=== PATIENT | female | born 1960 | race Caucasian/White ===

== ENCOUNTER → 2016-07-31 | Outpatient (CLI) | payer OTHER ==
[~2016-07-31] MED LIST: ARIP5TAB13 PO; AZIT-21 PO; BACL10TA PO; DIAZ5TAB3 PO; DICL75TA2 PO; HYDR-34 PO; HYDR-3714 PO; HYDR-3816 PO; HYDR-757 PO; LANS30CA PO; LVT.112T PO; LVT.1T PO; METO25TA PO; MTP25TSR PO; PNT40TEC PO; PRAM0.5T4 PO; PRAM0.5T9 PO; RANI150T90 PO; SERT50TA PO; SERT50TA9 PO; TRAM50TA2 PO; [UNRECOGNIZED DRUG - CODE] PO
--- OUTSIDE RECORDS SUMMARY | 2016-07-31 10:00 | XMS REPORT | Continuity of Care Document ---
Author Author [facility] Organization [facility] Address Unknown Phone Unavailable Care Team Providers Care Photographic Equipment Mechanic Name Role Phone Unknown, Unknown PCP Unavailable Source Comments Some departments are not documenting in the electronic medical record. If you do not see the information that you expected, contact Release of Information in the Health Information Management department at [phone] for further assistance in locating additional records.[facility] Active Allergies and Adverse Reactions No Known Allergies Current Medications Prescription Sig. Disp. Refills Start End Date Status Date ARIPiprazole (ABILIFY) 5 Take 5 mg by mouth daily. Active mg tablet DULoxetine DR (CYMBALTA) Take 60 mg by mouth Active 60 mg capsule daily. pregabalin (LYRICA) 50 mg Take 50 mg by mouth three Active capsule times daily. busPIRone (BUSPAR) 5 mg Take 5 mg by mouth three Active tablet times daily. busPIRone (BUSPAR) 10 mg Take 10 mg by mouth three Active tablet times daily. omeprazole DR(+) Take 40 mg by mouth Active (PRILOSEC) 40 mg capsule daily. levothyroxine (SYNTHROID) Take 112 mcg by mouth Active 112 mcg tablet daily. meloxicam(+) (MOBIC) 15 Take 15 mg by mouth Active mg tablet daily. atorvastatin (LIPITOR) 20 Take 20 mg by mouth Active mg tablet daily. docusate (COLACE) 100 mg Take 100 mg by mouth Active capsule twice daily. traMADol (ULTRAM) 50 mg Take 50 mg by mouth every Active tablet 6 hours as needed. buprenorphine (BUTRANS) Apply to top of skin as Active 20 mcg/hour PTWK directed. baclofen (LIORESAL) 10 mg Take 1 Tab by mouth three 90 Tab 5 01/27/20 Active tablet times daily. 13 other medication Take 1 Dose by mouth Active daily. atenex 25 mg 1 tab po qd gabapentin (NEURONTIN) Take 300 mg by mouth Active 300 mg capsule twice daily. hydrOXYzine (ATARAX) 25 Take 25 mg by mouth every Active mg tablet 6 hours as needed. pramipexole (MIRAPEX) Take 0.25 mg by mouth Active 0.25 mg tablet three times daily. predniSONE (DELTASONE) 20 80 mg x 10 days, then 60 60 Tab 0 11/08/19 Active mg tablet mg daily x 3 days, then 14 40 mg daily x 3 days, then 20 mg daily x 3 days, then DC diazepam (VALIUM) 5 mg Take 1 Tab by mouth every 30 Tab 1 11/08/19 Active tablet 6 hours as needed for 14 Anxiety. Active Problems Problem Noted Date Lower extremity weakness 01/26/2013 Overview: Progressive weakness with increased spasticity, and brisk reflexes. Likely multiple sclerosis given hx of vision loss on 2 separate occasions with new weakness, difficulty walking, and upper motor neuron signs on exam. Previous MRI brain non specific, borderline LP findings and slowed responses on VEP MRI of C spine shows no intrinsic cord lesions suggestive of MS. There is some stenosis present at C5,6 due to herniated disc. I think it could be enough to explain her symptoms L ast Assessment & Plan: I remain still a little uncertain about this diagnosis. However, she is having an acute worsening of symptoms- perhaps a relapse. She may benefit from a course of oral prednisone. Prednisone 80 mg x 10 days, then 60 mg daily x 3 days, then 40 mg daily x 3 days, then 20 mg daily x 3 days, then DC I would also like to get a repeat MRI of the brain. She will return to clinic after the MRI and the course of steroids. Social History Tobacco Use Types Packs/Day Years Used Date Current Every Day Smoker Cigarettes 1 Smokeless Tobacco: Never Used Tobacco Cessation: Counseling Given: Yes Comments: Alcohol Use Drinks/Week oz/Week Comments No Last Filed Vital Signs Vital Sign Reading Time Taken Blood Pressure 140/91 11/07/2013 9:57 AM CDT Pulse 83 11/07/2013 9:57 AM CDT Temperature - - Respiratory Rate - - Height 1.575 m (5' 2") 11/07/2013 9:57 AM CDT Weight 97.07 kg (214 lb) 11/07/2013 9:57 AM CDT Body Mass Index 39.13 11/07/2013 9:57 AM CDT Oxygen Saturation - - Plan of Care Health Maintenance Due Date Last Done Comments Physical (Comprehensive) 02/17/1968 Exam Pertussis Vaccine 02/17/1972 Tetanus Vaccine 1978 Cervical Cancer Screening 1982 Breast Cancer Screening 2001 Colorectal Cancer 2011 Screening Influenza Vaccine 02/13/2016 Results from Last 3 Months Not on file
--- NOTE | 2016-07-31 10:49 | Diagnostic Imaging Report ---
PROCEDURE: US Thyroid. TECHNIQUE: Multiple real-time grayscale images were obtained of the thyroid in various projections. INDICATION: Followup thyroid nodule. COMPARISON: 09/15/2010. DISCUSSION: The thyroid gland is normal in size. The right thyroid measures 4.4 x 1.6 x 1.2 cm. Left thyroid measures 4.4 x 1.1 x 1.3 cm. The thyroid gland remains diffusely heterogenous which is a nonspecific finding though can be seen with some forms of thyroiditis. There is no discrete nodule identified on today's exam. The previous nodules are no longer visualized within the left thyroid lobe. Normal color Doppler blood flow. No abnormal adjacent lymph nodes identified. IMPRESSION: 1. Diffusely heterogenous thyroid gland, stable. Previously demonstrated left thyroid nodules are no longer visualized. Dictated by: Dictated on workstation # [id number]
== END ==
LOC: RAD 09:57
PROVIDERS: ATTEND Nurse Practitioner Family
DX: E04.1 Nontoxic single thyroid nodule (principal)
CPT/HCPCS: 76536

== ENCOUNTER 2016-10-12 12:21 | Outpatient (CLI) | payer OTHER ==
[~2016-10-12] VITALS: Ht 157.5 cm; Wt 109.3 kg
[2016-10-12] MEDS ORDERED: TRIAMCINOLONE ACET (KENALOG-40) 40 MG/ML 1 ML VIAL ONE (12:28)
[2016-10-12] MEDS ORDERED: BUPIVACAINE 0.5% 30 ML (SENSORCAINE) VIAL ONE (12:28)
[2016-10-12] MEDS ORDERED: LIDOCAINE 1% INJ 20 ML (XYLOCAINE) VIAL ONE (12:28)
[2016-10-12 12:35] VITALS: BP 130/78
[2016-10-12 13:25] VITALS: BP 130/87
--- NOTE | 2016-10-12 14:30 | Pain Medicine-Procedure ---
Procedure Pre-Op/Post-Op Diagnosis Diagnosis: spondylosis without myelopathy, lumbar Indications for Operation Low back pain Attending Surgeon Pantera Procedure Date of Service: October 12, 2016 Procedure: Fluoroscopic guided right Medial Branch Block of L3 to sacral ala PROCEDURE IN DETAIL: After obtaining informed consent from the patient, the patient's chart was reviewed. The patient was then brought to the procedure room and placed in the prone position. A time out was performed. The back was prepped with antiseptic solution and under fluoroscopic guidance the patient's sacral ala on the right side was identified. 2 mL's of 1% Lidocaine was used to anesthetized the skin over the sacral ala and a 22 gauge 3.5 inch needle was advanced towards the target until bone was contacted. The junction of the superior articular processes and the transverse processes at L3-L5 on the right were then identified and the skin overlying these targets was anesthetized with 1% lidocaine. Next a 22 gauge 3.5 inch needle was inserted through the skin to the level of the lumbar medial branches under radiographic guidance. Next, after negative aspiration, a mixture of 2 mL's Bupivacaine 0.5% and 80 mg Kenalog was injected in 4 equal aliquots. CSF was negative, Paresthesia was negative, Heme was negative. All needles were then flushed with 1% lidocaine and then removed. Complications None TUCKER BARAJAS MD October 12, 2016 2:30 pm
== END 2016-10-12 13:26 | disposition home or self-care (01) ==
LOC: CARD 12:21
PROVIDERS: ATTEND Pain Medicine Pain Medicine
DX: M47.816 Spondylosis without myelopathy or radiculopathy, lumbar region (principal); Z79.899 Other long term (current) drug therapy
CPT/HCPCS: 64493; 64494; 64495

== ENCOUNTER 2016-10-19 11:58 | Outpatient (CLI) | payer OTHER ==
[~2016-10-19] VITALS: Ht 157.5 cm; Wt 84.4 kg
[2016-10-19] MEDS ORDERED: TRIAMCINOLONE ACET (KENALOG-40) 40 MG/ML 1 ML VIAL ONE (12:03)
[2016-10-19] MEDS ORDERED: LIDOCAINE 1% INJ 20 ML (XYLOCAINE) VIAL ONE (12:03)
[2016-10-19] MEDS ORDERED: BUPIVACAINE 0.5% 30 ML (SENSORCAINE) VIAL ONE (12:03)
[2016-10-19 12:16] VITALS: BP 124/67
[2016-10-19 12:57] VITALS: BP 134/73
--- NOTE | 2016-10-19 14:28 | Pain Medicine-Procedure ---
Procedure Pre-Op/Post-Op Diagnosis Diagnosis: spondylosis without myelopathy, lumbar Indications for Operation Low back pain Attending Surgeon Pantera Procedure Date of Service: October 19, 2016 Procedure: Fluoroscopic guided left Medial Branch Block of L3 to sacral ala PROCEDURE IN DETAIL: After obtaining informed consent from the patient, the patient's chart was reviewed. The patient was then brought to the procedure room and placed in the prone position. A time out was performed. The back was prepped with antiseptic solution and under fluoroscopic guidance the patient's sacral ala on the left side was identified. 2 mL's of 1% Lidocaine was used to anesthetized the skin over the sacral ala and a 22 gauge 3.5 inch needle was advanced towards the target until bone was contacted. The junction of the superior articular processes and the transverse processes at L3-L5 on the left were then identified and the skin overlying these targets was anesthetized with 1% lidocaine. Next a 22 gauge 3.5 inch needle was inserted through the skin to the level of the lumbar medial branches under radiographic guidance. Next, after negative aspiration, a mixture of 2 mL's Bupivacaine 0.5% and 80 mg Kenalog was injected in 4 equal aliquots. CSF was negative, Paresthesia was negative, Heme was negative. All needles were then flushed with 1% lidocaine and then removed. Band-Aids were applied to all the sites and the patient tolerated the procedure well and was taken to the recovery area in stable condition. Patient was discharged to home in stable condition with no new neurologic deficits. Complications None TUCKER BARAJAS MD October 19, 2016 2:28 pm
== END 2016-10-19 12:59 ==
LOC: CARD 11:58
PROVIDERS: ATTEND Pain Medicine Pain Medicine
DX: M47.816 Spondylosis without myelopathy or radiculopathy, lumbar region (principal)
CPT/HCPCS: 64493; 64494; 64495

== ENCOUNTER 2016-10-27 06:51 | Day surgery (SDC) | payer OTHER ==
[~2016-10-27] VITALS: Ht 157.5 cm; Wt 82.6 kg
[2016-10-27] VITALS (12 sets, daily range): BP systolic 103–136; BP diastolic 58–107
[2016-10-27] MEDS ORDERED: LIDOCAINE 1% INJ 20 ML (XYLOCAINE) VIAL ONE (06:59)
[2016-10-27] MEDS ORDERED: NS IV 1000 ML 1,000 ML ONE (06:59)
[2016-10-27] MEDS ORDERED: HEParin (CATH LAB) 2,000 ML IV ONE (06:59)
[2016-10-27 07:39] LABS: MEAN PLATELET VOLUME 9.6 FL (7.4-10.4); RED BLOOD COUNT 3.98 10^6/uL (4.35-5.85); RED CELL DISTRIBUTION WIDTH 12.9 % (10.0-14.5); WHITE BLOOD COUNT 9.1 10^3/uL (4.3-11.0)
[2016-10-27] MEDS ORDERED: NS IV 1000 ML 1,000 ML IV SCH ×2 (07:45→10:33)
[2016-10-27 07:49] LABS: INR 0.9 (0.8-1.4); PROTHROMBIN TIME PATIENT 12.3 SEC (12.2-14.7)
[2016-10-27 07:57] LABS: ALANINE AMINOTRANSFERASE 31 U/L (0-55); ALBUMIN 4.4 G/DL (3.2-4.5); ANION GAP 7 MMOL/L (5-14); ASPARTATE AMINO TRANSFERASE 22 U/L (5-34); BILIRUBIN,TOTAL 0.8 MG/DL (0.1-1.0); BLOOD UREA NITROGEN 14 MG/DL (7-18); BUN/CREATININE RATIO 16; CALCIUM 9.7 MG/DL (8.5-10.1); CARBON DIOXIDE 29 MMOL/L (21-32); CHLORIDE 106 MMOL/L (98-107); CHOLESTEROL 243 MG/DL (< 200); CREATININE SERUM 0.87 MG/DL (0.60-1.30); DIRECT LDL 134 MG/DL (1-129); GFR ESTIMATED > 60; GLUCOSE 93 MG/DL (70-105); POTASSIUM 3.7 MMOL/L (3.6-5.0); SODIUM 142 MMOL/L (135-145); TOTAL PROTEIN 7.4 G/DL (6.4-8.2); TRIGLYCERIDES 117 MG/DL (<150); VLDL CHOLESTEROL 23 MG/DL (5-40)
[2016-10-27] MEDS ORDERED: diphenhydrAMINE 50 MG/ML INJ (BENADRYL) ONE (09:50)
[2016-10-27] MEDS ORDERED: MIDAZOLAM 5 MG/5 ML (VERSED) VIAL ONE (09:50)
[2016-10-27] MEDS ORDERED: fentaNYL INJECTION 100 MCG/2 ML AMP ONE (09:50)
--- NOTE | 2016-10-27 10:33 | Cardiac Procedure Note-CS/ASA ---
Pre-Procedure Note Pre-Op Procedure Note H&P Reviewed The H&P was reviewed, patient examined and no changes noted. Date H&P Reviewed: October 27, 2016 Time H&P Reviewed: 10:10 Conscious Sedation Pre-Proced Time Reviewed: 10:10 ASA Class: 3 Airway Mallampati Classification: ([place] appropriate class) I. II. III, IV Lungs Heart ASA score ASA 1: a normal healthy patient ASA 2: a patient with a mild systemic disease (mid diabetes, controlled hypertension, obesity ASA 3: a patient with a severe systemic disease that limits activity (angina , COPD, prior Myocardial infarction) ASA 4: a patient with an incapacitating disease that is a constant threat to life (CHF, renal failure) ASA 5: a moribund patient not expected to survive 24 hrs. (ruptured aneurysm) ASA 6: a declared brain patient whose organs are being harvested. For emergent operations, add the letter E after the classification Grade 2 Sedation Plan: Analgesia, Amnesia, Plan communicated to team members, Discussed options with patient/fam, Discussed risks with patient/fam Note The patient is an appropriate candidate to undergo the planned procedure, sedation, and anesthesia. The patient immediately re-assessed prior to indication. ADDIE CONNOLLY MD FACP FAC CCDS October 27, 2016 10:33
[2016-10-27] MEDS ORDERED: PATIENT MAY USE OWN MEDS, ALL PO SCH (10:45)
[2016-10-27] MEDS ORDERED: FENT1PAT10 TD (10:53)
[2016-10-27] MEDS ORDERED: PRIM50TA PO (10:53)
[2016-10-27] MEDS ORDERED: OXYC-201 PO (10:53)
[2016-10-27] MEDS ORDERED: LEVO50TA6 PO (10:53)
[2016-10-27] MEDS ORDERED: ALPR0.5T7 PO (10:53)
[2016-10-27] MEDS ORDERED: SERT50TA9 PO (10:53)
[2016-10-27] MEDS ORDERED: DOCU100C37 PO ×2 (10:53)
[2016-10-27] MEDS ORDERED: BUPR300T51 PO (10:53)
[2016-10-27] MEDS ORDERED: ASPI-999 PO (11:43)
--- NOTE | 2016-10-27 11:44 | Discharge Inst-Post CATH ---
Discharge Inst-CATH Post Cardiac Cath D/C Inst Follow Up/Plan F/u with Dr Sears in 2 weeks CARDIAC CATH DISCHARGE INSTRUCTIONS *Hold Metformin for 48 hours post heart cath. ACTIVITY * Go Home directly and rest. * Limit activity of the leg (or wrist if it was used) for 7 days including aerobics, swimming, jogging, bicycling, etc. * Restrict stair-climbing for 7 days if possible, if not, climb up with your non -cath leg, then bring together on the same step. * Avoid lifting, pushing, pulling or excessive movement of the affected extremity for 7 days. * Customary sexual activity may be resumed after 2 days-use caution not to use a position that strains or causes pain to the affected extremity. * No driving for 24 hours. * NO SMOKING. * Avoid straining for bowel movements for 7 days. * Gentle walking on level ground is allowed. * Returning to work will depend on the type of procedure and the results. Your doctor will discuss this with you. CALL YOUR DOCTOR FOR ANY OF THE FOLLOWING: *If bleeding from the puncture site occurs- Apply gentle pressure to site with clean cloth and call your doctor or EMS. * If a knot or lump forms under the skin, increases in size, or causes pain. * If bruising appears to be worsening or moving further down your leg instead of disappearing. * Temperature above 101 F. CARE OF YOUR GROIN INCISION; * Bruising or purple discoloration of the skin near the puncture site is common. * You may shower only, no bathtub bathing for 5 days. Be careful to avoid slipping as your leg may feel stiff. * If a closure device was used on your femoral artery, please see the attached guide regarding care of the device and your leg. * REMOVE the dressing from your groin the next day after your procedure in the shower. CARE OF YOUR WRIST INCISION; * Bruising or purple discoloration of the skin near the puncture site is common. * You may shower. * DO NOT submerge wrist. * Remove dressing in 24 hours. ADDIE SEARS MD [facility] CCDS October 27, 2016 11:44
--- NOTE | 2016-10-27 11:45 | Discharge Inst-Cardiology ---
Discharge Inst-Cardiac Discharge Medications New Medications: Aspirin (Aspirin) 81 Mg Tab.chew 81 MG PO DAILY, #90 TAB 3 Refills Continued Medications: Alprazolam (Alprazolam) 0.5 Mg Tablet 0.5 MG PO TID PRN for ANXIETY, TAB Baclofen (Baclofen) 10 Mg Tablet 20 MG PO TID TAKES 2 (10 MG) TABLETS Bupropion HCl (Bupropion Xl) 300 Mg Tab.er.24h 300 MG PO DAILY, TAB Diazepam (Diazepam) 5 Mg Tablet 5 MG PO QID PRN for MUSCLE SPASMS DOES NOT TAKE WITH ALPRAZOLAM Docusate Sodium (Docusate Sodium) 100 Mg Capsule 100 MG PO DAILY, CAP Docusate Sodium (Docusate Sodium) 100 Mg Capsule 200 MG PO HS, CAP Fentanyl (Fentanyl Patch 75MCG) 1 Each Patch.td72 75 MCG TD Q72H, PATCH Levothyroxine Sodium (Levothyroxine Sodium) 50 Mcg Tablet 100 MCG PO DAILY, TAB TAKES 2 (50 MCG) TABLETS Oxycodone HCl/Acetaminophen (Percocet 7.5-325 mg Tablet) 1 Each Tablet 1 TAB PO QID, TAB Pantoprazole Sod (Protonix Tab) 40 Mg Tab 40 MG PO DAILY Pramipexole Di-Hcl (Pramipexole Dihydrochloride) 0.5 Mg Tablet 0.5 MG PO BID Primidone (Primidone) 50 Mg Tablet 50 MG PO HS, TAB Sertraline HCl (Sertraline HCl) 50 Mg Tablet 150 MG PO DAILY, TAB TAKES 3 (50 MG) TABLETS Orders-Post D/C & Referrals Pneu Vac Indicated: Yes ADDIE CONNOLLY MD FACP FAC CCDS October 27, 2016 11:45
[2016-10-27] MEDS ORDERED: LEVO150T6 PO (12:51)
--- NOTE | 2016-10-27 13:06 | CARDIAC CATHETERIZATION ---
DATE OF SERVICE: 10/27/2016 The patient is a 56-year-old lady who had exertional shortness of breath and near-syncope and a history of palpitations and premature ventricular contractions. Cardiac catheterization was carried out today after having obtained an informed consent. PROCEDURE: She was brought to the cardiac catheterization laboratory in a fasting state. The right groin was prepared and draped in the usual sterile fashion. Lidocaine 1% with local anesthesia; modified Seldinger technique was used to advance a 5-[place] sheath in the right femoral artery. Angiography of the right femoral artery was carried out through the sheath. A 5-[place] JL4 catheter for left coronary angiography, 5[place] JR4 catheter for left coronary angiography, 5[place] pigtail was used for left heart catheterization, left ventricular angiography. Pigtail catheter was pulled back to the aortic arch and aortic arch angiography was performed. She tolerated the procedure well. Diagnostic catheters were removed. Mynx was used to achieve hemostasis following sheath removal. HEMODYNAMICS: Left ventricular end-diastolic pressure following coronary angiography was 10 mmHg. There was no significant pressure gradient on pullback across the aortic valve. The ascending aortic pressure was 138/65 with a mean of 84 mmHg. LEFT VENTRICULAR ANGIOGRAPHY: Left ventricular angiography was carried out in the right anterior oblique projection. Global left ventricular systolic function is normal. Left ventricular ejection fraction is 65%. No significant mitral regurgitation is seen. CORONARY ANGIOGRAPHY: Right coronary calcification is seen. Left main coronary artery, left anterior descending artery, left circumflex artery, right coronary artery do not exhibit any significant obstructive disease. Right coronary artery is dominant. CONCLUSIONS: 1. Angiographically mild coronary artery disease. 2. Normal global left ventricular systolic function with an ejection fraction of 65%. 3. No regional wall motion abnormalities seen. 4. Normal left ventricular end-diastolic pressure. 5. No significant mitral regurgitation. DISCUSSION AND RECOMMENDATIONS: Based on results of this study, symptoms do not appear to be of cardiac origin. Continuing risk factor modification and outpatient followup is advised. Job ID: [id number] DocumentID: [id number] Dictated Date: 10/27/2016 10:42:05 Form Tamper Date: 10/27/2016 13:05:32 Dictated By: ADDIE CONNOLLY MD, MA, FACP, FACC,
== END 2016-10-27 13:50 | disposition home or self-care (01) ==
LOC: CATH 06:51 → SURG 11:00 → ENPENDDIS 13:40 → CATH 13:50
PROVIDERS: ATTEND Internal Medicine Cardiovascular Disease
DX: R06.02 Shortness of breath (principal); R55 Syncope and collapse; I49.3 Ventricular premature depolarization; I25.10 Atherosclerotic heart disease of native coronary artery without angina pectoris; I25.84 Coronary atherosclerosis due to calcified coronary lesion; G35 Multiple sclerosis; E66.9 Obesity, unspecified; Z68.33 Body mass index [BMI] 33.0-33.9, adult; Z87.891 Personal history of nicotine dependence; Z79.899 Other long term (current) drug therapy; Z98.84 Bariatric surgery status
CPT/HCPCS: 36415; 80053; 80061; 85027; 85610; 85730; 87081; 93458

== ENCOUNTER → 2016-11-05 | Outpatient (CLI) | payer OTHER ==
[~2016-11-05] MED LIST changes: +ALPR0.5T7 PO; +ASPI-999 PO; +BUPR300T51 PO; +DOCU100C37 PO; +FENT1PAT10 TD; +LEVO150T6 PO; +LEVO50TA6 PO; +OXYC-201 PO; +PRIM50TA PO
[2016-11-05 12:38] LABS: BASOPHILS % (AUTO) 0 % (0-10); EOSINOPHILS # (AUTO) 0.1 10^3/uL (0.0-0.3); EOSINOPHILS % (AUTO) 1 % (0-10); LYMPHOCYTES % (AUTO) 38 % (12-44); MEAN CORPUSCULAR HEMOGLOBIN 34 PG (25-34); MEAN CORPUSCULAR HGB CONC 34 G/DL (32-36); MEAN CORPUSCULAR VOLUME 101 FL (80-99); MEAN PLATELET VOLUME 9.5 FL (7.4-10.4); MONOCYTES # (AUTO) 0.4 X 10^3 (0.0-1.0); MONOCYTES % (AUTO) 6 % (0-12); NEUTROPHILS # (AUTO) 4.2 X 10^3 (1.8-7.8); NEUTROPHILS % (AUTO) 54 % (42-75); PLATELET COUNT 260 10^3/uL (130-400); WHITE BLOOD COUNT 7.8 10^3/uL (4.3-11.0)
[2016-11-05 12:55] LABS: ALBUMIN 4.5 G/DL (3.2-4.5); BILIRUBIN,TOTAL 0.7 MG/DL (0.1-1.0); CALCIUM 9.6 MG/DL (8.5-10.1); CREATININE SERUM 1.02 MG/DL (0.60-1.30); POTASSIUM 3.4 MMOL/L (3.6-5.0); TOTAL PROTEIN 7.5 G/DL (6.4-8.2)
[2016-11-05 13:16] LABS: THYROID STIMULATING HORMONE 6.4 UIU/ML (0.35-4.94)
[2016-11-06 07:41] LABS: VITAMIN D 25-HYDROXY (TOTAL) 18 ng/mL (30-100)
[2016-11-06 16:13] LABS: ENA SCREEN Negative (Negative)
== END ==
LOC: LAB 11:42
PROVIDERS: ATTEND Psychiatry & Neurology Neurology
DX: G35 Multiple sclerosis (principal)
CPT/HCPCS: 36415; 80053; 82306; 82607; 84439; 84443; 85025; 86038; 86160; 86225; 86235

== ENCOUNTER → 2016-11-13 | Outpatient (CLI) | payer OTHER ==
[~2016-11-13] MED LIST changes: +GADOBUTROL 10 MMOL/10 ML (GADAVIST) VIAL IV ONE
--- NOTE | 2016-11-13 11:10 | Diagnostic Imaging Report ---
PROCEDURE: MR imaging of the brain with and without contrast. TECHNIQUE: Multiplanar, multisequence MR imaging of the brain was performed with and without contrast. INDICATION: Multiple sclerosis. Right-sided weakness. 8 mL of Gadavist is administered intravenously. COMPARISON: MRI of 03/31/2013 is reviewed. FINDINGS: There is periventricular and deep white matter with a few juxtacortical T2 hyperintense lesions seen compatible with the provided history of multiple sclerosis. The lesions appear slightly increased compared to 2013 exam with more prominent T2 hyperintensity and increase in size particularly around the atria of the lateral ventricles posteriorly. There is no infratentorial lesion identified. No enhancing lesion is seen. No diffusion restriction to suggest an acute infarct or other diffusion abnormality. Central vascular flow-voids appear normal. The pituitary gland is normal in size. The internal auditory canals and inner ear structures appear symmetric. There is no enhancing brain mass or mass in the extra-axial space. The orbits, and the paranasal sinuses appear grossly unremarkable. IMPRESSION: When compared to 2013 exam, some of the white matter lesions demonstrate increased intensity and are slightly larger particularly around the posterior aspect of the ventricles. No enhancing lesion. No definite new lesion. Dictated by: Dictated on workstation # [id number]
--- NOTE | 2016-11-13 13:57 | Diagnostic Imaging Report ---
PROCEDURE: MR imaging cervical spine with and without contrast. TECHNIQUE: Multiplanar and multisequence MRI of the cervical spine was performed with and without contrast. INDICATION: Multiple sclerosis. 8 mL of Gadovist is administered intravenously. COMPARISON: 03/31/2013. FINDINGS: The alignment of the cervical spine at the posterior spinal line is satisfactory. There is straightening of the lordotic curvature however. The vertebral body heights are preserved. There is disc desiccation at all levels moderate disc height loss at C5-C6. The foramen magnum and upper cervical canal are widely patent. C2-C3: No disc herniation, no spinal canal or foraminal stenosis. C3-C4: No disc herniation, no spinal canal or foraminal stenosis. C4-C5: There is a mild disc spur complex with no significant spinal canal stenosis. No foraminal stenosis of significance. C5-C6: There is a spur disc complex associated with [id number] central canal stenosis reducing the AP dimension of the canal to 8.4 mm. There is no cord compression. There is uncovertebral and facet joint hypertrophy more prominent on the left side associated with moderate left foraminal stenosis. Mild foraminal stenosis on the right side is seen. C6-C7: There is a mild spur disc complex with no central canal stenosis. No foraminal narrowing of significance. C7-T1 is unremarkable. The spinal cord is normal in caliber. There is no syrinx. There are mild T2 hyperintense signal abnormalities seen along the [id number] spinal cord. These are very subtle findings on T2-weighted images and are better appreciated on axial MERGE sequence. There are lesions questioned in the spinal cord previously also seen in 2013 exam, the most prominent at C2 level on sagittal reconstructions extending approximately 8 mm craniocaudally within the dorsal column. Based on level to level comparison on the axials, there is perhaps slight increase in the size of these lesions. The visualized portion of the upper aspect of the thoracic cord appears normal. There is no definitive enhancement when the axial and sagittal post contrast images are correlated. Slight hyperintensities on the sagittal post contrast images not reproduced on the axials are perhaps artifactual. IMPRESSION: Suggestion of multiple subtle demyelinating plaques in white matter tracts along the upper and mid segments of the cervical spinal cord appear slightly more prominent compared to 2013 exam. No definite enhancing lesion. Dictated by: Dictated on workstation # [id number]
--- NOTE | 2016-11-13 15:51 | Anesthesia-Procedure Note ---
Procedure Start/Stop Time Date of Procedure: Nov 13, 2016 Start Time: 12:20 Referring Physician: Dr. Calvo Preprocedural Diagnosis: MS Brief History Pt sent here for Lumbar Puncture. MRI Brain today showed no contraindication for LP. Plt count WNL. +/- LP discussed with pt, ?'s answered and consent signed. Left lateral decub pos'n. Sterile P/D with ChloraPrep. 2 mL 1% lidocaine for local at L3-4 level. 22 G Pencan needle used, + clear CSF after needle redirect times 2. Opening pressure of 19 cm CSF noted. 2-3 mL CSF times 4 vials sent to lab per Dr. Calvo's orders. Sterile bandage applied. Pt tolerated procedure well. Discussed symptoms of PDPH with pt and encouraged fluids caffeine if she notes these symptoms. She understood and agreed. Will be available if needed. Stop Time: 12:40 Postprocedural Diagnosis: DEJAN THOMPSON DO Nov 13, 2016 15:51
== END ==
LOC: RAD 09:08
PROVIDERS: ATTEND Psychiatry & Neurology Neurology
DX: G35 Multiple sclerosis (principal)
CPT/HCPCS: 70553; 72156

== ENCOUNTER → 2016-12-18 | Outpatient (CLI) | payer OTHER ==
[~2016-12-18] MED LIST changes: -GADOBUTROL 10 MMOL/10 ML (GADAVIST) VIAL IV ONE
--- NOTE | 2016-12-21 19:00 | Diagnostic Imaging Report ---
Bilateral screening mammogram. The current study was also evaluated with a Computer Aided Detection (CAD) system. INDICATION: Screening. No current complaints stated on the questionnaire. COMPARISON: 12/13/12 FINDINGS: The breasts are composed of scattered fibroglandular densities. There are occasional benign-appearing calcifications. Allowing for technique and positional differences, no suspicious change is seen. IMPRESSION: No significant change. ACR BI-RADS Category 2: Benign findings. Result letter will be mailed to the patient. Note: At least 10% of breast cancer is not imaged by mammography. Dictated by: Dictated on workstation # [id number]
== END ==
LOC: RAD 13:10
PROVIDERS: ATTEND Nurse Practitioner Family
DX: Z12.31 Encounter for screening mammogram for malignant neoplasm of breast (principal)
CPT/HCPCS: 77067

== ENCOUNTER 2017-01-02 15:19 | Emergency (ER) | payer OTHER ==
[~2017-01-02] VITALS: Ht 157.5 cm; Wt 81.6 kg
[2017-01-02 17:07] LABS: BASOPHILS % (AUTO) 0 % (0-10); EOSINOPHILS # (AUTO) 0.1 10^3/uL (0.0-0.3); EOSINOPHILS % (AUTO) 2 % (0-10); LYMPHOCYTES # (AUTO) 2.9 X 10^3 (1.0-4.0); LYMPHOCYTES % (AUTO) 38 % (12-44); MEAN CORPUSCULAR HEMOGLOBIN 35 PG (25-34); MEAN CORPUSCULAR HGB CONC 35 G/DL (32-36); MEAN CORPUSCULAR VOLUME 103 FL (80-99); MEAN PLATELET VOLUME 10.4 FL (7.4-10.4); MONOCYTES # (AUTO) 0.5 X 10^3 (0.0-1.0); MONOCYTES % (AUTO) 7 % (0-12); NEUTROPHILS % (AUTO) 53 % (42-75); PLATELET COUNT 237 10^3/uL (130-400); RED BLOOD COUNT 3.47 10^6/uL (4.35-5.85); RED CELL DISTRIBUTION WIDTH 12.4 % (10.0-14.5); WHITE BLOOD COUNT 7.6 10^3/uL (4.3-11.0)
--- NOTE | 2017-01-02 17:11 | ED General ---
General Chief Complaint: Dizziness/Syncope Stated Complaint: FATIGUE/DIFF WALKING/[facility] Nursing Triage Note: pt reports she has ms and that today it has started to flair up. pt reports she sees a neurologist at the [facility] in [facility] and he has requested she come to the hospital for treatment. 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 She states that she has had MS for about 8 years. She had a long period of quiessence and then had an episode about 1 month ago. She then had resolution but another episode today. She states that she has noted difficulties in her vision. This has caused her to question the wisdom of driving. She is concerned that recent stress in her life may be contributing to these symptoms. She reports that she has new TWIN grandchildren and her son just got . Today she also complains of heaviness in her legs which is caused her difficulty in walking. She feels slow mentally as well. Timing/Duration: 4-6 Hours Severity: Moderate Allergies and Home Medications Allergies Coded Allergies: gabapentin (Verified Allergy, Unknown, 10/27/16) nitrofurantoin (Verified Allergy, Unknown, 01/02/17) Home Medications Alprazolam 0.5 Mg Tablet, 0.5 MG PO TID PRN for ANXIETY, (Reported) Aspirin 81 Mg Tab.chew, 81 MG PO DAILY, #90 Ref 3 Prescribed by: ADDIE CONNOLLY on 10/27/16 1143 Baclofen 10 Mg Tablet, 20 MG PO TID, (Reported) TAKES 2 (10 MG) TABLETS Bupropion HCl 300 Mg Tab.er.24h, 300 MG PO DAILY, (Reported) Diazepam 5 Mg Tablet, 5 MG PO QID PRN for MUSCLE SPASMS, (Reported) DOES NOT TAKE WITH ALPRAZOLAM Docusate Sodium 100 Mg Capsule, 100 MG PO DAILY, (Reported) Docusate Sodium 100 Mg Capsule, 200 MG PO HS, (Reported) Fentanyl 1 Each Patch.td72, 75 MCG TD Q72H, (Reported) Levothyroxine Sodium 150 Mcg Tablet, 150 MCG PO DAILY, (Reported) Oxycodone HCl/Acetaminophen 1 Each Tablet, 1 TAB PO QID, (Reported) Pantoprazole Sod 40 Mg Tab, 40 MG PO DAILY, (Reported) Pramipexole Di-Hcl 0.5 Mg Tablet, 0.5 MG PO BID, (Reported) Primidone 50 Mg Tablet, 50 MG PO HS, (Reported) Sertraline HCl 50 Mg Tablet, 150 MG PO DAILY, (Reported) TAKES 3 (50 MG) TABLETS Constitutional: see HPI EENTM: blurred vision, see HPI Respiratory: no symptoms reported Cardiovascular: no symptoms reported Gastrointestinal: no symptoms reported Genitourinary: no symptoms reported Musculoskeletal: muscle weakness Skin: no symptoms reported Psychiatric/Neurological: Anxiety, Weakness Hematologic/Lymphatic: No Symptoms Reported Immunological/Allergic: no symptoms reported Past Wspnzjn-Yasjuu-Bdqvqc Hx Patient Social History Alcohol Use: Denies Use Recreational Drug Use: No Smoking Status: Former Smoker Type Used: Cigarettes Former Smoker/When Quit: Mar 22, 2013 Recent Foreign Travel: No Contact w/Someone Who Travel: No Recent Infectious Disease Expo: No Recent Hopitalizations: No Immunizations Up To Date Tetanus Booster (TDap): More than 5yrs PED Vaccines UTD: Yes Seasonal Allergies Seasonal Allergies: No Surgeries HX Surgeries: Yes (RIGHT CARPAL TUNNEL) Surgeries: Hysterectomy Respiratory Hx Respiratory Disorders: No Cardiovascular Hx Cardiac Disorders: Yes (PVC'S) Cardiac Disorders: Hypertension Neurological Hx Neurological Disorders: Yes Neurological Disorders: Headaches /Migraines, Multiple Sclerosis Reproductive System Hx Reproductive Disorders: No Sexually Transmitted Disease: No HIV/AIDS: No Genitourinary Hx Genitourinary Disorders: No Gastrointestinal Hx Gastrointestinal Disorders: Yes Gastrointestinal Disorders: Gastroesophageal Reflux, Ulcer Musculoskeletal Hx Musculoskeletal Disorders: Yes (BONE SPUR NECK) Musculoskeletal Disorders: Degenerate Disk Disease, Chronic Back Pain Endocrine Hx Endocrine Disorders: Yes (PATIENT STATES HYPOGLYCEMIC) Endocrine Disorders: Hypothyroidsim HEENT HX ENT Disorders: Yes (OPTICAL NEPHRITIS RIGHT EYE) Loss of Vision: Right Hearing Impairment: Denies Cancer Hx Cancer: No Psychosocial Hx Psychiatric Problems: Yes (PANIC ATTACKS) Behavioral Health Disorders: Anxiety, Depression Integumentary HX Skin/Integumentary Disorder: No Blood Transfusions Hx Blood Disorders: No Adverse Reaction to a Blood Tr: No Family Medical History Family Medial History: Alzheimer's disease 19 FATHER Cardiovascular disease 19 FATHER Dementia G8 SISTER Diabetes mellitus 19 FATHER 19 MOTHER G8 SISTER Glaucoma 19 MOTHER Hypertension 19 MOTHER Physical Exam Vital Signs Vital Sign - Last 12Hours 01/02/17 15:56 Temp 97.9 Pulse 87 Resp 18 B/P (MAP) 125/78 Pulse Ox 98 O2 Delivery Room Air Capillary Refill : Less Than 3 Seconds General Appearance: Mild Distress Eyes: Bilateral Eye Normal Inspection, Bilateral Eye PERRL HEENT: Normal ENT Inspection Neck: Normal Inspection Respiratory: Chest Non Tender, Lungs Clear, Normal Breath Sounds, No Accessory Muscle Use, No Respiratory Distress Cardiovascular: Regular Rate, Rhythm, No Edema, No Gallop, No JVD, No Murmur, Normal Peripheral Pulses Gastrointestinal: Normal Bowel Sounds, No Organomegaly, No Pulsatile Mass, Non Tender, Soft Back: Normal Inspection Extremity: Normal Capillary Refill, Normal Inspection, Non Tender, No Calf Tenderness, No Pedal Edema Neurologic/Psychiatric: Alert, Oriented x3, Normal 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 The patient was able to elevate the right heel from the bed on straight leg lift at about 6 inches. The left at18 inches. Progress/Results/Core Measures Results/Orders Lab Results Laboratory Tests Test 01/02/17 17:00 Range/Units White Blood Count 7.6 4.3-11.0 10^3/uL Red Blood Count 3.47 L 4.35-5.85 10^6/uL Hemoglobin 12.3 11.5-16.0 G/DL Hematocrit 36 35-52 % Mean Corpuscular Volume 103 H 80-99 FL Mean Corpuscular Hemoglobin 35 H 25-34 PG Mean Corpuscular Hemoglobin Concent 35 32-36 G/DL Red Cell Distribution Width 12.4 10.0-14.5 % Platelet Count 237 130-400 10^3/uL Mean Platelet Volume 10.4 7.4-10.4 FL Neutrophils (%) (Auto) 53 42-75 % Lymphocytes (%) (Auto) 38 12-44 % Monocytes (%) (Auto) 7 0-12 % Eosinophils (%) (Auto) 2 0-10 % Basophils (%) (Auto) 0 0-10 % Neutrophils # (Auto) 4.0 1.8-7.8 X 10^3 Lymphocytes # (Auto) 2.9 1.0-4.0 X 10^3 Monocytes # (Auto) 0.5 0.0-1.0 X 10^3 Eosinophils # (Auto) 0.1 0.0-0.3 10^3/uL Basophils # (Auto) 0.0 0.0-0.1 10^3/uL Sodium Level 143 135-145 MMOL/L Potassium Level 3.6 3.6-5.0 MMOL/L Chloride Level 109 H 98-107 MMOL/L Carbon Dioxide Level 24 21-32 MMOL/L Anion Gap 10 5-14 MMOL/L Blood Urea Nitrogen 11 7-18 MG/DL Creatinine 0.82 0.60-1.30 MG/DL Estimat Glomerular Filtration Rate > 60 BUN/Creatinine Ratio 13 Glucose Level 92 70-105 MG/DL Calcium Level 9.2 8.5-10.1 MG/DL Total Bilirubin 0.5 0.1-1.0 MG/DL Aspartate Amino Transf (AST/SGOT) 30 5-34 U/L Alanine Aminotransferase (ALT/SGPT) 27 0-55 U/L Alkaline Phosphatase 62 40-136 U/L Total Protein 6.8 6.4-8.2 GM/DL Albumin 3.9 3.2-4.5 GM/DL Vital Signs/I&O Vital Sign - Last 12Hours 01/02/17 15:56 Temp 97.9 Pulse 87 Resp 18 B/P (MAP) 125/78 Pulse Ox 98 O2 Delivery Room Air Blood Pressure Mean: 94 Departure Communication Progress Notes Discussed with , neurologist with the [facility]. He was familiar with the patient. He recommended 1 g of methylprednisolone IV daily for 3 days. He a from that this can be done as an outpatient. 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 Impression Impression: Primary Impression: multiple sclerosis flareup Disposition: HOME, SELF-CARE Condition: Stable/Unchanged Departure-Patient Inst. Referrals: ELVIA BECKER MD (PCP/Family) Primary Care Physician VIOLA PAK MD Jan 02, 2017 17:11
[2017-01-02 17:24] LABS: ALANINE AMINOTRANSFERASE 27 U/L (0-55); ALBUMIN 3.9 GM/DL (3.2-4.5); ANION GAP 10 MMOL/L (5-14); ASPARTATE AMINO TRANSFERASE 30 U/L (5-34); BILIRUBIN,TOTAL 0.5 MG/DL (0.1-1.0); BLOOD UREA NITROGEN 11 MG/DL (7-18); BUN/CREATININE RATIO 13; CALCIUM 9.2 MG/DL (8.5-10.1); CARBON DIOXIDE 24 MMOL/L (21-32); CHLORIDE 109 MMOL/L (98-107); CREATININE SERUM 0.82 MG/DL (0.60-1.30); GFR ESTIMATED > 60; GLUCOSE 92 MG/DL (70-105); POTASSIUM 3.6 MMOL/L (3.6-5.0); SODIUM 143 MMOL/L (135-145); TOTAL PROTEIN 6.8 GM/DL (6.4-8.2)
[2017-01-02] MEDS ORDERED: METH1000 IV (17:49)
[2017-01-02 20:11] VITALS: BP 125/78
[2017-01-03] MEDS ORDERED: methylPREDNISolone SOD SUCC 1,000 MG in NS (IVPB) 100 ML IV ONE (09:00)
== END 2017-01-02 20:11 | disposition home or self-care (01) ==
LOC: EDUNIT# 15:19 → ER 15:21
DX: G35 Multiple sclerosis (principal); F41.0 Panic disorder [episodic paroxysmal anxiety]; F32.9 Major depressive disorder, single episode, unspecified; M47.9 Spondylosis, unspecified; G43.909 Migraine, unspecified, not intractable, without status migrainosus; I10 Essential (primary) hypertension; Z90.710 Acquired absence of both cervix and uterus; Z79.82 Long term (current) use of aspirin; Z87.891 Personal history of nicotine dependence
CPT/HCPCS: 36415; 80053; 85025; 93005; 96365

== ENCOUNTER 2017-01-04 16:05 | Outpatient (RCR) | payer OTHER ==
[2017-01-03 17:49] VITALS: BP 111/71
[2017-01-03] MEDS: Solu-MEDROL 1000 MG/NS 100 ML (DAILY) IV SCH ×2 (18:20)
[~2017-01-04] VITALS: Ht 157.5 cm; Wt 80.9 kg
[2017-01-04] MEDS: Solu-MEDROL 1000 MG/NS 100 ML (DAILY) IV SCH ×2 (16:01)
[~2017-01-04 16:05] MED LIST changes: +METH1000 IV; +methylPREDNISolone 125 MG (Solu-MEDROL) VIAL ONE
[2017-01-04 16:08] VITALS: BP 126/63
== END 2017-03-13 | disposition home or self-care (01) ==
LOC: 4TH RCR 16:05
PROVIDERS: ATTEND Internal Medicine
DX: G35 Multiple sclerosis (principal)
CPT/HCPCS: 96365

== ENCOUNTER → 2017-01-20 | Outpatient (CLI) | payer OTHER ==
[~2017-01-20] MED LIST changes: -methylPREDNISolone 125 MG (Solu-MEDROL) VIAL ONE
[2017-01-20 07:01] LABS: MEAN PLATELET VOLUME 9.6 FL (7.4-10.4); RED BLOOD COUNT 3.35 10^6/uL (4.35-5.85); RED CELL DISTRIBUTION WIDTH 12.5 % (10.0-14.5); WHITE BLOOD COUNT 6.8 10^3/uL (4.3-11.0)
[2017-01-20 07:20] LABS: ALANINE AMINOTRANSFERASE 18 U/L (0-55); ALBUMIN 3.8 GM/DL (3.2-4.5); ANION GAP 9 MMOL/L (5-14); ASPARTATE AMINO TRANSFERASE 18 U/L (5-34); BILIRUBIN,TOTAL 0.6 MG/DL (0.1-1.0); BLOOD UREA NITROGEN 16 MG/DL (7-18); BUN/CREATININE RATIO 18; CALCIUM 9.2 MG/DL (8.5-10.1); CARBON DIOXIDE 29 MMOL/L (21-32); CHLORIDE 104 MMOL/L (98-107); CREATININE SERUM 0.88 MG/DL (0.60-1.30); GFR ESTIMATED > 60; GLUCOSE 81 MG/DL (70-105); POTASSIUM 3.8 MMOL/L (3.6-5.0); SODIUM 142 MMOL/L (135-145); TOTAL PROTEIN 6.5 GM/DL (6.4-8.2)
[2017-01-20 07:39] LABS: THYROID STIMULATING HORMONE 0.15 UIU/ML (0.35-4.94)
== END ==
LOC: LAB 06:44
DX: R53.83 Other fatigue (principal); E04.1 Nontoxic single thyroid nodule
CPT/HCPCS: 36415; 80053; 84436; 84443; 85027

== ENCOUNTER → 2017-08-02 | Outpatient (CLI) | payer OTHER ==
[2017-08-02 08:47] LABS: HEMOGLOBIN 11.8 G/DL (11.5-16.0); MEAN PLATELET VOLUME 9.3 FL (7.4-10.4); RED BLOOD COUNT 3.42 10^6/uL (4.35-5.85)
[2017-08-02 09:13] LABS: ALANINE AMINOTRANSFERASE 22 U/L (0-55); ALBUMIN 4.1 GM/DL (3.2-4.5); ALKALINE PHOSPHATASE 65 U/L (40-136); BILIRUBIN,TOTAL 0.6 MG/DL (0.1-1.0); BUN/CREATININE RATIO 14; CALCIUM 9.2 MG/DL (8.5-10.1); CARBON DIOXIDE 27 MMOL/L (21-32); CHLORIDE 104 MMOL/L (98-107); CHOLESTEROL 222 MG/DL (< 200); CREATININE SERUM 0.92 MG/DL (0.60-1.30); GFR ESTIMATED > 60; GLUCOSE 85 MG/DL (70-105); HDL CHOLESTEROL 60 MG/DL (40-60); SODIUM 140 MMOL/L (135-145); TOTAL PROTEIN 6.9 GM/DL (6.4-8.2); TRIGLYCERIDES 220 MG/DL (<150); VLDL CHOLESTEROL 44 MG/DL (5-40)
[2017-08-02 09:34] LABS: FREE T4 (FREE THYROXINE) 1.13 NG/DL (0.70-1.48)
== END ==
LOC: LAB 08:26
PROVIDERS: ATTEND Psychiatry & Neurology Neurology
DX: G35 Multiple sclerosis (principal)
CPT/HCPCS: 36415; 80053; 80061; 82306; 84439; 84443; 85027

== ENCOUNTER → 2017-08-16 | Outpatient (CLI) | payer OTHER ==
--- NOTE | 2017-08-16 09:10 | Diagnostic Imaging Report ---
PROCEDURE: MRI lumbar spine. TECHNIQUE: Multiplanar, multisequence MRI of the lumbar spine was performed without contrast. INDICATION: Low back pain. COMPARISON: Comparison is made with prior MRI of the lumbar spine from 01/25/2015. FINDINGS: Curvature and alignment of the lumbar spine is normal with the exception of minimal retrolisthesis of L5 on S1, similar to prior exam. The vertebral body heights are well-maintained. No acute compression fracture deformity is identified. No geographic marrow lesion is detected. There continues to be fairly significant degenerative disc disease at the L5-S1 level, with disc space narrowing and desiccation. Mild desiccation at L3-L4 and L4-L5 level is unchanged. The conus is unremarkable at the T12-L1 level. T12-L1: No central canal or neuroforaminal stenosis is identified. L1-L2: Unremarkable. L2-L3: Unremarkable. L3-L4: Minimal annular bulge is seen but no central canal or neuroforaminal stenosis is seen. L4-L5: No significant central canal or neuroforaminal stenosis is identified. L5-S1: There is broad-based disc/osteophyte complex, similar to prior study. This does narrow the lateral recesses bilaterally. There is also fairly significant bilateral neuroforaminal stenosis. This appears similar to the prior examination from January 2015. No focal disc protrusion is seen. Central canal remains patent. The paraspinous tissues are unremarkable. IMPRESSION: Stable MRI of the lumbar spine when compared with exam from 01/25/2015. L5-S1 minimal retrolisthesis, degenerative disc disease and bilateral neuroforaminal stenosis is similar to prior. No acute compression fracture is detected. No central canal stenosis is identified. Dictated by: Dictated on workstation # [id number]
== END ==
LOC: RAD 07:45
PROVIDERS: ATTEND Nurse Practitioner Family
DX: M48.07 Spinal stenosis, lumbosacral region (principal); M51.27 Other intervertebral disc displacement, lumbosacral region
CPT/HCPCS: 72148

== ENCOUNTER 2017-10-08 12:04 | Emergency (ER) | payer OTHER ==
[~2017-10-08] VITALS: Ht 157.5 cm; Wt 89.8 kg
--- OUTSIDE RECORDS SUMMARY | 2017-10-08 12:13 | XMS REPORT | Clinical Summary ---
Author Author [facility] Organization [facility] Address Unknown Phone Unavailable Care Team Providers Care Finishing Range Operator Name Role Phone Isabel Farmer MD Unavailable Unknown, Unknown Md PCP Unavailable Source Comments Some departments are not documenting in the electronic medical record. If you do not see the information that you expected, contact Release of Information in the Health Information Management department at [phone] for further assistance in locating additional records.[facility] Allergies No Known Allergies Current Medications Prescription Sig. [...] the MRI and the course of steroids. Family History Medical History Relation Name Comments Dementia Father Hypertension Father Neuropathy Father Cancer Maternal Grandfather Cancer Mother Hypertension Mother Relation Name Status Comments Father Maternal Grandfather Mother Social History Tobacco Use Types Packs/Day Years Used Date Current Every Day Smoker Cigarettes 1 Smokeless Tobacco: Never Used Tobacco Cessation: Counseling Given: Yes Alcohol Use Drinks/Week oz/Week Comments No Sex Assigned at Date Recorded Not on file Last Filed Vital Signs Vital Sign Reading Time Taken Blood Pressure 140/91 11/07/2013 9:57 AM CDT Pulse 83 11/07/2013 9:57 AM CDT Temperature - - Respiratory Rate - - Oxygen Saturation - - Inhaled Oxygen - - Concentration Weight 97.1 kg (214 lb) 11/07/2013 9:57 AM CDT Height 157.5 cm (5' 2") 11/07/2013 9:57 AM CDT Body Mass Index 39.14 11/07/2013 9:57 AM CDT Plan of Treatment Health Maintenance Due Date Last Done Comments HEPATITIS C SCREENING 1961 PHYSICAL (COMPREHENSIVE) 02/17/1968 EXAM PERTUSSIS VACCINE 02/17/1972 HIV SCREENING 02/17/1976 TETANUS VACCINE 1978 CERVICAL CANCER SCREENING 1991 BREAST CANCER SCREENING 2001 COLORECTAL CANCER 2011 SCREENING INFLUENZA VACCINE 03/14/2018 Results Not on filefrom Last 3 Months
--- OUTSIDE RECORDS SUMMARY | 2017-10-08 12:16 | XMS REPORT | Continuity of Care Document ---
Author Author [facility] Organization [facility] Address Unknown Phone Unavailable Allergies Active Description Code Type Severity Reaction Onset Reported/Identified Relationship to Patient Clinical Status Yes CLINDAMYCIN PHOSPHATE CLINDAMYCIN PHOSPHAT UNKNOWN Yes GABAPENTIN GABAPENTIN MILD Yes MACROBID MACROBID MILD Yes No Known Drug Allergies [id number] Drug Allergy Unknown N/A 11/28/2010 Yes gabapentin [id number] Drug Allergy Unknown N/A 10/27/2016 Yes nitrofurantoin [id number] Drug Allergy Unknown N/A 01/02/2017 Medications Medication Packaging Start Date Stop Date Route Dosage Sig LACTATED RINGERS 1000CC IV BAG INJ 0 ml 04/29/2016 05/06/2016 CONTINUOUSEVERY 0 Hour FENTANYL AMP INJ 100 MCG/2CC MCG 04/29/2016 [id number] MORPHINE BAKING ASSISTANT SYRINGE INJ 30 MG/30CC (MORPHINE BAKING ASSISTANT SYRINGE) MG 04/29/2016 05/02/2016 CONTINUOUSEVERY 0 Hour ACETAMINOPHEN ORAL TABLET 325mg(Tylenol) MG 04/30/2016 05/07/2016 PRN EVERY 6 Hour ALPRAZOLAM TAB 0.5 MG (XANAX) Dose(s) 05/01/2016 05/06/2016 PRN TID Problems Date Dx Coded Attending Type Code Diagnosis Diagnosed By 08/31/2011 Ot 079.6 08/31/2011 Ot 786.2 04/21/2014 RADHA KEARNEY SOIL SURVEYOR Ot 724.2 04/21/2014 RADHA KEARNEY SOIL SURVEYOR Ot 959.19 04/21/2014 RADHA KEARNEY SOIL SURVEYOR Ot E000.8 04/21/2014 RADHA KEARNEY SOIL SURVEYOR Ot E849.0 04/21/2014 RADHA KEARNEY SOIL SURVEYOR Ot E888.9 08/03/2014 BERYL KAY MD Ot 340 08/03/2014 BERYL KAY MD Ot 781.0 08/03/2014 BERYL KAY MD Ot V57.1 08/13/2014 ELIZA WESTBROOK, BERYL Daren Ot 340 08/13/2014 ELIZA WESTBROOK, BERYL Mercedes Ot 781.0 08/13/2014 ELIZA WESTBROOK, BERYL Mercedes Ot V57.1 09/07/2014 Ot 244.9 09/07/2014 Ot 272.4 09/07/2014 Ot 300.00 09/07/2014 Ot 305.1 09/07/2014 Ot 530.81 09/07/2014 Ot 780.79 09/07/2014 Ot 530.11 09/07/2014 Ot 535.40 09/07/2014 Ot 244.9 09/07/2014 Ot 721.2 09/07/2014 Ot 721.3 09/07/2014 Ot 272.4 09/07/2014 Ot 725 09/07/2014 Ot 780.79 09/07/2014 Ot 790.29 09/07/2014 ALEJO MAEP Ot 733.00 09/07/2014 ALEJO MAE ENT CONSULTANT Ot 733.90 09/07/2014 ALEJO MAEP Ot V76.12 09/07/2014 ALEJO MAEP Ot 724.2 09/07/2014 ALEJO MAEP Ot 793.80 09/07/2014 ALEX YANJUSTIN Ot 342.90 09/07/2014 ALEX YANJUSTIN Ot V58.69 09/07/2014 ALEX YANJUSTIN Ot V81.5 09/10/2014 Ot 244.9 09/10/2014 Ot 272.4 09/10/2014 Ot 300.00 09/10/2014 Ot 305.1 09/10/2014 Ot 530.81 09/10/2014 Ot 780.79 09/10/2014 Ot 530.11 09/10/2014 Ot 535.40 09/10/2014 Ot 244.9 09/10/2014 Ot 721.2 09/10/2014 Ot 721.3 09/10/2014 Ot 272.4 09/10/2014 Ot 725 09/10/2014 Ot 780.79 09/10/2014 Ot 790.29 09/10/2014 ALEJO MAE ENT CONSULTANT Ot 733.00 09/10/2014 ALEJO MAE ENT CONSULTANT Ot 733.90 09/10/2014 OSIIALEJO CARRANZA ENT CONSULTANT Ot V76.12 09/10/2014 OSIIALEJO CARRANZA ENT CONSULTANT Ot 724.2 09/10/2014 OSIIALEJO CARRANZA ENT CONSULTANT Ot 793.80 09/10/2014 JUSTIN JOHNSON DO Ot 342.90 09/10/2014 JUSTIN JOHNSON DO Ot V58.69 09/10/2014 JUSTIN JOHNSON DO Ot V81.5 09/10/2014 KARL WESTBROOK, TUCKER Keen Ot 278.01 09/10/2014 KARL WESTBROOK, TUCKER Keen Ot 721.3 09/10/2014 KARL WESTBROOK, TUCKER Keen Ot 722.52 09/10/2014 KARL WESTBROOK, TUCKER Keen Ot V58.69 09/10/2014 KARL WESTBROOK, TUCKER Keen Ot V85.41 09/20/2014 EUGENIO WESTBROOK, ELVIA D Ot 244.9 09/20/2014 EUGENIO WESTBROOK, ELVIA D Ot 300.00 09/20/2014 EUGENIO WESTBROOK, ELVIA D Ot 340 09/20/2014 EUGENIO WESTBROOK, ELVIA D Ot 427.69 09/20/2014 EUGENIO WESTBROOK, ELVIA D Ot 530.81 09/20/2014 EUGENIO WESTBROOK, ELVIA D Ot 535.00 09/20/2014 EUGENIO WESTBROOK, ELVIA D Ot 577.0 09/20/2014 EUGENIO WESTBROOK, ELVIA D Ot 724.5 09/24/2014 RANDOLPH WESTBROOK, TANIYA M Ot 244.9 09/24/2014 RNADOLPH WESBTROOK, TANIYA M Ot 530.3 09/24/2014 RANDOLPH WESTBROOK, TANIYA M Ot 531.90 09/24/2014 RANDOLPH WESTBROOK, TANIYA M Ot 535.40 09/24/2014 RANDOLPH WESTBROOK, TANIYA M Ot 553.3 11/10/2014 EUGENIO WESTBROOK, ELVIA D Ot 789.01 11/26/2014 EUGENIO WESTBROOK, ELVIA D Ot 789.01 11/26/2014 Ot 244.9 11/26/2014 Ot 272.4 11/26/2014 Ot 300.00 11/26/2014 Ot 305.1 11/26/2014 Ot 530.81 11/26/2014 Ot 780.79 11/26/2014 Ot 530.11 11/26/2014 Ot 535.40 11/26/2014 Ot 244.9 11/26/2014 Ot 721.2 11/26/2014 Ot 721.3 11/26/2014 Ot 272.4 11/26/2014 Ot 725 11/26/2014 Ot 780.79 11/26/2014 Ot 790.29 11/26/2014 OSIIERALEJO ENT CONSULTANT Ot 733.00 11/26/2014 OSIIERALEJO ENT CONSULTANT Ot 733.90 11/26/2014 OSIIERALEJO ENT CONSULTANT Ot V76.12 11/26/2014 OSIITEREALEJO ENT CONSULTANT Ot 724.2 11/26/2014 OSIITERE ALEJO BRICENOP Ot 793.80 11/26/2014 JUSTIN JOHNSON DO Ot 342.90 11/26/2014 JUSTIN JOHNSON DO Ot V58.69 11/26/2014 JUSTIN JOHNSON DO Ot V81.5 11/26/2014 EUGENIO WESTBROOK, ELVIA Gregg Ot 789.01 12/17/2014 Ot 244.9 12/17/2014 Ot 272.4 12/17/2014 Ot 300.00 12/17/2014 Ot 305.1 12/17/2014 Ot 530.81 12/17/2014 Ot 780.79 12/17/2014 Ot 530.11 12/17/2014 Ot 535.40 12/17/2014 Ot 244.9 12/17/2014 Ot 721.2 12/17/2014 Ot 721.3 12/17/2014 Ot 272.4 12/17/2014 Ot 725 12/17/2014 Ot 780.79 12/17/2014 Ot 790.29 12/17/2014 OSIIALEJO CARRANZA ENT CONSULTANT Ot 733.00 12/17/2014 OSIIERALEJO ENT CONSULTANT Ot 733.90 12/17/2014 OSIIALEJO CARRANZA ENT CONSULTANT Ot V76.12 12/17/2014 OSIIALEJO CARRANZA ENT CONSULTANT Ot 724.2 12/17/2014 OSIITERE ALEJO Merritt ENT CONSULTANT Ot 793.80 12/17/2014 JUSTIN JOHNSON DO Ot 342.90 12/17/2014 JUSTIN JOHNSON DO Ot V58.69 12/17/2014 JUSTIN JOHNSON DO Ot V81.5 12/17/2014 EUGENIO WESTBROOK, ELVIA Gregg Ot 789.01 12/17/2014 RANDOLPH WESTBROOK, TANIYA M Ot 530.3 12/17/2014 RANDOLPH WESTBROOK, TANIYA M Ot 535.40 12/20/2014 EUGENIO WESTBROOK, ELVIA Gregg Ot 789.01 12/25/2014 RANDOLPH WESTBROOK, TANIYA M Ot 530.3 12/25/2014 RANDOLPH WESTBROOK, TANIYA M Ot 533.90 12/25/2014 RANDOLPH WESTBROOK, TANIYA M Ot V72.84 01/11/2015 CONSTANCE PYLE APRN Ot 780.79 02/01/2015 Ot 244.9 02/01/2015 Ot 272.4 02/01/2015 Ot 300.00 02/01/2015 Ot 305.1 02/01/2015 Ot 530.81 02/01/2015 Ot 780.79 02/01/2015 Ot 530.11 02/01/2015 Ot 535.40 02/01/2015 Ot 244.9 02/01/2015 Ot 721.2 02/01/2015 Ot 721.3 02/01/2015 Ot 272.4 02/01/2015 Ot 725 02/01/2015 Ot 780.79 02/01/2015 Ot 790.29 02/01/2015 OSIIALEJO CARRANZA ENT CONSULTANT Ot 733.00 02/01/2015 OSIITERE ALEJO M ENT CONSULTANT Ot 733.90 02/01/2015 OSIIALEJO CARRANZA ENT CONSULTANT Ot V76.12 02/01/2015 OSIIALEJO CARRANZA ENT CONSULTANT Ot 724.2 02/01/2015 OSALEJO AYALA ENT CONSULTANT Ot 793.80 02/01/2015 JUSTIN JOHNSON DO Ot 342.90 02/01/2015 JUSTIN JOHNSON DO Ot V58.69 02/01/2015 JUSTIN JOHNSON DO Ot V81.5 02/01/2015 EUGENIO WESTBROOK, ELVIA Gregg Ot 789.01 02/01/2015 RANDOLPH WESTBROOK, TANIYA M Ot 530.3 02/01/2015 RANDOLPH WESTBROOK, TANIYA M Ot 533.90 02/01/2015 RANDOLPH WESTBROOK, TANIYA M Ot V72.84 02/01/2015 CONSTANCE PYLE APRN Ot 780.79 02/01/2015 PYLEMISAELBISI Vale SOIL SURVEYOR Ot 724.2 02/11/2015 PATRICK CONSTANCE Vale SOIL SURVEYOR Ot 724.2 03/19/2015 TUCKER BARAJAS MD Ot 278.01 03/19/2015 TUCKER BARAJAS MD Ot 721.3 03/19/2015 TUCKER BARAJAS MD Ot 722.52 03/19/2015 TUCKER BARAJAS MD Ot V58.69 03/19/2015 TUCKER BARAJAS MD Ot V85.42 03/25/2015 Ot 244.9 03/25/2015 Ot 272.4 03/25/2015 Ot 300.00 03/25/2015 Ot 305.1 03/25/2015 Ot 530.81 03/25/2015 Ot 780.79 03/25/2015 Ot 530.11 03/25/2015 Ot 535.40 03/25/2015 Ot 244.9 03/25/2015 Ot 721.2 03/25/2015 Ot 721.3 03/25/2015 Ot 272.4 03/25/2015 Ot 725 03/25/2015 Ot 780.79 03/25/2015 Ot 790.29 03/25/2015 OSIITERE ALEJO M ENT CONSULTANT Ot 733.00 03/25/2015 OSIIALEJO CARRANZA ENT CONSULTANT Ot 733.90 03/25/2015 OSALEJO AYALA ENT CONSULTANT Ot V76.12 03/25/2015 OSJAMIE ALEJO M ENT CONSULTANT Ot 724.2 03/25/2015 OSALEJO AYALA ENT CONSULTANT Ot 793.80 03/25/2015 ALEX YANJUSTIN Ot 342.90 03/25/2015 ALEX DOJUSTIN Ot V58.69 03/25/2015 ALEX DOJUSTIN Ot V81.5 03/25/2015 EUGENIO WESTBROOK, ELVIA Gregg Ot 789.01 03/25/2015 RANDOLPH WESTBROOK, TANIYA Merritt Ot 530.3 03/25/2015 RANDOLPH WESTBROOK, TANIYA Merritt Ot 533.90 03/25/2015 RANDOLPH WESTBROOK, TANIYA Merritt Ot V72.84 03/25/2015 CONSTANCE PYLE SOIL SURVEYOR Ot 780.79 03/25/2015 CONSTANCE PYLE SOIL SURVEYOR Ot 724.2 03/25/2015 TUCKER BARAJAS MD Ot 278.01 03/25/2015 TUCKER BARAJAS MD Ot 721.3 03/25/2015 TUCKER BARAJAS MD Ot 722.52 03/25/2015 TUCKER BARAJAS MD Ot V58.69 03/25/2015 TUCKER BARAJAS MD Ot V85.42 04/12/2015 CONSTANCE PYLE Akanksha SOIL SURVEYOR Ot E78.5 04/12/2015 CONSTANCE PYLE Akanksha SOIL SURVEYOR Ot R06.02 04/12/2015 CONSTANCE PYLE Akanksha SOIL SURVEYOR Ot R53.83 04/12/2015 CONSTANCE PYLE Akanksha SOIL SURVEYOR Ot R60.9 09/16/2015 TUCKER BARAJAS MD, Ot M47.816 SPONDYLOSIS W/O MYELOPATHY OR RADICULOPA 09/16/2015 TUCKER BARAJAS MD, Ot M51.16 INTERVERTEBRAL DISC DISORDERS W RADICULO 09/16/2015 TUCKER BARAJAS MD Ot Z79.899 OTHER [facility] (CURRENT) DRUG THERAPY 09/23/2015 CONSTANCE PYLE Akanksha SOIL SURVEYOR Ot E78.5 09/23/2015 CONSTANCE PYLE SOIL SURVEYOR Ot Z00.00 09/23/2015 TUCKER BARAJAS MD Ot E66.01 MORBID (SEVERE) OBESITY DUE TO EXCESS CA 09/23/2015 TUCKER BARAJAS MD, Ot M47.816 SPONDYLOSIS W/O MYELOPATHY OR RADICULOPA 09/23/2015 TUCKER BARAJAS MD Ot Z68.41 BODY MASS INDEX (BMI) 40.0-44.9, ADULT 09/23/2015 TUCKER BARAJAS MD, Ot Z79.899 OTHER WELDING ROBOT OPERATOR (CURRENT) DRUG THERAPY 09/27/2015 TUCKER BARAJAS MD, Ot M47.816 SPONDYLOSIS W/O MYELOPATHY OR RADICULOPA 09/27/2015 TUCKER BARAJAS MD, Ot M51.16 INTERVERTEBRAL DISC DISORDERS W RADICULO 09/27/2015 TUCKER BARAJAS MD Ot Z79.899 OTHER WELDING ROBOT OPERATOR (CURRENT) DRUG THERAPY 10/01/2015 TUCKER BARAJAS MD Ot E66.01 MORBID (SEVERE) OBESITY DUE TO EXCESS CA 10/01/2015 TUCKER BARAJAS MD, Ot M47.816 SPONDYLOSIS W/O MYELOPATHY OR RADICULOPA 10/01/2015 TUCKER BARAJAS MD Ot Z68.41 BODY MASS INDEX (BMI) 40.0-44.9, ADULT 10/01/2015 TUCKER BARAJAS MD Ot Z79.899 OTHER WELDING ROBOT OPERATOR (CURRENT) DRUG THERAPY 10/09/2015 ARAM LO SOIL SURVEYOR Ot K21.9 GASTRO-ESOPHAGEAL REFLUX DISEASE WITHOUT 11/07/2015 Ot Z01.812 ENCOUNTER FOR PREPROCEDURAL LABORATORY E 12/13/2015 ARAM LO SOIL SURVEYOR Ot K21.9 GASTRO-ESOPHAGEAL REFLUX DISEASE WITHOUT 12/13/2015 Ot Z01.812 ENCOUNTER FOR PREPROCEDURAL LABORATORY E 12/13/2015 CONSTANCE PYLE SOIL SURVEYOR Ot E78.5 HYPERLIPIDEMIA, UNSPECIFIED 12/13/2015 CONSTANCE PYLE SOIL SURVEYOR Ot Z00.00 ENCNTR FOR GENERAL ADULT MEDICAL EXAM W/ 12/24/2015 ARAM LO SOIL SURVEYOR Ot K21.9 GASTRO-ESOPHAGEAL REFLUX DISEASE WITHOUT 12/24/2015 Ot Z01.812 ENCOUNTER FOR PREPROCEDURAL LABORATORY E 12/24/2015 CATHLEEN WESTBROOK FACC, ADDIE FACP CCDS Ot I49.3 VENTRICULAR PREMATURE DEPOLARIZATION 12/24/2015 CATHLEEN WESTBROOK FACC, ALI FACP CCDS Ot M19.90 UNSPECIFIED OSTEOARTHRITIS, UNSPECIFIED 12/24/2015 CATHLEEN WESTBROOK FACC, ALI FACP CCDS Ot R06.02 SHORTNESS OF BREATH 12/24/2015 CATHLEEN WESTBROOK FACC, ALI FACP CCDS Ot R07.89 OTHER CHEST PAIN 12/24/2015 CATHLEEN WESTBROOK FACC, ALI FACP CCDS Ot I49.3 VENTRICULAR PREMATURE DEPOLARIZATION 12/24/2015 CATHLEEN WESTBROOK FACC, ALI FACP CCDS Ot M19.90 UNSPECIFIED OSTEOARTHRITIS, UNSPECIFIED 12/24/2015 CATHLEEN WESTBROOK FACC, ALI FACP CCDS Ot R06.02 SHORTNESS OF BREATH 12/24/2015 CATHLEEN WESTBROOK FACC, ALI FACP CCDS Ot R07.89 OTHER CHEST PAIN 12/25/2015 CATHLEEN WESTBROOK FACC, ALI FACP CCDS Ot I49.3 VENTRICULAR PREMATURE DEPOLARIZATION 12/25/2015 CATHLEEN WESTBROOK FACC, ADDIE FACP CCDS Ot M19.90 UNSPECIFIED OSTEOARTHRITIS, UNSPECIFIED 12/25/2015 CATHLEEN WESTBROOK FACC, ALI FACP CCDS Ot R06.02 SHORTNESS OF BREATH 12/25/2015 CATHLEEN WESTBROOK FACC, ADDIE FACP CCDS Ot R07.89 OTHER CHEST PAIN 12/25/2015 CATHLEEN WESTBROOK FACC, ADDIE FACP CCDS Ot I49.3 VENTRICULAR PREMATURE DEPOLARIZATION 12/25/2015 CATHLEEN WESTBROOK FACC, ALI FACP CCDS Ot M19.90 UNSPECIFIED OSTEOARTHRITIS, UNSPECIFIED 12/25/2015 CATHLEEN WESTBROOK FACC, ALI FACP CCDS Ot R06.02 SHORTNESS OF BREATH 12/25/2015 CATHLEEN WESTBROOK FACC, ADDIE FACP CCDS Ot R07.89 OTHER CHEST PAIN 01/13/2016 CONSTANCE PYLE SOIL SURVEYOR Ot E78.5 HYPERLIPIDEMIA, UNSPECIFIED 01/13/2016 CONSTANCE PYLE SOIL SURVEYOR Ot Z00.00 ENCNTR FOR GENERAL ADULT MEDICAL EXAM W01/16/2016 MENA BLAS DO Ot G47.10 HYPERSOMNIA, UNSPECIFIED 01/16/2016 WANMENA LI DO Ot R06.83 SNORING 01/27/2016 MENA BLAS DO Ot G47.10 HYPERSOMNIA, UNSPECIFIED 01/27/2016 MENA BLAS DO Ot R06.83 SNORING 02/26/2016 ARAM LO SOIL SURVEYOR Ot K21.9 GASTRO-ESOPHAGEAL REFLUX DISEASE WITHOUT 02/26/2016 Ot Z01.812 ENCOUNTER FOR PREPROCEDURAL LABORATORY E 02/26/2016 CATHLEEN WESTBROOK FACC, ADDIE FACP CCDS Ot I49.3 VENTRICULAR PREMATURE DEPOLARIZATION 02/26/2016 CATHLEEN WESTBROOK FACC, ADDIE FACP CCDS Ot M19.90 UNSPECIFIED OSTEOARTHRITIS, UNSPECIFIED 02/26/2016 CATHLEEN WESTBROOK FACC, ADDIE FACP CCDS Ot R06.02 SHORTNESS OF BREATH 02/26/2016 CATHLEEN WESTBROOK FACC, ADDIE FACP CCDS Ot R07.89 OTHER CHEST PAIN 02/26/2016 CATHLEEN WESTBROOK FACC, ADDIE FACP CCDS Ot I49.3 VENTRICULAR PREMATURE DEPOLARIZATION 02/26/2016 CATHLEEN WESTBROOK FACC, ADDIE FACP CCDS Ot M19.90 UNSPECIFIED OSTEOARTHRITIS, UNSPECIFIED 02/26/2016 CATHLEEN WESTBROOK FACC, ADDIE FACP CCDS Ot R06.02 SHORTNESS OF BREATH 02/26/2016 CATHLEEN WESTBROOK FACC, ADDIE FACP CCDS Ot R07.89 OTHER CHEST PAIN 02/26/2016 ARAM LO SOIL SURVEYOR Ot K21.9 GASTRO-ESOPHAGEAL REFLUX DISEASE WITHOUT 02/26/2016 Ot Z01.812 ENCOUNTER FOR PREPROCEDURAL LABORATORY E 02/26/2016 CATHLEEN WESTBROOK FACC, ALI FACP CCDS Ot I49.3 VENTRICULAR PREMATURE DEPOLARIZATION 02/26/2016 CATHLEEN WESTBROOK FACC, ALI FACP CCDS Ot M19.90 UNSPECIFIED OSTEOARTHRITIS, UNSPECIFIED 02/26/2016 CATHLEEN WESTBROOK FACC, ALI FACP CCDS Ot R06.02 SHORTNESS OF BREATH 02/26/2016 CATHLEEN WESTBROOK FACC, ALI FACP CCDS Ot R07.89 OTHER CHEST PAIN 02/26/2016 CATHLEEN WESTBROOK FACC, ALI FACP CCDS Ot I49.3 VENTRICULAR PREMATURE DEPOLARIZATION 02/26/2016 CATHLEEN WESTBROOK FACC, ALI FACP CCDS Ot M19.90 UNSPECIFIED OSTEOARTHRITIS, UNSPECIFIED 02/26/2016 CATHLEEN WESTBROOK FACC, ALI FACP CCDS Ot R06.02 SHORTNESS OF BREATH 02/26/2016 CATHLEEN WESTBROOK FACC, ALI FACP CCDS Ot R07.89 OTHER CHEST PAIN 02/28/2016 ARAM LO SOIL SURVEYOR Ot K21.9 GASTRO-ESOPHAGEAL REFLUX DISEASE WITHOUT 02/28/2016 Ot Z01.812 ENCOUNTER FOR PREPROCEDURAL LABORATORY E 02/28/2016 CATHLEEN WESTBROOK FACC, ADDIE FACP CCDS Ot I49.3 VENTRICULAR PREMATURE DEPOLARIZATION 02/28/2016 CATHLEEN WESTBROOK FACC, ALI FACP CCDS Ot M19.90 UNSPECIFIED OSTEOARTHRITIS, UNSPECIFIED 02/28/2016 CATHLEEN WESTBROOK FACC, ALI FACP CCDS Ot R06.02 SHORTNESS OF BREATH 02/28/2016 CATHLEEN WESTBROOK FACC, ALI FACP CCDS Ot R07.89 OTHER CHEST PAIN 02/28/2016 CATHLEEN WESTBROOK FACC, ALI FACP CCDS Ot I49.3 VENTRICULAR PREMATURE DEPOLARIZATION 02/28/2016 CATHLEEN WESTBROOK FACC, ALI FACP CCDS Ot M19.90 UNSPECIFIED OSTEOARTHRITIS, UNSPECIFIED 02/28/2016 CATHLEEN BELLC, ALI FACP CCDS Ot R06.02 SHORTNESS OF BREATH 02/28/2016 CATHLEEN BELLC, ALI FACP CCDS Ot R07.89 OTHER CHEST PAIN 03/30/2016 CONSTANCE PYLE N SOIL SURVEYOR Ot E78.5 HYPERLIPIDEMIA, UNSPECIFIED 03/30/2016 CONSTANCE PYLE SOIL SURVEYOR Ot Z00.00 ENCNTR FOR GENERAL ADULT MEDICAL EXAM W/ 05/01/2016 GriselBk A 278.01 MORBID OBESITY 05/01/2016 Bk Recinos W 530.81 ESOPHAGEAL REFLUX 05/01/2016 Bk Recinos W 552.3 DIAPHRAGMATIC HERNIA WITH OBSTRUCTION 05/01/2016 Bk Recinos A E66.01 MORBID (SEVERE) OBESITY DUE TO EXCESS CALORIES 05/01/2016 RgiselBk W K21.9 GASTRO-ESOPHAGEAL REFLUX DISEASE WITHOUT ESOPHAGITIS 05/01/2016 GriselBk W K44.9 DIAPHRAGMATIC HERNIA WITHOUT OBSTRUCTION OR GANGRENE 05/01/2016 GriselBk W V85.41 BODY MASS INDEX 40.0-44.9, ADULT 05/01/2016 Grisel, Bk W Z68.41 BODY MASS INDEX (BMI) 40.0-44.9, ADULT 06/04/2016 CONSTANCE PYLE SOIL SURVEYOR Ot E78.5 HYPERLIPIDEMIA, UNSPECIFIED 06/04/2016 CONSTANCE PYLE SOIL SURVEYOR Ot Z00.00 ENCNTR FOR GENERAL ADULT MEDICAL EXAM W/ 06/26/2016 CONSTANCE PYLE SOIL SURVEYOR Ot E78.5 HYPERLIPIDEMIA, UNSPECIFIED 06/26/2016 CONSTANCE PYLE SOIL SURVEYOR Ot Z00.00 ENCNTR FOR GENERAL ADULT MEDICAL EXAM W/ 06/29/2016 CONSTANCE PYLE SOIL SURVEYOR Ot E78.5 HYPERLIPIDEMIA, UNSPECIFIED 06/29/2016 CONSTANCE PYLE SOIL SURVEYOR Ot Z00.00 ENCNTR FOR GENERAL ADULT MEDICAL EXAM W/ 07/10/2016 ARAM LO SOIL SURVEYOR Ot K21.9 GASTRO-ESOPHAGEAL REFLUX DISEASE WITHOUT 07/10/2016 Ot Z01.812 ENCOUNTER FOR PREPROCEDURAL LABORATORY E 07/10/2016 CATHLEEN WESTBROOK FACC, ADDIE BELLP CCDS Ot I49.3 VENTRICULAR PREMATURE DEPOLARIZATION 07/10/2016 CATHLEEN WESTBROOK FACC, ADDIE BELLP CCDS Ot M19.90 UNSPECIFIED OSTEOARTHRITIS, UNSPECIFIED 07/10/2016 CATHLEEN WESTBROOK FACC, ADDIE CHAVIS CCDS Ot R06.02 SHORTNESS OF BREATH 07/10/2016 CATHLEEN WESTBROOK FACC, ALI FACP CCDS Ot R07.89 OTHER CHEST PAIN 07/10/2016 CATHLEEN WESTBROOK FACC, ALI FACP CCDS Ot I49.3 VENTRICULAR PREMATURE DEPOLARIZATION 07/10/2016 CATHLEEN WESTBROOK FACC, ALI FACP CCDS Ot M19.90 UNSPECIFIED OSTEOARTHRITIS, UNSPECIFIED 07/10/2016 CATHLEEN WESTBROOK FACC, ALI FACP CCDS Ot R06.02 SHORTNESS OF BREATH 07/10/2016 CATHLEEN WESTBROOK FACC, ALI FACP CCDS Ot R07.89 OTHER CHEST PAIN 07/25/2016 CONSTANCE PYLE SOIL SURVEYOR Ot E78.5 HYPERLIPIDEMIA, UNSPECIFIED 07/25/2016 CONSTANCE PYLE SOIL SURVEYOR Ot Z00.00 ENCNTR FOR GENERAL ADULT MEDICAL EXAM W/ 08/03/2016 CONSTANCE PYLE SOIL SURVEYOR Ot E04.1 NONTOXIC SINGLE THYROID NODULE 08/03/2016 CONSTANCE PYLE SOIL SURVEYOR Ot E04.1 NONTOXIC SINGLE THYROID NODULE 08/11/2016 ARAM LO SOIL SURVEYOR Ot K21.9 GASTRO-ESOPHAGEAL REFLUX DISEASE WITHOUT 08/11/2016 Ot Z01.812 ENCOUNTER FOR PREPROCEDURAL LABORATORY E 08/11/2016 CATHLEEN WESTBROOK FACC, ADDIE FACP CCDS Ot I49.3 VENTRICULAR PREMATURE DEPOLARIZATION 08/11/2016 CATHLEEN WESTBROOK FACC, ALI FACP CCDS Ot M19.90 UNSPECIFIED OSTEOARTHRITIS, UNSPECIFIED 08/11/2016 CATHLEEN WESTBROOK FACC, ALI FACP CCDS Ot R06.02 SHORTNESS OF BREATH 08/11/2016 CATHLEEN WESTBROOK FACC, ALI FACP CCDS Ot R07.89 OTHER CHEST PAIN 08/11/2016 CATHLEEN WESTBROOK FACC, ALI FACP CCDS Ot I49.3 VENTRICULAR PREMATURE DEPOLARIZATION 08/11/2016 CATHLEEN WESTBROOK FACC, ALI FACP CCDS Ot M19.90 UNSPECIFIED OSTEOARTHRITIS, UNSPECIFIED 08/11/2016 CATHLEEN WESTBROOK FACC, ALI FACP CCDS Ot R06.02 SHORTNESS OF BREATH 08/11/2016 CATHLEEN WESTBROOK FACC, ALI FACP CCDS Ot R07.89 OTHER CHEST PAIN 08/11/2016 CONSTANCE PYLE SOIL SURVEYOR Ot E04.1 NONTOXIC SINGLE THYROID NODULE 10/12/2016 TUCKER BARAJAS MD Ot M47.816 SPONDYLOSIS W/O MYELOPATHY OR RADICULOPA 10/12/2016 TUCKER BARAJAS MD Ot Z79.899 OTHER WELDING ROBOT OPERATOR (CURRENT) DRUG THERAPY 10/15/2016 TUCKER BARAJAS MD Ot M47.816 SPONDYLOSIS W/O MYELOPATHY OR RADICULOPA 10/15/2016 TUCKER BARAJAS MD Ot Z79.899 OTHER WELDING ROBOT OPERATOR (CURRENT) DRUG THERAPY 10/19/2016 TUCKER BARAJAS MD, Ot M47.816 SPONDYLOSIS W/O MYELOPATHY OR RADICULOPA 10/27/2016 CATHLEEN WESTBROOK FACC, ADDIE FACP CCDS Ot E66.9 OBESITY, UNSPECIFIED 10/27/2016 CATHLEEN WESTBROOK FACC, ALI FACP CCDS Ot G35 MULTIPLE SCLEROSIS 10/27/2016 CATHLEEN WESTBROOK FACC, ALI FACP CCDS Ot I25.10 ATHSCL HEART DISEASE OF [place] CORONARY 10/27/2016 CATHLEEN WESTBROOK FACC, ALI FACP CCDS Ot I25.84 CORONARY ATHEROSCLEROSIS DUE TO CALCIFIE 10/27/2016 CATHLEEN WESTBROOK FACC, ADDIE FACP CCDS Ot I49.3 VENTRICULAR PREMATURE DEPOLARIZATION 10/27/2016 CATHLEEN WESTBROOK FACC, ADDIE FACP CCDS Ot R06.02 SHORTNESS OF BREATH 10/27/2016 CATHLEEN WESTBROOK FACC, ADDIE FACP CCDS Ot R55 SYNCOPE AND COLLAPSE 10/27/2016 CATHLEEN WESTBROOK FACC, ALI FACP CCDS Ot Z68.33 BODY MASS INDEX (BMI) 33.0-33.9, ADULT 10/27/2016 CATHLEEN WESTBROOK FACC, ALI FACP CCDS Ot Z79.899 OTHER WELDING ROBOT OPERATOR (CURRENT) DRUG THERAPY 10/27/2016 CATHLEEN WESTBROOK FACC, ALI FACP CCDS Ot Z87.891 PERSONAL HISTORY OF NICOTINE DEPENDENCE 10/27/2016 CATHLEEN WESTBROOK FACC, ALI FACP CCDS Ot Z98.84 BARIATRIC SURGERY STATUS 11/13/2016 ARAM LO APRN Ot K21.9 GASTRO-ESOPHAGEAL REFLUX DISEASE WITHOUT 11/13/2016 Ot Z01.812 ENCOUNTER FOR PREPROCEDURAL LABORATORY E 11/13/2016 CATHLEEN WESTBROOK FACC, ADDIE FACP CCDS Ot I49.3 VENTRICULAR PREMATURE DEPOLARIZATION 11/13/2016 CATHLEEN WESTBROOK FACC ALI FACP CCDS Ot M19.90 UNSPECIFIED OSTEOARTHRITIS, UNSPECIFIED 11/13/2016 CATHLEEN MD FACC, ALI FACP CCDS Ot R06.02 SHORTNESS OF BREATH 11/13/2016 CATHLEEN WESTBROOK FACC, ALI FACP CCDS Ot R07.89 OTHER CHEST PAIN 11/13/2016 CATHLEEN BELLC, ALI FACP CCDS Ot I49.3 VENTRICULAR PREMATURE DEPOLARIZATION 11/13/2016 CATHLEEN WESTBROOK FACC, ALI FACP CCDS Ot M19.90 UNSPECIFIED OSTEOARTHRITIS, UNSPECIFIED 11/13/2016 CATHLEEN WESTBROOK FACC, ALI FACP CCDS Ot R06.02 SHORTNESS OF BREATH 11/13/2016 CATHLEEN WESTBROOK FACC, ALI FACP CCDS Ot R07.89 OTHER CHEST PAIN 11/13/2016 CONSTANCE PYLE SOIL SURVEYOR Ot E04.1 NONTOXIC SINGLE THYROID NODULE 11/13/2016 RADHA GARY MD Ot G35 MULTIPLE SCLEROSIS 11/16/2016 RADHA GARY MD, Ot G35 MULTIPLE SCLEROSIS 11/16/2016 ARAM LO APRN Ot K21.9 GASTRO-ESOPHAGEAL REFLUX DISEASE WITHOUT 11/16/2016 Ot Z01.812 ENCOUNTER FOR PREPROCEDURAL LABORATORY E 11/16/2016 CATHLEEN WESTBROOK FACC, ALI FACP CCDS Ot I49.3 VENTRICULAR PREMATURE DEPOLARIZATION 11/16/2016 CATHLEEN WESTBROOK FACC, ALI FACP CCDS Ot M19.90 UNSPECIFIED OSTEOARTHRITIS, UNSPECIFIED 11/16/2016 CATHLEEN WESTBROOK FACC, ALI FACP CCDS Ot R06.02 SHORTNESS OF BREATH 11/16/2016 CATHLEEN WESTBROOK FACC, ALI FACP CCDS Ot R07.89 OTHER CHEST PAIN 11/16/2016 CATHLEEN WESTBROOK FACC, ALI FACP CCDS Ot I49.3 VENTRICULAR PREMATURE DEPOLARIZATION 11/16/2016 CATHLEEN WESTBROOK FACC, ALI FACP CCDS Ot M19.90 UNSPECIFIED OSTEOARTHRITIS, UNSPECIFIED 11/16/2016 CATHLEEN WESTBROOK FACC, ALI FACP CCDS Ot R06.02 SHORTNESS OF BREATH 11/16/2016 CATHLEEN WESTBROOK FACC, ALI FACP CCDS Ot R07.89 OTHER CHEST PAIN 11/16/2016 CONSTANCE PYLE APRN Ot E04.1 NONTOXIC SINGLE THYROID NODULE 11/16/2016 RADHA GARY MD Ot G35 MULTIPLE SCLEROSIS 11/16/2016 RADHA GARY MD, Ot G35 MULTIPLE SCLEROSIS 12/18/2016 ARAM LO Farrah AQUINON Ot K21.9 GASTRO-ESOPHAGEAL REFLUX DISEASE WITHOUT 12/18/2016 Ot Z01.812 ENCOUNTER FOR PREPROCEDURAL LABORATORY E 12/18/2016 CATHLEEN BELL, ALI FACP CCDS Ot I49.3 VENTRICULAR PREMATURE DEPOLARIZATION 12/18/2016 CATHLEEN WESTBROOK FAC, ALI FACP CCDS Ot M19.90 UNSPECIFIED OSTEOARTHRITIS, UNSPECIFIED 12/18/2016 CATHLEEN WESTBROOK FACC, ALI FACP CCDS Ot R06.02 SHORTNESS OF BREATH 12/18/2016 CATHLEEN WESTBROOK FACC, ALI FACP CCDS Ot R07.89 OTHER CHEST PAIN 12/18/2016 CATHLEEN WESTBROOK FACC, ALI FACP CCDS Ot I49.3 VENTRICULAR PREMATURE DEPOLARIZATION 12/18/2016 CATHLEEN BELL, ALI FACP CCDS Ot M19.90 UNSPECIFIED OSTEOARTHRITIS, UNSPECIFIED 12/18/2016 CATHLEEN WESTBROOK FAC, ALI FACP CCDS Ot R06.02 SHORTNESS OF BREATH 12/18/2016 CATHLEEN WESTBROOK [facility], ALI FACP CCDS Ot R07.89 OTHER CHEST PAIN 12/18/2016 CONSTANCE PYLE SOIL SURVEYOR Ot E04.1 NONTOXIC SINGLE THYROID NODULE 12/18/2016 RADHA GARY MD Ot G35 MULTIPLE SCLEROSIS 12/18/2016 RADHA GARY MD Ot G35 MULTIPLE SCLEROSIS 01/02/2017 VIOLA PAK MD Ot F32.9 MAJOR DEPRESSIVE DISORDER, SINGLE EPISOD 01/02/2017 VIOLA PAK MD Ot F41.0 PANIC DISORDER WITHOUT AGORAPHOBIA 01/02/2017 VIOLA PAK MD Ot G35 MULTIPLE SCLEROSIS 01/02/2017 VIOLA PAK MD Ot G43.909 MIGRAINE, UNSP, NOT INTRACTABLE, WITHOUT 01/02/2017 VIOLA PAK MD Ot I10 ESSENTIAL (PRIMARY) HYPERTENSION 01/02/2017 VIOLA PAK MD Ot M47.9 SPONDYLOSIS, UNSPECIFIED 01/02/2017 VIOLA PAK MD Ot R53.83 OTHER FATIGUE 01/02/2017 VIOLA PAK MD Ot 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 01/02/2017 VIOLA PAK MD Ot Z87.891 PERSONAL HISTORY OF NICOTINE DEPENDENCE 01/02/2017 VIOLA PAK MD Ot Z90.710 ACQUIRED ABSENCE OF BOTH CERVIX AND UTER 01/04/2017 ARAM LO APRN Ot K21.9 GASTRO-ESOPHAGEAL REFLUX DISEASE WITHOUT 01/04/2017 Ot Z01.812 ENCOUNTER FOR PREPROCEDURAL LABORATORY E 01/04/2017 CATHLEEN WESTBROOK [facility], ALI FACP CCDS Ot I49.3 VENTRICULAR PREMATURE DEPOLARIZATION 01/04/2017 CATHLEEN WESTBROOK FAC, ALI FACP CCDS Ot M19.90 UNSPECIFIED OSTEOARTHRITIS, UNSPECIFIED 01/04/2017 CATHLEEN WESTBROOK FACC, ALI FACP CCDS Ot R06.02 SHORTNESS OF BREATH 01/04/2017 CATHLEEN WESTBROOK FACC, ALI FACP CCDS Ot R07.89 OTHER CHEST PAIN 01/04/2017 CATHLEEN WESTBROOK FACC, ALI FACP CCDS Ot I49.3 VENTRICULAR PREMATURE DEPOLARIZATION 01/04/2017 CATHLEEN WESTBROOK FAC, ALI FACP CCDS Ot M19.90 UNSPECIFIED OSTEOARTHRITIS, UNSPECIFIED 01/04/2017 CATHLEEN WESTBROOK FAC, ALI FACP CCDS Ot R06.02 SHORTNESS OF BREATH 01/04/2017 CATHLEEN WESTBROOK [facility], ALI FACP CCDS Ot R07.89 OTHER CHEST PAIN 01/04/2017 CONSTANCE PYLE APRN Ot E04.1 NONTOXIC SINGLE THYROID NODULE 01/04/2017 RADHA GARY MD Ot G35 MULTIPLE SCLEROSIS 01/04/2017 RADHA GARY MD Ot G35 MULTIPLE SCLEROSIS 01/04/2017 CONSTANCE PYLE SOIL SURVEYOR Ot Z12.31 ENCNTR SCREEN MAMMOGRAM FOR MALIGNANT NE 01/05/2017 VIOLA PAK MD Ot F32.9 MAJOR DEPRESSIVE DISORDER, SINGLE EPISOD 01/05/2017 VIOLA PAK MD Ot F41.0 PANIC DISORDER WITHOUT AGORAPHOBIA 01/05/2017 VIOLA PAK MD Ot G35 MULTIPLE SCLEROSIS 01/05/2017 VIOLA PAK MD Ot G43.909 MIGRAINE, UNSP, NOT INTRACTABLE, WITHOUT 01/05/2017 VIOLA PAK MD Ot I10 ESSENTIAL (PRIMARY) HYPERTENSION 01/05/2017 VIOLA PAK MD Ot M47.9 SPONDYLOSIS, UNSPECIFIED 01/05/2017 VIOLA PAK MD Ot R53.83 OTHER FATIGUE 01/05/2017 VIOLA APK MD Ot 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 01/05/2017 VIOLA PAK MD Ot Z87.891 PERSONAL HISTORY OF NICOTINE DEPENDENCE 01/05/2017 VIOLA PAK MD Ot Z90.710 ACQUIRED ABSENCE OF BOTH CERVIX AND UTER 2017 VIOLA PAK MD Ot G35 MULTIPLE SCLEROSIS 03/13/2017 VIOLA PAK MD, Ot G35 MULTIPLE SCLEROSIS 08/01/2017 ARAM LO SOIL SURVEYOR Ot K21.9 GASTRO-ESOPHAGEAL REFLUX DISEASE WITHOUT 08/01/2017 Ot Z01.812 ENCOUNTER FOR PREPROCEDURAL LABORATORY E 08/01/2017 CATHLEEN WESTBROOK FACC, ALI FACP CCDS Ot I49.3 VENTRICULAR PREMATURE DEPOLARIZATION 08/01/2017 CATHLEEN WESTBROOK FACC, ALI FACP CCDS Ot M19.90 UNSPECIFIED OSTEOARTHRITIS, UNSPECIFIED 08/01/2017 CATHLEEN WESTBROOK FACC, ALI FACP CCDS Ot R06.02 SHORTNESS OF BREATH 08/01/2017 CATHLEEN WESTBROOK FACC, ALI FACP CCDS Ot R07.89 OTHER CHEST PAIN 08/01/2017 CATHLEEN WESTBROOK FACC, ALI FACP CCDS Ot I49.3 VENTRICULAR PREMATURE DEPOLARIZATION 08/01/2017 CATHLEEN WESTBROOK FACC, ALI FACP CCDS Ot M19.90 UNSPECIFIED OSTEOARTHRITIS, UNSPECIFIED 08/01/2017 CATHLEEN WESTBROOK FACC, ALI FACP CCDS Ot R06.02 SHORTNESS OF BREATH 08/01/2017 CATHLEEN WESTBROOK FACC, ALI FACP CCDS Ot R07.89 OTHER CHEST PAIN 08/01/2017 CONSTANCE PYLE APRN Ot E04.1 NONTOXIC SINGLE THYROID NODULE 08/01/2017 RADHA GARY MD Ot G35 MULTIPLE SCLEROSIS 08/01/2017 RADHA GARY MD, Ot G35 MULTIPLE SCLEROSIS 08/01/2017 CONSTANCE PYLE SOIL SURVEYOR Ot Z12.31 ENCNTR SCREEN MAMMOGRAM FOR MALIGNANT NE 08/01/2017 ELVIA BECKER MD Ot E04.1 NONTOXIC SINGLE THYROID NODULE 08/01/2017 ELVIA BECKER MD Ot R53.83 OTHER FATIGUE 08/01/2017 VIOLA PAK MD, Ot G35 MULTIPLE SCLEROSIS 08/04/2017 ABDIRAHMAN MD, RADHA Ot G35 MULTIPLE SCLEROSIS 08/17/2017 PYLE MISAELDEN N SOIL SURVEYOR Ot M48.07 SPINAL STENOSIS, LUMBOSACRAL REGION 08/17/2017 PYLE ASHDEN N SOIL SURVEYOR Ot M51.27 OTHER INTERVERTEBRAL DISC DISPLACEMENT, 08/17/2017 PYLE, ASHDEN N SOIL SURVEYOR Ot M48.07 SPINAL STENOSIS, LUMBOSACRAL REGION 08/17/2017 PYLE, ASHDEN N SOIL SURVEYOR Ot M51.27 OTHER INTERVERTEBRAL DISC DISPLACEMENT, 08/20/2017 PYLE ASHDEN N SOIL SURVEYOR Ot M48.07 SPINAL STENOSIS, LUMBOSACRAL REGION 08/20/2017 PYLE ASHDEN N SOIL SURVEYOR Ot M51.37 OTHER INTERVERTEBRAL DISC DEGENERATION, 09/01/2017 RADHA GARY MD Ot G35 MULTIPLE SCLEROSIS 09/08/2017 PYLE ASHDEN N SOIL SURVEYOR Ot M48.07 SPINAL STENOSIS, LUMBOSACRAL REGION 09/08/2017 PYLE ASHDEN N SOIL SURVEYOR Ot M51.37 OTHER INTERVERTEBRAL DISC DEGENERATION, 09/09/2017 PYLE ASHDEN N SOIL SURVEYOR Ot M48.07 SPINAL STENOSIS, LUMBOSACRAL REGION 09/09/2017 PYLE ASHDEN N SOIL SURVEYOR Ot M51.37 OTHER INTERVERTEBRAL DISC DEGENERATION, 09/09/2017 PYLE ASHDEN N SOIL SURVEYOR Ot M48.07 SPINAL STENOSIS, LUMBOSACRAL REGION 09/09/2017 PYLE ASHDEN N SOIL SURVEYOR Ot M51.37 OTHER INTERVERTEBRAL DISC DEGENERATION, 09/22/2017 PATRICK ASHDEN N SOIL SURVEYOR Ot E78.5 HYPERLIPIDEMIA, UNSPECIFIED 09/22/2017 PATRICK ASHDEN N SOIL SURVEYOR Ot Z00.00 ENCNTR FOR GENERAL ADULT MEDICAL EXAM W/ Procedures There is no data. Results Test Result Range Vitamin B7 (Biotin) - 04/21/16 13:57 VITAMIN B7 0.07 NG/ML 0.05-0.83 Vitamin A, Serum - 04/29/16 07:20 VITAMIN A, SERUM 42 UG/DL 20-65 VIT B-12 - 09/28/16 10:40 Vitamin B12 201.00 pg/mL 213.00-816.00 Zinc, Serum or Plasma - 09/28/16 10:40 ZINC, PLASMA OR SERUM 50 UG/DL 56-134 Selenium, Serum or Plasma - 09/28/16 10:40 SELENIUM, SERUM/PLASMA 115 UG/L 79-326 Copper, Serum or plasma - 09/28/16 10:40 COPPER, SERUM 118 UG/DL 72-166 Vitamin B7 (Biotin) - 09/28/16 10:40 VITAMIN B7 0.15 NG/ML 0.05-0.83 Vitamin B3 (Niacin) - 09/28/16 10:40 NICOTINAMIDE 5.6 NG/ML 5.2-72.1 NICOTINIC ACID <5.0 NG/ML 0.0-5.0 Automated blood complete blood count (hemogram) panel - 10/27/16 07:30 Blood leukocytes automated count (number/volume) 9.1 10*3/uL 4.3-11.0 Blood erythrocytes automated count (number/volume) 3.98 10*6/uL 4.35-5.85 Venous blood hemoglobin measurement (mass/volume) 13.6 g/dL 11.5-16.0 Blood hematocrit (volume fraction) 40 % 35-52 Automated erythrocyte mean corpuscular volume 99 [foz_us] 80-99 Automated erythrocyte mean corpuscular hemoglobin (mass per erythrocyte) 34 pg 25-34 Automated erythrocyte mean corpuscular hemoglobin concentration measurement ( mass/volume) 34 g/dL 32-36 Automated erythrocyte distribution width ratio 12.9 % 10.0-14.5 Automated blood platelet count (count/volume) 285 10*3/uL 130-400 Automated blood platelet mean volume measurement 9.6 [foz_us] 7.4-10.4 PT panel in platelet poor plasma by coagulation assay - 10/27/16 07:30 Prothrombin time (PT) in platelet poor plasma by coagulation assay 12.3 s 12.2-14.7 INR in platelet poor plasma or blood by coagulation assay 0.9 0.8-1.4 Activated partial thromboplastin time (aPTT) in platelet poor plasma bycoagulation assay - 10/27/16 07:30 Activated partial thromboplastin time (aPTT) in platelet poor plasma bycoagulation assay 24 s 24-35 Comprehensive metabolic panel - 10/27/16 07:30 Serum or plasma sodium measurement (moles/volume) 142 mmol/L 135-145 Serum or plasma potassium measurement (moles/volume) 3.7 mmol/L 3.6-5.0 Serum or plasma chloride measurement (moles/volume) 106 mmol/L 98-107 Carbon dioxide 29 mmol/L 21-32 Serum or plasma anion gap determination (moles/volume) 7 mmol/L 5-14 Serum or plasma urea nitrogen measurement (mass/volume) 14 mg/dL 7-18 Serum or plasma creatinine measurement (mass/volume) 0.87 mg/dL 0.60-1.30 Serum or plasma urea nitrogen/creatinine mass ratio 16 NRG Serum or plasma creatinine measurement with calculation of estimated glomerular filtration rate > NRG Serum or plasma glucose measurement (mass/volume) 93 mg/dL 70-105 Serum or plasma calcium measurement (mass/volume) 9.7 mg/dL 8.5-10.1 Serum or plasma total bilirubin measurement (mass/volume) 0.8 mg/dL 0.1-1.0 Serum or plasma alkaline phosphatase measurement (enzymatic activity/volume) 65 U/L 40-136 Serum or plasma aspartate aminotransferase measurement (enzymatic activity/ volume) 22 U/L 5-34 Serum or plasma alanine aminotransferase measurement (enzymatic activity/volume ) 31 U/L 0-55 Serum or plasma protein measurement (mass/volume) 7.4 g/dL 6.4-8.2 Serum or plasma albumin measurement (mass/volume) 4.4 g/dL 3.2-4.5 Lipid 1996 panel - 10/27/16 07:30 Serum or plasma triglyceride measurement (mass/volume) 117 mg/dL <150 Serum or plasma cholesterol measurement (mass/volume) 243 mg/dL < 200 Serum or plasma cholesterol in HDL measurement (mass/volume) 75 mg/ dL 40-60 Cholesterol in LDL [mass/volume] in serum or plasma by direct assay 134 mg/dL 1-129 Serum or plasma cholesterol in VLDL measurement (mass/volume) 23 mg/ dL 5-40 Methicillin resistant Staphylococcus aureus (MRSA) screening culture - 07:30 Methicillin resistant Staphylococcus aureus (MRSA) screening culture NEG NRG Complete blood count (CBC) with automated white blood cell (WBC) differential - 11/05/16 12:25 Blood leukocytes automated count (number/volume) 7.8 10*3/uL 4.3-11.0 Blood erythrocytes automated count (number/volume) 3.80 10*6/uL 4.35-5.85 Venous blood hemoglobin measurement (mass/volume) 13.0 g/dL 11.5-16.0 Blood hematocrit (volume fraction) 38 % 35-52 Automated erythrocyte mean corpuscular volume 101 [foz_us] 80-99 Automated erythrocyte mean corpuscular hemoglobin (mass per erythrocyte) 34 pg 25-34 Automated erythrocyte mean corpuscular hemoglobin concentration measurement ( mass/volume) 34 g/dL 32-36 Automated erythrocyte distribution width ratio 13.0 % 10.0-14.5 Automated blood platelet count (count/volume) 260 10*3/uL 130-400 Automated blood platelet mean volume measurement 9.5 [foz_us] 7.4-10.4 Automated blood neutrophils/100 leukocytes 54 % 42-75 Automated blood lymphocytes/100 leukocytes 38 % 12-44 Blood monocytes/100 leukocytes 6 % 0-12 Automated blood eosinophils/100 leukocytes 1 % 0-10 Automated blood basophils/100 leukocytes 0 % 0-10 Blood neutrophils automated count (number/volume) 4.2 10*3 1.8-7.8 Blood lymphocytes automated count (number/volume) 3.0 10*3 1.0-4.0 Blood monocytes automated count (number/volume) 0.4 10*3 0.0-1.0 Automated eosinophil count 0.1 10*3/uL 0.0-0.3 Automated blood basophil count (count/volume) 0.0 10*3/uL 0.0-0.1 Comprehensive metabolic panel - 11/05/16 12:25 Serum or plasma sodium measurement (moles/volume) 139 mmol/L 135-145 Serum or plasma potassium measurement (moles/volume) 3.4 mmol/L 3.6-5.0 Serum or plasma chloride measurement (moles/volume) 105 mmol/L 98-107 Carbon dioxide 26 mmol/L 21-32 Serum or plasma anion gap determination (moles/volume) 8 mmol/L 5-14 Serum or plasma urea nitrogen measurement (mass/volume) 14 mg/dL 7-18 Serum or plasma creatinine measurement (mass/volume) 1.02 mg/dL 0.60-1.30 Serum or plasma urea nitrogen/creatinine mass ratio 14 NRG Serum or plasma creatinine measurement with calculation of estimated glomerular filtration rate 56 NRG Serum or plasma glucose measurement (mass/volume) 79 mg/dL 70-105 Serum or plasma calcium measurement (mass/volume) 9.6 mg/dL 8.5-10.1 Serum or plasma total bilirubin measurement (mass/volume) 0.7 mg/dL 0.1-1.0 Serum or plasma alkaline phosphatase measurement (enzymatic activity/volume) 64 U/L 40-136 Serum or plasma aspartate aminotransferase measurement (enzymatic activity/ volume) 18 U/L 5-34 Serum or plasma alanine aminotransferase measurement (enzymatic activity/volume ) 17 U/L 0-55 Serum or plasma protein measurement (mass/volume) 7.5 g/dL 6.4-8.2 Serum or plasma albumin measurement (mass/volume) 4.5 g/dL 3.2-4.5 THYROID STIMULATING HORMONE - 11/05/16 12:25 THYROID STIMULATING HORMONE 6.40 u[iU]/mL 0.35-4.94 Serum or plasma thyroxine (T4) free measurement (mass/volume) - 11/05/16 12:25 Serum or plasma thyroxine (T4) free measurement (mass/volume) 0.54 ng/dL 0.70-1.48 Cyanocobalamin measurement - 11/05/16 12:25 Vitamin B12 278 pg/mL 200-1000 25-hydroxyvitamin D measurement - 11/05/16 12:25 25-hydroxy vitamin D measurement 18 % 30-100 [id number] - 11/05/16 12:25 Complement C3 nephritic [mass/volume] in serum or plasma 124 mg/dL 73-183 Complement C4 [mass/volume] in serum or plasma 23 mg/dL 15-59 Screening antinuclear antibody (RENÉE) assay by enzyme immunoassay <1: 80 <1:80 Serum DNA double strand antibody assay (units/volume) 58 [iU]/mL 0-300 SS-A antibody assay < eq/mL <20 SS-B antibody assay < eq/mL <20 Serum Pyle extractable nuclear antigen (RUPESH) antibody assay (units/volume) < eq/mL <20 Scl-70 ab < eq/mL <20 Ribonucleic protein antibody assay <20 <20 Serum Jacque-1 extractable nuclear antibody assay (units/volume) < eq/ mL <20 * Reference lab test name - 11/05/16 12:25 * Reference lab test results JCV Stratify Ab NRG Cerebrospinal fluid cell count - 11/13/16 12:31 Cerebrospinal fluid appearance description CLEAR NRG Cerebrospinal fluid color identification COLORLESS NRG Cerebrospinal fluid leukocytes count (number/volume) 0 % 0-5 Cerebrospinal fluid erythrocytes count (number/volume) 0 % 0-0 Cerebrospinal fluid cell count on specimen from last tube collected 4 NRG Cerebrospinal fluid glucose measurement (mass/volume) - 11/13/16 12:31 Cerebrospinal fluid glucose measurement (mass/volume) 62 mg/dL 50-80 Cerebrospinal fluid protein measurement (mass/volume) - 11/13/16 12:31 Cerebrospinal fluid protein measurement (mass/volume) 21 mg/dL 15-40 Gram stain microscopy - 11/13/16 12:31 GRAM STAIN RESULT NO WBC'S OR BACTERIA OBSERVED NRG Bacterial cerebrospinal fluid culture - 11/13/16 12:31 Bacterial cerebrospinal fluid culture NG NRG Virus identification by culture - 11/13/16 12:31 Virus identification by culture FOOTNOTE NRG Cerebrospinal fluid VDRL titer - 11/13/16 12:31 Cerebrospinal fluid VDRL titer Non Reactive Non Reactiv Multiple sclerosis panel - 11/13/16 12:31 Serum or plasma albumin measurement (mass/volume) 4.6 g/dL 3.5-4.9 Cerebrospinal fluid oligoclonal bands detection BANDS NOTED NO BANDS Myelin basic protein [mass/volume] in serum < ug/L 0-4.0 Albumin [mass/volume] in cerebral spinal fluid 9.7 mg/dL 8.0-42.0 Quantitative cerebrospinal fluid IgG measurement 1.3 mg/dL 0.8-7.7 Serum or plasma IgG measurement (mass/volume) 922 mg/dL 694-1618 Cerebrospinal fluid IgG index 0.67 H <0.66 Cerebrospinal fluid IgG synthesis rate -1.5 mg -9.9to + 3.3 Complete blood count (CBC) with automated white blood cell (WBC) differential - 01/02/17 17:00 Blood leukocytes automated count (number/volume) 7.6 10*3/uL 4.3-11.0 Blood erythrocytes automated count (number/volume) 3.47 10*6/uL 4.35-5.85 Venous blood hemoglobin measurement (mass/volume) 12.3 g/dL 11.5-16.0 Blood hematocrit (volume fraction) 36 % 35-52 Automated erythrocyte mean corpuscular volume 103 [foz_us] 80-99 Automated erythrocyte mean corpuscular hemoglobin (mass per erythrocyte) 35 pg 25-34 Automated erythrocyte mean corpuscular hemoglobin concentration measurement ( mass/volume) 35 g/dL 32-36 Automated erythrocyte distribution width ratio 12.4 % 10.0-14.5 Automated blood platelet count (count/volume) 237 10*3/uL 130-400 Automated blood platelet mean volume measurement 10.4 [foz_us] 7.4-10.4 Automated blood neutrophils/100 leukocytes 53 % 42-75 Automated blood lymphocytes/100 leukocytes 38 % 12-44 Blood monocytes/100 leukocytes 7 % 0-12 Automated blood eosinophils/100 leukocytes 2 % 0-10 Automated blood basophils/100 leukocytes 0 % 0-10 Blood neutrophils automated count (number/volume) 4.0 10*3 1.8-7.8 Blood lymphocytes automated count (number/volume) 2.9 10*3 1.0-4.0 Blood monocytes automated count (number/volume) 0.5 10*3 0.0-1.0 Automated eosinophil count 0.1 10*3/uL 0.0-0.3 Automated blood basophil count (count/volume) 0.0 10*3/uL 0.0-0.1 Comprehensive metabolic panel - 01/02/17 17:00 Serum or plasma sodium measurement (moles/volume) 143 mmol/L 135-145 Serum or plasma potassium measurement (moles/volume) 3.6 mmol/L 3.6-5.0 Serum or plasma chloride measurement (moles/volume) 109 mmol/L 98-107 Carbon dioxide 24 mmol/L 21-32 Serum or plasma anion gap determination (moles/volume) 10 mmol/L 5-14 Serum or plasma urea nitrogen measurement (mass/volume) 11 mg/dL 7-18 Serum or plasma creatinine measurement (mass/volume) 0.82 mg/dL 0.60-1.30 Serum or plasma urea nitrogen/creatinine mass ratio 13 NRG Serum or plasma creatinine measurement with calculation of estimated glomerular filtration rate > NRG Serum or plasma glucose measurement (mass/volume) 92 mg/dL 70-105 Serum or plasma calcium measurement (mass/volume) 9.2 mg/dL 8.5-10.1 Serum or plasma total bilirubin measurement (mass/volume) 0.5 mg/dL 0.1-1.0 Serum or plasma alkaline phosphatase measurement (enzymatic activity/volume) 62 U/L 40-136 Serum or plasma aspartate aminotransferase measurement (enzymatic activity/ volume) 30 U/L 5-34 Serum or plasma alanine aminotransferase measurement (enzymatic activity/volume ) 27 U/L 0-55 Serum or plasma protein measurement (mass/volume) 6.8 g/dL 6.4-8.2 Serum or plasma albumin measurement (mass/volume) 3.9 g/dL 3.2-4.5 Automated blood complete blood count (hemogram) panel - 01/20/17 06:57 Blood leukocytes automated count (number/volume) 6.8 10*3/uL 4.3-11.0 Blood erythrocytes automated count (number/volume) 3.35 10*6/uL 4.35-5.85 Venous blood hemoglobin measurement (mass/volume) 11.4 g/dL 11.5-16.0 Blood hematocrit (volume fraction) 36 % 35-52 Automated erythrocyte mean corpuscular volume 108 [foz_us] 80-99 Automated erythrocyte mean corpuscular hemoglobin (mass per erythrocyte) 34 pg 25-34 Automated erythrocyte mean corpuscular hemoglobin concentration measurement ( mass/volume) 32 g/dL 32-36 Automated erythrocyte distribution width ratio 12.5 % 10.0-14.5 Automated blood platelet count (count/volume) 225 10*3/uL 130-400 Automated blood platelet mean volume measurement 9.6 [foz_us] 7.4-10.4 Comprehensive metabolic panel - 01/20/17 06:57 Serum or plasma sodium measurement (moles/volume) 142 mmol/L 135-145 Serum or plasma potassium measurement (moles/volume) 3.8 mmol/L 3.6-5.0 Serum or plasma chloride measurement (moles/volume) 104 mmol/L 98-107 Carbon dioxide 29 mmol/L 21-32 Serum or plasma anion gap determination (moles/volume) 9 mmol/L 5-14 Serum or plasma urea nitrogen measurement (mass/volume) 16 mg/dL 7-18 Serum or plasma creatinine measurement (mass/volume) 0.88 mg/dL 0.60-1.30 Serum or plasma urea nitrogen/creatinine mass ratio 18 NRG Serum or plasma creatinine measurement with calculation of estimated glomerular filtration rate > NRG Serum or plasma glucose measurement (mass/volume) 81 mg/dL 70-105 Serum or plasma calcium measurement (mass/volume) 9.2 mg/dL 8.5-10.1 Serum or plasma total bilirubin measurement (mass/volume) 0.6 mg/dL 0.1-1.0 Serum or plasma alkaline phosphatase measurement (enzymatic activity/volume) 63 U/L 40-136 Serum or plasma aspartate aminotransferase measurement (enzymatic activity/ volume) 18 U/L 5-34 Serum or plasma alanine aminotransferase measurement (enzymatic activity/volume ) 18 U/L 0-55 Serum or plasma protein measurement (mass/volume) 6.5 g/dL 6.4-8.2 Serum or plasma albumin measurement (mass/volume) 3.8 g/dL 3.2-4.5 THYROID STIMULATING HORMONE - 01/20/17 06:57 THYROID STIMULATING HORMONE 0.15 u[iU]/mL 0.35-4.94 Thyroxine (T4) measurement - 01/20/17 06:57 T4 (thyroxine) 9.2 % 5.5-12.0 Automated blood complete blood count (hemogram) panel - 08/02/17 08:43 Blood leukocytes automated count (number/volume) 5.0 10*3/uL 4.3-11.0 Blood erythrocytes automated count (number/volume) 3.42 10*6/uL 4.35-5.85 Venous blood hemoglobin measurement (mass/volume) 11.8 g/dL 11.5-16.0 Blood hematocrit (volume fraction) 34 % 35-52 Automated erythrocyte mean corpuscular volume 100 [foz_us] 80-99 Automated erythrocyte mean corpuscular hemoglobin (mass per erythrocyte) 35 pg 25-34 Automated erythrocyte mean corpuscular hemoglobin concentration measurement ( mass/volume) 34 g/dL 32-36 Automated erythrocyte distribution width ratio 13.0 % 10.0-14.5 Automated blood platelet count (count/volume) 210 10*3/uL 130-400 Automated blood platelet mean volume measurement 9.3 [foz_us] 7.4-10.4 Comprehensive metabolic panel - 08/02/17 08:43 Serum or plasma sodium measurement (moles/volume) 140 mmol/L 135-145 Serum or plasma potassium measurement (moles/volume) 4.0 mmol/L 3.6-5.0 Serum or plasma chloride measurement (moles/volume) 104 mmol/L 98-107 Carbon dioxide 27 mmol/L 21-32 Serum or plasma anion gap determination (moles/volume) 9 mmol/L 5-14 Serum or plasma urea nitrogen measurement (mass/volume) 13 mg/dL 7-18 Serum or plasma creatinine measurement (mass/volume) 0.92 mg/dL 0.60-1.30 Serum or plasma urea nitrogen/creatinine mass ratio 14 NRG Serum or plasma creatinine measurement with calculation of estimated glomerular filtration rate > NRG Serum or plasma glucose measurement (mass/volume) 85 mg/dL 70-105 Serum or plasma calcium measurement (mass/volume) 9.2 mg/dL 8.5-10.1 Serum or plasma total bilirubin measurement (mass/volume) 0.6 mg/dL 0.1-1.0 Serum or plasma alkaline phosphatase measurement (enzymatic activity/volume) 65 U/L 40-136 Serum or plasma aspartate aminotransferase measurement (enzymatic activity/ volume) 22 U/L 5-34 Serum or plasma alanine aminotransferase measurement (enzymatic activity/volume ) 22 U/L 0-55 Serum or plasma protein measurement (mass/volume) 6.9 g/dL 6.4-8.2 Serum or plasma albumin measurement (mass/volume) 4.1 g/dL 3.2-4.5 Lipid 1996 panel - 08/02/17 08:43 Serum or plasma triglyceride measurement (mass/volume) 220 mg/dL <150 Serum or plasma cholesterol measurement (mass/volume) 222 mg/dL < 200 Serum or plasma cholesterol in HDL measurement (mass/volume) 60 mg/ dL 40-60 Cholesterol in LDL [mass/volume] in serum or plasma by direct assay 116 mg/dL 1-129 Serum or plasma cholesterol in VLDL measurement (mass/volume) 44 mg/ dL 5-40 THYROID STIMULATING HORMONE - 08/02/17 08:43 THYROID STIMULATING HORMONE 0.41 u[iU]/mL 0.35-4.94 Serum or plasma thyroxine (T4) free measurement (mass/volume) - 08/02/17 08:43 Serum or plasma thyroxine (T4) free measurement (mass/volume) 1.13 ng/dL 0.70-1.48 25-hydroxyvitamin D measurement - 08/02/17 08:43 25-hydroxy vitamin D measurement 10 % 30-100 Encounters ACCT No. Visit Date/Time Discharge Status Pt. Type Provider Facility Loc./Unit Complaint [id number] 08/16/2017 07:45:00 08/16/2017 23:59:59 CLS Outpatient CONSTANCE PYLE APRN [facility] RAD M54.5 LOW BACK PAIN [id number] 08/02/2017 08:26:00 08/02/2017 23:59:59 CLS Outpatient RADHA GARY MD [facility] LAB G35 [id number] 03/14/2017 00:28:00 03/14/2017 23:59:59 CLS Preadmit VIOLA APK MD [facility] 4TH RCR INFUSION [id number] 01/04/2017 16:05:00 03/13/2017 00:01:00 DIS Outpatient VIOLA PAK MD [facility] 4TH RCR INFUSION [id number] 01/20/2017 06:44:00 01/20/2017 23:59:59 CLS Outpatient EUGENIO WESTBROOK, ELVIA Gregg [facility] LAB R53.8 E03 [id number] 01/02/2017 15:21:00 01/02/2017 20:11:00 DIS Emergency VIOLA PAK MD [facility] ER FATIGUE/DIFF WALKING/ FOGGY MEMORY [id number] 12/18/2016 13:10:00 12/18/2016 23:59:59 CLS Outpatient CONSTANCE PYLE APRN [facility] RAD SCREENING Z12.31 [id number] 11/13/2016 09:08:00 11/13/2016 23:59:59 CLS Outpatient RADHA GARY MD [facility] RAD G35 [id number] 11/12/2016 13:00:00 11/12/2016 13:00:00 CAN Preadmit RADHA GARY MD [facility] SDC MULTIPLE SCLEROSIS [id number] 11/05/2016 11:42:00 11/05/2016 23:59:59 CLS Outpatient RADHA GARY MD [facility] LAB G35 [id number] 10/27/2016 06:51:00 10/27/2016 13:50:00 DIS Outpatient CATLHEEN WESTBROOK FACCADDIE FACP CCDS [facility] CATH FATIGUE, ANGINA [id number] 10/19/2016 11:58:00 10/19/2016 12:59:00 DIS Outpatient TUCKER BARAJAS MD [facility] CARD SPONDYLOSIS [id number] 10/12/2016 12:21:00 10/12/2016 13:26:00 DIS Outpatient TUCKER BARAJAS MD [facility] SPONDYLOSIS [id number] 07/31/2016 09:57:00 07/31/2016 23:59:59 CLS Outpatient CONSTANCE PYLE SOIL SURVEYOR [facility] RAD THYROID NODULE [id number] 01/15/2016 19:59:00 01/16/2016 06:20:00 DIS Outpatient MENA BLAS DO [facility] SLEEP GENE [id number] 12/24/2015 07:33:00 12/24/2015 23:59:59 CLS Outpatient ACTHLEEN WESTBROOK FACC, ALI FACP CCDS [facility] CHEST DISCOMFORT,PVC,SOB,ARTHRITIS [id number] 12/19/2015 14:00:00 12/19/2015 23:59:59 CLS Outpatient CATHLEEN WESTBROOK FACC, ALI FACP CCDS [facility] CHEST DISCOMFORT; PVC [id number] 10/08/2015 07:58:00 10/08/2015 23:59:59 CLS Outpatient ARAM LO SOIL SURVEYOR [facility] RAD REFLUX [id number] 09/23/2015 12:07:00 09/23/2015 12:54:00 DIS Outpatient TUCKER BARAJAS MD [facility] SPONDYLOSIS WO RADICULOPATHY [id number] 09/20/2015 10:06:00 09/20/2015 23:59:59 CLS Outpatient CONSTANCE PYLE SOIL SURVEYOR [facility] LAB ADULT HEALTH EXAMINATION,HYPERLIPIDEMIA [id number] 09/16/2015 11:23:00 09/16/2015 13:00:00 DIS Outpatient TUCKER BARAJAS MD [facility] SPONDYLOSOSIS WO RADICUOLPATHY [id number] 03/25/2015 11:18:00 03/25/2015 23:59:59 CLS Outpatient CONSTANCE PYLE SOIL SURVEYOR [facility] LAB [id number] 02/01/2015 08:05:00 02/01/2015 23:59:59 CLS Outpatient TUCKER BARAJAS MD [facility] [id number] 01/25/2015 07:48:00 01/25/2015 23:59:59 CLS Outpatient CONSTANCE PYLE SOIL SURVEYOR [facility] RAD [id number] 12/28/2014 08:49:00 12/28/2014 23:59:59 CLS Outpatient CONSTANCE PYLE SOIL SURVEYOR [facility] LAB [id number] 12/17/2014 07:31:00 12/17/2014 10:15:00 DIS Outpatient TANIYA DICKSON MD [facility] [facility] [id number] 12/13/2014 06:31:00 12/13/2014 23:59:59 CLS Outpatient TANIYA DICKSON MD [facility] PREOP [id number] 10/12/2014 12:01:00 10/12/2014 23:59:59 CLS Outpatient ELVIA BECKER MD [facility] CARD [id number] 09/24/2014 10:46:00 09/24/2014 14:25:00 DIS Outpatient TANIYA DICKSON MD [facility] [id number] 09/18/2014 20:35:00 09/20/2014 17:00:00 DIS Inpatient ELVIA BECKER MD [facility] CSD [id number] 09/10/2014 12:53:00 09/10/2014 13:48:00 DIS Outpatient TUCKER BARAJAS MD [facility] CARD [id number] 07/27/2014 14:02:00 07/27/2014 23:59:59 CLS Outpatient BERYL KAY MD [facility] REHAB [id number] 04/21/2014 14:13:00 04/21/2014 15:38:00 DIS Emergency RADHA KEARNEY SOIL SURVEYOR [facility] ER [id number] 03/31/2013 13:01:00 03/31/2013 23:59:59 CLS Outpatient JUSTIN JOHNSON DO [facility] RAD [id number] 12/13/2012 13:35:00 12/13/2012 23:59:59 CLS Outpatient ALEJO MAE [facility] RAD [id number] 12/02/2012 09:39:00 12/02/2012 23:59:59 CLS Outpatient OSIIALEJO CARRANZAP [facility] RAD [id number] 11/30/2012 12:46:00 11/30/2012 23:59:59 CLS Outpatient OSIIALEJO CARRANZA ENT CONSULTANT [facility] RAD [id number] 10/21/2012 10:47:00 10/21/2012 23:59:59 CLS Outpatient OSIIERALEJO ENT CONSULTANT [facility] RAD [id number] 11/06/2015 09:40:00 Document Registration [id number] 09/07/2014 09:59:00 Document Registration [id number] 09/07/2014 09:59:00 Document Registration [id number] 09/07/2014 09:59:00 Document Registration [id number] 09/07/2014 09:59:00 Document Registration [id number] 11/27/2011 10:18:00 Document Registration [id number] 08/31/2011 20:10:00 Document Registration [id number] 12/11/2010 07:08:00 Document Registration [id number] 11/28/2010 06:22:00 Document Registration [id number] 10/14/2010 10:45:00 Document Registration [id number] 09/28/2016 10:29:00 09/28/2016 23:59:00 DIS Outpatient GriselBk [id number] 04/29/2016 00:00:00 05/01/2016 14:40:00 DIS Outpatient Bk Recinos [id number] 05/01/2016 12:42:37 Document Registration [id number] 04/21/2016 13:17:00 Document Registration [id number] 03/25/2015 13:14:27 ACT Document Registration
[2017-10-08 12:40] LABS: BILIRUBIN,URINE NEGATIVE (NEGATIVE); CLARITY,URINE CLEAR; GLUCOSE, URINE (UA) NEGATIVE (NEGATIVE); KETONES,URINE NEGATIVE (NEGATIVE); LEUKOCYTE ESTERASE ,URINE 2+ (NEGATIVE); NITRITE,URINE NEGATIVE (NEGATIVE); PH,URINE 5 (5-9); PROTEIN,URINE NEGATIVE (NEGATIVE); UROBILINOGEN,URINE NORMAL (NORMAL)
[2017-10-08 12:45] LABS: WBC,URINE 0-2 /HPF
[2017-10-08 12:46] LABS: BACTERIA,URINE TRACE /HPF; COLOR,URINE YELLOW; SQUAMOUS EPITHELIAL CELL,UR 0-2 /HPF
[2017-10-08 12:52] LABS: BASOPHILS % (AUTO) 0 % (0-10); EOSINOPHILS # (AUTO) 0.1 10^3/uL (0.0-0.3); EOSINOPHILS % (AUTO) 1 % (0-10); HEMATOCRIT 38 % (35-52); HEMOGLOBIN 13.1 G/DL (11.5-16.0); LYMPHOCYTES # (AUTO) 0.7 X 10^3 (1.0-4.0); LYMPHOCYTES % (AUTO) 14 % (12-44); MEAN CORPUSCULAR HEMOGLOBIN 34 PG (25-34); MEAN CORPUSCULAR HGB CONC 35 G/DL (32-36); MEAN CORPUSCULAR VOLUME 98 FL (80-99); MEAN PLATELET VOLUME 10.2 FL (7.4-10.4); MONOCYTES # (AUTO) 0.3 X 10^3 (0.0-1.0); MONOCYTES % (AUTO) 6 % (0-12); NEUTROPHILS % (AUTO) 79 % (42-75); PLATELET COUNT 174 10^3/uL (130-400); RED BLOOD COUNT 3.87 10^6/uL (4.35-5.85); RED CELL DISTRIBUTION WIDTH 11.9 % (10.0-14.5)
[2017-10-08 13:10] LABS: ALANINE AMINOTRANSFERASE 28 U/L (0-55); ALBUMIN 4.6 GM/DL (3.2-4.5); ALKALINE PHOSPHATASE 69 U/L (40-136); BILIRUBIN,TOTAL 0.6 MG/DL (0.1-1.0); BUN/CREATININE RATIO 16; CALCIUM 9.8 MG/DL (8.5-10.1); CARBON DIOXIDE 27 MMOL/L (21-32); CHLORIDE 100 MMOL/L (98-107); CREATININE SERUM 0.85 MG/DL (0.60-1.30); GFR ESTIMATED > 60; GLUCOSE 82 MG/DL (70-105); POTASSIUM 4.4 MMOL/L (3.6-5.0); SODIUM 138 MMOL/L (135-145); TOTAL PROTEIN 7.8 GM/DL (6.4-8.2)
--- NOTE | 2017-10-08 13:11 | ED Neurological Problem ---
General Chief Complaint: Neurological Problems Stated Complaint: MS FLARE UP Nursing Triage Note: PATIENT WITH HX MS COMPLAINING OF UNSTEADY GAIT, LOSS OF VISION IN RIGHT EYE AND NAUSEA. Nursing Sepsis Screen: No Definite Risk Source: patient Exam Limitations: no limitations History of Present Illness Date Seen by Provider: Oct 08, 2017 Time Seen by Provider: 13:05 Initial Comments The patient is a 57-year-old white female known to me from a previous visit in December 2016. 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 She has multiple sclerosis of some standing. She reports that The flare that she had last December when I saw her was virtually the last flare. Beginning about 2 hours or so prior to her arrival here she noted a headache, a change in her ability to balance, and a curious patchy visual loss like missing pixels on a digital TV. She attempted to call her neurologist and the phone answering machine recommended going to the nearest emergency room. She has given me the neurologist who is based at [facility] in [place] phone number. Timing/Duration: 1-3 hours Associated Symptoms: tingling in legs/feet, vision changes, weakness Allergies and Home Medications Allergies Coded Allergies: gabapentin (Verified Allergy, Unknown, 10/27/16) nitrofurantoin (Verified Allergy, Unknown, 01/02/17) Home Medications Alprazolam 0.5 Mg Tablet, 0.5 MG PO TID PRN for ANXIETY, (Reported) Aspirin 81 Mg Tab.chew, 81 MG PO DAILY Prescribed by: ADDIE CONNOLLY on 10/27/16 1143 Baclofen 10 Mg Tablet, 20 MG PO TID, (Reported) TAKES 2 (10 MG) TABLETS Bupropion HCl 300 Mg Tab.er.24h, 300 MG PO DAILY, (Reported) Diazepam 5 Mg Tablet, 5 MG PO QID PRN for MUSCLE SPASMS, (Reported) DOES NOT TAKE WITH ALPRAZOLAM Docusate Sodium 100 Mg Capsule, 100 MG PO DAILY, (Reported) Docusate Sodium 100 Mg Capsule, 200 MG PO HS, (Reported) Fentanyl 1 Each Patch.td72, 75 MCG TD Q72H, (Reported) Levothyroxine Sodium 150 Mcg Tablet, 150 MCG PO DAILY, (Reported) Methylprednisolone Sod Succ/Pf 1,000 Mg/8 Ml Vial, 1,000 MG IV DAILY Prescribed by: VIOLA PAK on 01/02/17 775 Oxycodone HCl/Acetaminophen 1 Each Tablet, 1 TAB PO QID, (Reported) Pantoprazole Sod 40 Mg Tab, 40 MG PO DAILY, (Reported) Pramipexole Di-Hcl 0.5 Mg Tablet, 0.5 MG PO BID, (Reported) Primidone 50 Mg Tablet, 50 MG PO HS, (Reported) Sertraline HCl 50 Mg Tablet, 150 MG PO DAILY, (Reported) TAKES 3 (50 MG) TABLETS Patient Home Medication List Home Medication List Reviewed: Yes Review of Systems Constitutional: see HPI Eyes: See HPI Ears, Nose, Mouth, Throat: no symptoms reported Respiratory: no symptoms reported Cardiovascular: no symptoms reported Gastrointestinal: no symptoms reported Genitourinary: no symptoms reported Musculoskeletal: see HPI Skin: no symptoms reported Psychiatric/Neurological: Other (gait and balance change) Endocrine: No Symptoms Reported Hematologic/Lymphatic: No Symptoms Reported Past Tpgvvmo-Snlhtl-Vxiwil Hx Patient Social History Alcohol Use: Denies Use Recreational Drug Use: No Smoking Status: Former Smoker Type Used: Cigarettes Former Smoker, Quit: October 27, 2013 2nd Hand Smoke Exposure: No Recent Foreign Travel: No Contact w/Someone Who Travel: No Recent Infectious Disease Expo: No Recent Hopitalizations: No Immunizations Up To Date Tetanus Booster (TDap): More than 5yrs PED Vaccines UTD: Yes Seasonal Allergies Seasonal Allergies: No Past Medical History Surgeries: Yes (RIGHT CARPAL TUNNEL, GASTRIC SLEEVE APR 2016) Hysterectomy Respiratory: No (USES O2 @ HS, SATS DROP WHILE SLEEPING) Cardiac: Yes (PVC'S) Hypertension Neurological: Yes Headaches /Migraines, Multiple Sclerosis Reproductive Disorders: No Sexually Transmitted Disease: No HIV/AIDS: No Genitourinary: No Gastrointestinal: Yes Gastroesophageal Reflux, Ulcer Musculoskeletal: Yes (BONE SPUR NECK) Degenerate Disk Disease, Chronic Back Pain Endocrine: Yes (PATIENT STATES HYPOGLYCEMIC) Hypothyroidsim Loss of Vision: Right Hearing Impairment: Denies Cancer: No Psychosocial: Yes (PANIC ATTACKS) Anxiety, Depression Integumentary: No Blood Disorders: No Adverse Reaction/Blood Tranf: No Family Medical History Alzheimer's disease 19 FATHER Cardiovascular disease 19 FATHER Dementia G8 SISTER Diabetes mellitus 19 FATHER 19 MOTHER G8 SISTER Glaucoma 19 MOTHER Hypertension 19 MOTHER Physical Exam Vital Signs Vital Signs - First Documented 10/08/17 12:19 Temp 98.0 Pulse 85 Resp 20 B/P (MAP) 127/93 (104) Pulse Ox 100 O2 Delivery Room Air Capillary Refill : Less Than 3 Seconds General Appearance: mild distress HEENT: normal ENT inspection Neck: full range of motion Respiratory: chest non-tender, lungs clear, normal breath sounds, no respiratory distress, no accessory muscle use, respiratory distress Cardiovascular: normal peripheral pulses, regular rate, rhythm, no edema, no gallop, no JVD, no murmur Gastrointestinal: normal bowel sounds, non tender, soft, no organomegaly, no pulsatile mass Back: normal inspection, no CVA tenderness, no vertebral tenderness, CVA tenderness (R), CVA tenderness (L) Comments Cranial nerves II through XII appear grossly intact. 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 Rapid alternating finger to thumb movements appear impaired bilaterally. Finger to finger and finger to nose motion is also impaired. She is able to perform straight leg lift and dorsiflexion without problem Progress/Results/Core Measures Lab Results Laboratory Tests Test 10/08/17 12:30 10/08/17 12:45 Range/Units Urine Color YELLOW Urine Clarity CLEAR Urine pH 5 5-9 Urine Specific [place] 1.010 L 1.016-1.022 Urine Protein NEGATIVE NEGATIVE Urine Glucose (UA) NEGATIVE NEGATIVE Urine Ketones NEGATIVE NEGATIVE Urine Nitrite NEGATIVE NEGATIVE Urine Bilirubin NEGATIVE NEGATIVE Urine Urobilinogen NORMAL NORMAL MG/DL Urine Leukocyte Esterase 2+ H NEGATIVE Urine RBC (Auto) NEGATIVE NEGATIVE Urine RBC NONE /HPF Urine WBC 0-2 /HPF Urine Squamous Epithelial Cells 0-2 /HPF Urine Crystals NONE /LPF Urine Bacteria TRACE /HPF Urine Casts NONE /LPF Urine Mucus NEGATIVE /LPF Urine Culture Indicated YES White Blood Count 5.0 4.3-11.0 10^3/uL Red Blood Count 3.87 L 4.35-5.85 10^6/uL Hemoglobin 13.1 11.5-16.0 G/DL Hematocrit 38 35-52 % Mean Corpuscular Volume 98 80-99 FL Mean Corpuscular Hemoglobin 34 25-34 PG Mean Corpuscular Hemoglobin Concent 35 32-36 G/DL Red Cell Distribution Width 11.9 10.0-14.5 % Platelet Count 174 130-400 10^3/uL Mean Platelet Volume 10.2 7.4-10.4 FL Neutrophils (%) (Auto) 79 H 42-75 % Lymphocytes (%) (Auto) 14 12-44 % Monocytes (%) (Auto) 6 0-12 % Eosinophils (%) (Auto) 1 0-10 % Basophils (%) (Auto) 0 0-10 % Neutrophils # (Auto) 4.0 1.8-7.8 X 10^3 Lymphocytes # (Auto) 0.7 L 1.0-4.0 X 10^3 Monocytes # (Auto) 0.3 0.0-1.0 X 10^3 Eosinophils # (Auto) 0.1 0.0-0.3 10^3/uL Basophils # (Auto) 0.0 0.0-0.1 10^3/uL Sodium Level 138 135-145 MMOL/L Potassium Level 4.4 3.6-5.0 MMOL/L Chloride Level 100 98-107 MMOL/L Carbon Dioxide Level 27 21-32 MMOL/L Anion Gap 11 5-14 MMOL/L Blood Urea Nitrogen 14 7-18 MG/DL Creatinine 0.85 0.60-1.30 MG/DL Estimat Glomerular Filtration Rate > 60 BUN/Creatinine Ratio 16 Glucose Level 82 70-105 MG/DL Calcium Level 9.8 8.5-10.1 MG/DL Total Bilirubin 0.6 0.1-1.0 MG/DL Aspartate Amino Transf (AST/SGOT) 32 5-34 U/L Alanine Aminotransferase (ALT/SGPT) 28 0-55 U/L Alkaline Phosphatase 69 40-136 U/L Total Protein 7.8 6.4-8.2 GM/DL Albumin 4.6 H 3.2-4.5 GM/DL My Orders Orders - VIOLA PAK MD Cbc With Automated Diff (10/08/17 12:14) Comprehensive Metabolic Panel (10/08/17 12:14) Ua Culture If Indicated (10/08/17 12:14) Urine Culture (10/08/17 12:30) Vital Signs/I&O 10/08/17 12:19 Temp 98.0 Pulse 85 Resp 20 B/P (MAP) 127/93 (104) Pulse Ox 100 O2 Delivery Room Air Blood Pressure Mean: 104 Departure Communication (Admissions) 1418. I placed a message to neurologists office at 1305. After 50 minutes there had been no return so I spoke to the fig bar machine operator at [facility] and she connected me with Dr. Tamayo who was the neurologist on-call. After explaining the symptoms to her she allowed that it being Wednesday afternoon getting an outpatient MRI would not be possible and recommended that we transfer her for inpatient status and treatment as determined. I then spoke to [facility] call and the hospitalist. She was accepted in transfer. She will be transferred by private vehicle. She was instructed that she was to present to the emergency room first. Impression Primary Impression: multiple sclerosis and acute flare Disposition: XFER SHT-TRM HOSP Condition: Stable/Unchanged Transfer Time Spoke to Accepting Phy: 13:50 Transfer Progress Notes I spoke to Dr. Tamayo who is the neurologist cert occupational therapy asst. She recommended transfer for inpatient evaluation and treatment. Accordingly I spoke to the hospitalist who accepted her and arrangements were completed. Transfer Time: 14:19 Method of Transfer: Private Vehicle Departure-Patient Inst. Referrals: ELVIA BECKER MD (PCP/Family) Primary Care Physician VIOLA PAK MD Oct 08, 2017 13:11
[2017-10-08 14:34] VITALS: BP 127/93
== END 2017-10-08 14:37 | disposition short-term general hospital (02) ==
LOC: EDUNIT# 12:04 → ER 12:08
DX: G35 Multiple sclerosis (principal); K21.9 Gastro-esophageal reflux disease without esophagitis; E03.9 Hypothyroidism, unspecified; I10 Essential (primary) hypertension; F41.0 Panic disorder [episodic paroxysmal anxiety]; F32.9 Major depressive disorder, single episode, unspecified; G43.909 Migraine, unspecified, not intractable, without status migrainosus; Z88.8 Allergy status to other drugs, medicaments and biological substances; Z87.19 Personal history of other diseases of the digestive system; Z82.49 Family history of ischemic heart disease and other diseases of the circulatory system; Z79.82 Long term (current) use of aspirin; Z79.52 Long term (current) use of systemic steroids; Z87.891 Personal history of nicotine dependence; Z90.710 Acquired absence of both cervix and uterus; Z98.84 Bariatric surgery status
CPT/HCPCS: 36415; 80053; 81000; 85025; 87077; 87088

== ENCOUNTER → 2018-01-06 | Outpatient (CLI) | payer OTHER ==
[2018-01-06 07:40] LABS: HEMOGLOBIN 11.5 G/DL (11.5-16.0); MEAN PLATELET VOLUME 9.6 FL (7.4-10.4); RED BLOOD COUNT 3.39 10^6/uL (4.35-5.85)
[2018-01-06 07:59] LABS: ALBUMIN 4.2 GM/DL (3.2-4.5); BILIRUBIN,TOTAL 0.5 MG/DL (0.1-1.0); CALCIUM 9.2 MG/DL (8.5-10.1); CREATININE SERUM 0.96 MG/DL (0.60-1.30); POTASSIUM 3.9 MMOL/L (3.6-5.0)
== END ==
LOC: LAB 07:12
PROVIDERS: ATTEND Nurse Practitioner Family
DX: R53.83 Other fatigue (principal); E78.5 Hyperlipidemia, unspecified; E55.9 Vitamin D deficiency, unspecified
CPT/HCPCS: 36415; 80053; 80061; 82306; 84443; 85027

== ENCOUNTER → 2018-01-06 | Outpatient (CLI) | payer OTHER ==
[~2018-01-06] MED LIST changes: +GADOBUTROL 10 MMOL/10 ML (GADAVIST) VIAL IV ONE
[2018-01-06 07:41] LABS: HEMOGLOBIN 11.4 G/DL (11.5-16.0); MEAN PLATELET VOLUME 9.6 FL (7.4-10.4); RED BLOOD COUNT 3.36 10^6/uL (4.35-5.85); RED CELL DISTRIBUTION WIDTH 12.9 % (10.0-14.5); WHITE BLOOD COUNT 4.1 10^3/uL (4.3-11.0)
[2018-01-06 07:56] LABS: ALBUMIN 4.2 GM/DL (3.2-4.5); BILIRUBIN,TOTAL 0.5 MG/DL (0.1-1.0); CALCIUM 9.2 MG/DL (8.5-10.1); CREATININE SERUM 0.96 MG/DL (0.60-1.30)
--- NOTE | 2018-01-06 17:31 | Diagnostic Imaging Report ---
PROCEDURE: MR imaging of the brain with and without contrast. TECHNIQUE: Multiplanar, multisequence MR imaging of the brain was performed with and without contrast. INDICATION: Multiple sclerosis exacerbation. FINDINGS: The previous MRI brain exam of 11/13/16 noted a few juxtacortical T2 hyperintense lesions. These lesions did seem somewhat more prominent than noted on the 2013 exam. On this study, there are a few small areas of increased signal in the periventricular white matter bilaterally as well as increased signal adjacent to the lateral and occipital horns. These findings are quite similar to the prior exam. These findings could be secondary to demyelinating disease. Microvascular ischemia could also present in this manner. There is no abnormal enhancement of any of the lesions in the periventricular white matter to suggest active demyelination. There is no abnormal signal seen on the diffusion series either. The overall appearance of the brain is otherwise no different than on the prior study. There is no mass, shift of midline, or hemorrhage to indicate an acute abnormality. There is no sign of an area of acute ischemia and there is no abnormal enhancement on the post contrast series to indicate a neoplastic or infectious process. The ventricles are stable in size. The sella is not enlarged and the expected carotid flow voids are evident bilaterally. The orbits are symmetrical and within normal limits. The sinuses are generally clear. The seventh and eighth nerve complexes are unremarkable. IMPRESSION: 1. There is no evidence for an acute intracranial abnormality. 2. The areas of altered signal in the periventricular white matter seen on the FLAIR series of the prior study are again evident and no different. These findings are nonspecific but could be secondary to demyelinating disease. However, there is no abnormal enhancement of these lesions to indicate active demyelination. Dictated by: Dictated on workstation # [id number]
== END ==
LOC: RAD 07:09
PROVIDERS: ATTEND Psychiatry & Neurology Neurology
DX: R90.82 White matter disease, unspecified (principal); G35 Multiple sclerosis
CPT/HCPCS: 36415; 70553; 80053; 82607; 85027

== ENCOUNTER → 2018-02-21 | Outpatient (CLI) | payer OTHER ==
[~2018-02-21] MED LIST changes: -GADOBUTROL 10 MMOL/10 ML (GADAVIST) VIAL IV ONE; -OXYC-201 PO; +OXYC1TAB16 PO
--- NOTE | 2018-02-21 16:06 | Diagnostic Imaging Report ---
INDICATION: Fall with left knee injury and pain. FINDINGS: AP, oblique, and lateral views of the left knee reveal mild deformity involving the lateral tibial plateau compatible with slightly depressed fracture. There may be a small amount of joint fluid present. No other fracture or malalignment is identified. IMPRESSION: Slightly depressed lateral tibial plateau fracture. Dictated by: Dictated on workstation # [id number]
== END ==
LOC: RAD 14:21
PROVIDERS: ATTEND Nurse Practitioner Family
DX: S82.142A Displaced bicondylar fracture of left tibia, initial encounter for closed fracture (principal); W18.39XA Other fall on same level, initial encounter
CPT/HCPCS: 73562

== ENCOUNTER → 2018-02-24 | Outpatient (CLI) | payer OTHER ==
--- NOTE | 2018-02-24 13:37 | Diagnostic Imaging Report ---
PROCEDURE: MRI left joint lower extremity without contrast. TECHNIQUE: Multiplanar, multisequence non contrast-enhanced MRI of the left lower extremity was accomplished. INDICATION: Fall with injury to the left knee. COMPARISON: No prior MRI studies are available for comparison. FINDINGS: Trace joint fluid is present. There is moderate marrow edema identified in the proximal tibia on the lateral side, posteriorly. Curvilinear low signal intensity lines on T1-weighted images are present at this location consistent with an acute fracture. This involves the lateral tibial plateau posteriorly. No significant depression of the plateau is identified. The medial tibial plateau is intact. The proximal fibula as well as the distal femur appear intact. The ACL and PCL are intact. The medial and lateral collateral complexes are intact. Both the medial and lateral menisci are intact. No tear or displaced meniscal fragment is identified. Extensor mechanism is unremarkable. There is moderate edema identified in the prepatellar tendon subcutaneous tissues. IMPRESSION: 1. Acute fracture involving the lateral tibial plateau posteriorly. No significant depression of the plateau is identified. No displacement is seen. 2. No ligamentous or meniscal tear is identified. Report given to Summer Ash APRN, at 1:36 p.m. 02/24/2018/jeniffer Dictated by: Dictated on workstation # [id number]
== END ==
LOC: RAD 06:46
PROVIDERS: ATTEND Nurse Practitioner Family
DX: S82.145A Nondisplaced bicondylar fracture of left tibia, initial encounter for closed fracture (principal); W01.0XXA Fall on same level from slipping, tripping and stumbling without subsequent striking against object, initial encounter
CPT/HCPCS: 73721

== ENCOUNTER → 2018-03-21 | Outpatient (CLI) | payer OTHER ==
[2018-03-21 12:39] LABS: BASOPHILS % (AUTO) 0 % (0-10); EOSINOPHILS # (AUTO) 0.1 10^3/uL (0.0-0.3); EOSINOPHILS % (AUTO) 2 % (0-10); HEMATOCRIT 36 % (35-52); HEMOGLOBIN 12.6 G/DL (11.5-16.0); LYMPHOCYTES # (AUTO) 1.7 X 10^3 (1.0-4.0); LYMPHOCYTES % (AUTO) 33 % (12-44); MEAN CORPUSCULAR HEMOGLOBIN 35 PG (25-34); MEAN CORPUSCULAR HGB CONC 35 G/DL (32-36); MEAN CORPUSCULAR VOLUME 100 FL (80-99); MEAN PLATELET VOLUME 9.9 FL (7.4-10.4); MONOCYTES # (AUTO) 0.4 X 10^3 (0.0-1.0); MONOCYTES % (AUTO) 7 % (0-12); NEUTROPHILS # (AUTO) 3.1 X 10^3 (1.8-7.8); NEUTROPHILS % (AUTO) 59 % (42-75); PLATELET COUNT 203 10^3/uL (130-400); RED BLOOD COUNT 3.64 10^6/uL (4.35-5.85); WHITE BLOOD COUNT 5.3 10^3/uL (4.3-11.0)
[2018-03-21 13:02] LABS: ALANINE AMINOTRANSFERASE 34 U/L (0-55); ALBUMIN 4.5 GM/DL (3.2-4.5); ALKALINE PHOSPHATASE 69 U/L (40-136); BILIRUBIN,TOTAL 0.6 MG/DL (0.1-1.0); BUN/CREATININE RATIO 14; CALCIUM 9.5 MG/DL (8.5-10.1); CARBON DIOXIDE 25 MMOL/L (21-32); CHLORIDE 105 MMOL/L (98-107); CREATININE SERUM 0.83 MG/DL (0.60-1.30); GFR ESTIMATED > 60; GLUCOSE 86 MG/DL (70-105); POTASSIUM 4.3 MMOL/L (3.6-5.0); SODIUM 141 MMOL/L (135-145); TOTAL PROTEIN 7.6 GM/DL (6.4-8.2)
== END ==
LOC: LAB 12:10
PROVIDERS: ATTEND Nurse Practitioner Family
DX: R53.83 Other fatigue (principal); R73.03 Prediabetes; E55.9 Vitamin D deficiency, unspecified; D51.9 Vitamin B12 deficiency anemia, unspecified
CPT/HCPCS: 36415; 80053; 82306; 82607; 83036; 84443; 85025; 86618; 86666; 86668; 86757

== ENCOUNTER 2018-08-08 05:59 | Outpatient (CLI) | payer OTHER ==
[~2018-08-08] VITALS: Ht 157.5 cm; Wt 95.3 kg
[2018-08-08] MEDS ORDERED: BACL10TA PO (15:03)
[2018-08-08] MEDS ORDERED: ERGO50006 PO (15:03)
[2018-08-08] MEDS ORDERED: CNC1KV IM (15:03)
[2018-08-08] MEDS ORDERED: TOPI50TA13 PO (15:03)
[2018-08-08] MEDS ORDERED: DIAZ2TAB2 PO (15:03)
[2018-08-08] MEDS ORDERED: ALPR1TAB7 PO (15:03)
[2018-08-08] MEDS ORDERED: FERR-84 PO (15:03)
[2018-08-08] MEDS ORDERED: PRAM0.5T2 PO (15:03)
[2018-08-08] MEDS ORDERED: ATOR20TA66 PO (15:03)
[2018-08-08] MEDS ORDERED: METO-387 PO (15:03)
[2018-08-08] MEDS ORDERED: INTE30SY IM (15:03)
== END 2018-08-08 15:52 ==
LOC: PREOP 05:59
PROVIDERS: ATTEND Surgery
DX: Z01.818 Encounter for other preprocedural examination (principal)

== ENCOUNTER 2018-08-15 08:03 | Day surgery (SDC) | payer OTHER ==
[~2018-08-15] VITALS: Ht 157.5 cm; Wt 95.3 kg
[~2018-08-15 08:03] MED LIST changes: +ALPR1TAB7 PO; +ATOR20TA66 PO; +CNC1KV IM; +DIAZ2TAB2 PO; +ERGO50006 PO; +FERR-84 PO; +INTE30SY IM; +METO-387 PO; +PRAM0.5T2 PO; +TOPI50TA13 PO
--- OUTSIDE RECORDS SUMMARY | 2018-08-15 08:07 | XMS REPORT | Clinical Summary ---
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 If you do not see the information that you expected, contact Release of Information in the Health Information Management department at [phone] for further assistance in locating additional records.[facility] Allergies No Known Allergies Medications End Date Status Medication Sig Dispensed Refills Start Date Active ARIPiprazole (ABILIFY) 5 Take 5 mg by 0 mg tablet mouth daily. Active DULoxetine DR (CYMBALTA) Take 60 mg by 0 60 mg capsule mouth daily. Active pregabalin (LYRICA) 50 mg Take 50 mg by 0 capsule mouth three times daily. Active busPIRone (BUSPAR) 5 mg Take 5 mg by 0 tablet mouth three times daily. Active busPIRone (BUSPAR) 10 mg Take 10 mg by 0 tablet mouth three times daily. Active omeprazole DR(+) Take 40 mg by 0 (PRILOSEC) 40 mg capsule mouth daily. Active levothyroxine (SYNTHROID) Take 112 mcg 0 112 mcg tablet by mouth daily. Active meloxicam(+) (MOBIC) 15 Take 15 mg by 0 mg tablet mouth daily. Active atorvastatin (LIPITOR) 20 Take 20 mg by 0 mg tablet mouth daily. Active docusate (COLACE) 100 mg Take 100 mg 0 capsule by mouth twice daily. Active traMADol (ULTRAM) 50 mg Take 50 mg by 0 tablet mouth every 6 hours as needed. Active buprenorphine (BUTRANS) Apply to top 0 20 mcg/hour PTWK of skin as directed. Active baclofen (LIORESAL) 10 mg Take 1 Tab by 90 Tab 5 tablet mouth three 3 times daily. Active other medication Take 1 Dose 0 by mouth daily. atenex 25 mg 1 tab po qd Active gabapentin (NEURONTIN) Take 300 mg 0 300 mg capsule by mouth twice daily. Active hydrOXYzine (ATARAX) 25 Take 25 mg by 0 mg tablet mouth every 6 hours as needed. Active pramipexole (MIRAPEX) Take 0.25 mg 0 0.25 mg tablet by mouth three times daily. Active predniSONE (DELTASONE) 20 80 mg x 10 60 Tab 0 mg tablet days, then 4 60 mg daily x 3 days, then 40 mg daily x 3 days, then 20 mg daily x 3 days, then DC Active diazepam (VALIUM) 5 mg Take 1 Tab by 30 Tab 1 tablet mouth every 6 4 hours as needed for Anxiety. Active Problems Problem Noted Date Lower [...] Comments Father Maternal Grandfather Mother Social History Date Tobacco Use Types Packs/Day Years Used Current Every Day Smoker Cigarettes 1 Smokeless Tobacco: Never Used Tobacco Cessation: Counseling Given: Yes Alcohol Use Drinks/Week oz/Week Comments No Sex Assigned at Date Recorded Not on file Industry Job Start Date Occupation Not on file Not on file Not on file Travel End Travel History Travel Start No recent travel history available. Last Filed Vital Signs Time Taken Vital Sign Reading 11/07/2013 9:57 AM CDT Blood Pressure 140/91 11/07/2013 9:57 AM CDT Pulse 83 - Temperature - - Respiratory Rate - - Oxygen Saturation - - Inhaled Oxygen - Concentration 11/07/2013 9:57 AM CDT Weight 97.1 kg (214 lb) 11/07/2013 9:57 AM CDT Height 157.5 cm (5' 2") 11/07/2013 9:57 AM CDT Body Mass Index 39.14 Plan of Treatment Health Maintenance Due Date Last Done Comments HEPATITIS C SCREENING 1961 PHYSICAL (COMPREHENSIVE) 02/17/1968 EXAM HIV SCREENING 02/17/1976 DTAP/TDAP VACCINES (1 - 1979 Tdap) CERVICAL CANCER SCREENING 1991 BREAST CANCER SCREENING 2001 COLORECTAL CANCER 2011 SCREENING SHINGLES RECOMBINANT 2011 VACCINE (1 of 2) INFLUENZA VACCINE 01/12/2019 Results Not on filefrom Last 3 Months Insurance Payer Benefit Subscriber ID Type Phone Address Plan / Group COVENTRY COVENTRY xxxxxxxxxxx PPO PPO Advance Directives Patient has advance care planning documents on file. For more information, please contact: [facility] [address] [place] [address]
[2018-08-15] MEDS ORDERED: NS IV 500 ML 500 ML ONE (08:10)
--- OUTSIDE RECORDS SUMMARY | 2018-08-15 08:10 | XMS REPORT | Continuity of Care Document ---
Author Author [facility] Organization [facility] Address Unknown Phone Unavailable Allergies Active Description Code Type Severity Reaction Onset Reported/Identified Relationship to Patient Clinical Status Yes CLINDAMYCIN PHOSPHATE CLINDAMYCIN PHOSPHAT UNKNOWN Yes GABAPENTIN GABAPENTIN MILD Yes MACROBID MACROBID MILD Yes No Known Drug Allergies [id number] Drug Allergy Unknown N/A 11/28/2010 Yes gabapentin [id number] Drug Allergy Unknown N/A 10/27/2016 Yes nitrofurantoin [id number] Drug Allergy Unknown N/A 01/02/2017 Yes gabapentin [id number] Drug Allergy Mild CONFUSION 08/08/2018 Yes nitrofurantoin [id number] Drug Allergy Mild ITCHING 08/08/2018 Medications Medication Packaging Start Date Stop Date Route Dosage Sig LACTATED RINGERS 1000CC IV BAG INJ 0 ml 04/29/2016 05/06/2016 CONTINUOUSEVERY 0 Hour FENTANYL AMP INJ 100 MCG/2CC MCG 04/29/2016 [id number]&[id number] MORPHINE PAINTER BARREL SYRINGE INJ 30 MG/30CC (MORPHINE PAINTER BARREL SYRINGE) MG 04/29/2016 05/02/2016 CONTINUOUSEVERY 0 Hour ACETAMINOPHEN ORAL TABLET 325mg(Tylenol) MG 04/30/2016 05/07/2016 PRN EVERY 6 Hour ALPRAZOLAM TAB 0.5 MG (XANAX) Dose(s) 05/01/2016 05/06/2016 PRN TID Problems Date Dx Coded Attending Type Code Diagnosis Diagnosed By 08/31/2011 Ot 079.6 08/31/2011 Ot 786.2 04/21/2014 RADHA KEARNEY APRN Ot 724.2 04/21/2014 RADHA KEARNEY APRN Ot 959.19 04/21/2014 RADHA KEARNEY APRN Ot E000.8 04/21/2014 RADHA KEARNEY APRN Ot E849.0 04/21/2014 RADHA KEARNEY APRN Ot E888.9 08/03/2014 ELIZA WESTBROOK, BERYL Mercedes Ot 340 08/03/2014 ELIZA WESTBROOK, BERYL Mercedes Ot 781.0 08/03/2014 ELIZA WESTBROOK, BERYL Mercedes Ot V57.1 08/13/2014 ELIAZ WESTBROOK, BERYL Mercedes Ot 340 08/13/2014 ELIZA WESTBROOK, BERYL Mercedes Ot 781.0 08/13/2014 ELIZA WESTBROOK, BERYL Mercedes Ot V57.1 09/07/2014 Ot 244.9 09/07/2014 Ot 272.4 09/07/2014 Ot 300.00 09/07/2014 Ot 305.1 09/07/2014 Ot 530.81 09/07/2014 Ot 780.79 09/07/2014 Ot 530.11 09/07/2014 Ot 535.40 09/07/2014 Ot 244.9 09/07/2014 Ot 721.2 09/07/2014 Ot 721.3 09/07/2014 Ot 272.4 09/07/2014 Ot 725 09/07/2014 Ot 780.79 09/07/2014 Ot 790.29 09/07/2014 ALEJO MAE SHUT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 Ot 733.00 09/07/2014 OSALEJO AYALA SHUT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 Ot 733.90 09/07/2014 ALEJO MAE SHUT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 Ot V76.12 09/07/2014 ALEJO MAE SHUT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 Ot 724.2 09/07/2014 ALEJO MAE SHUT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 Ot 793.80 09/07/2014 JUSTIN JOHNSON DO Ot 342.90 09/07/2014 JUSTIN JOHNSON DO Ot V58.69 09/07/2014 JUSTIN JOHNSON DO Ot V81.5 09/10/2014 Ot 244.9 09/10/2014 Ot 272.4 09/10/2014 Ot 300.00 09/10/2014 Ot 305.1 09/10/2014 Ot 530.81 09/10/2014 Ot 780.79 09/10/2014 Ot 530.11 09/10/2014 Ot 535.40 09/10/2014 Ot 244.9 09/10/2014 Ot 721.2 09/10/2014 Ot 721.3 09/10/2014 Ot 272.4 09/10/2014 Ot 725 09/10/2014 Ot 780.79 09/10/2014 Ot 790.29 09/10/2014 OSIIALEJO CARRANZA SHUT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 Ot 733.00 09/10/2014 OSIIALEJO CARRANZA SHUT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 Ot 733.90 09/10/2014 OSIIALEJO CARRANZAP Ot V76.12 09/10/2014 OSIIALEJO CARRANZAP Ot 724.2 09/10/2014 OSIIALEJO CARRANZAP Ot 793.80 09/10/2014 JUSTIN JOHNSON DO Ot 342.90 09/10/2014 JUSTIN JOHNSON DO Ot V58.69 09/10/2014 JUSTIN JOHNSON DO Ot V81.5 09/10/2014 KARL WESTBROOK, TUCKER Keen Ot 278.01 09/10/2014 KARL WESTBROOK, TUCKER Keen Ot 721.3 09/10/2014 KARL WESTBROOK, TUCKER Keen Ot 722.52 09/10/2014 KARL WESTBROOK, TUCKER Keen Ot V58.69 09/10/2014 KARL WESTBROOK, TUCKER Keen Ot V85.41 09/20/2014 EUGENIO WESTBROOK, ELVIA Gregg Ot 244.9 09/20/2014 EUGENIO WESTBROOK, ELVIA Gregg Ot 300.00 09/20/2014 EUGENIO WESTBROOK, ELVIA D Ot 340 09/20/2014 EUGENIO WESTBROOK, ELVIA Gregg Ot 427.69 09/20/2014 EUGENIO WESTBROOK, ELVIA D Ot 530.81 09/20/2014 EUGENIO WESTBROOK, ELVIA D Ot 535.00 09/20/2014 EUGENIO WESTBROOK, ELVIA D Ot 577.0 09/20/2014 EUGENIO WESTBROOK, ELVIA D Ot 724.5 09/24/2014 RANDOLPH WESTBROOK, TANIYA Merritt Ot 244.9 09/24/2014 RANDOLPH WESTBROOK, TANIYA Merritt Ot 530.3 09/24/2014 RANDOLPH WESTBROOK, TANIYA M [...] 11/26/2014 Ot 780.79 11/26/2014 Ot 790.29 11/26/2014 OSIITERE ALEJO Merritt SHUT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 Ot 733.00 11/26/2014 OSIIER ALEJO Merritt SHUT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 Ot 733.90 11/26/2014 OSIITERE ALEJO Merritt SHUT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 Ot V76.12 11/26/2014 OSIITERE ALEJO Merritt SHUT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 Ot 724.2 11/26/2014 OSIITERE ALEJO Merritt SHUT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 Ot 793.80 11/26/2014 JUSTIN JOHNSON DO Ot [...] 12/17/2014 Ot 780.79 12/17/2014 Ot 790.29 12/17/2014 OSIITERE ALEJO Merritt SHUT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 Ot 733.00 12/17/2014 OSIITERE ALEJO Merritt SHUT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 Ot 733.90 12/17/2014 OSIITERE ALEJO Merritt SHUT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 Ot V76.12 12/17/2014 OSIITERE ALEJO Merritt SHUT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 Ot 724.2 12/17/2014 OSIITERE ALEJO Merritt SHUT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 Ot 793.80 12/17/2014 JUSTIN JOHNSON DO Ot 342.90 12/17/2014 ALEX YAN, JUSTIN Merritt Ot V58.69 12/17/2014 ALEX YAN, JUSTIN Merritt Ot V81.5 12/17/2014 EUGENIO WESTBROOK, ELVIA Gregg [...] 02/01/2015 Ot 780.79 02/01/2015 Ot 790.29 02/01/2015 OSIITERE ALEJO M SHUT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 Ot 733.00 02/01/2015 OSIIMANUEL CARRANZAE Shaina SHUT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 Ot 733.90 02/01/2015 OSIITERE ALEJO Shaina SHUT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 Ot V76.12 02/01/2015 OSIITERE ALEJO Shaina SHUT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 Ot 724.2 02/01/2015 OSIITERE ALEJO Shaina SHUT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 Ot 793.80 02/01/2015 JUSTIN JOHNSON DO Ot 342.90 02/01/2015 JUSTIN JOHNSON DO Ot V58.69 02/01/2015 STERLINGTAYA YAN, JUSTIN Merritt Ot V81.5 02/01/2015 EUGENIO WESTBROOK, ELVIA Gregg Ot 789.01 02/01/2015 RANDOLPH WESTBROOK, TANIYA M Ot 530.3 02/01/2015 RANDOLPH WESTBROOK, TANIYA M Ot 533.90 02/01/2015 RANDOLPH WESTBROOK, TANIYA M Ot V72.84 02/01/2015 CONSTANCE PYLE REHABILITATION PHYSICIAN Ot 780.79 02/01/2015 CONSTANCE PYLE REHABILITATION PHYSICIAN Ot 724.2 02/11/2015 CONSTANCE YPLE REHABILITATION PHYSICIAN Ot 724.2 03/19/2015 KARL WESTBROOK, TUCKER Keen Ot 278.01 03/19/2015 TUCKER BARAJAS MD Ot [...] 03/25/2015 Ot 780.79 03/25/2015 Ot 790.29 03/25/2015 ALEJO MAE SHUT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 Ot 733.00 03/25/2015 OSALEJO AYALA SHUT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 Ot 733.90 03/25/2015 OSIIALEJO CARRANZA SHUT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 Ot V76.12 03/25/2015 ALEJO MAE SHUT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 Ot 724.2 03/25/2015 OSALEJO AYALA SHUT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 Ot 793.80 03/25/2015 ALEX DOJUSTIN M Ot 342.90 03/25/2015 BELLTAYA DOJUSTIN M Ot V58.69 03/25/2015 BELLTAYA DOJUSTIN M Ot V81.5 03/25/2015 EUGENIO WESTBROOK, ELVIA rGegg Ot 789.01 03/25/2015 RANDOLPH WESTBROOK, TANIYA Merritt Ot 530.3 03/25/2015 RANDOLPH WESTBROOK, TANIYA Merritt Ot 533.90 03/25/2015 RANDOLPH WESTBROOK, TANIYA M Ot V72.84 03/25/2015 CONSTANCE PYLE REHABILITATION PHYSICIAN Ot 780.79 03/25/2015 CONSTANCE PYLE REHABILITATION PHYSICIAN Ot 724.2 03/25/2015 TUCKER BARAJAS MD Ot 278.01 03/25/2015 TUCKER BARAJAS MD Ot 721.3 03/25/2015 TUCKER BARAJAS MD Ot 722.52 03/25/2015 TUCKER BARAJAS MD Ot V58.69 03/25/2015 TUCKER BARAJAS MD Ot V85.42 04/12/2015 CONSTANCE PYLE N REHABILITATION PHYSICIAN Ot E78.5 04/12/2015 CONSTANCE PYLE N REHABILITATION PHYSICIAN Ot R06.02 04/12/2015 CONSTANCE PYLE N REHABILITATION PHYSICIAN Ot R53.83 04/12/2015 CONSTANCE PYLE N REHABILITATION PHYSICIAN Ot R60.9 09/16/2015 TUCKER BARAJAS MD, Ot M47.816 SPONDYLOSIS W/O MYELOPATHY OR RADICULOPA 09/16/2015 TUCKER BARAJAS MD, Ot M51.16 INTERVERTEBRAL DISC DISORDERS W RADICULO 09/16/2015 TUCKER BARAJAS MD Ot Z79.899 OTHER PREMIX CONCRETE BATCHER (CURRENT) DRUG THERAPY 09/23/2015 CONSTANCE PYLE REHABILITATION PHYSICIAN Ot E78.5 09/23/2015 CONSTANCE PYLE REHABILITATION PHYSICIAN Ot Z00.00 09/23/2015 TUCKER BARAJAS MD Ot E66.01 MORBID (SEVERE) OBESITY DUE TO EXCESS CA 09/23/2015 TUCKER BARAJAS MD, Ot M47.816 SPONDYLOSIS W/O MYELOPATHY OR RADICULOPA 09/23/2015 TUCKER BARAJAS MD Ot Z68.41 BODY MASS INDEX (BMI) 40.0-44.9, ADULT 09/23/2015 TUCKER BARAJAS MD, Ot Z79.899 OTHER PREMIX CONCRETE BATCHER (CURRENT) DRUG THERAPY 09/27/2015 TUCKER BARAJAS MD, Ot M47.816 SPONDYLOSIS W/O MYELOPATHY OR RADICULOPA 09/27/2015 TUCKER BARAJAS MD, Ot M51.16 INTERVERTEBRAL DISC DISORDERS W RADICULO 09/27/2015 TUCKER BARAJAS MD, Ot Z79.899 OTHER PREMIX CONCRETE BATCHER (CURRENT) DRUG THERAPY 10/01/2015 TUCKER BARAJAS MD Ot E66.01 MORBID (SEVERE) OBESITY DUE TO EXCESS CA 10/01/2015 TUCKER BARAJAS MD Ot M47.816 SPONDYLOSIS W/O MYELOPATHY OR RADICULOPA 10/01/2015 TUCKER BARAJAS MD Ot Z68.41 BODY MASS INDEX (BMI) 40.0-44.9, ADULT 10/01/2015 TUCKER BARAJAS MD Ot Z79.899 OTHER PREMIX CONCRETE BATCHER (CURRENT) DRUG THERAPY 10/09/2015 ARAM LO REHABILITATION PHYSICIAN Ot K21.9 GASTRO-ESOPHAGEAL REFLUX DISEASE WITHOUT 11/07/2015 Ot Z01.812 ENCOUNTER FOR PREPROCEDURAL LABORATORY E 12/13/2015 ARAM LO REHABILITATION PHYSICIAN Ot K21.9 GASTRO-ESOPHAGEAL REFLUX DISEASE WITHOUT 12/13/2015 Ot Z01.812 ENCOUNTER FOR PREPROCEDURAL LABORATORY E 12/13/2015 CONSTANCE PYLE REHABILITATION PHYSICIAN Ot E78.5 HYPERLIPIDEMIA, UNSPECIFIED 12/13/2015 CONSTANCE PYLE REHABILITATION PHYSICIAN Ot Z00.00 ENCNTR FOR GENERAL ADULT MEDICAL EXAM W/ 12/24/2015 ARAM LO REHABILITATION PHYSICIAN Ot K21.9 GASTRO-ESOPHAGEAL REFLUX DISEASE WITHOUT 12/24/2015 Ot Z01.812 ENCOUNTER FOR PREPROCEDURAL LABORATORY E 12/24/2015 CATHLEEN WESTBROOK FACC, ADDIE FACP CCDS Ot I49.3 VENTRICULAR PREMATURE DEPOLARIZATION 12/24/2015 CATHLEEN WESTBROOK FACC, ADDIE FACP CCDS Ot M19.90 UNSPECIFIED OSTEOARTHRITIS, UNSPECIFIED 12/24/2015 CATHLEEN WESTBROOK FACC, ALI FACP CCDS Ot R06.02 SHORTNESS OF BREATH 12/24/2015 CATHLEEN WESTBROOK FACC, ALI FACP CCDS Ot R07.89 OTHER CHEST PAIN 12/24/2015 CATHLEEN WESTBROOK FACC, ADDIE FACP CCDS Ot I49.3 VENTRICULAR PREMATURE DEPOLARIZATION 12/24/2015 CATHLEEN WESTBROOK FACC, ALI FACP CCDS Ot M19.90 UNSPECIFIED OSTEOARTHRITIS, UNSPECIFIED 12/24/2015 CATHLEEN WESTBROOK FACC, ALI FACP CCDS Ot R06.02 SHORTNESS OF BREATH 12/24/2015 CATHLEEN WESTBROOK FACC, ALI FACP CCDS Ot R07.89 OTHER CHEST PAIN 12/25/2015 CATHLEEN WESTBROOK FACC, ADDIE FACP CCDS Ot I49.3 VENTRICULAR PREMATURE DEPOLARIZATION 12/25/2015 CATHLEEN MD FACC, ALI FACP CCDS Ot M19.90 UNSPECIFIED OSTEOARTHRITIS, UNSPECIFIED 12/25/2015 CATHLEEN WESTBROOK FACC, ALI FACP CCDS Ot R06.02 SHORTNESS OF BREATH 12/25/2015 CATHLEEN WESTBROOK FACC, ALI FACP CCDS Ot R07.89 OTHER CHEST PAIN 12/25/2015 CATHLEEN WESTBROOK FACC, ADDIE FACP CCDS Ot I49.3 VENTRICULAR PREMATURE DEPOLARIZATION 12/25/2015 CATHLEEN WESTBROOK FACC, ADDIE FACP CCDS Ot M19.90 UNSPECIFIED OSTEOARTHRITIS, UNSPECIFIED 12/25/2015 CATHLEEN WESTBROOK FACC, ALI FACP CCDS Ot R06.02 SHORTNESS OF BREATH 12/25/2015 CATHLEEN WESTBROOK FACC, ADDIE FACP CCDS Ot R07.89 OTHER CHEST PAIN 01/13/2016 CONSTANCE PYLE REHABILITATION PHYSICIAN Ot E78.5 HYPERLIPIDEMIA, UNSPECIFIED 01/13/2016 CONSTANCE PYLE REHABILITATION PHYSICIAN Ot Z00.00 ENCNTR FOR GENERAL ADULT MEDICAL EXAM W01/16/2016 MENA BLAS DO Ot G47.10 HYPERSOMNIA, UNSPECIFIED 01/16/2016 WANMENA LI DO Ot R06.83 SNORING 01/27/2016 WANMENA LI DO Ot G47.10 HYPERSOMNIA, UNSPECIFIED 01/27/2016 WANMENA LI DO Ot R06.83 SNORING 02/26/2016 ARAM LO REHABILITATION PHYSICIAN Ot K21.9 GASTRO-ESOPHAGEAL REFLUX DISEASE WITHOUT 02/26/2016 [...] R07.89 OTHER CHEST PAIN 02/26/2016 ARAM LO Farrah REHABILITATION PHYSICIAN Ot K21.9 GASTRO-ESOPHAGEAL REFLUX DISEASE WITHOUT 02/26/2016 Ot Z01.812 ENCOUNTER FOR PREPROCEDURAL LABORATORY E 02/26/2016 CATHLEEN BELLC, ALI FACP CCDS Ot I49.3 VENTRICULAR PREMATURE DEPOLARIZATION 02/26/2016 CATHLEEN BELLC, ALI FACP CCDS Ot M19.90 UNSPECIFIED OSTEOARTHRITIS, [...] R07.89 OTHER CHEST PAIN 02/28/2016 ARAM LO Farrah AQUINON Ot K21.9 GASTRO-ESOPHAGEAL REFLUX DISEASE WITHOUT 02/28/2016 Ot Z01.812 ENCOUNTER FOR PREPROCEDURAL LABORATORY E 02/28/2016 CATHLEEN WESTBROOK FACC, ALI FACP CCDS [...] SHORTNESS OF BREATH 02/28/2016 CATHLEEN WESTBROOK FACC, ADDIE CHAVIS CCDS Ot R07.89 OTHER CHEST PAIN 03/30/2016 CONSTANCE PYLE REHABILITATION PHYSICIAN Ot E78.5 HYPERLIPIDEMIA, UNSPECIFIED 03/30/2016 CONSTANCE PYLE REHABILITATION PHYSICIAN Ot Z00.00 ENCNTR FOR GENERAL ADULT MEDICAL EXAM W/ 05/01/2016 Bk Recinos A 278.01 MORBID OBESITY 05/01/2016 Bk Recinos W 530.81 ESOPHAGEAL REFLUX 05/01/2016 Bk Recinos W 552.3 DIAPHRAGMATIC HERNIA WITH OBSTRUCTION 05/01/2016 Bk Recinos A E66.01 MORBID (SEVERE) OBESITY DUE TO EXCESS CALORIES 05/01/2016 Bk Recinos W K21.9 GASTRO-ESOPHAGEAL REFLUX DISEASE WITHOUT ESOPHAGITIS 05/01/2016 Bk Recinos W K44.9 DIAPHRAGMATIC HERNIA WITHOUT OBSTRUCTION OR GANGRENE 05/01/2016 Bk Recinos W V85.41 BODY MASS INDEX 40.0-44.9, ADULT 05/01/2016 Bk Recinos W Z68.41 BODY MASS INDEX (BMI) 40.0-44.9, ADULT 06/04/2016 CONSTANCE PYLE REHABILITATION PHYSICIAN Ot E78.5 HYPERLIPIDEMIA, UNSPECIFIED 06/04/2016 CONSTANCE PYLE REHABILITATION PHYSICIAN Ot Z00.00 ENCNTR FOR GENERAL ADULT MEDICAL EXAM W06/26/2016 CONSTANCE PYLE REHABILITATION PHYSICIAN Ot E78.5 HYPERLIPIDEMIA, UNSPECIFIED 06/26/2016 CONSTANCE PYLE REHABILITATION PHYSICIAN Ot Z00.00 ENCNTR FOR GENERAL ADULT MEDICAL EXAM W06/29/2016 CONSTANCE PYLE REHABILITATION PHYSICIAN Ot E78.5 HYPERLIPIDEMIA, UNSPECIFIED 06/29/2016 CONSTANCE PYLE REHABILITATION PHYSICIAN Ot Z00.00 ENCNTR FOR GENERAL ADULT MEDICAL EXAM W07/10/2016 ARAM LO REHABILITATION PHYSICIAN Ot K21.9 GASTRO-ESOPHAGEAL REFLUX DISEASE WITHOUT 07/10/2016 Ot Z01.812 ENCOUNTER FOR PREPROCEDURAL LABORATORY E 07/10/2016 CATHLEEN WESTBROOK FACC, ADDIE BELLP CCDS Ot I49.3 VENTRICULAR PREMATURE DEPOLARIZATION 07/10/2016 CATHLEEN WESTBROOK FACC, ADDIE CHAVIS CCDS Ot M19.90 UNSPECIFIED OSTEOARTHRITIS, UNSPECIFIED 07/10/2016 [...] R07.89 OTHER CHEST PAIN 07/25/2016 CONSTANCE PYLE REHABILITATION PHYSICIAN Ot E78.5 HYPERLIPIDEMIA, UNSPECIFIED 07/25/2016 CONSTANCE PYLE REHABILITATION PHYSICIAN Ot Z00.00 ENCNTR FOR GENERAL ADULT MEDICAL EXAM W08/03/2016 CONSTANCE PYLE REHABILITATION PHYSICIAN Ot E04.1 NONTOXIC SINGLE THYROID NODULE 08/03/2016 CONSTANCE PYLE REHABILITATION PHYSICIAN Ot E04.1 NONTOXIC SINGLE THYROID NODULE 08/11/2016 ARAM LO REHABILITATION PHYSICIAN Ot K21.9 GASTRO-ESOPHAGEAL REFLUX DISEASE WITHOUT 08/11/2016 Ot Z01.812 ENCOUNTER FOR PREPROCEDURAL LABORATORY E 08/11/2016 CATHLEEN WESTBROOK FACC, ADDIE FACP CCDS Ot I49.3 VENTRICULAR PREMATURE DEPOLARIZATION 08/11/2016 CATHLEEN WESTBROOK FACC, ADDIE FACP CCDS [...] R07.89 OTHER CHEST PAIN 08/11/2016 CONSTANCE PYLE REHABILITATION PHYSICIAN Ot E04.1 NONTOXIC SINGLE THYROID NODULE 10/12/2016 TUCKER BARAJAS MD Ot M47.816 SPONDYLOSIS W/O MYELOPATHY OR RADICULOPA 10/12/2016 TUCKER BARAJAS MD Ot Z79.899 OTHER PREMIX CONCRETE BATCHER (CURRENT) DRUG THERAPY 10/15/2016 TUCKER BARAJAS MD Ot M47.816 SPONDYLOSIS W/O MYELOPATHY OR RADICULOPA 10/15/2016 TUCKER BARAJAS MD Ot Z79.899 OTHER JAIL (CURRENT) DRUG THERAPY 10/19/2016 TUCKER BARAJAS MD Ot M47.816 SPONDYLOSIS W/O MYELOPATHY OR RADICULOPA 10/27/2016 CATHLEEN WESTBROOK FACC, ADDIE FACP CCDS Ot E66.9 OBESITY, UNSPECIFIED 10/27/2016 CATHLEEN WESTBROOK FACC ALI FACP CCDS Ot G35 MULTIPLE SCLEROSIS 10/27/2016 CATHLEEN WESTBROOK FACC, ALI FACP CCDS Ot I25.10 ATHSCL HEART DISEASE OF [place] CORONARY 10/27/2016 CATHLEEN WESTBROOK FACC, ADDIE FACP CCDS Ot I25.84 CORONARY ATHEROSCLEROSIS DUE TO CALCIFIE 10/27/2016 ADDIE CONNOLLY MD, FACC FACP CCDS Ot I49.3 VENTRICULAR PREMATURE DEPOLARIZATION 10/27/2016 ADDIE CONNOLLY MD, FACC FACP CCDS Ot R06.02 SHORTNESS OF BREATH 10/27/2016 CATHLEEN WESTBROOK FACC, ADDIE FACP CCDS Ot R55 SYNCOPE AND COLLAPSE 10/27/2016 CATHLEEN WESTBROOK FACC, ALI FACP CCDS Ot Z68.33 BODY MASS INDEX (BMI) 33.0-33.9, ADULT 10/27/2016 ADDIE CONNOLLY MD, FACC FACP CCDS Ot Z79.899 OTHER PREMIX CONCRETE BATCHER (CURRENT) DRUG THERAPY 10/27/2016 CATHLEEN WESTBROOK FACC ALI FACP CCDS Ot Z87.891 PERSONAL HISTORY OF NICOTINE DEPENDENCE 10/27/2016 CATHLEEN WESTBROOK FACC ALI FACP CCDS Ot Z98.84 BARIATRIC SURGERY STATUS 11/13/2016 ARAM LO APRN Ot K21.9 GASTRO-ESOPHAGEAL REFLUX DISEASE WITHOUT 11/13/2016 Ot Z01.812 ENCOUNTER FOR PREPROCEDURAL LABORATORY E 11/13/2016 ADDIE CONNOLLY MD, FACC FACP CCDS Ot I49.3 VENTRICULAR PREMATURE DEPOLARIZATION 11/13/2016 CATHLEEN WESTBROOK FACC, ALI FACP CCDS Ot M19.90 UNSPECIFIED OSTEOARTHRITIS, UNSPECIFIED 11/13/2016 CATHLEEN WESTBROOK FACC, ALI FACP CCDS Ot R06.02 SHORTNESS OF BREATH 11/13/2016 CATHLEEN WESTBROOK FACZackary, ALI FACP CCDS Ot R07.89 OTHER CHEST PAIN 11/13/2016 CATHLEEN WESTBROOK FACC, ALI FACP CCDS Ot I49.3 VENTRICULAR PREMATURE DEPOLARIZATION 11/13/2016 CATHLEEN WESTBROOK FACC, ALI FACP CCDS Ot M19.90 UNSPECIFIED OSTEOARTHRITIS, UNSPECIFIED 11/13/2016 CATHLEEN WESTBROOK FACC, ALI FACP CCDS Ot R06.02 SHORTNESS OF BREATH 11/13/2016 CATHLEEN WESTBROOK FACC, ALI FACP CCDS Ot R07.89 OTHER CHEST PAIN 11/13/2016 CONSTANCE PYLE REHABILITATION PHYSICIAN Ot E04.1 NONTOXIC SINGLE THYROID NODULE 11/13/2016 RADHA GARY MD Ot G35 MULTIPLE SCLEROSIS 11/16/2016 RADHA GARY MD Ot G35 MULTIPLE SCLEROSIS 11/16/2016 ARAM LO REHABILITATION PHYSICIAN Ot K21.9 GASTRO-ESOPHAGEAL REFLUX DISEASE WITHOUT 11/16/2016 [...] R07.89 OTHER CHEST PAIN 11/16/2016 CONSTANCE PYLE REHABILITATION PHYSICIAN Ot E04.1 NONTOXIC SINGLE THYROID NODULE 11/16/2016 RADHA GARY MD Ot G35 MULTIPLE SCLEROSIS 11/16/2016 RADHA GARY MD Ot G35 MULTIPLE SCLEROSIS 12/18/2016 ARAM LO APRN Ot K21.9 GASTRO-ESOPHAGEAL REFLUX DISEASE WITHOUT 12/18/2016 Ot Z01.812 ENCOUNTER FOR PREPROCEDURAL LABORATORY E 12/18/2016 CATHLEEN WESTBROOK FAC, ALI FACP CCDS Ot I49.3 VENTRICULAR PREMATURE DEPOLARIZATION 12/18/2016 CATHLEEN WESTBROOK FAC, ALI FACP CCDS Ot M19.90 UNSPECIFIED OSTEOARTHRITIS, UNSPECIFIED 12/18/2016 CATHLEEN WESTBROOK FACC, ALI FACP CCDS Ot R06.02 SHORTNESS OF BREATH 12/18/2016 CATHLEEN WESTBROOK FACC, ALI FACP CCDS Ot R07.89 OTHER CHEST PAIN 12/18/2016 CATHLEEN WESTBROOK FAC, ALI FACP CCDS Ot I49.3 VENTRICULAR PREMATURE DEPOLARIZATION 12/18/2016 CATHLEEN WESTBROOK FAC, ALI FACP CCDS Ot M19.90 UNSPECIFIED OSTEOARTHRITIS, UNSPECIFIED 12/18/2016 CATHLEEN WESTBROOK FAC, ALI FACP CCDS Ot R06.02 SHORTNESS OF BREATH 12/18/2016 CATHLEEN WESTBROOK FAC, ALI FACP CCDS Ot R07.89 OTHER CHEST PAIN 12/18/2016 CONSTANCE PYLE APRN Ot E04.1 NONTOXIC SINGLE THYROID NODULE 12/18/2016 RADHA GARY MD Ot G35 MULTIPLE SCLEROSIS 12/18/2016 RADHA GARY MD, Ot G35 MULTIPLE SCLEROSIS 01/02/2017 VIOLA PAK [...] FATIGUE 01/02/2017 VIOLA PAK MD Ot 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 01/02/2017 VIOLA PAK MD Ot Z87.891 PERSONAL HISTORY OF NICOTINE DEPENDENCE 01/02/2017 VIOLA PAK MD Ot Z90.710 ACQUIRED ABSENCE OF BOTH CERVIX AND UTER 01/04/2017 WALLY ARAM Farrah BARAJAS Ot K21.9 GASTRO-ESOPHAGEAL REFLUX DISEASE WITHOUT 01/04/2017 Ot Z01.812 ENCOUNTER FOR PREPROCEDURAL LABORATORY E 01/04/2017 CATHLEEN WESTBROOK FACC, ALI FACP CCDS Ot I49.3 VENTRICULAR PREMATURE DEPOLARIZATION 01/04/2017 CATHLEEN WESTBROOK FACC, ALI FACP CCDS Ot M19.90 UNSPECIFIED OSTEOARTHRITIS, UNSPECIFIED 01/04/2017 CATHLEEN WESTBROOK FACC, ALI FACP CCDS Ot R06.02 SHORTNESS OF BREATH 01/04/2017 CATHLEEN WESTBROOK FACC, ALI FACP CCDS Ot R07.89 OTHER CHEST PAIN 01/04/2017 CATHLEEN WESTBROOK FACC, ALI FACP CCDS Ot I49.3 VENTRICULAR PREMATURE DEPOLARIZATION 01/04/2017 CATHLEEN WESTBROOK FACC, ALI FACP CCDS [...] Ot G35 MULTIPLE SCLEROSIS 01/04/2017 CONSTANCE PYLE APRN Ot Z12.31 ENCNTR SCREEN MAMMOGRAM FOR MALIGNANT NE 01/05/2017 VIOLA PAK MD Ot F32.9 MAJOR DEPRESSIVE DISORDER, SINGLE EPISOD 01/05/2017 VIOLA PAK MD Ot F41.0 PANIC DISORDER WITHOUT AGORAPHOBIA 01/05/2017 VIOLA PAK MD Ot G35 MULTIPLE SCLEROSIS 01/05/2017 VIOLA PAK MD, Ot G43.909 MIGRAINE, UNSP, NOT INTRACTABLE, WITHOUT 01/05/2017 VIOLA PAK MD Ot I10 ESSENTIAL (PRIMARY) HYPERTENSION 01/05/2017 VIOLA PAK MD, Ot M47.9 SPONDYLOSIS, UNSPECIFIED 01/05/2017 VIOLA PAK MD Ot R53.83 OTHER FATIGUE 01/05/2017 VIOLA PAK MD Ot Z79.82 JAIL (CURRENT) USE OF ASPIRIN 01/05/2017 VIOLA PAK MD Ot Z87.891 PERSONAL HISTORY OF NICOTINE DEPENDENCE 01/05/2017 VIOLA PAK MD Ot Z90.710 ACQUIRED ABSENCE OF BOTH CERVIX AND UTER 2017 VIOLA PAK MD Ot G35 MULTIPLE SCLEROSIS 03/13/2017 VIOLA PAK MD, Ot G35 MULTIPLE SCLEROSIS 08/01/2017 ARAM LO REHABILITATION PHYSICIAN Ot K21.9 GASTRO-ESOPHAGEAL REFLUX DISEASE WITHOUT 08/01/2017 [...] R07.89 OTHER CHEST PAIN 08/01/2017 CONSTANCE PYLE REHABILITATION PHYSICIAN Ot E04.1 NONTOXIC SINGLE THYROID NODULE 08/01/2017 RADHA GARY MD Ot G35 MULTIPLE SCLEROSIS 08/01/2017 RADHA GARY MD Ot G35 MULTIPLE SCLEROSIS 08/01/2017 CONSTANCE PYLE REHABILITATION PHYSICIAN Ot Z12.31 ENCNTR SCREEN MAMMOGRAM FOR MALIGNANT NE 08/01/2017 ELVIA BECKER MD Ot E04.1 NONTOXIC SINGLE THYROID NODULE 08/01/2017 SCHOELING MD, ELVIA D Ot R53.83 OTHER FATIGUE 08/01/2017 PASHA WESTBROOK, VIOLA Mercedes Ot G35 MULTIPLE SCLEROSIS 08/04/2017 RADHA GARY MD Ot G35 MULTIPLE SCLEROSIS 08/17/2017 CONSTANCE PYLE REHABILITATION PHYSICIAN Ot M48.07 SPINAL STENOSIS, LUMBOSACRAL REGION 08/17/2017 CONSTANCE PYLE N REHABILITATION PHYSICIAN Ot M51.27 OTHER INTERVERTEBRAL DISC DISPLACEMENT, 08/17/2017 CONSTANCE PYLE REHABILITATION PHYSICIAN Ot M48.07 SPINAL STENOSIS, LUMBOSACRAL REGION 08/17/2017 PYLECONSTANCE N REHABILITATION PHYSICIAN Ot M51.27 OTHER INTERVERTEBRAL DISC DISPLACEMENT, 08/20/2017 CONSTANCE PYLE N REHABILITATION PHYSICIAN Ot M48.07 SPINAL STENOSIS, LUMBOSACRAL REGION 08/20/2017 CONSTANCE PYLE N REHABILITATION PHYSICIAN Ot M51.37 OTHER INTERVERTEBRAL DISC DEGENERATION, 09/01/2017 RADHA GARY MD Ot G35 MULTIPLE SCLEROSIS 09/08/2017 CONSTANCE PYLE REHABILITATION PHYSICIAN Ot M48.07 SPINAL STENOSIS, LUMBOSACRAL REGION 09/08/2017 CONSTANCE PYLE N REHABILITATION PHYSICIAN Ot M51.37 OTHER INTERVERTEBRAL DISC DEGENERATION, 09/09/2017 PATRICK ASHBISI Vale REHABILITATION PHYSICIAN Ot M48.07 SPINAL STENOSIS, LUMBOSACRAL REGION 09/09/2017 PATRICK ASHBISI N REHABILITATION PHYSICIAN Ot M51.37 OTHER INTERVERTEBRAL DISC DEGENERATION, 09/09/2017 CONSTANCE PYLE REHABILITATION PHYSICIAN Ot M48.07 SPINAL STENOSIS, LUMBOSACRAL REGION 09/09/2017 CONSTANCE PYLE N REHABILITATION PHYSICIAN Ot M51.37 OTHER INTERVERTEBRAL DISC DEGENERATION, 09/22/2017 CONSTANCE PYLE REHABILITATION PHYSICIAN Ot E78.5 HYPERLIPIDEMIA, UNSPECIFIED 09/22/2017 CONSTANCE PYLE N REHABILITATION PHYSICIAN Ot Z00.00 ENCNTR FOR GENERAL ADULT MEDICAL EXAM W/ 10/08/2017 ARAM LO REHABILITATION PHYSICIAN Ot K21.9 GASTRO-ESOPHAGEAL REFLUX DISEASE WITHOUT 10/08/2017 Ot Z01.812 ENCOUNTER FOR PREPROCEDURAL LABORATORY E 10/08/2017 CATHLEEN WESTBROOK FACC, ADDIE BELLP CCDS Ot I49.3 VENTRICULAR PREMATURE DEPOLARIZATION 10/08/2017 CATHLEEN WESTBROOK FACC, ADDIE FACP CCDS Ot M19.90 UNSPECIFIED OSTEOARTHRITIS, UNSPECIFIED 10/08/2017 CATHLEEN WESTBROOK FACC, ADDIE FACP CCDS Ot R06.02 SHORTNESS OF BREATH 10/08/2017 CATHLEEN WESTBROOK FAC, ALI FACP CCDS Ot R07.89 OTHER CHEST PAIN 10/08/2017 CATHLEEN WESTBROOK FAC, ALI FACP CCDS Ot I49.3 VENTRICULAR PREMATURE DEPOLARIZATION 10/08/2017 CATHLEEN WESTBROOK FACC, ALI FACP CCDS Ot M19.90 UNSPECIFIED OSTEOARTHRITIS, UNSPECIFIED 10/08/2017 CATHLEEN WESTBROOK FAC, ALI FACP CCDS Ot R06.02 SHORTNESS OF BREATH 10/08/2017 CATHLEEN WESTBROOK FAC, ALI FACP CCDS Ot R07.89 OTHER CHEST PAIN 10/08/2017 CONSTANCE PYLE REHABILITATION PHYSICIAN Ot E04.1 NONTOXIC SINGLE THYROID NODULE 10/08/2017 RADHA GARY MD Ot G35 MULTIPLE SCLEROSIS 10/08/2017 RADHA GARY MD Ot G35 MULTIPLE SCLEROSIS 10/08/2017 CONSTANCE PYLE REHABILITATION PHYSICIAN Ot Z12.31 ENCNTR SCREEN MAMMOGRAM FOR MALIGNANT NE 10/08/2017 EUGENIO WESTBROOK, ELVIA Gregg Ot E04.1 NONTOXIC SINGLE THYROID NODULE 10/08/2017 EUGENIO WESTBROOK, ELVIA Gregg Ot R53.83 OTHER FATIGUE 10/08/2017 VIOLA APK MD, Ot G35 MULTIPLE SCLEROSIS 10/08/2017 RADHA GARY MD Ot G35 MULTIPLE SCLEROSIS 10/08/2017 CONSTANCE PYLE REHABILITATION PHYSICIAN Ot M48.07 SPINAL STENOSIS, LUMBOSACRAL REGION 10/08/2017 CONSTANCE PYLE REHABILITATION PHYSICIAN Ot M51.37 OTHER INTERVERTEBRAL DISC DEGENERATION, 10/08/2017 VIOLA PAK MD Ot E03.9 HYPOTHYROIDISM, UNSPECIFIED 10/08/2017 VIOLA PAK MD Ot F32.9 MAJOR DEPRESSIVE DISORDER, SINGLE EPISOD 10/08/2017 VIOLA PAK MD Ot F41.0 PANIC DISORDER [EPISODIC PAROXYSMAL ANXI 10/08/2017 VOILA PAK MD Ot G35 MULTIPLE SCLEROSIS 10/08/2017 VIOLA PAK MD Ot G43.909 MIGRAINE, UNSP, NOT INTRACTABLE, WITHOUT 10/08/2017 VIOLA PAK MD Ot I10 ESSENTIAL (PRIMARY) HYPERTENSION 10/08/2017 VIOLA PAK MD Ot K21.9 GASTRO-ESOPHAGEAL REFLUX DISEASE WITHOUT 10/08/2017 VIOLA PAK MD Ot Z79.52 PREMIX [employer]CRETE B[employer]ER (CURRENT) USE OF SYSTEMIC STER 10/08/2017 VIOLA PAK MD Ot 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 10/08/2017 VIOLA PAK MD Ot Z82.49 FAMILY HX OF ISCHEM HEART DIS AND OTH DI 10/08/2017 VIOLA PAK MD Ot Z87.19 PERSONAL HISTORY OF OTHER DISEASES OF TH 10/08/2017 VIOLA PAK MD Ot Z87.891 PERSONAL HISTORY OF NICOTINE DEPENDENCE 10/08/2017 VIOLA PAK MD Ot Z88.8 ALLERGY STATUS TO OTH DRUG/MEDS/BIOL SUB 10/08/2017 VIOLA PAK MD Ot Z90.710 ACQUIRED ABSENCE OF BOTH CERVIX AND UTER 10/08/2017 VIOLA PAK MD Ot Z98.84 BARIATRIC SURGERY STATUS 10/11/2017 VIOLA PAK MD Ot E03.9 HYPOTHYROIDISM, UNSPECIFIED 10/11/2017 VIOLA PAK MD Ot F32.9 MAJOR DEPRESSIVE DISORDER, SINGLE EPISOD 10/11/2017 VIOLA PAK MD Ot F41.0 PANIC DISORDER [EPISODIC PAROXYSMAL ANXI 10/11/2017 VIOLA PAK MD Ot G35 MULTIPLE SCLEROSIS 10/11/2017 VIOLA PAK MD Ot G43.909 MIGRAINE, UNSP, NOT INTRACTABLE, WITHOUT 10/11/2017 VIOLA PAK MD Ot I10 ESSENTIAL (PRIMARY) HYPERTENSION 10/11/2017 VIOLA PAK MD Ot K21.9 GASTRO-ESOPHAGEAL REFLUX DISEASE WITHOUT 10/11/2017 VIOLA PAK MD Ot Z79.52 JAIL (CURRENT) USE OF SYSTEMIC STER 10/11/2017 VIOLA PAK MD Ot 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 10/11/2017 VIOLA PAK MD Ot Z82.49 FAMILY HX OF ISCHEM HEART DIS AND OTH DI 10/11/2017 VIOLA PAK MD Ot Z87.19 PERSONAL HISTORY OF OTHER DISEASES OF TH 10/11/2017 VIOLA PAK MD Ot Z87.891 PERSONAL HISTORY OF NICOTINE DEPENDENCE 10/11/2017 VIOLA PAK MD Ot Z88.8 ALLERGY STATUS TO OTH DRUG/MEDS/BIOL SUB 10/11/2017 VIOLA PAK MD Ot Z90.710 ACQUIRED ABSENCE OF BOTH CERVIX AND UTER 10/11/2017 VIOLA PAK MD Ot Z98.84 BARIATRIC SURGERY STATUS 01/07/2018 RADHA GARY MD Ot G35 MULTIPLE SCLEROSIS 01/07/2018 RADHA GARY MD Ot 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, UNSPECIFIED 01/07/2018 RADHA GARY MD Ot G35 MULTIPLE SCLEROSIS 01/07/2018 RADHA GARY MD Ot 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, UNSPECIFIED 01/10/2018 CONSTANCE PYLE REHABILITATION PHYSICIAN Ot E55.9 VITAMIN D DEFICIENCY, UNSPECIFIED 01/10/2018 CONSTANCE PYLE REHABILITATION PHYSICIAN Ot E78.5 HYPERLIPIDEMIA, UNSPECIFIED 01/10/2018 CONSTANCE PYLE REHABILITATION PHYSICIAN Ot R53.83 OTHER FATIGUE 02/22/2018 Ot S82.142A DISPLACED BICONDYLAR FRACTURE OF LEFT TI 02/22/2018 Ot W18.39XA OTHER FALL ON SAME LEVEL, INITIAL ENCOUN 02/24/2018 ARAM LO REHABILITATION PHYSICIAN Ot K21.9 GASTRO-ESOPHAGEAL REFLUX DISEASE WITHOUT 02/24/2018 Ot Z01.812 ENCOUNTER FOR PREPROCEDURAL LABORATORY E 02/24/2018 CATHLEEN WESTBROOK FACC, ADDIE FACP CCDS Ot I49.3 VENTRICULAR PREMATURE DEPOLARIZATION 02/24/2018 CATHLEEN WESTBROOK FACC, ALI FACP CCDS Ot M19.90 UNSPECIFIED OSTEOARTHRITIS, UNSPECIFIED 02/24/2018 CATHLEEN WESTBROOK FACC, ALI FACP CCDS Ot R06.02 SHORTNESS OF BREATH 02/24/2018 CATHLEEN WESTBROOK FACC, ALI FACP CCDS Ot R07.89 OTHER CHEST PAIN 02/24/2018 CATHLEEN WESTBROOK FACC, ALI FACP CCDS Ot I49.3 VENTRICULAR PREMATURE DEPOLARIZATION 02/24/2018 CATHLEEN WESTBROOK FACC, ALI FACP CCDS Ot M19.90 UNSPECIFIED OSTEOARTHRITIS, UNSPECIFIED 02/24/2018 CATHLEEN WESTBROOK FACC, ALI FACP CCDS Ot R06.02 SHORTNESS OF BREATH 02/24/2018 CATHLEEN WESTBROOK FACC, ALI FACP CCDS Ot R07.89 OTHER CHEST PAIN 02/24/2018 CONSTANCE PYLE REHABILITATION PHYSICIAN Ot E04.1 NONTOXIC SINGLE THYROID NODULE 02/24/2018 RADHA GARY MD Ot G35 MULTIPLE SCLEROSIS 02/24/2018 RADHA GARY MD Ot G35 MULTIPLE SCLEROSIS 02/24/2018 CONSTANCE PYLE APRN Ot Z12.31 ENCNTR SCREEN MAMMOGRAM FOR MALIGNANT NE 02/24/2018 EUGENIO WESTBROOK, ELVIA Gregg Ot E04.1 NONTOXIC SINGLE THYROID NODULE 02/24/2018 EUGENIO WESTBROOK, ELVIA Gregg Ot R53.83 OTHER FATIGUE 02/24/2018 PASHA WESTBROOK, VIOLA Mercedes Ot G35 MULTIPLE SCLEROSIS 02/24/2018 RADHA GARY MD Ot G35 MULTIPLE SCLEROSIS 02/24/2018 CONSTANCE PYLE APRN Ot M48.07 SPINAL STENOSIS, LUMBOSACRAL REGION 02/24/2018 CONSTANCE PYLE APRN Ot M51.37 OTHER INTERVERTEBRAL DISC DEGENERATION, 02/24/2018 RADHA GARY MD Ot G35 MULTIPLE SCLEROSIS 02/24/2018 RADHA GARY MD Ot 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, UNSPECIFIED 02/24/2018 CONSTANCE PYLE APRN Ot E55.9 VITAMIN D DEFICIENCY, UNSPECIFIED 02/24/2018 CONSTANCE PYLE APRN Ot E78.5 HYPERLIPIDEMIA, UNSPECIFIED 02/24/2018 CONSTANCE PYLE APRN Ot R53.83 OTHER FATIGUE 02/24/2018 Ot S82.142A DISPLACED BICONDYLAR FRACTURE OF LEFT TI 02/24/2018 Ot W18.39XA OTHER FALL ON SAME LEVEL, INITIAL ENCOUN 02/25/2018 LETY MCKEON APRN Ot S82.145A NONDISPLACED BICONDYLAR FRACTURE OF LEFT 02/25/2018 LETY MCKEON APRN Ot W01.0XXA FALL SAME LEV FROM SLIP/TRIP W/O STRIKE 03/12/2018 CONSTANCE PYLE APRN Ot M48.07 SPINAL STENOSIS, LUMBOSACRAL REGION 03/12/2018 CONSTANCE PYLE APRN Ot M51.37 OTHER INTERVERTEBRAL DISC DEGENERATION, 03/23/2018 LETY MCKEON APRN Ot D51.9 VITAMIN B12 DEFICIENCY ANEMIA, UNSPECIFI 03/23/2018 LETY MCKEON APRN Ot E55.9 VITAMIN D DEFICIENCY, UNSPECIFIED 03/23/2018 LETY MCKEON APRN Ot R53.83 OTHER FATIGUE 03/23/2018 LETY MCKEON APRN Ot R73.03 PREDIABETES 04/18/2018 RADHA GARY MD Ot G35 MULTIPLE SCLEROSIS 07/07/2018 ARAM LO APRN Ot K21.9 GASTRO-ESOPHAGEAL REFLUX DISEASE WITHOUT 07/07/2018 Ot Z01.812 ENCOUNTER FOR PREPROCEDURAL LABORATORY E 07/07/2018 CATHLEEN WESTBROOK [facility], ALI FACP CCDS Ot I49.3 VENTRICULAR PREMATURE DEPOLARIZATION 07/07/2018 CATHLEEN WESTBROOK FAC, ALI FACP CCDS Ot M19.90 UNSPECIFIED OSTEOARTHRITIS, UNSPECIFIED 07/07/2018 CATHLEEN WESTBROOK FAC, ALI FACP CCDS Ot R06.02 SHORTNESS OF BREATH 07/07/2018 CATHLEEN WESTBROOK FAC, ALI FACP CCDS Ot R07.89 OTHER CHEST PAIN 07/07/2018 CATHLEEN WESTBROOK FAC[facility]ackary, ALI FACP CCDS Ot I49.3 VENTRICULAR PREMATURE DEPOLARIZATION 07/07/2018 CATHLEEN WESTBROOK FAC, ALI FACP CCDS Ot M19.90 UNSPECIFIED OSTEOARTHRITIS, UNSPECIFIED 07/07/2018 CATHLEEN WESTBROOK [facility], ALI FACP CCDS Ot R06.02 SHORTNESS OF BREATH 07/07/2018 CATHLEEN WESTBROOK [facility], ALI FACP CCDS Ot R07.89 OTHER CHEST PAIN 07/07/2018 CONSTANCE PYLE APRN Ot E04.1 NONTOXIC SINGLE THYROID NODULE 07/07/2018 RADHA GARY MD Ot G35 MULTIPLE SCLEROSIS 07/07/2018 RADHA GARY MD, Ot G35 MULTIPLE SCLEROSIS 07/07/2018 CONSTANCE PYLE REHABILITATION PHYSICIAN Ot Z12.31 ENCNTR SCREEN MAMMOGRAM FOR MALIGNANT NE 07/07/2018 ELVIA BECKER MD Ot E04.1 NONTOXIC SINGLE THYROID NODULE 07/07/2018 ELVIA BECKER MD Ot R53.83 OTHER FATIGUE 07/07/2018 PASHA WESTBROOK, VIOLA Mercedes Ot G35 MULTIPLE SCLEROSIS 07/07/2018 RADHA GARY MD, Ot G35 MULTIPLE SCLEROSIS 07/07/2018 CONSTANCE PYLE APRN Ot M48.07 SPINAL STENOSIS, LUMBOSACRAL REGION 07/07/2018 CONSTANCE PYLE REHABILITATION PHYSICIAN Ot M51.37 OTHER INTERVERTEBRAL DISC DEGENERATION, 07/07/2018 RADHA GARY MD, Ot G35 MULTIPLE SCLEROSIS 07/07/2018 ABDIRAHMAN MD, RADHA Ot 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, UNSPECIFIED 07/07/2018 PATRICKMISAELBISI Vale REHABILITATION PHYSICIAN Ot E55.9 VITAMIN D DEFICIENCY, UNSPECIFIED 07/07/2018 PYLEMISAELBISI Vale REHABILITATION PHYSICIAN Ot E78.5 HYPERLIPIDEMIA, UNSPECIFIED 07/07/2018 MISAEL PYLEBISI Vale REHABILITATION PHYSICIAN Ot R53.83 OTHER FATIGUE 07/07/2018 Ot S82.142A DISPLACED BICONDYLAR FRACTURE OF LEFT TI 07/07/2018 Ot W18.39XA OTHER FALL ON SAME LEVEL, INITIAL ENCOUN 07/07/2018 LINDALETY REHABILITATION PHYSICIAN Ot S82.145A NONDISPLACED BICONDYLAR FRACTURE OF LEFT 07/07/2018 LETY MCKEON REHABILITATION PHYSICIAN Ot W01.0XXA FALL SAME LEV FROM SLIP/TRIP W/O STRIKE 07/07/2018 LETY MCKEON REHABILITATION PHYSICIAN Ot D51.9 VITAMIN B12 DEFICIENCY ANEMIA, UNSPECIFI 07/07/2018 LETY MCKEON REHABILITATION PHYSICIAN Ot E55.9 VITAMIN D DEFICIENCY, UNSPECIFIED 07/07/2018 LETY MCKEON REHABILITATION PHYSICIAN Ot R53.83 OTHER FATIGUE 07/07/2018 LETY MCKEON REHABILITATION PHYSICIAN Ot R73.03 PREDIABETES 07/08/2018 ARAM LO REHABILITATION PHYSICIAN Ot K21.9 GASTRO-ESOPHAGEAL REFLUX DISEASE WITHOUT 07/08/2018 Ot Z01.812 ENCOUNTER FOR PREPROCEDURAL LABORATORY E 07/08/2018 CATHLEEN WESTBROOK FACC, ADDIE FACP CCDS Ot I49.3 VENTRICULAR PREMATURE DEPOLARIZATION 07/08/2018 CATHLEEN WESTBROOK FACC, ALI FACP CCDS Ot M19.90 UNSPECIFIED OSTEOARTHRITIS, UNSPECIFIED 07/08/2018 CATHLEEN WESTBROOK FACC, ALI FACP CCDS Ot R06.02 SHORTNESS OF BREATH 07/08/2018 CATHLEEN WESTBROOK FACC, ALI FACP CCDS Ot R07.89 OTHER CHEST PAIN 07/08/2018 CATHLEEN WESTBROOK FACC, ALI FACP CCDS Ot I49.3 VENTRICULAR PREMATURE DEPOLARIZATION 07/08/2018 CATHLEEN WESTBROOK FACC, ALI FACP CCDS Ot M19.90 UNSPECIFIED OSTEOARTHRITIS, UNSPECIFIED 07/08/2018 CATHLEEN WESTBROOK FACC, ALI FACP CCDS Ot R06.02 SHORTNESS OF BREATH 07/08/2018 CATHLEEN WESTBROOK FACC, ALI FACP CCDS Ot R07.89 OTHER CHEST PAIN 07/08/2018 CONSTANCE PYLE APRN Ot E04.1 NONTOXIC SINGLE THYROID NODULE 07/08/2018 RADHA GARY MD Ot G35 MULTIPLE SCLEROSIS 07/08/2018 RADHA GARY MD, Ot G35 MULTIPLE SCLEROSIS 07/08/2018 CONSTANCE PYLE APRN Ot Z12.31 ENCNTR SCREEN MAMMOGRAM FOR MALIGNANT NE 07/08/2018 ELVIA BECKER MD Ot E04.1 NONTOXIC SINGLE THYROID NODULE 07/08/2018 ELVIA BECKER MD Ot R53.83 OTHER FATIGUE 07/08/2018 VIOLA PAK MD, Ot G35 MULTIPLE SCLEROSIS 07/08/2018 RADHA GARY MD, Ot G35 MULTIPLE SCLEROSIS 07/08/2018 CONSTANCE PYLE APRN Ot M48.07 SPINAL STENOSIS, LUMBOSACRAL REGION 07/08/2018 CONSTANCE PYLE APRN Ot M51.37 OTHER INTERVERTEBRAL DISC DEGENERATION, 07/08/2018 RADHA GARY MD Ot G35 MULTIPLE SCLEROSIS 07/08/2018 RADHA GARY MD Ot 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, UNSPECIFIED 07/08/2018 CONSTANCE PYLE REHABILITATION PHYSICIAN Ot E55.9 VITAMIN D DEFICIENCY, UNSPECIFIED 07/08/2018 CONSTANCE PYLE APRN Ot E78.5 HYPERLIPIDEMIA, UNSPECIFIED 07/08/2018 CONSTANCE PYLE APRN Ot R53.83 OTHER FATIGUE 07/08/2018 Ot S82.142A DISPLACED BICONDYLAR FRACTURE OF LEFT TI 07/08/2018 Ot W18.39XA OTHER FALL ON SAME LEVEL, INITIAL ENCOUN 07/08/2018 LETY MCKEON APRN Ot S82.145A NONDISPLACED BICONDYLAR FRACTURE OF LEFT 07/08/2018 LETY MCKEON APRN Ot W01.0XXA FALL SAME LEV FROM SLIP/TRIP W/O STRIKE 07/08/2018 LETY MCKEON APRN Ot D51.9 VITAMIN B12 DEFICIENCY ANEMIA, UNSPECIFI 07/08/2018 LETY MCKEON APRN Ot E55.9 VITAMIN D DEFICIENCY, UNSPECIFIED 07/08/2018 LETY MCKEON APRN Ot R53.83 OTHER FATIGUE 07/08/2018 LEYT MCKEON APRN Ot R73.03 PREDIABETES 08/08/2018 VIOLA PAK MD Ot G35 MULTIPLE SCLEROSIS 08/09/2018 RANDOLPH WESTBROOK, TANIYA Merritt Ot Z01.818 ENCOUNTER FOR OTHER PREPROCEDURAL EXAMIN Procedures There is no data. Results Test Result Range Vitamin B7 (Biotin) - 04/21/16 13:57 VITAMIN B7 0.07 NG/ML 0.05-0.83 Hemoglobin A1C - 04/21/16 13:57 % A1C 5.20 % 5.40-6.60 AvGlu 108 mg/dL 70-110 Vitamin A, Serum - 04/29/16 07:20 VITAMIN [...] 25-hydroxy vitamin D measurement 18 % 30-100 [id number] - 11/05/16 12:25 Complement C3 nephritic [mass/volume] [...] 25-hydroxy vitamin D measurement 10 % 30-100 Complete urinalysis with reflex to culture - 10/08/17 12:30 Urine color determination YELLOW NRG Urine clarity determination CLEAR NRG Urine pH measurement by test strip 5 5-9 Specific gravity of urine by test strip 1.010 1.016- 1.022 Urine protein assay by test strip, semi-quantitative NEGATIVE NEGATIVE Urine glucose detection by automated test strip NEGATIVE NEGATIVE Erythrocytes detection in urine sediment by light microscopy NEGATIVE NEGATIVE Urine ketones detection by automated test strip NEGATIVE NEGATIVE Urine nitrite detection by test strip NEGATIVE NEGATIVE Urine total bilirubin detection by test strip NEGATIVE NEGATIVE Urine urobilinogen measurement by automated test strip (mass/volume) NORMAL NORMAL Urine leukocyte esterase detection by dipstick 2+ NEGATIVE Automated urine sediment erythrocyte count by microscopy (number/high power field) NONE NRG Automated urine sediment leukocyte count by microscopy (number/high power field ) [HPF] NRG Bacteria detection in urine sediment by light microscopy TRACE NRG Squamous epithelial cells detection in urine sediment by light microscopy 0-2 NRG Crystals detection in urine sediment by light microscopy NONE NRG Casts detection in urine sediment by light microscopy NONE NRG Mucus detection in urine sediment by light microscopy NEGATIVE NRG Complete urinalysis with reflex to culture YES NRG Bacterial urine culture - 10/08/17 12:30 Bacterial urine culture [id number] NRG COLONY COUNT <10,000 NRG FTX;REPORTABLE PLUS,, NRG FREE TEXT ENTRY 2 MIXED GRAM POSITIVES <10,000/ML NRG Complete blood count (CBC) with automated white blood cell (WBC) differential - 10/08/17 12:45 Blood leukocytes automated count (number/volume) 5.0 10*3/uL 4.3-11.0 Blood erythrocytes automated count (number/volume) 3.87 10*6/uL 4.35-5.85 Venous blood hemoglobin measurement (mass/volume) 13.1 g/dL 11.5-16.0 Blood hematocrit (volume fraction) 38 % 35-52 Automated erythrocyte mean corpuscular volume 98 [foz_us] 80-99 Automated erythrocyte mean corpuscular hemoglobin (mass per erythrocyte) 34 pg 25-34 Automated erythrocyte mean corpuscular hemoglobin concentration measurement ( mass/volume) 35 g/dL 32-36 Automated erythrocyte distribution width ratio 11.9 % 10.0-14.5 Automated blood platelet count (count/volume) 174 10*3/uL 130-400 Automated blood platelet mean volume measurement 10.2 [foz_us] 7.4-10.4 Automated blood neutrophils/100 leukocytes 79 % 42-75 Automated blood lymphocytes/100 leukocytes 14 % 12-44 Blood monocytes/100 leukocytes 6 % 0-12 Automated blood eosinophils/100 leukocytes 1 % 0-10 Automated blood basophils/100 leukocytes 0 % 0-10 Blood neutrophils automated count (number/volume) 4.0 10*3 1.8-7.8 Blood lymphocytes automated count (number/volume) 0.7 10*3 1.0-4.0 Blood monocytes automated count (number/volume) 0.3 10*3 0.0-1.0 Automated eosinophil count 0.1 10*3/uL 0.0-0.3 Automated blood basophil count (count/volume) 0.0 10*3/uL 0.0-0.1 Comprehensive metabolic panel - 10/08/17 12:45 Serum or plasma sodium measurement (moles/volume) 138 mmol/L 135-145 Serum or plasma potassium measurement (moles/volume) 4.4 mmol/L 3.6-5.0 Serum or plasma chloride measurement (moles/volume) 100 mmol/L 98-107 Carbon dioxide 27 mmol/L 21-32 Serum or plasma anion gap determination (moles/volume) 11 mmol/L 5-14 Serum or plasma urea nitrogen measurement (mass/volume) 14 mg/dL 7-18 Serum or plasma creatinine measurement (mass/volume) 0.85 mg/dL 0.60-1.30 Serum or plasma urea nitrogen/creatinine mass ratio 16 NRG Serum or plasma creatinine measurement with calculation of estimated glomerular filtration rate > NRG Serum or plasma glucose measurement (mass/volume) 82 mg/dL 70-105 Serum or plasma calcium measurement (mass/volume) 9.8 mg/dL 8.5-10.1 Serum or plasma total bilirubin measurement (mass/volume) 0.6 mg/dL 0.1-1.0 Serum or plasma alkaline phosphatase measurement (enzymatic activity/volume) 69 U/L 40-136 Serum or plasma aspartate aminotransferase measurement (enzymatic activity/ volume) 32 U/L 5-34 Serum or plasma alanine aminotransferase measurement (enzymatic activity/volume ) 28 U/L 0-55 Serum or plasma protein measurement (mass/volume) 7.8 g/dL 6.4-8.2 Serum or plasma albumin measurement (mass/volume) 4.6 g/dL 3.2-4.5 Automated blood complete blood count (hemogram) panel - 01/06/18 07:29 Blood leukocytes automated count (number/volume) 4.0 10*3/uL 4.3-11.0 Blood erythrocytes automated count (number/volume) 3.39 10*6/uL 4.35-5.85 Venous blood hemoglobin measurement (mass/volume) 11.5 g/dL 11.5-16.0 Blood hematocrit (volume fraction) 35 % 35-52 Automated erythrocyte mean corpuscular volume 102 [foz_us] 80-99 Automated erythrocyte mean corpuscular hemoglobin (mass per erythrocyte) 34 pg 25-34 Automated erythrocyte mean corpuscular hemoglobin concentration measurement ( mass/volume) 33 g/dL 32-36 Automated erythrocyte distribution width ratio 13.0 % 10.0-14.5 Automated blood platelet count (count/volume) 197 10*3/uL 130-400 Automated blood platelet mean volume measurement 9.6 [foz_us] 7.4-10.4 Automated blood complete blood count (hemogram) panel - 01/06/18 07:29 Blood leukocytes automated count (number/volume) 4.1 10*3/uL 4.3-11.0 Blood erythrocytes automated count (number/volume) 3.36 10*6/uL 4.35-5.85 Venous blood hemoglobin measurement (mass/volume) 11.4 g/dL 11.5-16.0 Blood hematocrit (volume fraction) 34 % 35-52 Automated erythrocyte mean corpuscular volume 102 [foz_us] 80-99 Automated erythrocyte mean corpuscular hemoglobin (mass per erythrocyte) 34 pg 25-34 Automated erythrocyte mean corpuscular hemoglobin concentration measurement ( mass/volume) 33 g/dL 32-36 Automated erythrocyte distribution width ratio 12.9 % 10.0-14.5 Automated blood platelet count (count/volume) 200 10*3/uL 130-400 Automated blood platelet mean volume measurement 9.6 [foz_us] 7.4-10.4 Comprehensive metabolic panel - 01/06/18 07:29 Serum or plasma sodium measurement (moles/volume) 142 mmol/L 135-145 Serum or plasma potassium measurement (moles/volume) 4.0 mmol/L 3.6-5.0 Serum or plasma chloride measurement (moles/volume) 105 mmol/L 98-107 Carbon dioxide 28 mmol/L 21-32 Serum or plasma anion gap determination (moles/volume) 9 mmol/L 5-14 Serum or plasma urea nitrogen measurement (mass/volume) 14 mg/dL 7-18 Serum or plasma creatinine measurement (mass/volume) 0.96 mg/dL 0.60-1.30 Serum or plasma urea nitrogen/creatinine mass ratio 15 NRG Serum or plasma creatinine measurement with calculation of estimated glomerular filtration rate 60 NRG Serum or plasma glucose measurement (mass/volume) 99 mg/dL 70-105 Serum or plasma calcium measurement (mass/volume) 9.2 mg/dL 8.5-10.1 Serum or plasma total bilirubin measurement (mass/volume) 0.5 mg/dL 0.1-1.0 Serum or plasma alkaline phosphatase measurement (enzymatic activity/volume) 60 U/L 40-136 Serum or plasma aspartate aminotransferase measurement (enzymatic activity/ volume) 25 U/L 5-34 Serum or plasma alanine aminotransferase measurement (enzymatic activity/volume ) 28 U/L 0-55 Serum or plasma protein measurement (mass/volume) 7.0 g/dL 6.4-8.2 Serum or plasma albumin measurement (mass/volume) 4.2 g/dL 3.2-4.5 Comprehensive metabolic panel - 01/06/18 07:29 Serum or plasma sodium measurement (moles/volume) 141 mmol/L 135-145 Serum or plasma potassium measurement (moles/volume) 3.9 mmol/L 3.6-5.0 Serum or plasma chloride measurement (moles/volume) 105 mmol/L 98-107 Carbon dioxide 29 mmol/L 21-32 Serum or plasma anion gap determination (moles/volume) 7 mmol/L 5-14 Serum or plasma urea nitrogen measurement (mass/volume) 14 mg/dL 7-18 Serum or plasma creatinine measurement (mass/volume) 0.96 mg/dL 0.60-1.30 Serum or plasma urea nitrogen/creatinine mass ratio 15 NRG Serum or plasma creatinine measurement with calculation of estimated glomerular filtration rate 60 NRG Serum or plasma glucose measurement (mass/volume) 100 mg/dL 70-105 Serum or plasma calcium measurement (mass/volume) 9.2 mg/dL 8.5-10.1 Serum or plasma total bilirubin measurement (mass/volume) 0.5 mg/dL 0.1-1.0 Serum or plasma alkaline phosphatase measurement (enzymatic activity/volume) 61 U/L 40-136 Serum or plasma aspartate aminotransferase measurement (enzymatic activity/ volume) 25 U/L 5-34 Serum or plasma alanine aminotransferase measurement (enzymatic activity/volume ) 28 U/L 0-55 Serum or plasma protein measurement (mass/volume) 7.0 g/dL 6.4-8.2 Serum or plasma albumin measurement (mass/volume) 4.2 g/dL 3.2-4.5 Lipid 1996 panel - 01/06/18 07:29 Serum or plasma triglyceride measurement (mass/volume) 113 mg/dL <150 Serum or plasma cholesterol measurement (mass/volume) 201 mg/dL < 200 Serum or plasma cholesterol in HDL measurement (mass/volume) 64 mg/ dL 40-60 Cholesterol in LDL [mass/volume] in serum or plasma by direct assay 106 mg/dL 1-129 Serum or plasma cholesterol in VLDL measurement (mass/volume) 23 mg/ dL 5-40 THYROID STIMULATING HORMONE - 01/06/18 07:29 THYROID STIMULATING HORMONE 0.52 u[iU]/mL 0.35-4.94 VITAMIN D 25-HYDROXY - 01/06/18 07:29 VITAMIN D 25-HYDROXY (TOTAL) 20.5 % 30.0-100.0 Cyanocobalamin measurement - 01/06/18 07:29 Vitamin B12 191 pg/mL 190-1100 Complete blood count (CBC) with automated white blood cell (WBC) differential - 03/21/18 12:32 Blood leukocytes automated count (number/volume) 5.3 10*3/uL 4.3-11.0 Blood erythrocytes automated count (number/volume) 3.64 10*6/uL 4.35-5.85 Venous blood hemoglobin measurement (mass/volume) 12.6 g/dL 11.5-16.0 Blood hematocrit (volume fraction) 36 % 35-52 Automated erythrocyte mean corpuscular volume 100 [foz_us] 80-99 Automated erythrocyte mean corpuscular hemoglobin (mass per erythrocyte) 35 pg 25-34 Automated erythrocyte mean corpuscular hemoglobin concentration measurement ( mass/volume) 35 g/dL 32-36 Automated erythrocyte distribution width ratio 12.0 % 10.0-14.5 Automated blood platelet count (count/volume) 203 10*3/uL 130-400 Automated blood platelet mean volume measurement 9.9 [foz_us] 7.4-10.4 Automated blood neutrophils/100 leukocytes 59 % 42-75 Automated blood lymphocytes/100 leukocytes 33 % 12-44 Blood monocytes/100 leukocytes 7 % 0-12 Automated blood eosinophils/100 leukocytes 2 % 0-10 Automated blood basophils/100 leukocytes 0 % 0-10 Blood neutrophils automated count (number/volume) 3.1 10*3 1.8-7.8 Blood lymphocytes automated count (number/volume) 1.7 10*3 1.0-4.0 Blood monocytes automated count (number/volume) 0.4 10*3 0.0-1.0 Automated eosinophil count 0.1 10*3/uL 0.0-0.3 Automated blood basophil count (count/volume) 0.0 10*3/uL 0.0-0.1 Comprehensive metabolic panel - 03/21/18 12:32 Serum or plasma sodium measurement (moles/volume) 141 mmol/L 135-145 Serum or plasma potassium measurement (moles/volume) 4.3 mmol/L 3.6-5.0 Serum or plasma chloride measurement (moles/volume) 105 mmol/L 98-107 Carbon dioxide 25 mmol/L 21-32 Serum or plasma anion gap determination (moles/volume) 11 mmol/L 5-14 Serum or plasma urea nitrogen measurement (mass/volume) 12 mg/dL 7-18 Serum or plasma creatinine measurement (mass/volume) 0.83 mg/dL 0.60-1.30 Serum or plasma urea nitrogen/creatinine mass ratio 14 NRG Serum or plasma creatinine measurement with calculation of estimated glomerular filtration rate > NRG Serum or plasma glucose measurement (mass/volume) 86 mg/dL 70-105 Serum or plasma calcium measurement (mass/volume) 9.5 mg/dL 8.5-10.1 Serum or plasma total bilirubin measurement (mass/volume) 0.6 mg/dL 0.1-1.0 Serum or plasma alkaline phosphatase measurement (enzymatic activity/volume) 69 U/L 40-136 Serum or plasma aspartate aminotransferase measurement (enzymatic activity/ volume) 32 U/L 5-34 Serum or plasma alanine aminotransferase measurement (enzymatic activity/volume ) 34 U/L 0-55 Serum or plasma protein measurement (mass/volume) 7.6 g/dL 6.4-8.2 Serum or plasma albumin measurement (mass/volume) 4.5 g/dL 3.2-4.5 CALCIUM CORRECTED 9.1 mg/dL 8.5-10.1 THYROID STIMULATING HORMONE - 03/21/18 12:32 THYROID STIMULATING HORMONE 0.53 u[iU]/mL 0.35-4.94 Tick identification panel - 03/21/18 12:32 Serum Ehrlichia chaffeensis IgG antibody detection <1:16 <1:16 Serum Ehrlichia chaffeensis IgM antibody detection <1:10 <1:10 Serum Rickettsia rickettsii IgG antibody assay (units/volume) < <1:16 [place] spotted fever panel < <1:10 Francisella tularensis antibody assay <1:20 NRG LYME AB G M 0.46 % 0.00-0.89 Interpretation of Lyme disease antibody assay Negative Negative Hemoglobin A1c - 03/21/18 12:32 Blood hemoglobin A1C measurement (mass/volume) 5.2 % 4.0- 5.6 MEAN BLOOD GLUCOSE 103 % <=126 Cyanocobalamin measurement - 03/21/18 12:32 Vitamin B12 398 pg/mL 190-1100 VITAMIN D 25-HYDROXY - 03/21/18 12:32 VITAMIN D 25-HYDROXY (TOTAL) 30.7 % 30.0-100.0 Encounters ACCT No. Visit Date/Time Discharge Status Pt. Type Provider Facility Loc./Unit Complaint [id number] 08/08/2018 05:59:00 08/08/2018 15:52:00 DIS Outpatient TANIYA DICKSON MD [facility] PREOP COLONOSCOPY [id number] 03/21/2018 12:10:00 03/21/2018 23:59:59 CLS Outpatient LETY MCKEON APRN [facility] LAB VIT D DEFICIENCY, PREDIABETES,FATIGUE,VIT B12 DEF [id number] 02/24/2018 06:46:00 02/24/2018 23:59:59 CLS Outpatient LETY MCKEON REHABILITATION PHYSICIAN [facility] RAD CLOSED FRACTURE OF LEFT TIBIAL PLATEAU [id number] 01/06/2018 07:12:00 01/06/2018 23:59:59 CLS Outpatient CONSTANCE PYLE REHABILITATION PHYSICIAN [facility] LAB FATIGUE [id number] 01/06/2018 07:09:00 01/06/2018 23:59:59 CLS Outpatient RADHA GARY MD [facility] RAD MULTIPLE SCLEROSIS EXACERBATION [id number] 10/08/2017 12:08:00 10/08/2017 14:37:00 DIS Emergency VIOLA PAK MD [facility] ER MS FLARE UP [id number] 08/16/2017 07:45:00 08/16/2017 23:59:59 CLS Outpatient CONSTANCE PYLE REHABILITATION PHYSICIAN [facility] RAD M54.5 LOW BACK PAIN [id number] 08/02/2017 08:26:00 08/02/2017 23:59:59 CLS Outpatient RADHA GARY MD [facility] LAB G35 [id number] 03/14/2017 00:28:00 03/14/2017 23:59:59 CLS Preadmit VIOLA PAK MD [facility] 4TH RCR INFUSION [id number] 01/04/2017 16:05:00 03/13/2017 00:01:00 DIS Outpatient VIOLA PAK MD [facility] 4TH RCR INFUSION [id number] 01/20/2017 06:44:00 01/20/2017 23:59:59 CLS Outpatient EUGENIO WESTBROOK, ELVIA Gregg [facility] LAB R53.8 E03 [id number] 01/02/2017 15:21:00 01/02/2017 20:11:00 DIS Emergency VIOLA PAK MD [facility] ER FATIGUE/DIFF WALKING/ FOGGY MEMORY [id number] 12/18/2016 13:10:00 12/18/2016 23:59:59 CLS Outpatient CONSTANCE PYLE REHABILITATION PHYSICIAN [facility] RAD SCREENING Z12.31 [id number] 11/13/2016 09:08:00 11/13/2016 23:59:59 CLS Outpatient RADHA GARY MD [facility] RAD G35 [id number] 11/12/2016 13:00:00 11/12/2016 13:00:00 CAN Preadmit RADHA GARY MD [facility] SDC MULTIPLE SCLEROSIS [id number] 11/05/2016 11:42:00 11/05/2016 23:59:59 CLS Outpatient RADHA GARY MD [facility] LAB G35 [id number] 10/27/2016 06:51:00 10/27/2016 13:50:00 DIS Outpatient CATHLEEN WESTBROOK FACC ALI FACP CCDS [facility] CATH FATIGUE, ANGINA [id number] 10/19/2016 11:58:00 10/19/2016 12:59:00 DIS Outpatient TUCKER BARAJAS MD [facility] CARD SPONDYLOSIS [id number] 10/12/2016 12:21:00 10/12/2016 13:26:00 DIS Outpatient TUCKER BARAJAS MD [facility] CARD SPONDYLOSIS [id number] 07/31/2016 09:57:00 07/31/2016 23:59:59 CLS Outpatient CONSTANCE PYLE APRN [facility] RAD THYROID NODULE [id number] 01/15/2016 19:59:00 01/16/2016 06:20:00 DIS Outpatient MENA BLAS DO [facility] SLEEP GENE [id number] 12/24/2015 07:33:00 12/24/2015 23:59:59 CLS Outpatient CATHLEEN WESTBROOK FACC, ALI FACP CCDS [facility] CARD CHEST DISCOMFORT,PVC,SOB,ARTHRITIS [id number] 12/19/2015 14:00:00 12/19/2015 23:59:59 CLS Outpatient CATHLEEN WESTBROOK FACC, ALI FACP CCDS [facility] CARD CHEST DISCOMFORT; PVC [id number] 10/08/2015 07:58:00 10/08/2015 23:59:59 CLS Outpatient ARAM LO REHABILITATION PHYSICIAN [facility] RAD REFLUX [id number] 09/23/2015 12:07:00 09/23/2015 12:54:00 DIS Outpatient TUCKER BARAJAS MD [facility] CARD SPONDYLOSIS WO RADICULOPATHY [id number] 09/20/2015 10:06:00 09/20/2015 23:59:59 CLS Outpatient CONSTANCE PYLE REHABILITATION PHYSICIAN [facility] LAB ADULT HEALTH EXAMINATION,HYPERLIPIDEMIA [id number] 09/16/2015 11:23:00 09/16/2015 13:00:00 DIS Outpatient TUCKER BARAJAS MD [facility] SPONDYLOSOSIS WO RADICUOLPATHY [id number] 03/25/2015 11:18:00 03/25/2015 23:59:59 CLS Outpatient CONSTANCE PYLE REHABILITATION PHYSICIAN [facility] LAB [id number] 02/01/2015 08:05:00 02/01/2015 23:59:59 CLS Outpatient TUCKER BARAJAS MD [facility] CARD [id number] 01/25/2015 07:48:00 01/25/2015 23:59:59 CLS Outpatient CONSTANCE PYLE REHABILITATION PHYSICIAN [facility] RAD [id number] 12/28/2014 08:49:00 12/28/2014 23:59:59 CLS Outpatient CONSTANCE PYLE REHABILITATION PHYSICIAN [facility] LAB [id number] 12/17/2014 07:31:00 12/17/2014 10:15:00 DIS Outpatient TANIYA DICKSON MD [facility] [id number] 12/13/2014 06:31:00 12/13/2014 23:59:59 CLS Outpatient TANIYA DICKSON MD [facility] PREOP [id number] 10/12/2014 12:01:00 10/12/2014 23:59:59 CLS Outpatient ELVIA BECKER MD [facility] CARD [id number] 09/24/2014 10:46:00 09/24/2014 14:25:00 DIS Outpatient RANDOLPH WESTBROOK, TANIYA Merritt [facility] [id number] 09/18/2014 20:35:00 09/20/2014 17:00:00 DIS Inpatient EUGENIO WESTBROOK, ELVIA Gregg [facility] CSD [id number] 09/10/2014 12:53:00 09/10/2014 13:48:00 DIS Outpatient TUCKER BARAJAS MD [facility] CARD [id number] 07/27/2014 14:02:00 07/27/2014 23:59:59 CLS Outpatient ELIZA WESTBROOK, BERYL Mercedes [facility] REHAB [id number] 04/21/2014 14:13:00 04/21/2014 15:38:00 DIS Emergency RADHA KEARNEY APRN [facility] ER [id number] 03/31/2013 13:01:00 03/31/2013 23:59:59 CLS Outpatient JUSTIN JOHNSON DO [facility] RAD [id number] 12/13/2012 13:35:00 12/13/2012 23:59:59 CLS Outpatient 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 [facility] RAD [id number] 12/02/2012 09:39:00 12/02/2012 23:59:59 CLS Outpatient 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 [facility] RAD [id number] 11/30/2012 12:46:00 11/30/2012 23:59:59 CLS Outpatient 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 [facility] 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 [id number] 10/21/2012 10:47:00 10/21/2012 23:59:59 CLS Outpatient 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 [facility] 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 [id number] 08/15/2018 09:00:00 PEN Preadmariana DICKSON MD, TANIYA Merritt [facility] ENDO SCREENING [id number] 02/21/2018 14:21:00 Document Registration [id number] 11/06/2015 09:40:00 Document Registration [id number] 09/07/2014 09:59:00 Document Registration [id number] 09/07/2014 09:59:00 Document Registration [id number] 09/07/2014 09:59:00 Document Registration [id number] 09/07/2014 09:59:00 Document Registration [id number] 11/27/2011 10:18:00 Document Registration [id number] 08/31/2011 20:10:00 Document Registration [id number] 12/11/2010 07:08:00 Document Registration [id number] 11/28/2010 06:22:00 Document Registration [id number] 10/14/2010 10:45:00 Document Registration [id number] 09/28/2016 10:29:00 09/28/2016 23:59:00 DIS Outpatient Bk Recinos [id number] 04/29/2016 00:00:00 05/01/2016 14:40:00 DIS Outpatient Bk Recinos [id number] 05/01/2016 12:42:37 Document Registration [id number] 04/21/2016 13:17:00 Document Registration [id number] 03/25/2015 13:14:27 ACT Document Registration
[2018-08-15] MEDS ORDERED: NS IV 500 ML 500 ML IV PRN (08:18)
[2018-08-15 08:26] VITALS: BP 120/62
[2018-08-15] MEDS ORDERED: MIDAZOLAM 2 MG/2 ML (VERSED) VIAL IVP ONE (08:30)
[2018-08-15] MEDS ORDERED: fentaNYL INJECTION 100 MCG/2 ML AMP IVP ONE (08:30)
[2018-08-15] MEDS ORDERED: fentaNYL INJECTION 100 MCG/2 ML AMP ONE (09:09)
[2018-08-15] MEDS ORDERED: MIDAZOLAM 2 MG/2 ML (VERSED) VIAL ONE ×3 (09:09)
--- NOTE | 2018-08-15 09:28 | History & Physicial ---
History of Present Illness History of Present Illness Reason for visit/HPI to undergo screening colonoscopy. Family history of colon cancer in her maternal grandfather. Date of Admission 08/15/18 Date Seen by a Provider: Aug 15, 2018 Time Seen by a Provider: 09:27 I consulted on this patient on 08/15/18 09:26 Attending Physician Taniya Atkins MD Admitting Physician Barry Tierney MD Consult Allergies and Home Medications Allergies Coded Allergies: gabapentin (Verified Allergy, Mild, CONFUSION, 08/08/18) nitrofurantoin (Verified Allergy, Mild, ITCHING, 08/08/18) Home Medications Alprazolam 1 Mg Tablet, 1 MG PO TID PRN for ANXIETY, (Reported) Atorvastatin Calcium 20 Mg Tablet, 20 MG PO DAILY, (Reported) Baclofen 10 Mg Tablet, 20 MG PO TID, (Reported) Bupropion HCl 300 Mg Tab.er.24h, 300 MG PO DAILY, (Reported) Cyanocobalamin 1,000 Mcg/Ml Inj, 1,000 MCG IM TWICE A MONTH, (Reported) Diazepam 2 Mg Tablet, 1 MG PO HS PRN for SLEEP, (Reported) Ergocalciferol (Vitamin D2) 50,000 Unit Capsule, 50,000 UNIT PO TWICE WEEKLY, ( Reported) Ferrous Sulfate 325 Mg Tablet, 325 MG PO DAILY, (Reported) Interferon Beta-1A 30 Mcg/0.5 Ml Syr, 30 MCG IM WEEK, (Reported) Levothyroxine Sodium 150 Mcg Tablet, 150 MCG PO DAILY, (Reported) Metoprolol Succinate 25 Mg Tab.er.24h, 25 MG PO DAILY, (Reported) Oxycodone HCl/Acetaminophen 1 Each Tablet, 1 TAB PO QID, (Reported) Pramipexole Di-HCl 0.5 Mg Tablet, 0.5 MG PO BID, (Reported) Primidone 50 Mg Tablet, 50 MG PO HS, (Reported) Sertraline HCl 50 Mg Tablet, 150 MG PO DAILY, (Reported) TAKES 3 (50 MG) TABLETS Topiramate 50 Mg Tablet, 50 MG PO BID, (Reported) Patient Home Medication List Home Medication List Reviewed: Yes Past Jjtratt-Iclyve-Ryoobe Hx Patient Social History Marrital Status: Alcohol Use: Denies Use Recreational Drug Use: No Smoking Status: Former Smoker Former Smoker, Quit: October 27, 2013 Type Used: Cigarettes 2nd Hand Smoke Exposure: No Recent Foreign Travel: No Contact w/other who traveled: No Recent Hopitalizations: No Recent Infectious Disease Expo: No Immunizations Up To Date Tetanus Booster (TDap): More than 5yrs Pediatric: Yes Seasonal Allergies Seasonal Allergies: No Surgeries Yes (RIGHT CARPAL TUNNEL, GASTRIC SLEEVE APR 2016) Hysterectomy Respiratory No (USES O2 @ HS, SATS DROP WHILE SLEEPING) Cardiovascular Yes (PVC'S) Hypertension Neurological Yes Headaches /Migraines, Multiple Sclerosis Reproductive System Hx Reproductive Disorders: No Sexually Transmitted Disease: No HIV/AIDS: No Genitourinary No Gastrointestinal No Ulcer Musculoskeletal Yes (BONE SPUR NECK) Degenerate Disk Disease, Chronic Back Pain Endocrine History of Endocrine Disorders: Yes Endocrine Disorders: Hypothyroidsim HEENT History of HEENT Disorders: Yes (GLASSES, DENTURES) Loss of Vision: Right Hearing Impairment: Denies Cancer No Psychosocial History of Psychiatric Problem: Yes (PANIC ATTACKS) Behavioral Health Disorders: Anxiety, Depression Integumentary History of Skin or Integumenta: No Blood Transfusions History of Blood Disorders: No Adverse Reaction to a Blood Tr: No (N/A) Family Medical History Family Hx: Alzheimer's disease 19 FATHER Cardiovascular disease 19 FATHER Dementia G8 SISTER Diabetes mellitus 19 FATHER 19 MOTHER G8 SISTER Glaucoma 19 MOTHER Hypertension 19 MOTHER Review of Systems Constitutional: no symptoms reported EENTM: no symptoms reported Respiratory: no symptoms reported Cardiovascular: no symptoms reported Genitourinary: no symptoms reported Musculoskeletal: no symptoms reported Skin: no symptoms reported Psychiatric/Neurological: No Symptoms Reported Physical Exam Vital Signs Vital Signs - First Documented 08/15/18 08:26 Temp 97.0 Pulse 58 Resp 18 B/P (MAP) 120/62 (81) Pulse Ox 99 O2 Delivery Room Air Capillary Refill : Height, Weight, BMI Height: 5'2.00" Weight: 210lbs. 0.0oz. [id number]; 38.4 BMI Method:Stated General Appearance: No Apparent Distress Neck: Normal Inspection Respiratory: Lungs Clear Cardiovascular: Regular Rate, Rhythm Gastrointestinal: Non Tender, Soft Rectal: Deferred Extremity: Normal Inspection Neurologic/Psychiatric: Alert, Oriented x3 Skin: Warm/Dry Assessment/Plan Assessment and Plan Lady here to undergo screening colonoscopy. Discussed in detail. Admission Diagnosis Admission Status: Other (Outpt Proc) TANIYA ATKINS MD Aug 15, 2018 09:28
--- NOTE | 2018-08-15 09:29 | Conscious Sedation/ASA ---
Conscious Sedation Pre-Proced Time 09:28 ASA Score 2 For ASA 3 and 4: Consider anesthesia and medical clearance. Also, for patients with a history of failed moderate sedation consider anesthesia. Airway Lungs Heart ASA score ASA 1: a normal healthy patient ASA 2: a patient with a mild systemic disease (mid diabetes, controlled hypertension, obesity ASA 3: a patient with a severe systemic disease that limits activity (angina , COPD, prior Myocardial infarction) ASA 4: a patient with an incapacitating disease that is a constant threat to life (CHF, renal failure) ASA 5: a moribund patient not expected to survive 24 hrs. (ruptured aneurysm) ASA 6: a declared brain- patient whose organs are being harvested. For emergent operations, add the letter E after the classification Mallampati Classification Grade 2 Sedation Plan Discussed options with patient/fam The patient is an appropriate candidate to undergo the planned procedure, sedation, and anesthesia. The patient immediately re-assessed prior to indication. TANIYA DICKSON MD Aug 15, 2018 09:29
--- NOTE | 2018-08-15 10:05 | Endo Procedure Record ---
Endo Procedure Report Date of Procedure Last Colonoscopy: No Aug 15, 2018 Surgeon (s) TANIYA DICKSON MD Post Procedure/Op Diagnosis Sigmoid diverticulosis Procedure Performed Colonoscopy to cecum Description of Procedure Anesthesia Type: Conscious Sedation Specimen(s) collected/removed None Description of the Procedure Indication for the procedure: This lady, with a family history of colon cancer, came in for screening colonoscopy. Informed consent was obtained after reviewing the procedure in detail. Description of the procedure: D this position and her vital signs were monitored. Conscious sedation was achieved using Versed and fentanyl. Digital rectal examination was unremarkable. The colonoscope was then introduced into the rectum and advanced to the cecum. The quality of bowel preparation was rather poor. The scope was then withdrawn slowly and the mucosa examined in a systematic fashion. Findings: Sigmoid diverticulosis. She tolerated the procedure well and was taken back to the nursing area in a stable condition. Impression: Screening colonoscopy. No polyps. Positive family history. Recommend repeating in 5 years. Copy Copies To 1: ELVIA BECKER MD, XAVIER M MD Aug 15, 2018 10:05
--- NOTE | 2018-08-15 10:07 | Discharge Inst-Simple/Standard ---
Discharge Inst-Standard Discharge Medications New, Converted or Re-Newed RX: Other Patient Instructions/Follow Up Plan of Care/Instructions/FU: repeat colonoscopy in 5 years Activity as Tolerated: Yes Discharge Diet: No Restrictions TANIYA DICKSON MD Aug 15, 2018 10:07
[2018-08-15 10:10] VITALS: BP 118/67
[2018-08-15 10:50] VITALS: BP 113/71
[2018-08-15 10:55] VITALS: BP 113/71
== END 2018-08-15 10:55 | disposition home or self-care (01) ==
LOC: ENDO 08:03
PROVIDERS: ATTEND Surgery
DX: Z12.11 Encounter for screening for malignant neoplasm of colon (principal); K57.30 Diverticulosis of large intestine without perforation or abscess without bleeding; Z80.0 Family history of malignant neoplasm of digestive organs; I10 Essential (primary) hypertension; E03.9 Hypothyroidism, unspecified; G35 Multiple sclerosis; Z79.899 Other long term (current) drug therapy; Z87.891 Personal history of nicotine dependence; F41.0 Panic disorder [episodic paroxysmal anxiety]; F32.9 Major depressive disorder, single episode, unspecified

== ENCOUNTER → 2018-09-02 | Outpatient (CLI) | payer OTHER ==
[~2018-09-02] MED LIST changes: +GADOBUTROL 10 MMOL/10 ML (GADAVIST) VIAL IV ONE
[2018-09-02 09:03] LABS: CREATININE SERUM 1.01 MG/DL (0.60-1.30)
--- NOTE | 2018-09-02 10:06 | Diagnostic Imaging Report ---
PROCEDURE: MR imaging of the brain with and without contrast. TECHNIQUE: Multiplanar, multisequence MR imaging of the brain was performed with and without contrast. INDICATION: MS. Patient has new onset of tingling in the face as well as visual loss. Comparison is made with prior MRI of the brain from 01/06/2018. The ventricles and sulci are within normal limits. There are periventricular and subcortical white matter signal abnormality appears very similar to prior MRI. No abnormal enhancement of the white matter lesions is seen to suggest active demyelination. No diffusion restriction is seen. There are normal expected flow-voids within the carotid siphons are seen. No acute intra-axial or extra-axial hemorrhage is identified. Corpus callosum is stable. Sella and parasellar structures are stable. IMPRESSION: Overall stable pre-and postcontrast MRI of the brain when compared with prior study from 01/06/2018. No definite findings to suggest active demyelination are identified. Dictated by: Dictated on workstation # [id number]
== END ==
LOC: RAD 08:27
PROVIDERS: ATTEND Psychiatry & Neurology Neurology
DX: G35 Multiple sclerosis (principal)
CPT/HCPCS: 36415; 70553; 82306; 82565; 82607; 84520

== ENCOUNTER 2018-11-10 06:34 | Emergency (ER) | payer OTHER ==
[~2018-11-10] VITALS: Ht 157.5 cm; Wt 90.7 kg
[~2018-11-10 06:34] MED LIST changes: -GADOBUTROL 10 MMOL/10 ML (GADAVIST) VIAL IV ONE
--- NOTE | 2018-11-10 06:54 | ED Integumentary General ---
General Stated Complaint: BITE ON RT ARM 2 DAYS AGO,WASP STING YESTERDAY Source: patient Exam Limitations: no limitations History of Present Illness Date Seen by Provider: November 10, 2018 Time Seen by Provider: 06:44 Initial Comments Patient presents to ER with chief complaint that 2 or 3 days ago she was bit on the right wrist by a red wasp area said she was in her bed and felt a stinging sensation. She said the redness had gone away yesterday but then this morning she woke up with increased redness swelling tenderness sensation of warmth. No fevers chills nausea vomiting. She is not diabetic. Allergies and Home Medications Allergies Coded Allergies: gabapentin (Verified Allergy, Mild, CONFUSION, 08/08/18) nitrofurantoin (Verified Allergy, Mild, ITCHING, 08/08/18) Home Medications Alprazolam 1 Mg Tablet, 1 MG PO TID PRN for ANXIETY, (Reported) Atorvastatin Calcium 20 Mg Tablet, 20 MG PO DAILY, (Reported) Baclofen 10 Mg Tablet, 20 MG PO TID, (Reported) Bupropion HCl 300 Mg Tab.er.24h, 300 MG PO DAILY, (Reported) Cyanocobalamin 1,000 Mcg/Ml Inj, 1,000 MCG IM TWICE A MONTH, (Reported) Diazepam 2 Mg Tablet, 1 MG PO HS PRN for SLEEP, (Reported) Ergocalciferol (Vitamin D2) 50,000 Unit Capsule, 50,000 UNIT PO TWICE WEEKLY, (Reported) Ferrous Sulfate 325 Mg Tablet, 325 MG PO DAILY, (Reported) Interferon Beta-1A 30 Mcg/0.5 Ml Syr, 30 MCG IM WEEK, (Reported) Levothyroxine Sodium 150 Mcg Tablet, 150 MCG PO DAILY, (Reported) Metoprolol Succinate 25 Mg Tab.er.24h, 25 MG PO DAILY, (Reported) Oxycodone HCl/Acetaminophen 1 Each Tablet, 1 TAB PO QID, (Reported) Pramipexole Di-HCl 0.5 Mg Tablet, 0.5 MG PO BID, (Reported) Primidone 50 Mg Tablet, 50 MG PO HS, (Reported) Sertraline HCl 50 Mg Tablet, 150 MG PO DAILY, (Reported) TAKES 3 (50 MG) TABLETS Topiramate 50 Mg Tablet, 50 MG PO BID, (Reported) Patient Home Medication List Home Medication List Reviewed: Yes Review of Systems Review of Systems Constitutional: No chills, No diaphoresis EENTM: No ear discharge, No hearing loss Respiratory: No cough, No short of breath Cardiovascular: No chest pain, No edema Past Xctnkut-Kbtpmp-Uctcjz Hx Patient Social History Alcohol Use: Denies Use Recreational Drug Use: No Smoking Status: Current Everyday Smoker Type Used: Cigarettes Former Smoker, Quit: October 27, 2013 2nd Hand Smoke Exposure: No Recent Foreign Travel: No Contact w/Someone Who Travel: No Recent Hopitalizations: No Immunizations Up To Date Tetanus Booster (TDap): More than 5yrs PED Vaccines UTD: Yes Seasonal Allergies Seasonal Allergies: No Past Medical History Surgeries: Yes (RIGHT CARPAL TUNNEL, GASTRIC SLEEVE APR 2016) Hysterectomy Respiratory: No (USES O2 @ HS, SATS DROP WHILE SLEEPING) Cardiac: Yes (PVC'S) Hypertension Neurological: Yes Headaches /Migraines, Multiple Sclerosis Reproductive Disorders: No Sexually Transmitted Disease: No HIV/AIDS: No Genitourinary: No Gastrointestinal: No Ulcer Musculoskeletal: Yes (BONE SPUR NECK) Degenerate Disk Disease, Chronic Back Pain Endocrine: Yes Hypothyroidsim HEENT: Yes (GLASSES, DENTURES) Loss of Vision: Right Hearing Impairment: Denies Cancer: No Psychosocial: Yes (PANIC ATTACKS) Anxiety, Depression Integumentary: No Blood Disorders: No Adverse Reaction/Blood Tranf: No (N/A) Family Medical History Alzheimer's disease 19 FATHER Cardiovascular disease 19 FATHER Dementia G8 SISTER Diabetes mellitus 19 FATHER 19 MOTHER G8 SISTER Glaucoma 19 MOTHER Hypertension 19 MOTHER Physical Exam Vital Signs Capillary Refill : General Appearance: WD/WN, no apparent distress HEENT: normal ENT inspection, pharynx normal Neck: full range of motion, normal inspection Cardiovascular: normal peripheral pulses, regular rate, rhythm Respiratory: no respiratory distress, no accessory muscle use Skin: rash (red, hot, swollen right medial wrist approximately 6 cm diameter greatest diameter.) Departure Impression Primary Impression: Cellulitis of right upper extremity Additional Impression: Insect bite Qualified Codes: S60.861A - Insect bite (nonvenomous) of right wrist, initial encounter; W57.XXXA - Bitten or stung by nonvenomous insect and other nonvenomous arthropods, initial encounter Disposition: 01 HOME, SELF-CARE Condition: Stable Departure-Patient Inst. Decision time for Depature: 06:52 Referrals: ELVIA BECKER MD (PCP/Family) Primary Care Physician Patient Instructions: Cellulitis (Skin Infection), Adult (DC) Add. Discharge Instructions: Apply warm compresses to the wrist every few hours as necessary for pain. Use Tylenol and ibuprofen. medical supervisor the antibiotics and take Keflex one capsule 4 times a day for the next week. Follow-up with your primary care doctor for reevaluation next week. Return to the ER if you begin to experience fevers above 102.5 swelling above the elbow or other worrisome symptoms. Scripts Cephalexin (Cephalexin) 500 Mg Tablet 500 MG PO QID, #28 TAB 0 Refills Prov: HUNTER SANCHEZ 11/10/18 HUNTER SANCHEZ November 10, 2018 06:54
[2018-11-10] MEDS ORDERED: CEPH500T PO (06:55)
[2018-11-10 06:58] VITALS: BP 124/73
== END 2018-11-10 06:58 | disposition home or self-care (01) ==
LOC: EDUNIT# 06:34 → ER 06:37
DX: S60.861A Insect bite (nonvenomous) of right wrist, initial encounter (principal); L03.113 Cellulitis of right upper limb; I10 Essential (primary) hypertension; G43.909 Migraine, unspecified, not intractable, without status migrainosus; G35 Multiple sclerosis; E03.9 Hypothyroidism, unspecified; G56.01 Carpal tunnel syndrome, right upper limb; F41.0 Panic disorder [episodic paroxysmal anxiety]; F32.9 Major depressive disorder, single episode, unspecified; Z98.84 Bariatric surgery status; Z88.8 Allergy status to other drugs, medicaments and biological substances; Z87.19 Personal history of other diseases of the digestive system; Z87.891 Personal history of nicotine dependence; Z82.49 Family history of ischemic heart disease and other diseases of the circulatory system; Z90.710 Acquired absence of both cervix and uterus; W57.XXXA Bitten or stung by nonvenomous insect and other nonvenomous arthropods, initial encounter
CPT/HCPCS: 99283

== ENCOUNTER → 2019-03-14 | Outpatient (CLI) | payer OTHER ==
[~2019-03-14] MED LIST changes: +CEPH500T PO
[2019-03-14 11:10] LABS: BASOPHILS % (AUTO) 0 % (0-10); EOSINOPHILS # (AUTO) 0.1 10^3/uL (0.0-0.3); EOSINOPHILS % (AUTO) 2 % (0-10); HEMATOCRIT 37 % (35-52); LYMPHOCYTES # (AUTO) 1.2 X 10^3 (1.0-4.0); LYMPHOCYTES % (AUTO) 26 % (12-44); MEAN CORPUSCULAR HEMOGLOBIN 33 PG (25-34); MEAN CORPUSCULAR HGB CONC 33 G/DL (32-36); MEAN CORPUSCULAR VOLUME 100 FL (80-99); MEAN PLATELET VOLUME 10.2 FL (7.4-10.4); MONOCYTES # (AUTO) 0.4 X 10^3 (0.0-1.0); MONOCYTES % (AUTO) 8 % (0-12); NEUTROPHILS # (AUTO) 2.9 X 10^3 (1.8-7.8); NEUTROPHILS % (AUTO) 64 % (42-75); PLATELET COUNT 160 10^3/uL (130-400); RED CELL DISTRIBUTION WIDTH 12.9 % (10.0-14.5); WHITE BLOOD COUNT 4.5 10^3/uL (4.3-11.0)
[2019-03-14 11:32] LABS: ALBUMIN 4.3 GM/DL (3.2-4.5); BILIRUBIN,TOTAL 0.4 MG/DL (0.1-1.0); CALCIUM 9.3 MG/DL (8.5-10.1); CREATININE SERUM 1.05 MG/DL (0.60-1.30); POTASSIUM 3.9 MMOL/L (3.6-5.0)
== END ==
LOC: LAB 10:50
PROVIDERS: ATTEND Nurse Practitioner Family
DX: E03.8 Other specified hypothyroidism (principal); I10 Essential (primary) hypertension; G35 Multiple sclerosis; D51.1 Vitamin B12 deficiency anemia due to selective vitamin B12 malabsorption with proteinuria; E55.9 Vitamin D deficiency, unspecified; E78.2 Mixed hyperlipidemia
CPT/HCPCS: 36415; 80053; 80061; 82306; 82607; 84436; 84443; 85025

== ENCOUNTER → 2019-12-07 | Outpatient (CLI) | payer MEDICARE, OTHER ==
[~2019-12-07] MED LIST changes: -BUPR300T51 PO; +BUPR300T98 PO; -METO-387 PO
== END ==
LOC: CARD 09:29
PROVIDERS: ATTEND Internal Medicine Cardiovascular Disease
DX: I49.5 Sick sinus syndrome (principal)
CPT/HCPCS: 93225; 93226; 93306

== ENCOUNTER → 2019-12-12 | Outpatient (CLI) | payer MEDICARE, OTHER ==
[~2019-12-12] VITALS: Ht 157 cm; Wt 93.0 kg
[~2019-12-12] MED LIST changes: +CATHETER FLUSH 10 ML SYR IV PRN; +REGADENOSON 0.4 MG/5 ML SYR (LEXISCAN) IV ONE
[2019-12-12 08:59] VITALS: BP 130/78
[2019-12-12 09:12] VITALS: BP 119/72
--- NOTE | 2019-12-12 16:19 | STRESS TEST ---
DATE OF SERVICE: 12/12/2019 RESTING AND POST REGADENOSON TECHNETIUM-99M TETROFOSMIN SPECT CT IMAGING ORDERING PHYSICIAN: Dr. Sears. PRIMARY PHYSICIAN: Dr. Tierney. CLINICAL DIAGNOSIS: Shortness of breath. Baseline images were carried out after injection of 10.94 mCi of technetium-99m Tetrofosmin. This was followed by 0.4 mg regadenoson and 32.3 mCi of technetium-99m Tetrofosmin for stress imaging. The electrocardiogram showed sinus rhythm at baseline. The patient noted some shortness of breath and chest discomfort following regadenoson infusion, which resolved in a few minutes. Review of images at rest and following stress does not indicate any significant perfusion defects consistent with significant myocardial ischemia or infarction. Gated images show normal regional wall motion and normal global left ventricular systolic function. Left ventricular ejection fraction is calculated to be 75%. Left ventricular end diastolic volume is 38 mL. TID is absent (0.95). CONCLUSIONS: 1. No evidence of any significant myocardial ischemia or infarction on this study. 2. Normal regional wall motion. 3. Normal global left ventricular systolic function with a calculated ejection fraction of 75%. Job ID: [id number] DocumentID: [id number] Dictated Date: 12/12/2019 13:44:37 Second Steward Date: 12/12/2019 16:18:13 Dictated By: ADDIE SEARS MD, MA, FACP, FACC,
== END ==
LOC: CARD 07:36
PROVIDERS: ATTEND Internal Medicine Cardiovascular Disease
DX: R06.02 Shortness of breath (principal); R53.1 Weakness; R53.83 Other fatigue; R00.1 Bradycardia, unspecified
CPT/HCPCS: 78452; 93017; A9502

== ENCOUNTER → 2020-01-30 | Day surgery (SDC) | payer MEDICARE ==
[~2020-01-30] VITALS: Ht 157.5 cm; Wt 90.0 kg
[~2020-01-30] MED LIST changes: -CATHETER FLUSH 10 ML SYR IV PRN; +LIDOCAINE 1% INJ 20 ML 20 ML VIAL ONE; -REGADENOSON 0.4 MG/5 ML SYR (LEXISCAN) IV ONE
[2020-01-30 08:17] VITALS: BP 120/79
--- NOTE | 2020-01-30 10:01 | Cardiac Procedure Note-CS/ASA ---
Pre-Procedure Note Pre-Op Procedure Note H&P Reviewed The H&P was reviewed, patient examined and no changes noted. Date H&P Reviewed: Jan 30, 2020 Time H&P Reviewed: 10:01 Conscious Sedation Pre-Proced Time 10:01 ASA Score 2 For ASA 3 and 4: Consider anesthesia and medical clearance. Also, for patients with a history of failed moderate sedation consider anesthesia. Airway Lungs Heart ASA score ASA 1: a normal healthy patient ASA 2: a patient with a mild systemic disease (mid diabetes, controlled hypertension, obesity ASA 3: a patient with a severe systemic disease that limits activity (angina, COPD, prior Myocardial infarction) ASA 4: a patient with an incapacitating disease that is a constant threat to life (CHF, renal failure) ASA 5: a moribund patient not expected to survive 24 hrs. (ruptured aneurysm) ASA 6: a declared brain- patient whose organs are being harvested. For emergent operations, add the letter E after the classification Mallampati Classification Grade 2 Sedation Plan Analgesia, Amnesia, Plan communicated to team members, Discussed options with patient/fam, Discussed risks with patient/fam The patient is an appropriate candidate to undergo the planned procedure, sedation, and anesthesia. The patient immediately re-assessed prior to indication. ADDIE CONNOLLY MD FACP FAC CCDS Jan 30, 2020 10:01
--- OUTSIDE RECORDS SUMMARY | 2020-01-30 10:20 | XMS REPORT ---
Author Author Sunshine LARSON Organization [facility] Address [address] [place] [address] Care Team Providers Care Meter Tester Polyphase Name Role Phone AMMY LARSON Unavailable PROBLEMS Type Condition ICD9-CM Code [id number] Code Onset Dates Condition S tatus SNOMED Code Problem Other chronic pain G89.29 Active 8 7477894 Problem Multiple sclerosis G35 Active 2 4856836 Problem Major depressive disorder, recurrent episode, moderate F33.1 Active 296530234 Problem Generalized anxiety disorder F41.1 A ctive 23530807 Problem Oxygen dependent Z99.81 Active 931 [id number] ALLERGIES No Information ENCOUNTERS Encounter Location Date Diagnosis [facility] [id number] [place] [phone] Aug, Cellulitis of left arm L03.1 14 [facility] [address] [facility] [id number] [address] [place] [phone] Jun, Acute non-recurrent pansinus itis J01.40 [place] [address] [address] [facility] [id number] [address] [place] [phone] May, Multiple sclerosis G35 ; Gen eralized anxiety disorder F41.1 ; Other chronic pain G89.29 and Oxygen dependent Z99.81 [facility] [address] [facility] [id number] [address] [place] [phone] Mar, Generalized anxiety disorder F41.1 and Major depressive disorder, recurrent episode, moderate F33.1 [place] [address] [address] [facility] [id number] [address] [place] [phone] Jan, [facility] [address] [id number] [address] [place] [phone] Aug, IMMUNIZATIONS No Known Immunizations SOCIAL HISTORY Never Assessed REASON FOR VISIT PLAN OF CARE VITAL SIGNS MEDICATIONS No Known Medications RESULTS No Results PROCEDURES No Known procedures INSTRUCTIONS MEDICATIONS ADMINISTERED No Known Medications MEDICAL (GENERAL) HISTORY Type Description Date Medical History MS Medical History Thyroid disease Medical History anxiety Medical History bone spur in neck Medical History Bulging disk in back Surgical History Gas bipass Surgical History hysterectomy Hospitalization History surgeries Hospitalization History child
--- OUTSIDE RECORDS SUMMARY | 2020-01-30 10:20 | XMS REPORT ---
Author Author [employer]. [facility] Address [address] [address] Care Team Providers Care Valet Parking Attendant Name Role Phone ELVIA BECKER Unavailable YVON AGGARWAL Unavailable Unavailable ELVIA BECKER Unavailable ELVIA BECKER Unavailable BERYL KAY Unavailable TUCKER BARAJAS MD Unavailable Unavailable CATHLEEN WESTBROOK [facility] UnavailARAM [place] CLAMP JIG ASSEMBLER Unavailable Unavailable CONSTANCE NGUYEN CLAMP JIG ASSEMBLER Unavailable Unavailable RADHA GARY MD Unavailable Unavailable MENA BLAS DO Unavailable Unavailable ELVIA BECKER MD Unavailable Unavailable VIOLA PAK MD Unavailable Unavailable ELVIA BECKER PCP RADHA GARY MD Unavailable Unavailable CONSTANCE NGUYEN CLAMP JIG ASSEMBLER Unavailable Unavailable TANIYA ATKINS MD Unavailable Unavailable VIOLA PAK MD Unavailable Unavailable ARAM LO CLAMP JIG ASSEMBLER Unavailable Unavailable ELVIA BECKER MD Unavailable Unavailable MENA BLAS DO Unavailable Unavailable TUCKER BARAJAS MD Unavailable Unavailable CATHLEEN WESTBROOK [facility], ALI [facility] Unavailable Unavailabl LETY Reese CLAMP JIG ASSEMBLER Unavailable Unavailable HUNTER SANCHEZ Unavailable Unavailable IND[place] GARCIA Unavailable Unavailable [facility] PCP Unavaila ble [place], Tez Unavailable Unavailable [place], Tez Unavailable Unavailable [place], Tez Unavailable Unavailable [place], Tez Unavailable Unavailable [place], Tez Unavailable Unavailable [place], Tez Unavailable Unavailable ADDIE JACKSON MA Unavailable Unavailable AMMY LARSON Unavailable AMMY LARSON Unavailable Unavailable Unavailable Unavailable Unavailable Unavailable Unavailable Unavailable Unavailable Unavailable Unavailable Allergies Allergy Reported Allergen(s) Allergy Type Date of Reaction(s) Care Facility Classificati Onset Provider on Lincosamides Clindamycin Drug Allergy UNKNOWN ARUNAROUTIE No t (antibiotic) KELY Available (1 source) ([id number]) Unclassified No Known Drug Allergies DA 11-28-2010 QIAN BARAJAS Not (21 sources) Available ([id number]) Encounters Encounter Date Encounter Type Encounter Diagnosis Care Provider Facility Start: Patient encounter ADDIE SEARS MA [facility] Vi a Yajaira 01-30-2020 procedure [facility] Start: Patient encounter ADDIE SEARS MA [facility] Vi a Yajaira 12-12-2019 [facility] Start: Patient encounter ADDIE SEARS MA [facility] Vi a Yajaira 12-07-2019 [facility] Start: Patient encounter IND[place] GARCIA [facility] 08-17-2019 procedure [facility] Start: [facility] Cellulitis of left KLAUDIA ORELLA [facility] 08-17-2019 CARE upper limb CARE Start: Patient encounter INDIA GARCIA [facility] 07-06-2019 procedure [facility] ([id number]) Start: [facility] Acute pansinusitis, KEARA CHEMA REATH [facility] 07-06-2019 CARE unspecified CARE Start: Patient encounter INDIA GARCIA [facility] 06-28-2019 procedure [facility] ([id number]) Start: [facility] Multiple sclerosis INDIA HWANG [facility] 06-06-2019 Start: Patient encounter LETY MCKEON APRN [facility] Vi a 03-14-2019 procedure [facility] Start: Emergency department [facility] Via Yaj[facility]a 11-10-2018 patient visit [facility] ([id number]) End: 11-10-2018 Start: Patient encounter [facility] 11-10-2018 procedure [facility] ([id number]) Start: Patient encounter RADHA GARY MD Not Avail able ([id number]) 09-02-2018 procedure Start: Patient encounter RADHA GARY MD [facility] Via C hristi 09-02-2018 procedure [facility] ([id number]) Start: Admission to day TANIYA ATKINS [place] Via [place] 08-15-2018 surgery Work Phone: [facility] ([id number] ) End: 08-15-2018 Start: Patient encounter TANIYA ATKINS MD Not Avai lable ([id number]) 08-15-2018 procedure End: 08-15-2018 Start: Patient encounter TANIYA ATKINS MD [facility] 08-15-2018 procedure [facility] ([id number]) End: 08-15-2018 Start: Patient encounter TANIYA ATKINS Not Avail able ([id number]) 08-08-2018 procedure End: 08-08-2018 Start: Patient encounter TANIYA ATKINS MD [facility] 08-08-2018 procedure [facility] ([id number]) End: 08-08-2018 Start: Patient encounter LETY MCKEON Not Availab le ([id number]) 03-21-2018 Start: Patient encounter LETY MCKEON [facility] 03-21-2018 procedure [facility] ([id number]) Start: Patient encounter LETY MCKEON Not Availab le ([id number]) 02-24-2018 Start: Patient encounter LETY MCKEON [facility] 02-24-2018 procedure [facility] ([id number]) Start: Patient encounter LETY MCKEON Not Availab le ([id number]) 02-21-2018 Start: Patient encounter LETY MCKEON [facility] 02-21-2018 procedure [facility] ([id number]) Start: Patient encounter RADHA GARY MD Not Avail able ([id number]) 01-06-2018 Start: Patient encounter CONSTANCE NGUYEN [facility] 01-06-2018 procedure [facility] ([id number]) Start: Patient encounter 10-08-2017 Start: Emergency department VIOLA PAK MD [facility] 10-08-2017 patient visit [facility] ([id number]) End: 10-08-2017 Start: Patient encounter CONSTANCE NGUYEN Not Availab le ([id number]) 08-16-2017 Start: Patient encounter CONSTANCE NGUYEN [facility] 08-16-2017 procedure [facility] ([id number]) Start: Patient encounter RADHA GARY MD Not Avail able ([id number]) 08-02-2017 Start: Patient encounter RADHA GARY MD [facility] 08-02-2017 [facility] ([id number]) Start: Patient encounter VIOLA PAK MD [facility] 03-14-2017 [facility] ([id number]) Start: Patient encounter ELVIA BECKER MD Not Avai lable ([id number]) 01-20-2017 Start: Patient encounter ELVIA BECKER MD [facility] 01-20-2017 [facility] ([id number]) Start: Patient encounter VIOLA PAK MD Not Avail able ([id number]) 01-04-2017 End: 03-13-2017 Start: Patient encounter VIOLA PAK MD [facility] 01-04-2017 procedure [facility] ([id number]) End: 03-12-2017 Start: Patient encounter VIOLA PAK MD Not Avail able ([id number]) 01-03-2017 procedure Start: Patient encounter VIOLA PAK MD Not Avail able ([id number]) 01-02-2017 procedure Start: Emergency department VIOLA PAK MD [facility] 01-02-2017 patient visit [facility] ([id number]) End: 01-02-2017 Start: Patient encounter MISAELBISI NGUYEN [facility] 12-18-2016 procedure [facility] ([id number]) Start: Patient encounter RADHA GARY MD Not Avail able ([id number]) 11-13-2016 Start: Patient encounter RADHA GARY MD [facility] 11-13-2016 [facility] ([id number]) Start: Patient encounter RADHA GARY MD Not Avail able ([id number]) 11-12-2016 procedure Start: Patient encounter RADHA GARY MD Not Avail able ([id number]) 11-05-2016 Start: Patient encounter RADHA GARY MD [facility] 11-05-2016 procedure [facility] ([id number]) Start: Patient encounter ADDIE SEARS MD [facility] Not Marni ilable ([id number]) 10-27-2016 End: 10-27-2016 Start: Patient encounter ADDIE SEARS MD [facility] 10-27-2016 procedure [facility] ([id number]) End: 10-27-2016 Start: Patient encounter TUCKER BARAJAS MD [facility] 10-19-2016 procedure [facility] ([id number]) End: 10-19-2016 Start: Patient encounter TUCKER BARAJAS MD [facility] 10-12-2016 procedure [facility] ([id number]) End: 10-12-2016 Start: Patient encounter TAWANNA EDGE Not A vailable ([id number]) 09-28-2016 procedure End: 09-29-2016 Start: Patient encounter CONSTANCE NGUYEN Not Availab le ([id number]) 07-31-2016 Start: Patient encounter CONSTANCE NGUYEN [facility] 07-31-2016 procedure [facility] ([id number]) Start: Patient encounter MENA BLAS DO [facility] 01-15-2016 procedure [facility] ([id number]) End: 01-16-2016 Start: Patient encounter ADDIE SEARS MD [facility] 12-24-2015 [facility] ([id number]) Start: Patient encounter ELVIA BECKER MD Not Avai lable ([id number]) 11-06-2015 Start: Patient encounter ELVIA BECKER MD [facility] 11-06-2015 [facility] ([id number]) Start: Patient encounter ARAM LO Not Availab le ([id number]) 10-08-2015 Start: Patient encounter TUCKER BARAJAS MD [facility] 09-23-2015 [facility] ([id number]) End: 09-23-2015 Start: [facility] Generalized anxiety Y[facility]ONSIMEON [facility] 04-08-2015 disorder Start: [facility] AMMY LARSON [facility] 01-27-2013 [facility] 09-08-2012 Encounter for ELVIA BECKER MD [id number][facility] examination Encounter for general CONSTANCE NGUYEN Not Available (0 0000) adult medical examination without abnormal findings Encounter for other TANIYA ATKINS MD Not Available (000 00) preprocedural examination Patient encounter [facility] Medical Equipment No Information Goals No Information Immunizations The data below is from unstructured sourcesNo immunization records.No immunization records.No immunization records.No immunization records.No immunization records.No immunization records.No immunization records.No immunization records.No immunization records.Not available. No Known Immunizations No Known Immunizations No Known Immunizations No Known Immunizations Interventions No Information Medications Medication Drug Dates Sig Sig (Original) Class(es) (Normalized) atorvastatin 20 mg oral HMG-CoA take 1 tablet Atorva statin Calcium 20 Mg Tablet 20 Mg tablet Reductase by mouth once ORAL Daily (2 sources) Inhibitor daily ergocalciferol 17808 unt Provitamin take 1 capsule Ergoc alciferol (Vitamin D2) (Vitamin D2) oral capsule D2 by mouth two 50,000 Unit Cap jami 50,000 Unit ORAL (2 sources) Compound times weekly Twice Weekly ferrous sulfate 325 mg take 1 tablet Ferrous Sulfa te (Iron) 325 Mg Tablet 325 oral tablet by mouth once Mg ORAL Daily (2 sources) daily 0.5 ml interferon Recombinan inject 30 ug by Interferon Beta-1A (Avonex) 30 Mcg/0.5 beta-1a 0.06 mg/ml t Human intramuscular Ml Syr 30 M cg INTRAMUSCULAR Weekly prefilled syringe Interferon injection every (2 sources) beta week Pantoprazole Sod Start: Pantoprazole Sod (P rotonix Tab) 40 Mg (Protonix Tab) 40 Mg 09-20-2014 Tab, 40 Mg Oral Daily@0700 09/20/14 Tab, 40 Mg Oral Discontinued (4 sources) End: 09-24-2014 End: 08-08-2018 Pantoprazole Sod (Protonix Tab) 40 Mg Tab, 40 Mg Oral Daily Discontinued topiramate 50 mg oral take 1 tablet Topiramate 50 Mg Tablet 50 Mg ORAL Twice tablet by mouth twice A Day (2 sources) daily vitamin b 12 1 mg/ml Vitamin Cyanocobalamin (C yanocobalamin injectable solution B12 Injection) 1,000 M cg/Ml Inj 1,000 Mcg (2 sources) INTRAMUSCULAR Twice A Month Payers Date Payer Normalized Payer Policy ID [facility] Medicare Part B MEDICARE [id number] Plan of Treatment The data below is from unstructured sources Discharge Date 10/19/16 12:59pm Instructions/Education Provided DR. BARAJAS-POST EPIDURAL INST Prescriptions See Medication Section Discharge Date 01/16/16 6:20am Prescriptions See Medication Section Discharge Date 10/12/16 1:26pm Instructions/Education Provided DR. ASHLEYPOST EPIDURAL INST Prescriptions See Medication Section Discharge Date 10/27/16 1:50pm Instructions/Education Provided CARD IAC CATH DISCHARGE INSTRUC Prescriptions See Medication Section Discharge Date 09/16/15 1:00pm Instructions/Education Provided DR. BARAJAS-POST EPIDURAL INST Prescriptions See Medication Section Discharge Date 09/23/15 12:54pm Instructions/Education Provided DR. BARAJAS-POST EPIDURAL INST Prescriptions See Medication Section Discharge Date 09/20/14 3:49pm Disposition 01 HOME, SELF-CARE Condition at Discharge Stable Instructions/Education Provided Carlito roesophageal Reflux Disease (DC) Prescriptions See Medications Sectio n Referrals ELVIA BECKER MD (Unspe cified) Primary Care Physician Address: [address] [place] [address] Reason(s) for Referral: You are scheduled on Wednesday, September 24, 2014 at 11:45 AM for Outpatient EGD with Dr. Atkins. Please arrive between 10:30-10:45 for registration and pre-procedure tasks. ADDIE SEARS [facility]S (Unspecified) 10/08/14 Address: [address] [place] [address] [place] [address] Reason(s) for Referral: Wednesday, October 08, 2014 at 3:00 PM Call the office if you have questions/concerns or need to reschedule. ELVIA BECKER MD (Unspecified) 09/26/14 Address: [address] [place] [phone] Reason(s) for Referral: Friday, September 26, 2014 at 10:20 AM Call the office if you have questions/concerns or need to reschedule. Discharge Date 09/20/14 5:00pm Disposition 01 HOME, SELF-CARE Instructions/Education Provided Carlito roesophageal Reflux Disease (DC) Forms Provided PDI Medical Prescriptions See Medications Sectio n Referrals TANIYA ATKINS MD (Unspe cified) 09/24/14 Address: [address] [place] [address] Reason(s) for Referral: You are scheduled on Wednesday, September 24, 2014 at 11:45 AM for Outpatient EGD with Dr. Atkins. Please arrive between 10:30-10:45 for registration and pre-procedure tasks. ADDIE SEARS [facility]S (Unspecified) 10/08/14 Address: [address] [place], [place] [address] [place] [address] Reason(s) for Referral: Wednesday, October 08, 2014 at 3:00 PM Call the office if you have questions/concerns or need to reschedule. ELVIA BECKER MD (Unspecified) 09/26/14 Address: [address] [place] [address] [phone] Reason(s) for Referral: Friday, September 26, 2014 at 10:20 AM Call the office if you have questions/concerns or need to reschedule. Discharge Date 01/02/17 8:11pm Disposition 01 HOME, SELF-CARE Condition at Discharge Stable/Unchan ged Prescriptions See Medication Section Referrals ELVIA BECKER MD Order Date: Primary Care Physician Address: [address] [place] [address] [phone] Additional Instructions/Education Al l discharge instructions reviewed with patient and/or family. Voiced understanding. Present to ER desk tomorrow at 1700. You will be taken to fourth floor for your infusion. Bring the prescription with you. Prescriptions See Medication Section Discharge Date 10/08/17 2:37pm Disposition 02 XFER [facility] Condition at Discharge Stable/Unchan ged Prescriptions See Medication Section Referrals ELVIA BECKER MD Order Date: Primary Care Physician Address: [address] [place] [address] [phone] Discharge Date 08/08/18 3:52pm Prescriptions See Medication Section Discharge Date 08/15/18 10:55am Instructions/Education Provided COLO NOSCOPY Prescriptions See Medication Section Problems Active Problems Problem Problem Date Last Documented Episodic/Chr Provider Classificati Recorded Date onic on Cardiac Ventricular premature 12-29-2019 Chronic ALI CATHLEEN dysrhythmias depolarization ; Translations: MD Pryor ACC (21 sources) [Sick sinus syndrome] Cardiac Bradycardia, unspecified 12-14-2019 Episodic A LI CATHLEEN dysrhythmias MA FSCAI (3 sources) Coronary Atherosclerotic heart disease of Chronic ALI CATHLEEN atherosclero sokaogon coronary artery without MD Pryor ACC sis and angina pectoris ; Translati ons: other heart [Coronary atherosclerosis d ue to disease calcified coronary lesion] (21 sources) Deficiency Vitamin B12 deficiency anemia due 11-24-2019 Episo dic LETY MCKEON and other to selective vitamin B12 anemia malabsorption with proteinu panfilo (3 sources) Disorders of Hyperlipidemia, unspecified ; 11-24-2019 Chronic CONSTANCE NGUYEN lipid Translations: [Mixed metabolism hyperlipidemia] (13 sources) Diverticulos Diverticulosis of large intestine Chronic TANIYA is and without perforation or abscess SAKSHI ZULUAGA MD diverticulit without bleeding is (6 sources) Esophageal Gastro-esophageal reflux disease Chronic ARAM disorders without esophagitis WALLY (21 sources) Essential Essential (primary) hypertension 11-24-2019 Chroni c VIOLA hypertension PASHA WESTBROOK (22 sources) Headache; Migraine, unspecified, not Chronic R ODNEY including intractable, without status PASHA WESTBROOK migraine migrainosus (18 sources) Malaise and Other fatigue ; Translations: 12-14-2019 Episodic VIOLA fatigue [Weakness] PASHA WESTBROOK (21 sources) Multiple Multiple sclerosis ; Translations: 11-24-2019 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 ALI CATHLEEN sclerosis [Multiple sclerosis] [facility] (29 sources) Nutritional Vitamin D deficiency, unspecified 11-24-2019 Chron ic CONSTANCE NGUYEN deficiencies (14 sources) Osteoarthrit Unspecified osteoarthritis, Chronic ALI CATHLEEN is unspecified site MD BELL (22 sources) Other lower Shortness of breath 12-14-2019 Episodic ALI SAXENA MMAD respiratory FAC disease (21 sources) Other Carpal tunnel syndrome, right upper Chronic HUNTER LAURA nervous limb system disorders (3 sources) Other Chronic pain ; Translations: [Other Chronic AMMY nervous chronic pain] [employer] system Other Phone: disorders [phone] (2 sources) 3 Other Other chronic pain ; Translations: Chronic AMMY nervous [ - Other chronic pain G89.29] [employer] system Other Phone: disorders [phone] (2 sources) 3 Other Body mass index (BMI) 33.0-33.9, Chronic ALI CATHLEEN nutritional; adult MD HINES endocrine; and metabolic disorders (12 sources) Other Obesity, unspecified Chronic ALI HAM MAD nutritional; MD HINES endocrine; and metabolic disorders (12 sources) Other Body mass index (BMI) 40.0-44.9, Chronic TUCKER WHITE nutritional; adult endocrine; and metabolic disorders (14 sources) Other Morbid (severe) obesity due to Chronic TUCKER BARAJAS nutritional; excess calories endocrine; and metabolic disorders (14 sources) Other upper Acute pansinusitis, unspecified ; Episodic AMMY respiratory Translations: [ - Acute NEO infections non-recurrent pansinusitis J01.40] Other Phone: (2 sources) Residual Hypersomnia, unspecified Chronic DELICIA ON WAN codes; DO unclassified (1 source) Respiratory Dependence on supplemental oxygen ; Chronic AMMY failure; Translations: [Dependence on BLANCHE ON insufficienc supplemental oxygen] Other Phone: y; arrest [phone] (adult) 3 (4 sources) Skin and Cellulitis of right upper limb ; Episodic HUNTER LAURA subcutaneous Translations: [Cellulitis o f left tissue upper limb] infections (5 sources) Spondylosis; Spondylosis without myelopathy or Chronic TUCKER BARAJAS intervertebr radiculopathy, lumbar region ; MD zeng disc Translations: [Spondylosis, disorders; unspecified] other back problems (29 sources) Spondylosis; Spinal stenosis, lumbosacral region TUCKER BARAJAS intervertebr ; Translations: [Other MD zeng disc intervertebral disc displac ement, disorders; lumbosacral region] other back problems (20 sources) Thyroid Hypothyroidism, unspecified ; 11-24-2019 Chronic ASHDEN NGUYEN disorders Translations: [Nontoxic sin gle (21 sources) thyroid nodule] Past or Other Problems Problem Problem Date Last Documented Episodic/Chr Provider Classificati Recorded Date onic on Allergic Allergy status to other drugs, Episodic VIOLA reactions medicaments and biological ODGERS M D (11 sources) substances status Deficiency Vitamin B12 deficiency anemia, Episodic LETY LINDA and other unspecified anemia (5 sources) Diabetes Prediabetes Episodic LETY LINDA mellitus without complication (2 sources) Diabetes Prediabetes LETY LINDA mellitus without complication (3 sources) External Fall on same level from slipping, Episodic LETY LINDA cause codes: tripping and stumbling with out Fall subsequent striking against object, (4 sources) initial encounter ; Transla tions: [Other fall on same level, initial encounter] External Bitten or stung by nonvenomous Episodic HUNTER LAURA cause codes: insect and other nonvenomou s Natural/envi arthropods, initial encount er ronment (3 sources) External Other fall on same level, initial C MALICK LINDA Injury - encounter ; Translations: [ Fall on Fall same level from slipping, t ripping (7 sources) and stumbling without subse quent striking against object, initial encounter] Fracture of Displaced bicondylar fracture of Episodic LETY MCKEON lower limb left tibia, initial encount er for (11 sources) closed fracture ; Translati ons: [Nondisplaced bicondylar fracture of left tibia, initial encounter for closed fracture] Mood Major depressive disorder, single R ODNEY disorders episode, unspecified PASHA WESTBROOK (16 sources) Other Other shelter (current) drug Episodic TUCKER BARAJAS aftercare therapy (30 sources) 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 Episodic VIOLA aftercare PASHA WESTBROOK (15 sources) Other MCC (current) use of systemic Episodic VIOLA aftercare steroids PASHA WESTBROOK (8 sources) Other Bariatric surgery status Episodic ALI CATHLEEN gastrointest FAC inal disorders (21 sources) Other Personal history of other diseases Episodic VIOLA gastrointest of the digestive system PASHA WESTBROOK inal disorders (11 sources) Other lower Snoring Episodic MENA BLAS respiratory DO disease (13 sources) Other White matter disease, unspecified Episodic RADHA nervous ABDIRAHMAN MD system disorders (7 sources) Other Encounter for screening mammogram Episodic CONSTANCE NGUYEN screening for malignant neoplasm of b reast ; for Translations: [Encounter fo r suspected screening for malignant shai plasm of conditions colon] (not mental disorders or infectious disease) (14 sources) 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; uterus PASHA WESTBROOK unclassified (14 sources) Residual Family history of ischemic heart Episodic VIOLA codes; disease and other diseases of the O DGERS unclassified circulatory system ; Transl ations: (11 sources) [Acquired absence of both c ervix and uterus] Residual Family history of malignant Episodic TANIYA codes; neoplasm of digestive organs RAKEL Batista MD unclassified (6 sources) Screening Personal history of nicotine Episodic ALI CATHLEEN and history dependence [facility] of mental health and substance abuse codes (21 sources) Superficial Insect bite (nonvenomous) of right Episodic HUNTER LAURA injury; wrist, initial encounter contusion (6 sources) Syncope Syncope and collapse Episodic ALI HAM MAD (12 sources) FACC Unclassified Hypersomnia, unspecified MENA MOORE (12 sources) DO Procedures Date Procedure Procedure Detail Performing Cl inician Start: Screening TANIYA ATKINS 08-15-2018 colonoscopy Work Phone: Results Test Name Value Interpreta Reference Facilit Date tion Range y Time other on 2016-09-28 25-Hydroxyvitamin 18.30 Low 25.00-100. Not 04-1 7-2 D2+25-Hydroxyvitamin 00 ng/mL Availab 017 D3 [Mass/Vol] le 11:40-0 (66016) 400 Albumin BCG dye 4.0 Invalid 3.6-5.1 Not [Mass/Vol] Interpreta g/dL Availab 017 tion Code le 11:40-0 (33769) 400 Average glucose 96 Invalid 70-110 Not Estimated from Interpreta mg/dL Availab 017 glycated hemoglobin tion Code le 12:40-0 mass conc (Bld) (62414) 400 Cobalamin (Vitamin 201.00 pg/mL Low 213.00-816 Not B12) mass conc .00 pg/mL Availab 017 le 12:40-0 (39795) 400 COPPER, SERUM 118 Invalid 72-166 Not Interpreta UG/DL Availab 017 tion Code le 12:40-0 (24396) 400 Ferritin mass conc 134.01 ng/mL Invalid 4.63-204.0 Not Interpreta 0 ng/mL Availab 017 tion Code le 12:40-0 (58194) 400 Folate mass conc 8.10 Invalid 7.00-31.40 Not 09-28 (Bld) Interpreta ng/mL [facility] 017 tion Code le 12:40-0 (41507) 400 GFR/1.73 sq 59 mL/min/{1.73_m2} Low >59 Not 0 09-28-2 M.predicted MDRD mL/min/1.7 [facility] 017 (S/P/Bld) [Vol 3m2 le 11:40-0 rate/Area] (27541) 400 Globulin (S) 2.9 g/dL Invalid 2.3-3.5 Not [Mass/Vol] Interpreta g/dL [facility] 017 tion Code le 11:40-0 (33764) 400 HCO3 (P) [Moles/Vol] 27 Invalid 22-33 Not Interpreta mEq/L [facility] 017 tion Code le 11:40-0 (79143) 400 Hemoglobin 4.90 Low 5.40-6.60 Not A1c/Hemoglobin.total % [facility] 017 Calculated mass le 12:40-0 fraction (Bld) (28172) 400 INR Coag RelTime 1.0 Invalid 1.0-4.0 Not (Platelet poor Interpreta [facility] 017 plasma or blood) tion Code le 12:40-0 (43631) 400 NICOTINAMIDE 5.6 Invalid 5.2-72.1 Not 09-28- Interpreta NG/ML [facility]17 tion Code le 12:40-0 (16102) 400 NICOTINIC ACID <5.0 Invalid 0.0-5.0 Not 09-28- Interpreta NG/ML [facility] 017 tion Code le 12:40-0 (41170) 400 Osmolality Calc 293 Invalid 280-295 Not 09-28- [Osmolality] Interpreta [facility] 017 tion Code le 11:40-0 (62176) 400 SELENIUM, 115 Invalid 79-326 Not 09-28- SERUM/PLASMA Interpreta UG/L [facility]17 tion Code le 12:40-0 (33525) 400 VIT. B1, WHOLE BLOOD 110.4 Invalid 66.5-200.0 Not 0 09-28-2 Interpreta NMOL/L [facility] 017 tion Code le 12:40-0 (55733) 400 VITAMIN A, SERUM 39 Invalid 20-65 Not 09-28- Interpreta UG/DL [facility] 017 tion Code le 12:40-0 (33288) 400 VITAMIN B7 0.15 Invalid 0.05-0.83 Not Interpreta NG/ML [facility] 017 tion Code le 12:40-0 (46235) 400 ZINC, PLASMA OR 50 Low 56-134 Not 09-28-2 SERUM UG/DL [facility] 017 le 12:40-0 (84306) 400 metabolic panel on 2016-09-28 ALP [Catalytic 62 U/L Invalid 35-130 U/L Not --2 activity/Vol] Interpreta [facility] 017 tion Code le 11:40-0 (49222) 400 ALT [Catalytic 20 U/L Invalid 6-45 U/L Not 09-28- activity/Vol] Interpreta [facility] 017 tion Code le 11:40-0 (01962) 400 Anion gap 13 mmol/L Invalid 6-14 Not 09-28-2 [Moles/Vol] Interpreta [facility] 017 tion Code le 11:40-0 (70748) 400 AST [Catalytic 27 U/L Invalid 2-40 U/L Not 09-28-2 activity/Vol] Interpreta [facility] 017 tion Code le 11:40-0 (58726) 400 Bilirubin [Mass/Vol] 0.6 mg/dL Invalid 0.2-1.2 Not 04 -17-2 Interpreta mg/dL [facility] 017 tion Code le 11:40-0 (40342) 400 Calcium [Mass/Vol] 9.4 mg/dL Invalid 8.3-10.4 Not 04-1 7-2 Interpreta mg/dL [facility] 017 tion Code le 11:40-0 (97867) 400 Chloride [Moles/Vol] 106 mmol/L Invalid 95-114 Not 0 4-17-2 Interpreta mmol/L [facility] 017 tion Code le 11:40-0 (96661) 400 Creatinine 0.98 mg/dL Invalid 0.50-1.50 Not 09-28-2 [Mass/Vol] Interpreta mg/dL [facility] 017 tion Code le 11:40-0 (78657) 400 Glucose [Mass/Vol] 121 mg/dL High 70-110 Not 04-1 7-2 mg/dL [facility] 017 le 11:40-0 (66898) 400 Potassium 4.0 mmol/L Invalid 3.5-5.3 Not 17-2 [Moles/Vol] Interpreta mmol/L [facility] 017 tion Code le 11:40-0 (80130) 400 Prealbumin mass conc 19.00 mg/dL Invalid 16.00-38.0 Not 09-28-2 Interpreta 0 mg/dL [facility] 017 tion Code le 12:40-0 (05751) 400 Protein [Mass/Vol] 6.9 g/dL Invalid 6.0-8.3 Not 04-1 7-2 Interpreta g/dL [facility] 017 tion Code le 11:40-0 (83003) 400 Sodium [Moles/Vol] 142 mmol/L Invalid 134-148 Not 04 17-2 Interpreta mmol/L [facility] 017 tion Code le 11:40-0 (42119) 400 Urea nitrogen 9 mg/dL Invalid 5-25 mg/dL Not 04-17-2 [Mass/Vol] Interpreta [facility] 017 tion Code le 11:40-0 (97120) 400 hematology on 2016-09-28 Basophils Auto #/vol 0.0 10*3/uL Invalid 0.0-0.2 Not (Bld) Interpreta K/uL [facility] 017 tion Code le 12:40-0 (60067) 400 Basophils/100 WBC 0.20 % Invalid 0.00-2.50 Not 09-28 Auto (Bld) Interpreta % [facility] 017 tion Code le 12:40-0 (46373) 400 Eosinophils Auto 0.1 10*3/uL Invalid 0.0-0.7 Not 09-12-2 #/vol (Bld) Interpreta K/uL [facility] 017 tion Code le 12:40-0 (39303) 400 Eosinophils/100 WBC 1.7 % Invalid 0.0-7.0 % Not Auto (Bld) Interpreta [facility] 017 tion Code le 12:40-0 (34020) 400 Erythrocyte 12.5 % Invalid 11.6-14.8 Not distribution width Interpreta % [facility] 017 Auto Ratio (RBC) tion Code le 12:40-0 (48903) 400 Hematocrit Auto 37.9 % Invalid 36.0-46.0 Not Volume Fraction Interpreta % [facility] 017 (Bld) tion Code le 12:40-0 (54741) 400 Hemoglobin mass conc 12.2 g/dL Low 13.0-15.0 Not (Bld) g/dL [facility] 017 le 12:40-0 (27430) 400 Lymphocytes Auto 1.28 10*3/uL Invalid 0.60-3.40 Not #/vol (Bld) Interpreta K/uL [facility] 017 tion Code le 12:40-0 (51790) 400 Lymphocytes/100 WBC 27.1 % Invalid 10.0-50.0 Not Auto (Bld) Interpreta % [facility] 017 tion Code le 12:40-0 (32965) 400 MCH Auto Entitic 33.8 pg High 27.0-31.0 Not mass (RBC) pg [facility] 017 le 12:40-0 (64838) 400 MCHC Auto mass conc 32.2 g/dL Invalid 32.0-36.0 Not (RBC) Interpreta g/dL [facility] 017 tion Code le 12:40-0 (70910) 400 MCV Auto Entitic 105.0 fL High 80.0-97.0 Not volume (RBC) fL [facility] 017 le 12:40-0 (45527) 400 Monocytes Auto #/vol 0.3 10*3/uL Invalid 0.0-0.9 Not (Bld) Interpreta K/uL [facility] 017 tion Code le 12:40-0 (08188) 400 Monocytes/100 WBC 6.4 % Invalid 0.0-12.0 % Not 09-12-2 Auto (Bld) Interpreta [facility] 017 tion Code le 12:40-0 (96680) 400 Neutrophils Auto 3.05 10*3/uL Invalid 2.00-6.90 Not #/vol (Bld) Interpreta K/uL [facility] 017 tion Code le 12:40-0 (34721) 400 Neutrophils/100 WBC 64.6 % Invalid 37.0-80.0 Not Auto (Bld) Interpreta % [facility] 017 tion Code le 12:40-0 (82677) 400 Platelet mean volume 10.5 fL High 7.4-10.0 Not Auto Entitic volume fL [facility] 017 (Bld) le 12:40-0 (52332) 400 Platelets Auto #/vol 203 10*3/uL Invalid 150-400 Not (Bld) Interpreta K/uL [facility] 017 tion Code le 12:40-0 (61133) 400 Prothrombin time 11.6 Invalid 9.9-12.8 Not (PT) Coag time (PPP) Interpreta Sec [facility] 017 tion Code le 12:40-0 (49004) 400 RBC Auto #/vol (Bld) 3.61 10*6/uL Invalid 3.60-5.00 Not Interpreta M/uL [facility] 017 tion Code le 12:40-0 (16553) 400 WBC Auto #/vol (Bld) 4.72 10*3/uL Low 5.00-10.00 Not 04-17-2 K/uL [facility] 017 le 12:40-0 (43086) 400 Social History The data below is from unstructured sourcesNot available. Vital Signs The data below is from unstructured sources Vital Response Date/Time Temperature (Fahrenheit) 98.1 degree s F (97.6 - 99.5) 10/19/2016 12:16pm Temperature (Calculated Celsius) 36. 98969 degrees C (36.4 - 37.5) 10/19/2016 12:16pm Temperature Source Tympanic 10/19/2016 12:16pm Pulse Rate (adult) 54 bpm (60 - 90) 10/19/2016 12:57pm Respiratory Rate 18 bpm (12 - 24) 10/19/2016 12:57pm O2 Sat by Pulse Oximetry 100 % (88 - 100) 10/19/2016 12:57pm Blood Pressure 134/73 mm Hg 10/19/2016 12:57pm Blood Pressure Mean 86 mm Hg 10/19/2016 12:16pm Pain Numeric Pain Scale 5-Moderate Pain 10/19/2016 12:57pm Height (Feet) 5 feet 01/2017 12:16pm Height (Inches) 2.00 inches 10/19/2016 12:16pm Height (Calculated Centimeters) 157. 425275 cm 10/19/2016 12:16pm Weight (Pounds) 186 pounds 10/19/2016 12:16pm Weight (Ounces) 0.0 oz 0 10/19/2016 12:16pm Weight (Calculated Grams) 23645.18 gm 10/19/2016 12:16pm Weight (Calculated Kilograms) 84.368 182 kilograms 10/19/2016 12:16pm Calculated BMI 34.0 01/2017 12:16pm Vital Response Date/Time Pulse Rate (adult) 70 bpm (60 - 90) 12/24/2015 9:36am Respiratory Rate 16 bpm (12 - 24) 12/24/2015 9:36am O2 Sat by Pulse Oximetry 96 % (88 - 100) 12/24/2015 9:36am Blood Pressure 120/64 mm Hg 12/24/2015 9:36am Blood Pressure Mean 82 mm Hg 12/24/2015 9:36am Pain Numeric Pain Scale 4 9:36am Vital Response Date/Time Temperature (Fahrenheit) 96.8 degree s F (97.6 - 99.5) 10/12/2016 12:35pm Temperature (Calculated Celsius) 36. 15594 degrees C (36.4 - 37.5) 10/12/2016 12:35pm Temperature Source Tympanic 10/12/2016 12:35pm Pulse Rate (adult) 62 bpm (60 - 90) 10/12/2016 1:25pm O2 Sat by Pulse Oximetry 97 % (88 - 100) 10/12/2016 1:25pm Blood Pressure 130/87 mm Hg 10/12/2016 1:25pm Blood Pressure Mean 95 mm Hg 10/12/2016 12:35pm Pain Numeric Pain Scale 7 1:25pm Height (Feet) 5 feet 06/2016 12:34pm Height (Inches) 2.00 inches 10/12/2016 12:34pm Height (Calculated Centimeters) 157. 096825 cm 10/12/2016 12:34pm Weight (Pounds) 241 pounds 10/12/2016 12:34pm Weight (Ounces) 1.0 oz 0 10/12/2016 12:34pm Weight (Calculated Grams) 964436.11 gm 10/12/2016 12:34pm Weight (Calculated Kilograms) 109.34 4112 kilograms 10/12/2016 12:34pm Calculated BMI 44.1 06/2016 12:34pm Vital Response Date/Time Temperature (Fahrenheit) 98.2 degree s F (97.6 - 99.5) 10/27/2016 1:50pm Temperature (Calculated Celsius) 36. 50199 degrees C (36.4 - 37.5) 10/27/2016 1:45pm Temperature Source Tympanic 10/27/2016 1:50pm Pulse Rate (adult) 80 bpm (60 - 90) 10/27/2016 1:50pm Respiratory Rate 20 bpm (12 - 24) 10/27/2016 1:50pm O2 Sat by Pulse Oximetry 99 % (88 - 100) 10/27/2016 1:50pm Blood Pressure 117/76 mm Hg 10/27/2016 1:50pm Blood Pressure Mean 90 mm Hg 10/27/2016 1:45pm Pain Numeric Pain Scale 5-Moderate Pain 10/27/2016 1:50pm Height (Feet) 5 feet 7:27am Height (Inches) 2.00 inches 10/27/2016 7:27am Height (Calculated Centimeters) 157. 346139 cm 10/27/2016 7:27am Weight (Pounds) 182 pounds 10/27/2016 7:27am Weight (Ounces) 0.0 oz 0 10/27/2016 7:27am Weight (Calculated Grams) 44238.81 gm 10/27/2016 7:27am Weight (Calculated Kilograms) 82.553 812 kilograms 10/27/2016 7:27am Calculated BMI 33.3 10/12 7:27am Capillary Refill Capillary Refill Less Than 3 Seconds 10/27/2016 1:30pm Vital Response Date/Time Temperature (Fahrenheit) 98.4 degree s F (97.6 - 99.5) 09/16/2015 11:38am Temperature (Calculated Celsius) 36. 14857 degrees C (36.4 - 37.5) 09/16/2015 11:38am Temperature Source Tympanic 09/16/2015 11:38am Pulse Rate (adult) 76 bpm (60 - 90) 09/16/2015 12:59pm Respiratory Rate 16 bpm (12 - 24) 09/16/2015 12:59pm O2 Sat by Pulse Oximetry 100 % (88 - 100) 09/16/2015 12:59pm Blood Pressure 153/83 mm Hg 09/16/2015 12:59pm Blood Pressure Mean 97 mm Hg 09/16/2015 11:38am Pain Pain Intensity 0 2015 12:59pm Height (Feet) 5 feet 09/2015 11:32am Height (Inches) 2.00 inches 09/16/2015 11:32am Height (Calculated Centimeters) 157. 971945 cm 09/16/2015 11:32am Weight (Pounds) 247 pounds 09/16/2015 11:32am Weight (Ounces) 0.0 oz 0 09/16/2015 11:32am Weight (Calculated Grams) 655824.317 gm 09/16/2015 11:32am Weight (Calculated Kilograms) 112.03 7317 kilograms 09/16/2015 11:32am Calculated BMI 45.2 040 09/2015 11:32am Vital Response Date/Time Temperature (Fahrenheit) 97.3 degree s F (97.6 - 99.5) 09/23/2015 12:23pm Temperature (Calculated Celsius) 36. 43559 degrees C (36.4 - 37.5) 09/23/2015 12:23pm Temperature Source Tympanic 09/23/2015 12:23pm Pulse Rate (adult) 71 bpm (60 - 90) 09/23/2015 12:52pm Respiratory Rate 19 bpm (12 - 24) 09/23/2015 12:52pm O2 Sat by Pulse Oximetry 97 % (88 - 100) 09/23/2015 12:52pm Blood Pressure 145/89 mm Hg 09/23/2015 12:52pm Blood Pressure Mean 94 mm Hg 09/23/2015 12:23pm Pain Pain Intensity 0 2015 12:52pm Height (Feet) 5 feet 04/2016 12:22pm Height (Inches) 2.00 inches 09/23/2015 12:22pm Height (Calculated Centimeters) 157. 908603 cm 09/23/2015 12:22pm Weight (Pounds) 241 pounds 09/23/2015 12:22pm Weight (Ounces) 1.0 oz 0 09/23/2015 12:22pm Weight (Calculated Grams) 751250.112 gm 09/23/2015 12:22pm Weight (Calculated Kilograms) 109.34 4112 kilograms 09/23/2015 12:22pm Calculated BMI 44.1 09/12 12:22pm Vital Response Date/Time Temperature (Fahrenheit) 99.6 degree s F (97.6 - 99.5) Temperature (Calculated Celsius) 37. 62099 degrees C (36.4 - 37.5) Temperature Source Temporal Pulse Rate (adult) 89 bpm (60 - 90) Respiratory Rate 18 bpm (12 - 24) O2 Sat by Pulse Oximetry 100 % (88 - 100) Blood Pressure 154/93 mm Hg Pain Pain Intensity 8 Height (Feet) 5 feet Height (Inches) 2 inches Height (Calculated Centimeters) 157. 322384 cm Weight (Pounds) 210 pounds Weight (Calculated Kilograms) 95.254 399 kilograms Calculated BMI 38.40 Vital Response Date/Time Temperature (Fahrenheit) 98.2 degree s F (97.6 - 99.5) Temperature (Calculated Celsius) 36. 00140 degrees C (36.4 - 37.5) Temperature Source Tympanic Pulse Rate (adult) 76 bpm (60 - 90) Respiratory Rate 18 bpm (12 - 24) O2 Sat by Pulse Oximetry 98 % (88 - 100) Blood Pressure 148/112 mm Hg Pain Pain Intensity 5 Height (Feet) 5 feet Height (Inches) 2.00 inches Height (Calculated Centimeters) 157. 195392 cm Weight (Pounds) 230 pounds Weight (Calculated Grams) 011077.246 gm Weight (Calculated Kilograms) 104.32 6246 kilograms Calculated BMI 42.06 Vital Response Date/Time Temperature (Fahrenheit) 97.8 degree s F (97.6 - 99.5) Temperature (Calculated Celsius) 36. 43182 degrees C (36.4 - 37.5) Temperature Source Tympanic Pulse Rate (adult) 51 bpm (60 - 90) Respiratory Rate 18 bpm (12 - 24) O2 Sat by Pulse Oximetry 98 % (88 - 100) Blood Pressure 132/69 mm Hg Pain Pain Intensity 0 Height (Feet) 5 feet Height (Inches) 2.00 inches Height (Calculated Centimeters) 157. 176929 cm Weight (Pounds) 240 pounds Weight (Ounces) 8.0 oz Weight (Calculated Grams) 949563.170 gm Weight (Calculated Kilograms) 108.86 2170 kilograms Calculated BMI 43.89 Vital Response Date/Time Temperature (Fahrenheit) 98.3 degree s F (97.6 - 99.5) Temperature (Calculated Celsius) 36. 08013 degrees C (36.4 - 37.5) Temperature Source Tympanic Pulse Rate (adult) 106 bpm (60 - 90) Respiratory Rate 20 bpm (12 - 24) O2 Sat by Pulse Oximetry 100 % (88 - 100) Blood Pressure 152/90 mm Hg Pain Pain Intensity 0 Height (Feet) 5 feet Height (Inches) 2 inches Height (Calculated Centimeters) 157. 719927 cm Weight (Pounds) 230 pounds Weight (Calculated Grams) 474673.246 gm Weight (Calculated Kilograms) 104.32 6246 kilograms Calculated BMI 42.06 Vital Response Date/Time Temperature (Fahrenheit) 99.0 degree s F (97.6 - 99.5) Temperature (Calculated Celsius) 37. 67612 degrees C (36.4 - 37.5) Temperature Source Tympanic Pulse Rate (adult) 64 bpm (60 - 90) Respiratory Rate 20 bpm (12 - 24) O2 Sat by Pulse Oximetry 99 % (88 - 100) Blood Pressure 107/80 mm Hg Pain Pain Intensity 0 Height (Feet) 5 feet Height (Inches) 2.00 inches Height (Calculated Centimeters) 157. 806751 cm Weight (Pounds) 229 pounds Weight (Ounces) 8.0 oz Weight (Calculated Grams) 125090.450 gm Weight (Calculated Kilograms) 104.09 9450 kilograms Calculated BMI 42.06 Vital Response Date/Time Temperature (Fahrenheit) 99.8 degree s F (97.6 - 99.5) Temperature (Calculated Celsius) 37. 90461 degrees C (36.4 - 37.5) Temperature Source Temporal Pulse Rate (adult) 68 bpm (60 - 90) Respiratory Rate 18 bpm (12 - 24) O2 Sat by Pulse Oximetry 100 % (88 - 100) Blood Pressure 98/57 mm Hg Pain Pain Intensity 2 Height (Feet) 5 feet Height (Inches) 2.00 inches Height (Calculated Centimeters) 157. 339728 cm Weight (Pounds) 229 pounds Weight (Ounces) 8.0 oz Weight (Calculated Grams) 934800.450 gm Weight (Calculated Kilograms) 104.09 9450 kilograms Calculated BMI 42.06 Vital Response Date/Time Temperature (Fahrenheit) 97.9 degree s F (97.6 - 99.5) 01/02/2017 3:56pm Temperature (Calculated Celsius) 36. 97268 degrees C (36.4 - 37.5) 01/02/2017 3:56pm Temperature Source Temporal 01/02/2017 3:56pm Pulse Rate (adult) 87 bpm (60 - 90) 01/02/2017 3:56pm Respiratory Rate 18 bpm (12 - 24) 01/02/2017 3:56pm O2 Sat by Pulse Oximetry 98 % (88 - 100) 01/02/2017 3:56pm Blood Pressure 125/78 mm Hg 01/02/2017 3:56pm Blood Pressure Mean 94 mm Hg 01/02/2017 3:56pm Pain Numeric Pain Scale 0-No Pain 01/02/2017 3:56pm Height (Feet) 5 feet 3:56pm Height (Inches) 2.00 inches 01/02/2017 3:56pm Height (Calculated Centimeters) 157. 424068 cm 01/02/2017 3:56pm Weight (Pounds) 180 pounds 01/02/2017 3:56pm Weight (Calculated Kilograms) 81.646 627 kilograms 01/02/2017 3:56pm Capillary Refill Capillary Refill Less Than 3 Seconds 01/02/2017 3:56pm Height 5 ft 2 in 017 3:56pm Weight 180 lb 01/02/2017 3:56pm Body Mass Index 32.9 kg/m^2 01/02/2017 3:56pm Vital Response Date/Time Height 5 ft 2 in 017 5:49pm Weight 178.31 lb 017 5:49pm Body Mass Index 32.6 kg/m^2 01/04/2017 4:08pm Vital Response Date/Time Temperature (Fahrenheit) 98.0 degree s F (97.6 - 99.5) 10/08/2017 2:34pm Temperature (Calculated Celsius) 36. 53137 degrees C (36.4 - 37.5) 10/08/2017 2:34pm Temperature Source Temporal 10/08/2017 2:34pm Pulse Rate (adult) 85 bpm (60 - 90) 10/08/2017 2:34pm Respiratory Rate 20 bpm (12 - 24) 10/08/2017 2:34pm O2 Sat by Pulse Oximetry 100 % (88 - 100) 10/08/2017 2:34pm Blood Pressure 127/93 mm Hg 10/08/2017 2:34pm Blood Pressure Mean 104 mm Hg (65 - 110) 10/08/2017 2:34pm Pain Numeric Pain Scale 5-Moderate Pain 10/08/2017 2:34pm Height (Feet) 5 feet 12:19pm Height (Inches) 2.00 inches 10/08/2017 12:19pm Height (Calculated Centimeters) 157. 954685 cm 10/08/2017 12:19pm Height Method Stated 12:19pm Weight (Pounds) 198 pounds 10/08/2017 12:19pm Weight (Ounces) 0 oz 12:19pm Weight (Calculated Grams) 29045.29 gm 10/08/2017 12:19pm Weight (Calculated Kilograms) 89.811 290 kilograms 10/08/2017 12:19pm Weight Method Stated 12:19pm Capillary Refill Capillary Refill Less Than 3 Seconds 10/08/2017 12:19pm Height 5 ft 2 in 018 12:19pm Weight 198 lb 10/08/2017 12:19pm Body Mass Index 36.2 kg/m^2 10/08/2017 12:19pm Vital Response Date/Time Height (Feet) 5 feet 10:18am Height (Inches) 2.00 inches 08/08/2018 10:18am Height (Calculated Centimeters) 157. 163506 cm 08/08/2018 10:18am Weight (Pounds) 210 pounds 08/08/2018 10:18am Weight (Ounces) 0.0 oz 0 08/08/2018 10:18am Weight (Calculated Grams) 11124.40 gm 08/08/2018 10:18am Weight (Calculated Kilograms) 95.254 399 kilograms 08/08/2018 10:18am Calculated BMI 38.4 07/16 10:18am Vital Response Date/Time Temperature (Fahrenheit) 97.6 degree s F (97.6 - 99.5) 08/15/2018 10:55am Temperature (Calculated Celsius) 36. 13212 degrees C (36.4 - 37.5) 08/15/2018 10:55am Temperature Source Skin 08/15/2018 10:55am Pulse Rate (adult) 55 bpm (60 - 90) 08/15/2018 10:55am Respiratory Rate 18 bpm (12 - 24) 08/15/2018 10:55am O2 Sat by Pulse Oximetry 98 % (88 - 100) 08/15/2018 10:55am Blood Pressure 113/71 mm Hg 08/15/2018 10:55am Blood Pressure Mean 81 mm Hg (65 - 110) 08/15/2018 8:26am Pain Numeric Pain Scale 0-No Pain 08/15/2018 10:55am Pain Intensity 0 2018 10:50am Height (Feet) 5 feet 09/2018 8:23am Height (Inches) 2.00 inches 08/15/2018 8:23am Height (Calculated Centimeters) 157. 972443 cm 08/15/2018 8:23am Weight (Pounds) 210 pounds 08/15/2018 8:23am Weight (Ounces) 0.0 oz 0 08/15/2018 8:23am Weight (Calculated Grams) 04223.40 gm 08/15/2018 8:23am Weight (Calculated Kilograms) 95.254 399 kilograms 08/15/2018 8:23am Calculated BMI 38.4 09/2018 8:23am Functional Status The data below is from unstructured sources Query Response Date Braulio rded Patient Orientation Person Place Time Situation Normal For Age October 27, 2016 1:30pm Query Response Date Braulio rded Comprehension Ability Understands Co ncepts September 20, 2014 9:37am Query Response Date Braulio rded Patient Orientation Person Place Time January 02, 2017 3:56pm Comprehension Ability Understands Co ncepts January 02, 2017 3:56pm Mental Status No Information History general Narrative - Reported Note Date & Note Facility Type History general Narrative - Reported Type Medical MS History Medical Thyroid disease History Medical anxiety History Medical bone spur in neck History Medical 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 [facility] past illness [facility] Narrative ([id number]) Advance Directives Directive Response Recor ded Date/Time Advance Directives No 12:16pm Health Care Power of Dermatology Sales Representative No 10/19/16 12:16pm Organ Donor No 10/19/16 12:16pm Resuscitation Status Full Code 10/19/16 12:16pm Directive Response Recor ded Date/Time Advance Directives No 12:22pm Health Care Power of Dermatology Sales Representative No 09/23/15 12:22pm Organ Donor No 09/23/15 12:22pm Directive Response Recor ded Date/Time Advance Directives No 12:34pm Health Care Power of Dermatology Sales Representative No 10/12/16 12:34pm Organ Donor No 10/12/16 12:34pm Resuscitation Status Full Code 10/12/16 12:34pm Directive Response Recor ded Date/Time Advance Directives No 7:19am Health Care Power of Dermatology Sales Representative No 10/27/16 7:19am Organ Donor No 10/27/16 7:19am Resuscitation Status Full Code 10/27/16 7:19am Directive Response Recor ded Date/Time Advance Directives No 11:32am Health Care Power of Dermatology Sales Representative No 09/16/15 11:32am Organ Donor No 09/16/15 11:32am Resuscitation Status Full Code 09/16/15 11:32am Directive Response Recor ded Date/Time Advance Directives No 12:22pm Health Care Power of Dermatology Sales Representative No 09/23/15 12:22pm Organ Donor No 09/23/15 12:22pm Resuscitation Status Full Code 09/23/15 12:22pm Directive Response Recor ded Date/Time Advance Directives No 2:20pm Health Care Power of Dermatology Sales Representative No 04/21/14 2:20pm Organ Donor No 04/21/14 2:20pm Resuscitation Status Full Code 04/21/14 2:20pm Directive Response Recor ded Date/Time Advance Directives No 1:18pm Health Care Power of Dermatology Sales Representative No 09/10/14 1:18pm Organ Donor No 09/10/14 1:18pm Resuscitation Status Full Code 09/10/14 1:18pm Directive Response Recor ded Date/Time Advance Directives No 7:50am Health Care Power of Dermatology Sales Representative No 12/17/14 7:50am Organ Donor No 12/17/14 7:50am Resuscitation Status Full Code 12/17/14 7:50am Directive Response Recor ded Date/Time Advance Directives No 5:41pm Health Care Power of Dermatology Sales Representative No 09/18/14 5:41pm Organ Donor No 09/18/14 5:41pm Resuscitation Status Full Code 09/18/14 5:41pm Directive Response Recor ded Date/Time Advance Directives No 11:25am Health Care Power of Dermatology Sales Representative No 09/24/14 11:25am Organ Donor No 09/24/14 11:25am Resuscitation Status Full Code 09/24/14 11:25am Directive Response Recor ded Date/Time Advance Directives No 8:35pm Health Care Power of Dermatology Sales Representative No 09/18/14 8:35pm Organ Donor No 09/18/14 8:35pm Resuscitation Status Full Code 09/18/14 8:35pm Directive Response Recor ded Date/Time Advance Directives No 2:20pm Health Care Power of Dermatology Sales Representative No 04/21/14 2:20pm Organ Donor No 04/21/14 2:20pm Directive Response Recor ded Date/Time Advance Directives No 3:56pm Health Care Power of Dermatology Sales Representative No 01/02/17 3:56pm Organ Donor No 01/02/17 3:56pm Resuscitation Status Full Code 01/02/17 3:56pm Directive Response Recor ded Date/Time Advance Directives No 5:49pm Health Care Power of Dermatology Sales Representative No 01/02/17 3:56pm Organ Donor No 01/02/17 3:56pm Resuscitation Status Full Code 01/03/17 5:49pm Directive Response Recor ded Date/Time Advance Directives No 12:28pm Health Care Power of Dermatology Sales Representative No 10/08/17 12:28pm Organ Donor No 10/08/17 12:28pm Resuscitation Status Full Code 10/08/17 12:28pm Directive Response Recor ded Date/Time Advance Directives No 2:53pm Health Care Power of Dermatology Sales Representative No 08/08/18 2:53pm Organ Donor No 08/08/18 2:53pm Resuscitation Status Full Code 08/08/18 2:53pm Directive Response Recor ded Date/Time Advance Directives No 8:24am Health Care Power of Dermatology Sales Representative No 08/15/18 8:24am Organ Donor No 08/15/18 8:24am Resuscitation Status Full Code 08/15/18 8:24am Discharge Instructions No hospital discharge instruction information available.No hospital discharge instructions.No hospital discharge instruction information available. Patient Instructions Physician Instructions Follow Up/Plan F/u with Dr Sears in 2 weeks CARDIAC CATH DISCHARGE INSTRUCTIONS *Hold Metformin for 48 hours post heart cath. ACTIVITY * Go Home directly and rest. * Limit activity of the leg (or wrist if it was used) for 7 days including aerobics, swimming, jogging, bicycling, etc. * Restrict stair-climbing for 7 days if possible, if not, climb up with your non-cath leg, then bring together on the same step. * Avoid lifting, pushing, pulling or excessive movement of the affected extremity for 7 days. * Customary sexual activity may be resumed after 2 days-use caution not to use a position that strains or causes pain to the affected extremity. * No driving for 24 hours. * NO SMOKING. * Avoid straining for bowel movements for 7 days. * Gentle walking on level ground is allowed. * Returning to work will depend on the type of procedure and the results. Your doctor will discuss this with you. CALL YOUR DOCTOR FOR ANY OF THE FOLLOWING: *If bleeding from the puncture site occurs- Apply gentle pressure to site with clean cloth and call your doctor or EMS. * If a knot or lump forms under the skin, increases in size, or causes pain. * If bruising appears to be worsening or moving further down your leg instead of disappearing. * Temperature above 101 F. CARE OF YOUR GROIN INCISION; * Bruising or purple discoloration of the skin near the puncture site is common. * You may shower only, no bathtub bathing for 5 days. Be careful to avoid slipping as your leg may feel stiff. * If a closure device was used on your femoral artery, please see the attached guide regarding care of the device and your leg. * REMOVE the dressing from your groin the next day after your procedure in the shower. CARE OF YOUR WRIST INCISION; * Bruising or purple discoloration of the skin near the puncture site is common. * You may shower. * DO NOT submerge wrist. * Remove dressing in 24 hours. Pneu Vac Indicated: Yes No hospital discharge instructions.No hospital discharge instructions.No hospit al discharge instructions.No hospital discharge instructions.No hospital dischar ge instructions.No hospital discharge instructions.No hospital discharge instruc tions.No hospital discharge instructions.No hospital discharge instructions.No h ospital discharge instruction information available.No hospital discharge instru ction information available.No hospital discharge instruction information availa ble.No hospital discharge instruction information available.No hospital discharg e instruction information available. Summary Purpose eClinicalWorks Submission Additional Source Comments This clinical document has been generated using [employer] software that has been certified by the Office of the National Coordinator for Health Information Technology (ONC 15.99.04.3023.Diam.31.00.0.736683) and the National Committee for Mechanical Repair Worker (NCQA, as an eMeasure certified technology). FOR RECORDS PERTAINING TO PATIENTS WHO ARE OR HAVE BEEN ENROLLED IN A CHEMICAL D EPENDENCY/SUBSTANCE ABUSE PROGRAM, SOME INFORMATION MAY BE OMITTED. This clinica l summary was aggregated from multiple sources. Caution should be exercised in using it in the provision of clinical care. This summary normalizes information from multiple sources, and as a consequence, information in this document may ma terially change the coding, format and clinical context of patient data. In omar tion, data may be omitted in some cases. CLINICAL DECISIONS SHOULD BE BASED ON T HE PRIMARY CLINICAL RECORDS. [employer] provides no warranty or guara ntee of the accuracy or completeness of information in this document.The followi ng information is based on time limited clinical information
--- OUTSIDE RECORDS SUMMARY | 2020-01-30 10:20 | XMS REPORT | Clinical Summary ---
Author Author [facility] Organization [facility] Address Unknown Phone Unavailable Care Team Providers Care Geospatial Extractor Analysis Name Role Phone Isabel Farmer MD Unavailable Unknown, Unknown Md PCP Unavailable Source Comments Some departments are not documenting in the electronic medical record. If you d o not see the information that you expected, contact Release of Information in [facility] [employer] [facility] department at [phone] for further assistan ce in locating additional records.[facility] Allergies No Known Allergies Medications End [...] Take 1 Tab by 30 Tab 1 0 tablet mouth every 6 4 hours as needed for Anxiety. Active Problems Problem Noted Date Lower extremity weakness 01/26/2013 Overview: Progressive weakness with increased spa sticity, and brisk reflexes. Likely multiple sclerosis given hx of vision l oss on 2 separate occasions with new weakness, difficulty walking, and upper motor neuron signs on exam. Previous MRI brain non specific, border line LP findings and slowed responses on VEP MRI of C spine shows no intrinsic cord lesions suggestive of MS. There is some stenosis present at C5,6 due to herniated disc. I think it could be enough to explain h er symptoms L ast Assessment & Plan: I remain still a little uncertain about this diagnosis. However, she is having an acute worsening of symptoms- perhaps a relapse. She may benefit from a course of oral p rednisone. Prednisone 80 mg x 10 days, then 60 mg daily x 3 days, then 40 mg daily x 3 days, then 20 mg daily x 3 days, then DC I would also like to get a repeat MRI o f the brain. She will return to clinic [...] Never Used Tobacco Cessation: Counseling Given: Yes Drinks/Week oz/Week Comments Alcohol Use No Sex Assigned at Date Recorded Not on file Last Filed Vital Signs Reading Time Taken Comments Vital Sign 140/91 11/07/2013 9:57 AM CDT Blood Pressure 83 11/07/2013 9:57 AM CDT Pulse - - Temperature - - Respiratory Rate - - Oxygen Saturation - - Inhaled Oxygen Concentration 97.1 kg (214 lb) 11/07/2013 9:57 AM CDT Weight 157.5 cm (5' 2") 11/07/2013 9:57 AM CDT Height 39.14 11/07/2013 9:57 AM CDT Body Mass Index Plan of Treatment Health Maintenance Due Date Last Done Comments HIV SCREENING 02/17/1976 DTAP/TDAP VACCINES (1 - 1979 Tdap) HEPATITIS C SCREENING 1979 PHYSICAL (COMPREHENSIVE) 1979 EXAM CERVICAL CANCER SCREENING 1982 BREAST CANCER SCREENING 2001 COLORECTAL CANCER 2011 SCREENING SHINGLES RECOMBINANT 2011 VACCINE (1 of 2) INFLUENZA VACCINE 03/14/2020 Results Not on filefrom Last 3 Months Insurance Type Payer Benefit Subscriber ID Effective Phone Address Plan / Dates Group PPO COVENTRY COV[employer]IN[employer]Y [id number] 2012-P PPO resent Advance Directives Patient [place] [employer] Explanation Type Date Recorded Advance 03/13/2013 2:23 PM Directive/DPOA
--- OUTSIDE RECORDS SUMMARY | 2020-01-30 10:20 | XMS REPORT ---
Author Author Sunshine LARSON Organization [facility] Address [address] [place] [address] Care Team Providers Care Pick And Shovel Worker Name Role Phone AMMY LARSON Unavailable PROBLEMS Type Condition ICD9-CM Code [id number] Code Onset Dates Condition S tatus SNOMED Code Problem Other chronic pain G89.29 Active 8 0741626 Problem Multiple sclerosis G35 Active 2 6280510 Problem Major depressive disorder, recurrent episode, moderate F33.1 Active 363222221 Problem Generalized anxiety disorder F41.1 A ctive 53232351 Problem Oxygen dependent Z99.81 Active 931 [id number] ALLERGIES No Information ENCOUNTERS Encounter Location Date Diagnosis [facility] IN [facility] [address] [id number] [address] [place] [id number] Aug, Cellulitis of left arm L03.1 14 [facility] IN [facility] [address] [facility] [id number] [address] [place] [phone] Jun, Acute non-recurrent pansinus itis J01.40 [place] [address] [address] [facility] [id number] [address] [place] [phone] May, Multiple sclerosis G35 ; Gen eralized anxiety disorder F41.1 ; Other chronic pain G89.29 and Oxygen dependent Z99.81 [facility] [address] [facility] [id number] [address] [place] [phone] Mar, Generalized anxiety disorder F41.1 and Major depressive disorder, recurrent episode, moderate F33.1 [place] [address] [address] [facility] [id number] [address] [place] [id number] Jan, [facility] [address] [place] [id number] [address] [place] [phone] Aug, IMMUNIZATIONS No Known Immunizations SOCIAL HISTORY [...]
--- OUTSIDE RECORDS SUMMARY | 2020-01-30 10:21 | XMS REPORT | Continuity of Care Document ---
Author Author [facility] [employer] Organization [employer] Address Unknown Phone Unavailable Allergies Active Description Code Type Severity Reaction Onset Reported/Identified Relationship to Patient Clinical Status Yes CLINDAMYCIN PHOSPHATE CLINDAMYCIN PHOSPHAT UNKNOWN Yes GABAPENTIN GABAPENTIN MILD Yes MACROBID MACROBID MILD Yes gabapentin [id number] Drug Allerg y Unknown N/A 10/27/[id number] jacobs Allergy Unknown N/A 01/02/2017 Yes gabapentin [id number] Drug Allerg y Mild CONFUSION 08/08/[id number] jacobs Allergy Mild ITCHING 08/08/2018 Yes No Known Drug Allergies [id number] Drug Allergy Unknown N/A 12/12/2019 Medications Medication Packaging Start Date St op Date Route Dosage Sig LACTATED RINGERS 1000CC IV BAG INJ 0 ml 04/29/2016 05/06/2016 CONTINUOUSEVERY 0 Hour FENTANYL AMP INJ 100 MCG/2CC MCG 04/29/2016 04/29/2016 [id number]&[id number] MORPHINE STAFF SUBMARINE [employer]ARF[employer] OFFICER SYRINGE INJ 30 MG/30CC (MORPHINE STAFF SUBMARINE WARFARE OFFICER SYRINGE) MG 04/29/2016 05/02/2016 CONTINUOUSEVERY 0 Hour ACETAMINOPHEN ORAL TABLET 325mg(Tylenol) MG 04/30/2016 05/07/2016 PRN EVERY 6 Hour ALPRAZOLAM TAB 0.5 MG (XANAX) Dose(s) 05/01/2016 05/06/2016 PRN TID Problems Date Dx Coded Attending Type Code Diagnosis Diagnosed By 08/31/2011 Ot 079.6 08/31/2011 Ot 786.2 04/21/2014 RADHA KEARNEY APRN Ot 724 .2 04/21/2014 RADHA KEARNEY APRN Ot 959.19 04/21/2014 RDAHA KEARNEY APRN Ot E000.8 04/21/2014 RADHA KEARNEY APRN Ot E849.0 04/21/2014 RADHA KEARNEY APPLIQUER ZIGZAG Ot E888.9 08/03/2014 BERYL KAY MD Ot 3 40 08/03/2014 BERYL KAY MD Ot 781.0 08/03/2014 BERYL KAY MD Ot V57.1 08/13/2014 BERYL KAY MD Ot 3 40 08/13/2014 BERYL KAY MD Ot 781.0 08/13/2014 BERYL KAY MD Ot V57.1 09/07/2014 Ot 244.9 09/07/2014 Ot 272.4 09/07/2014 Ot 300.00 09/07/2014 Ot 305.1 09/07/2014 Ot 530.81 09/07/2014 Ot 780.79 09/07/2014 Ot 530.11 09/07/2014 Ot 535.40 09/07/2014 Ot 244.9 09/07/2014 Ot 721.2 09/07/2014 Ot 721.3 09/07/2014 Ot 272.4 09/07/2014 Ot 725 09/07/2014 Ot 780.79 09/07/2014 Ot 790.29 09/07/2014 ALEJO MAE SAWMILL MOULDER OPERATOR Ot 733.00 09/07/2014 OSIIALEJO CARRANZA SAWMILL MOULDER OPERATOR Ot 733.90 09/07/2014 ALEJO MAE SAWMILL MOULDER OPERATOR Ot V76.12 09/07/2014 ALEJO MAE SAWMILL MOULDER OPERATOR Ot 724.2 09/07/2014 ALEJO MAE SAWMILL MOULDER OPERATOR Ot 793.80 09/07/2014 JUSTIN JOHNSON DO Ot [...] 780.79 09/10/2014 Ot 790.29 09/10/2014 OSIIALEJO CARRANZA SAWMILL MOULDER OPERATOR Ot 733.00 09/10/2014 OSIIALEJO CARRANZA SAWMILL MOULDER OPERATOR Ot 733.90 09/10/2014 OSIIALEJO CARRANZAP Ot V76.12 09/10/2014 OSIIALEJO CARRANZAP Ot 724.2 09/10/2014 OSIIALEJO CARRANZAP Ot 793.80 09/10/2014 JUSTIN JOHNSON DO Ot 342.90 09/10/2014 JUSTIN JOHNSON DO Ot V58.69 09/10/2014 JUSTIN JOHNSON DO Ot V81.5 09/10/2014 KARL WESTBROOK, TUCKER Keen Ot 278. 01 09/10/2014 KARL WESTBROOK, TUCKER Keen Ot 721. 3 09/10/2014 KARL WESTBROOK, TUCKER Keen Ot 722. 52 09/10/2014 TUCKER BARAJAS MD Ot V58. 69 09/10/2014 KARL WESTBROOK, TUCKER Keen Ot V85. 41 09/20/2014 EUGENIO WESTBROOK, ELVIA Gregg Ot 244.9 09/20/2014 EUGENIO WESTBROOK, ELVIA Gregg Ot 300.00 09/20/2014 EUGENIO WESTBROOK, ELVIA D Ot 34 0 09/20/2014 EUGENIO WESTBROOK, ELVIA D Ot 427.69 09/20/2014 EUGENIO WESTBROOK, ELVIA Gregg Ot 530.81 09/20/2014 EUGENIO WESTBROOK, ELVIA D [...] 780.79 11/26/2014 Ot 790.29 11/26/2014 OSIITERE ALEJO Shaina SAWMILL MOULDER OPERATOR Ot 733.00 11/26/2014 OSIIALEJO CARRANZA SAWMILL MOULDER OPERATOR Ot 733.90 11/26/2014 OSIIALEJO CARRANZAP Ot V76.12 11/26/2014 OSIIALEJO CARRANZAP Ot 724.2 11/26/2014 OSALEJO AYALAP Ot 793.80 11/26/2014 [facility] JUSTIN YAN Ot 342.90 11/26/2014 [facility] JUSTIN YAN Ot V58.69 11/26/2014 [facility] JUSTIN YAN Ot V81.5 11/26/2014 EUGENIO WESTBROOK, ELVIA Gregg Ot 789.01 12/17/2014 Ot 244.9 12/17/2014 Ot 272.4 12/17/2014 Ot 300.00 12/17/2014 Ot 305.1 12/17/2014 Ot 530.81 12/17/2014 Ot 780.79 12/17/2014 Ot 530.11 12/17/2014 Ot 535.40 12/17/2014 Ot 244.9 12/17/2014 Ot 721.2 12/17/2014 Ot 721.3 12/17/2014 Ot 272.4 12/17/2014 Ot 725 12/17/2014 Ot 780.79 12/17/2014 Ot 790.29 12/17/2014 OSIIALEJO CARRANZA SAWMILL MOULDER OPERATOR Ot 733.00 12/17/2014 OSIIALEJO CARRANZA SAWMILL MOULDER OPERATOR Ot 733.90 12/17/2014 OSALEJO AYALA SAWMILL MOULDER OPERATOR Ot V76.12 12/17/2014 OSALEJO AYALA SAWMILL MOULDER OPERATOR Ot 724.2 12/17/2014 OSIIALEJO CARRANZA SAWMILL MOULDER OPERATOR Ot 793.80 12/17/2014 JUSTIN JOHNSON DO Ot 342.90 12/17/2014 JUSTIN JOHNSON DO Ot V58.69 12/17/2014 JUSTIN JOHNSON DO Ot V81.5 12/17/2014 EUGENIO WESTBROOK, ELVIA Gregg Ot 789.01 12/17/2014 RANDOLPH WESTBROOK, TANIYA M Ot 530.3 12/17/2014 RANDOLPH WESTBROOK, TANIYA M Ot 535.40 12/20/2014 EUGENIO WESTBROOK, ELVIA Gregg Ot 789.01 12/25/2014 RANDOLPH WSETBROOK, TANIYA M Ot 530.3 12/25/2014 RANDOLPH WESTBROOK, [...] 780.79 02/01/2015 Ot 790.29 02/01/2015 OSIITERE ALEJO Shaina SAWMILL MOULDER OPERATOR Ot 733.00 02/01/2015 OSIITERE ALEJO Shaina SAWMILL MOULDER OPERATOR Ot 733.90 02/01/2015 OSIITERE ALEJO Shaina SAWMILL MOULDER OPERATOR Ot V76.12 02/01/2015 OSIITERE ALEJO Merritt SAWMILL MOULDER OPERATOR Ot 724.2 02/01/2015 OSIITERE ALEJO Merritt SAWMILL MOULDER OPERATOR Ot 793.80 02/01/2015 JUSTIN JOHNSON DO Ot 342.90 02/01/2015 JUSTIN JOHNSON DO Ot V58.69 02/01/2015 JUSTIN JOHNSON DO Ot V81.5 02/01/2015 EUGENIO WESTBROOK, ELVIA Gregg Ot 789.01 02/01/2015 RANDOLPH WESTBROOK, TANIYA M Ot 530.3 02/01/2015 RANDOLPH WESTBROOK, TANIYA Merritt Ot 533.90 02/01/2015 RANDOLPH WESTBROOK, TANIYA Merritt Ot V72.84 02/01/2015 CONSTANCE PYLE N APPLIQUER ZIGZAG Ot 780.79 02/01/2015 CONSTANCE PYLE N APPLIQUER ZIGZAG Ot 724.2 02/11/2015 CONSTANCE PYLE N APPLIQUER ZIGZAG Ot 724.2 03/19/2015 TUCKER BARAJAS MD Ot 278. 01 03/19/2015 TUCKER BARAJAS MD Ot 721. 3 03/19/2015 TUCKER BARAJAS MD Ot 722. 52 03/19/2015 TUCKER BARAJAS MD Ot V58. 69 03/19/2015 TUCKER BARAJAS MD Ot V85. 42 03/25/2015 Ot 244.9 03/25/2015 Ot 272.4 03/25/2015 Ot 300.00 03/25/2015 Ot 305.1 03/25/2015 Ot 530.81 03/25/2015 Ot 780.79 03/25/2015 Ot 530.11 03/25/2015 Ot 535.40 03/25/2015 Ot 244.9 03/25/2015 Ot 721.2 03/25/2015 Ot 721.3 03/25/2015 Ot 272.4 03/25/2015 Ot 725 03/25/2015 Ot 780.79 03/25/2015 Ot 790.29 03/25/2015 OSALEJO AYALA SAWMILL MOULDER OPERATOR Ot 733.00 03/25/2015 OSALEJO AYALA SAWMILL MOULDER OPERATOR Ot 733.90 03/25/2015 OSALEJO AYALA SAWMILL MOULDER OPERATOR Ot V76.12 03/25/2015 ALEJO MAE SAWMILL MOULDER OPERATOR Ot 724.2 03/25/2015 OSALEJO AYALA SAWMILL MOULDER OPERATOR Ot 793.80 03/25/2015 JUSTIN JOHNSON DO Ot 342.90 03/25/2015 JUSTIN JOHNSON DO Ot V58.69 03/25/2015 JUSTIN JOHNSON DO Ot V81.5 03/25/2015 EUGENIO WESTBROOK, ELVIA Gregg Ot 789.01 03/25/2015 RANDOLPH WESBTROOK, TANIYA Merritt Ot 530.3 03/25/2015 RANDOLPH WESTBROOK, TANIYA Merritt Ot 533.90 03/25/2015 RANDOLPH WESTBROOK, TANIYA Merritt Ot V72.84 03/25/2015 CONSTANCE PYLE APPLIQUER ZIGZAG Ot 780.79 03/25/2015 CONSTANCE PYLE APPLIQUER ZIGZAG Ot 724.2 03/25/2015 TUCKER BARAJAS MD Ot 278. 01 03/25/2015 TUCKER BARAJAS MD Ot 721. 3 03/25/2015 TUCKER BARAJAS MD Ot 722. 52 03/25/2015 TUCKER BARAJAS MD Ot V58. 69 03/25/2015 TUCKER BARAJAS MD Ot V85. 42 04/12/2015 CONSTANCE PYLE APPLIQUER ZIGZAG Ot E78.5 04/12/2015 CONSTANCE PYLE APPLIQUER ZIGZAG Ot R06.02 04/12/2015 CONSTANCE PYLE APPLIQUER ZIGZAG Ot R53.83 04/12/2015 CONSTANCE PYLE APPLIQUER ZIGZAG Ot R60.9 09/16/2015 TUCKER BARAJAS MD, Ot M47.816 SPONDYLOSIS W/O MYELOPATHY OR RADICULOPA 09/16/2015 TUCKER BARAJAS MD, Ot M51. 16 INTERVERTEBRAL DISC DISORDERS W RADICULO 09/16/2015 TUCKER BARAJAS MD Ot Z79.899 OTHER MCFP (CURRENT) DRUG THERAPY 09/23/2015 CONSTANCE PYLE APPLIQUER ZIGZAG Ot E78.5 09/23/2015 CONSTANCE PYLE APPLIQUER ZIGZAG Ot Z00.00 09/23/2015 TUCKER BARAJAS MD Ot E66. 01 MORBID (SEVERE) OBESITY DUE TO EXCESS CA 09/23/2015 TUCKER BARAJAS MD, Ot M47.816 SPONDYLOSIS W/O MYELOPATHY OR RADICULOPA 09/23/2015 TUCKER BARAJAS MD Ot Z68. 41 BODY MASS INDEX (BMI) 40.0-44.9, ADULT 09/23/2015 TUCKER BARAJAS MD, Ot Z79.899 OTHER MCFP (CURRENT) DRUG THERAPY 09/27/2015 TUCKER BARAJAS MD, Ot M47.816 SPONDYLOSIS W/O MYELOPATHY OR RADICULOPA 09/27/2015 TUCKER BARAJAS MD, Ot M51. 16 INTERVERTEBRAL DISC DISORDERS W RADICULO 09/27/2015 TUCKER BARAJAS MD, Ot Z79.899 OTHER PHOTOLITH OPERATOR (CURRENT) DRUG THERAPY 10/01/2015 TUCKER BARAJAS MD Ot E66. 01 MORBID (SEVERE) OBESITY DUE TO EXCESS CA 10/01/2015 TUCKER BARAJAS MD Ot M47.816 SPONDYLOSIS W/O MYELOPATHY OR RADICULOPA 10/01/2015 TUCKER BARAJAS MD Ot Z68. 41 BODY MASS INDEX (BMI) 40.0-44.9, ADULT 10/01/2015 TUCKER BARAJAS MD Ot Z79.899 OTHER MCFP (CURRENT) DRUG THERAPY 10/09/2015 ARAM LO APPLIQUER ZIGZAG Ot K21.9 GASTRO-ESOPHAGEAL REFLUX DISEASE WITHOUT 11/07/2015 Ot Z01.812 EN COUNTER FOR PREPROCEDURAL LABORATORY E 12/13/2015 ARAM LO APPLIQUER ZIGZAG Ot K21.9 GASTRO-ESOPHAGEAL REFLUX DISEASE WITHOUT 12/13/2015 Ot Z01.812 EN COUNTER FOR PREPROCEDURAL LABORATORY E 12/13/2015 CONSTANCE PYLE APPLIQUER ZIGZAG Ot E78.5 HYPERLIPIDEMIA, UNSPECIFIED 12/13/2015 CONSTANCE PYLE APPLIQUER ZIGZAG Ot Z00.00 ENCNTR FOR GENERAL ADULT MEDICAL EXAM W/ 12/24/2015 ARAM LO APPLIQUER ZIGZAG Ot K21.9 GASTRO-ESOPHAGEAL REFLUX DISEASE WITHOUT 12/24/2015 Ot Z01.812 EN COUNTER FOR PREPROCEDURAL LABORATORY E 12/24/2015 CATHLEEN WESTBROOK [...] CCDS Ot I49.3 VENTRICULAR PREMATURE DEPOLARIZATION 12/25/2015 ADDIE CONNOLLY MD, FACC FACP CCDS Ot M19.90 UNSPECIFIED OSTEOARTHRITIS, UNSPECIFIED [...] R07.89 OTHER CHEST PAIN 01/13/2016 CONSTANCE PYLE APPLIQUER ZIGZAG Ot E78.5 HYPERLIPIDEMIA, UNSPECIFIED 01/13/2016 CONSTANCE PYLE APPLIQUER ZIGZAG Ot Z00.00 ENCNTR FOR GENERAL ADULT MEDICAL EXAM W/ 01/16/2016 MENA BLAS DO Ot G47. 10 HYPERSOMNIA, UNSPECIFIED 01/16/2016 MENA BLAS DO Ot R06. 83 SNORING 01/27/2016 MENA BLAS DO Ot G47. 10 HYPERSOMNIA, UNSPECIFIED 01/27/2016 WANMENA LI DO Ot R06. 83 SNORING 02/26/2016 ARAM LO APPLIQUER ZIGZAG Ot K21.9 GASTRO-ESOPHAGEAL REFLUX DISEASE WITHOUT 02/26/2016 Ot Z01.812 EN COUNTER FOR PREPROCEDURAL LABORATORY E 02/26/2016 CATHLEEN WESTBROOK [...] Ot M19.90 UNSPECIFIED OSTEOARTHRITIS, UNSPECIFIED 02/26/2016 CATHLEEN MD FACC, ALI FACP CCDS Ot R06.02 SHORTNESS OF BREATH 02/26/2016 CATHLEEN WESTBROOK FACZackary, ALI FACP CCDS Ot R07.89 OTHER CHEST PAIN 02/26/2016 ARAM LO APPLIQUER ZIGZAG Ot K21.9 GASTRO-ESOPHAGEAL REFLUX DISEASE WITHOUT 02/26/2016 Ot Z01.812 EN COUNTER FOR PREPROCEDURAL LABORATORY E 02/26/2016 CATHLEEN BELLC, [...] GASTRO-ESOPHAGEAL REFLUX DISEASE WITHOUT 02/28/2016 Ot Z01.812 EN COUNTER FOR PREPROCEDURAL LABORATORY E 02/28/2016 CATHLEEN WESTBROOK [...] R07.89 OTHER CHEST PAIN 03/30/2016 CONSTANCE PYLE APPLIQUER ZIGZAG Ot E78.5 HYPERLIPIDEMIA, UNSPECIFIED 03/30/2016 CONSTANCE PYLE APPLIQUER ZIGZAG Ot Z00.00 ENCNTR FOR GENERAL ADULT MEDICAL [...] V85.41 BODY MASS INDEX 40.0-44.9, ADULT 05/01/2016 GriselBk W Z68.41 BODY MASS INDEX (BMI) 40.0-44.9, ADULT 06/04/2016 CONSTANCE PYLE APPLIQUER ZIGZAG Ot E78.5 HYPERLIPIDEMIA, UNSPECIFIED 06/04/2016 CONSTANCE PYLE APPLIQUER ZIGZAG Ot Z00.00 ENCNTR FOR GENERAL ADULT MEDICAL EXAM W/ 06/26/2016 CONSTANCE PYLE APPLIQUER ZIGZAG Ot E78.5 HYPERLIPIDEMIA, UNSPECIFIED 06/26/2016 CONSTANCE PYLE APPLIQUER ZIGZAG Ot Z00.00 ENCNTR FOR GENERAL ADULT MEDICAL EXAM W/ 06/29/2016 CONSTANCE PYLE APPLIQUER ZIGZAG Ot E78.5 HYPERLIPIDEMIA, UNSPECIFIED 06/29/2016 CONSTANCE PYLE APPLIQUER ZIGZAG Ot Z00.00 ENCNTR FOR GENERAL ADULT MEDICAL EXAM W/ 07/10/2016 ARAM LO APPLIQUER ZIGZAG Ot K21.9 GASTRO-ESOPHAGEAL REFLUX DISEASE WITHOUT 07/10/2016 Ot Z01.812 EN COUNTER FOR PREPROCEDURAL LABORATORY E 07/10/2016 CATHLEEN WESTBROOK FACC, ADDIE CHAVIS CCDS Ot I49.3 VENTRICULAR PREMATURE DEPOLARIZATION 07/10/2016 CATHLEEN WESTBROOK FACC, ALI FACP CCDS Ot M19.90 UNSPECIFIED OSTEOARTHRITIS, UNSPECIFIED 07/10/2016 CATHLEEN BELLC, ALI FACP CCDS Ot R06.02 [...] R07.89 OTHER CHEST PAIN 07/25/2016 CONSTANCE PYLE APPLIQUER ZIGZAG Ot E78.5 HYPERLIPIDEMIA, UNSPECIFIED 07/25/2016 CONSTANCE PYLE APPLIQUER ZIGZAG Ot Z00.00 ENCNTR FOR GENERAL ADULT MEDICAL EXAM W/ 08/03/2016 CONSTANCE PYLE APPLIQUER ZIGZAG Ot E04.1 NONTOXIC SINGLE THYROID NODULE 08/03/2016 CONSTANCE PYLE APPLIQUER ZIGZAG Ot E04.1 NONTOXIC SINGLE THYROID NODULE 08/11/2016 ARAM LO APPLIQUER ZIGZAG Ot K21.9 GASTRO-ESOPHAGEAL REFLUX DISEASE WITHOUT 08/11/2016 Ot Z01.812 EN COUNTER FOR PREPROCEDURAL LABORATORY E 08/11/2016 CATHLEEN WESTBROOK [...] R07.89 OTHER CHEST PAIN 08/11/2016 CONSTANCE PYLE APRN Ot E04.1 NONTOXIC SINGLE THYROID NODULE 10/12/2016 TUCKER BARAJAS MD Ot M47.816 SPONDYLOSIS W/O MYELOPATHY OR RADICULOPA 10/12/2016 TUCKER BARAJAS MD Ot Z79.899 OTHER MCFP (CURRENT) DRUG THERAPY 10/15/2016 TUCKER BARAJAS MD Ot M47.816 SPONDYLOSIS W/O MYELOPATHY OR RADICULOPA 10/15/2016 TUCKER BARAJAS MD Ot Z79.899 OTHER MCFP (CURRENT) DRUG THERAPY 10/19/2016 TUCKER BARAJAS MD Ot M47.816 SPONDYLOSIS W/O MYELOPATHY OR RADICULOPA 10/27/2016 CATHLEEN WESTBROOK FACC, ADDIE FACP CCDS Ot E66.9 OBESITY, UNSPECIFIED 10/27/2016 CATHLEEN WESTBROOK FACC, ALI FACP CCDS Ot G35 MULTIPLE SCLEROSIS 10/27/2016 CATHLEEN WESTBROOK FACC, ALI FACP CCDS Ot I25.10 ATHSCL HEART DISEASE OF [place] CORONARY 10/27/2016 CATHLEEN WESTBROOK FACC, ALI FACP CCDS Ot I25.84 CORONARY ATHEROSCLEROSIS DUE TO CALCIFIE 10/27/2016 CATHLEEN WESTBROOK FACC, ALI FACP CCDS Ot I49.3 VENTRICULAR PREMATURE DEPOLARIZATION 10/27/2016 CATHLEEN WESTBROOK FACC, ADDIE FACP CCDS Ot R06.02 SHORTNESS OF BREATH 10/27/2016 CATHLEEN WESTBROOK FACC, ADDIE FACP CCDS Ot R55 SYNCOPE AND COLLAPSE 10/27/2016 CATHLEEN WESTBROOK FACC, ADDIE FACP CCDS Ot Z68.33 BODY MASS INDEX (BMI) 33.0-33.9, ADULT 10/27/2016 CATHLEEN WESTBROOK FACC, ALI FACP CCDS Ot Z79.899 OTHER PHOTOLITH OPERATOR (CURRENT) DRUG THERAPY 10/27/2016 CATHLEEN WESTBROOK FACC, ALI FACP CCDS Ot Z87.891 PERSONAL HISTORY OF NICOTINE DEPENDENCE 10/27/2016 CATHLEEN WESTBROOK FACC, ALI FACP CCDS Ot Z98.84 BARIATRIC SURGERY STATUS 11/13/2016 ARAM LO APRN Ot K21.9 GASTRO-ESOPHAGEAL REFLUX DISEASE WITHOUT 11/13/2016 Ot Z01.812 EN COUNTER FOR PREPROCEDURAL LABORATORY E 11/13/2016 CATHLEEN MD FACC, ALI FACP CCDS Ot I49.3 VENTRICULAR [...] R07.89 OTHER CHEST PAIN 11/13/2016 CONSTANCE PYLE APPLIQUER ZIGZAG Ot E04.1 NONTOXIC SINGLE THYROID NODULE 11/13/2016 RADHA GARY MD Ot G35 MULTIPLE SCLEROSIS 11/16/2016 RADHA GARY MD Ot G35 MULTIPLE SCLEROSIS 11/16/2016 ARAM LO APPLIQUER ZIGZAG Ot K21.9 GASTRO-ESOPHAGEAL REFLUX DISEASE WITHOUT 11/16/2016 Ot Z01.812 EN COUNTER FOR PREPROCEDURAL LABORATORY E 11/16/2016 CATHLEEN WESTBROOK FACC, ADDIE FACP CCDS Ot [...] R07.89 OTHER CHEST PAIN 11/16/2016 CONSTANCE PYLE APPLIQUER ZIGZAG Ot E04.1 NONTOXIC SINGLE THYROID NODULE 11/16/2016 RADHA GARY MD Ot G35 MULTIPLE SCLEROSIS 11/16/2016 RADHA GARY MD, Ot G35 MULTIPLE SCLEROSIS 12/18/2016 ARAM LO APRN Ot K21.9 GASTRO-ESOPHAGEAL REFLUX DISEASE WITHOUT 12/18/2016 Ot Z01.812 EN COUNTER FOR PREPROCEDURAL LABORATORY E 12/18/2016 CATHLEEN WESTBROOK FACC, ALI FACP CCDS Ot I49.3 VENTRICULAR PREMATURE DEPOLARIZATION 12/18/2016 CATHLEEN WESTBROOK FACC, ALI FACP CCDS Ot M19.90 UNSPECIFIED OSTEOARTHRITIS, UNSPECIFIED 12/18/2016 CATHLEEN WESTBROOK FACC, ALI FACP CCDS Ot R06.02 SHORTNESS OF BREATH 12/18/2016 CATHLEEN WESTBROOK FACC, ALI FACP CCDS Ot R07.89 OTHER CHEST PAIN 12/18/2016 CATHLEEN WESTBROOK FACC, ALI FACP CCDS Ot I49.3 VENTRICULAR PREMATURE DEPOLARIZATION 12/18/2016 CATHLEEN WESTBROOK FACC, ALI FACP CCDS [...] MULTIPLE SCLEROSIS 01/02/2017 VIOLA PAK MD Ot F32 .9 MAJOR DEPRESSIVE DISORDER, SINGLE EPISOD 01/02/2017 VIOLA PAK MD Ot F41 .0 PANIC DISORDER WITHOUT AGORAPHOBIA 01/02/2017 VIOLA PAK MD Ot G35 MULTIPLE SCLEROSIS 01/02/2017 VIOLA PAK MD Ot G43.909 MIGRAINE, UNSP, NOT INTRACTABLE, WITHOUT 01/02/2017 VIOLA PAK MD Ot I10 ESSENTIAL (PRIMARY) HYPERTENSION 01/02/2017 VIOLA PAK MD Ot M47 .9 SPONDYLOSIS, UNSPECIFIED 01/02/2017 VIOLA PAK MD Ot R53.83 OTHER FATIGUE 01/02/2017 VIOLA PAK MD Ot Z79.82 PHOTOLITH OPERATOR (CURRENT) USE OF ASPIRIN 01/02/2017 VIOLA PAK MD Ot Z87.891 PERSONAL HISTORY OF NICOTINE DEPENDENCE 01/02/2017 VIOLA PAK MD Ot Z90.710 ACQUIRED ABSENCE OF BOTH CERVIX AND UTER 01/04/2017 WALLY ARAM L APPLIQUER ZIGZAG Ot K21.9 GASTRO-ESOPHAGEAL REFLUX DISEASE WITHOUT 01/04/2017 Ot Z01.812 EN COUNTER FOR PREPROCEDURAL LABORATORY E 01/04/2017 CATHLEEN WESTBROOK [...] R07.89 OTHER CHEST PAIN 01/04/2017 CONSTANCE PYLE APPLIQUER ZIGZAG Ot E04.1 NONTOXIC SINGLE THYROID NODULE 01/04/2017 RADHA GARY MD Ot G35 MULTIPLE SCLEROSIS 01/04/2017 RADHA GARY MD Ot G35 MULTIPLE SCLEROSIS 01/04/2017 CONSTANCE PYLE APPLIQUER ZIGZAG Ot Z12.31 ENCNTR SCREEN MAMMOGRAM FOR MALIGNANT NE 01/05/2017 VIOLA PAK MD Ot F32 .9 MAJOR DEPRESSIVE DISORDER, SINGLE EPISOD 01/05/2017 VIOLA PAK MD Ot F41 .0 PANIC DISORDER WITHOUT AGORAPHOBIA 01/05/2017 VIOLA PAK MD Ot G35 MULTIPLE SCLEROSIS 01/05/2017 VIOLA PAK MD Ot G43.909 MIGRAINE, UNSP, NOT INTRACTABLE, WITHOUT 01/05/2017 VIOLA PAK MD Ot I10 ESSENTIAL (PRIMARY) HYPERTENSION 01/05/2017 VIOLA PAK MD Ot M47 .9 SPONDYLOSIS, UNSPECIFIED 01/05/2017 VIOLA PAK MD Ot R53.83 OTHER FATIGUE 01/05/2017 VIOLA PAK MD Ot Z79.82 PHOTOLITH OPERATOR (CURRENT) USE OF ASPIRIN 01/05/2017 VIOLA PAK MD Ot Z87.891 PERSONAL HISTORY OF NICOTINE DEPENDENCE 01/05/2017 VIOLA PAK MD Ot Z90.710 ACQUIRED ABSENCE OF BOTH CERVIX AND UTER 2017 VIOLA PAK MD Ot G35 MULTIPLE SCLEROSIS 03/13/2017 VIOLA PAK MD, Ot G35 MULTIPLE SCLEROSIS 08/01/2017 ARAM LO APRN Ot K21.9 GASTRO-ESOPHAGEAL REFLUX DISEASE WITHOUT 08/01/2017 Ot Z01.812 EN COUNTER FOR PREPROCEDURAL LABORATORY E 08/01/2017 CATHLEEN WESTBROOK [...] Ot G35 MULTIPLE SCLEROSIS 08/01/2017 CONSTANCE PYLE APPLIQUER ZIGZAG Ot Z12.31 ENCNTR SCREEN MAMMOGRAM FOR MALIGNANT NE 08/01/2017 EUGENIO WESTBROOK, ELVIA Gregg Ot E04.1 NONTOXIC SINGLE THYROID NODULE 08/01/2017 EUGENIO WESTBROOK, ELVIA Gregg Ot R53.83 OTHER FATIGUE 08/01/2017 PASHA WESTBROOK, VIOLA Mercedes Ot G35 MULTIPLE SCLEROSIS 08/04/2017 RADHA GARY MD Ot G35 MULTIPLE SCLEROSIS 08/17/2017 CONSTANCE PYLE APPLIQUER ZIGZAG Ot M48.07 SPINAL STENOSIS, LUMBOSACRAL REGION 08/17/2017 CONSTANCE PYLE N APPLIQUER ZIGZAG Ot M51.27 OTHER INTERVERTEBRAL DISC DISPLACEMENT, 08/17/2017 PATRICK ASHBISI N APPLIQUER ZIGZAG Ot M48.07 SPINAL STENOSIS, LUMBOSACRAL REGION 08/17/2017 PYLE ASHBISI N APPLIQUER ZIGZAG Ot M51.27 OTHER INTERVERTEBRAL DISC DISPLACEMENT, 08/20/2017 CONSTANCE PYLE APPLIQUER ZIGZAG Ot M48.07 SPINAL STENOSIS, LUMBOSACRAL REGION 08/20/2017 PATRICK ASHBISI N APPLIQUER ZIGZAG Ot M51.37 OTHER INTERVERTEBRAL DISC DEGENERATION, 09/01/2017 RADHA GARY MD Ot G35 MULTIPLE SCLEROSIS 09/08/2017 CONSTANCE PYLE N APPLIQUER ZIGZAG Ot M48.07 SPINAL STENOSIS, LUMBOSACRAL REGION 09/08/2017 PATRICK ASHDEN N APPLIQUER ZIGZAG Ot M51.37 OTHER INTERVERTEBRAL DISC DEGENERATION, 09/09/2017 PATRICK ASHBISI N APPLIQUER ZIGZAG Ot M48.07 SPINAL STENOSIS, LUMBOSACRAL REGION 09/09/2017 PATRICK ASHBISI N APPLIQUER ZIGZAG Ot M51.37 OTHER INTERVERTEBRAL DISC DEGENERATION, 09/09/2017 PATRICK ASHBISI N APPLIQUER ZIGZAG Ot M48.07 SPINAL STENOSIS, LUMBOSACRAL REGION 09/09/2017 CONSTANCE PLYE N APPLIQUER ZIGZAG Ot M51.37 OTHER INTERVERTEBRAL DISC DEGENERATION, 09/22/2017 CONSTANCE PYLE APPLIQUER ZIGZAG Ot E78.5 HYPERLIPIDEMIA, UNSPECIFIED 09/22/2017 CONSTANCE PYLE N APPLIQUER ZIGZAG Ot Z00.00 ENCNTR FOR GENERAL ADULT MEDICAL EXAM W/ 10/08/2017 ARAM LO APPLIQUER ZIGZAG Ot K21.9 GASTRO-ESOPHAGEAL REFLUX DISEASE WITHOUT 10/08/2017 Ot Z01.812 EN COUNTER FOR PREPROCEDURAL LABORATORY E 10/08/2017 CATHLEEN WESTBROOK FACC, ADDIE CHAVIS CCDS Ot I49.3 VENTRICULAR PREMATURE DEPOLARIZATION 10/08/2017 CATHLEEN WESTBROOK FACC, ADDIE CHAVIS CCDS Ot M19.90 UNSPECIFIED OSTEOARTHRITIS, UNSPECIFIED 10/08/[address] [facility], ALI FACP CCDS Ot R06.02 SHORTNESS OF BREATH 10/08/2017 CATHLEEN WESTBROOK FAC, ALI FACP CCDS Ot R07.89 OTHER CHEST PAIN 10/08/2017 CATHLEEN WESTBROOK FAC, ALI FACP CCDS Ot I49.3 VENTRICULAR PREMATURE DEPOLARIZATION 10/08/2017 CATHLEEN WESTBROOK FAC, ALI FACP CCDS Ot M19.90 UNSPECIFIED OSTEOARTHRITIS, UNSPECIFIED 10/08/[address] [facility], ALI FACP CCDS Ot R06.02 SHORTNESS OF BREATH 10/08/[address] [facility], ALI FACP CCDS Ot R07.89 OTHER CHEST PAIN 10/08/2017 CONSTANCE PYLE APPLIQUER ZIGZAG Ot E04.1 NONTOXIC SINGLE THYROID NODULE 10/08/2017 RADHA GARY MD Ot G35 MULTIPLE SCLEROSIS 10/08/2017 RADHA GARY MD Ot G35 MULTIPLE SCLEROSIS 10/08/2017 CONSTANCE PYLE APRN Ot Z12.31 ENCNTR SCREEN MAMMOGRAM FOR MALIGNANT NE 10/08/2017 EUGENIO WESTBROOK, ELVIA Gregg Ot E04.1 NONTOXIC SINGLE THYROID NODULE 10/08/2017 EUGENIO WESTBROOK, ELVIA Gregg Ot R53.83 OTHER FATIGUE 10/08/2017 VIOLA PAK MD Ot G35 MULTIPLE SCLEROSIS 10/08/2017 RADHA GARY MD Ot G35 MULTIPLE SCLEROSIS 10/08/2017 CONSTANCE PYLE APRN Ot M48.07 SPINAL STENOSIS, LUMBOSACRAL REGION 10/08/2017 CONSTANCE PYLE APPLIQUER ZIGZAG Ot M51.37 OTHER INTERVERTEBRAL DISC DEGENERATION, 10/08/2017 VIOLA PAK MD Ot E03 .9 HYPOTHYROIDISM, UNSPECIFIED 10/08/2017 VIOLA PAK MD Ot F32 .9 MAJOR DEPRESSIVE DISORDER, SINGLE EPISOD 10/08/2017 VIOLA PAK MD Ot F41 .0 PANIC DISORDER [EPISODIC PAROXYSMAL ANXI 10/08/2017 VIOLA PAK MD Ot G35 MULTIPLE SCLEROSIS 10/08/2017 VIOLA PAK MD Ot G43.909 MIGRAINE, UNSP, NOT INTRACTABLE, WITHOUT 10/08/2017 VIOLA PAK MD Ot I10 ESSENTIAL (PRIMARY) HYPERTENSION 10/08/2017 VIOLA PAK MD Ot K21 .9 GASTRO-ESOPHAGEAL REFLUX DISEASE WITHOUT 10/08/2017 VIOLA PAK MD, Ot Z79.52 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 (CURRENT) USE OF SYSTEMIC STER 10/08/2017 VIOLA PAK MD Ot Z79.82 [facility] (CURRENT) USE OF ASPIRIN 10/08/2017 VIOLA PAK MD, Ot Z82.49 FAMILY HX OF ISCHEM HEART DIS AND OTH DI 10/08/2017 VIOLA PAK MD Ot Z87.19 PERSONAL HISTORY OF OTHER DISEASES OF TH 10/08/2017 VIOLA PAK MD Ot Z87.891 PERSONAL HISTORY OF NICOTINE DEPENDENCE 10/08/2017 VIOLA PAK MD, Ot Z88 .8 ALLERGY STATUS TO [facility] DRUG/MEDS/BIOL SUB 10/08/2017 VIOLA PAK MD, Ot Z90.710 ACQUIRED ABSENCE OF BOTH CERVIX AND UTER 10/08/2017 VIOLA PAK MD Ot Z98.84 BARIATRIC SURGERY STATUS 10/11/2017 VIOLA PAK MD Ot E03 .9 HYPOTHYROIDISM, UNSPECIFIED 10/11/2017 VIOLA PAK MD Ot F32 .9 MAJOR DEPRESSIVE DISORDER, SINGLE EPISOD 10/11/2017 VIOLA PAK MD Ot F41 .0 PANIC DISORDER [EPISODIC PAROXYSMAL ANXI 10/11/2017 VIOLA PAK MD Ot G35 MULTIPLE SCLEROSIS 10/11/2017 VIOLA PAK MD, Ot G43.909 MIGRAINE, UNSP, NOT INTRACTABLE, WITHOUT 10/11/2017 VIOLA PAK MD Ot I10 ESSENTIAL (PRIMARY) HYPERTENSION 10/11/2017 VIOLA PAK MD, Ot K21 .9 GASTRO-ESOPHAGEAL REFLUX DISEASE WITHOUT 10/11/2017 VIOLA PAK MD, Ot Z79.52 [facility] (CURRENT) USE OF SYSTEMIC STER 10/11/2017 VIOLA PAK MD Ot Z79.82 PHOTOLITH OPERATOR (CURRENT) USE OF ASPIRIN 10/11/2017 VIOLA PAK MD, Ot Z82.49 FAMILY HX OF ISCHEM HEART DIS AND OTH DI 10/11/2017 VIOLA PAK MD, Ot Z87.19 PERSONAL HISTORY OF OTHER DISEASES OF TH 10/11/2017 VIOLA PAK MD, Ot Z87.891 PERSONAL HISTORY OF NICOTINE DEPENDENCE 10/11/2017 VIOLA PAK MD Ot Z88 .8 ALLERGY STATUS TO [facility] DRUG/MEDS/BIOL SUB 10/11/2017 VIOLA PAK MD Ot Z90.710 ACQUIRED ABSENCE OF BOTH CERVIX AND UTER 10/11/2017 VIOLA PAK MD Ot Z98.84 BARIATRIC SURGERY STATUS 01/07/2018 RADHA GARY MD Ot G35 MULTIPLE SCLEROSIS 01/07/2018 RADHA GARY MD Ot 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, UNSPECIFIED 01/07/2018 RADHA GARY MD Ot G35 MULTIPLE SCLEROSIS 01/07/2018 RADHA GARY MD Ot 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, UNSPECIFIED 01/10/2018 CONSTANCE PYLE APPLIQUER ZIGZAG Ot E55.9 VITAMIN D DEFICIENCY, UNSPECIFIED 01/10/2018 CONSTANCE PYLE APPLIQUER ZIGZAG Ot E78.5 HYPERLIPIDEMIA, UNSPECIFIED 01/10/2018 CONSTANCE PYLE APPLIQUER ZIGZAG Ot R53.83 OTHER FATIGUE 02/22/2018 Ot S82.142A D ISPLACED BICONDYLAR FRACTURE OF LEFT TI 02/22/2018 Ot W18.39XA O THER FALL ON SAME LEVEL, INITIAL ENCOUN 02/24/2018 ARAM LO APPLIQUER ZIGZAG Ot K21.9 GASTRO-ESOPHAGEAL REFLUX DISEASE WITHOUT 02/24/2018 Ot Z01.812 EN COUNTER FOR PREPROCEDURAL LABORATORY E 02/24/2018 CATHLEEN WESTBROOK [...] R07.89 OTHER CHEST PAIN 02/24/2018 CONSTANCE PYLE APRN Ot E04.1 NONTOXIC SINGLE THYROID NODULE 02/24/2018 [...] MULTIPLE SCLEROSIS 02/24/2018 RADHA GARY MD Ot 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, UNSPECIFIED 02/24/2018 CONSTANCE PYLE APRN Ot E55.9 VITAMIN D DEFICIENCY, UNSPECIFIED 02/24/2018 CONSTANCE PYLE APRN Ot E78.5 HYPERLIPIDEMIA, UNSPECIFIED 02/24/2018 CONSTANCE PYLE APRN Ot R53.83 OTHER FATIGUE 02/24/2018 Ot S82.142A D ISPLACED BICONDYLAR FRACTURE OF LEFT TI 02/24/2018 Ot W18.39XA O THER FALL ON SAME LEVEL, INITIAL ENCOUN 02/25/2018 [...] VITAMIN D DEFICIENCY, UNSPECIFIED 03/23/2018 LETY MCKEON APPLIQUER ZIGZAG Ot R53.83 OTHER FATIGUE 03/23/2018 LETY MCKEON APPLIQUER ZIGZAG Ot R73.03 PREDIABETES 04/18/2018 RADHA GARY MD Ot G35 MULTIPLE SCLEROSIS 07/07/2018 ARAM LO APPLIQUER ZIGZAG Ot K21.9 GASTRO-ESOPHAGEAL REFLUX DISEASE WITHOUT 07/07/2018 Ot Z01.812 EN COUNTER FOR PREPROCEDURAL LABORATORY E 07/07/2018 CATHLEEN WESTBROOK FACC, ALI FACP CCDS Ot I49.3 VENTRICULAR PREMATURE DEPOLARIZATION 07/07/2018 CATHLEEN WESTBROOK FACC, ALI FACP CCDS Ot M19.90 UNSPECIFIED OSTEOARTHRITIS, UNSPECIFIED 07/07/2018 CATHLEEN WESTBROOK FACC, ALI FACP CCDS Ot R06.02 SHORTNESS OF BREATH 07/07/2018 CATHLEEN WESTBROOK FACC, ALI FACP CCDS Ot R07.89 OTHER CHEST PAIN 07/07/2018 CATHLEEN WESTBROOK FACC, ALI FACP CCDS Ot I49.3 VENTRICULAR PREMATURE DEPOLARIZATION 07/07/2018 CATHLEEN WESTBROOK FACC, ALI FACP CCDS Ot M19.90 UNSPECIFIED OSTEOARTHRITIS, UNSPECIFIED 07/07/2018 CATHLEEN WESTBROOK FACC, ALI FACP CCDS Ot R06.02 SHORTNESS OF BREATH 07/07/2018 CATHLEEN WESTBROOK FACC, ALI FACP CCDS Ot R07.89 OTHER CHEST PAIN 07/07/2018 CONSTANCE PYEL APPLIQUER ZIGZAG Ot E04.1 NONTOXIC SINGLE THYROID NODULE 07/07/2018 RADHA GARY MD Ot G35 MULTIPLE SCLEROSIS 07/07/2018 RADHA GARY MD Ot G35 MULTIPLE SCLEROSIS 07/07/2018 CONSTANCE PYLE APPLIQUER ZIGZAG Ot Z12.31 ENCNTR SCREEN MAMMOGRAM FOR MALIGNANT NE 07/07/2018 EUGENIO WESTBROOK, ELVIA Gregg Ot E04.1 NONTOXIC SINGLE THYROID NODULE 07/07/2018 EUGENIO WESTBROOK, ELVIA Gregg Ot R53.83 OTHER FATIGUE 07/07/2018 PASHA WESTBROOK, VIOLA Mercedes Ot G35 MULTIPLE SCLEROSIS 07/07/2018 RADHA GARY MD Ot G35 MULTIPLE SCLEROSIS 07/07/2018 CONSTANCE PYLE APPLIQUER ZIGZAG Ot M48.07 SPINAL STENOSIS, LUMBOSACRAL REGION 07/07/2018 CONSTNACE PYLE APPLIQUER ZIGZAG Ot M51.37 OTHER INTERVERTEBRAL DISC DEGENERATION, 07/07/2018 RADHA GARY MD Ot G35 MULTIPLE SCLEROSIS 07/07/2018 RADHA GARY MD Ot 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, UNSPECIFIED 07/07/2018 CONSTANCE PYLE APPLIQUER ZIGZAG Ot E55.9 VITAMIN D DEFICIENCY, UNSPECIFIED 07/07/2018 CONSTANCE PYLE APPLIQUER ZIGZAG Ot E78.5 HYPERLIPIDEMIA, UNSPECIFIED 07/07/2018 CONSTANCE PYLE APPLIQUER ZIGZAG Ot R53.83 OTHER FATIGUE 07/07/2018 Ot S82.142A D ISPLACED BICONDYLAR FRACTURE OF LEFT TI 07/07/2018 Ot W18.39XA O THER FALL ON SAME LEVEL, INITIAL ENCOUN 07/07/2018 LETY MCKEON APPLIQUER ZIGZAG Ot S82.145A NONDISPLACED BICONDYLAR FRACTURE OF LEFT 07/07/2018 LETY MCKEON APPLIQUER ZIGZAG Ot W01.0XXA FALL SAME LEV FROM SLIP/TRIP W/O STRIKE 07/07/2018 LETY MCKEON APRN Ot D51.9 VITAMIN B12 DEFICIENCY ANEMIA, UNSPECIFI 07/07/2018 LETY MCKEON APPLIQUER ZIGZAG Ot E55.9 VITAMIN D DEFICIENCY, UNSPECIFIED 07/07/2018 LETY MCKEON APPLIQUER ZIGZAG Ot R53.83 OTHER FATIGUE 07/07/2018 LETY MCKEON APPLIQUER ZIGZAG Ot R73.03 PREDIABETES 07/08/2018 ARAM LO APPLIQUER ZIGZAG Ot K21.9 GASTRO-ESOPHAGEAL REFLUX DISEASE WITHOUT 07/08/2018 Ot Z01.812 EN COUNTER FOR PREPROCEDURAL LABORATORY E 07/08/2018 CATHLEEN WESTBROOK FACC, ADDIE FACP CCDS Ot I49.3 VENTRICULAR PREMATURE DEPOLARIZATION 07/08/2018 CATHLEEN WESTBROOK FACC, ADDIE FACP CCDS Ot M19.90 UNSPECIFIED OSTEOARTHRITIS, UNSPECIFIED 07/08/2018 CATHLEEN WESTBROOK FACC, ALI FACP CCDS Ot R06.02 SHORTNESS OF BREATH 07/08/2018 CATHLEEN WESTBROOK FACC, ADDIE FACP CCDS Ot R07.89 OTHER CHEST PAIN 07/08/2018 CATHLEEN WESTBROOK FACC, ADDIE FACP CCDS Ot I49.3 VENTRICULAR PREMATURE DEPOLARIZATION 07/08/2018 CATHLEEN WESTBROOK FACC, ADDIE FACP CCDS Ot M19.90 UNSPECIFIED OSTEOARTHRITIS, UNSPECIFIED 07/08/2018 CATHLEEN MD FACC, ALI FACP CCDS Ot R06.02 SHORTNESS OF BREATH 07/08/2018 CATHLEEN WESTBROOK FAC, ALI FACP CCDS Ot R07.89 OTHER CHEST PAIN 07/08/2018 CONSTANCE PYLE APRN Ot E04.1 NONTOXIC SINGLE THYROID NODULE 07/08/2018 RADHA GARY MD Ot G35 MULTIPLE SCLEROSIS 07/08/2018 RADHA GARY MD, Ot G35 MULTIPLE SCLEROSIS 07/08/2018 CONSTANCE PYLE APRN Ot Z12.31 ENCNTR SCREEN MAMMOGRAM FOR MALIGNANT NE 07/08/2018 EUGENIO WESTBROOK, ELVIA Gregg Ot E04.1 NONTOXIC SINGLE THYROID NODULE 07/08/2018 ELVIA BECKER MD Ot R53.83 OTHER FATIGUE 07/08/2018 PASHA WESTBROOK, VIOLA Mercedes Ot G35 MULTIPLE SCLEROSIS 07/08/2018 RADHA GARY MD, Ot G35 MULTIPLE SCLEROSIS 07/08/2018 CONSTANCE PYLE APRN Ot M48.07 SPINAL STENOSIS, LUMBOSACRAL REGION 07/08/2018 CONSTANCE PYLE APRN Ot M51.37 OTHER INTERVERTEBRAL DISC DEGENERATION, 07/08/2018 RADHA GARY MD Ot G35 MULTIPLE SCLEROSIS 07/08/2018 RADHA GARY MD Ot 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, UNSPECIFIED 07/08/2018 CONSTANCE PYLE APRN Ot E55.9 VITAMIN D DEFICIENCY, UNSPECIFIED 07/08/2018 CONSTANCE PYLE APRN Ot E78.5 HYPERLIPIDEMIA, UNSPECIFIED 07/08/2018 CONSTANCE PYLE APRN Ot R53.83 OTHER FATIGUE 07/08/2018 Ot S82.142A D ISPLACED BICONDYLAR FRACTURE OF LEFT TI 07/08/2018 Ot W18.39XA O THER FALL ON SAME LEVEL, INITIAL ENCOUN 07/08/2018 LETY MCKEON APRN Ot S82.145A NONDISPLACED BICONDYLAR FRACTURE OF LEFT 07/08/2018 LETY MCKEON APRN Ot W01.0XXA FALL SAME LEV FROM SLIP/TRIP W/O STRIKE 07/08/2018 LETY MCKEON APRN Ot D51.9 VITAMIN B12 DEFICIENCY ANEMIA, UNSPECIFI 07/08/2018 LETY MCKEON APRN Ot E55.9 VITAMIN D DEFICIENCY, UNSPECIFIED 07/08/2018 LETY MCKEON APRN Ot R53.83 OTHER FATIGUE 07/08/2018 LETY MCKEON APPLIQUER ZIGZAG Ot R73.03 PREDIABETES 08/08/2018 PASHA WESTBROOK, VIOLA Mercedes Ot G35 MULTIPLE SCLEROSIS 08/08/2018 TANIYA DICKSON MD Ot Z01.818 ENCOUNTER FOR OTHER PREPROCEDURAL EXAMIN 08/09/2018 TANIYA DICKSON MD Ot Z01.818 ENCOUNTER FOR OTHER PREPROCEDURAL EXAMIN 08/14/2018 TANIYA DICKSON MD Ot Z01.818 ENCOUNTER FOR OTHER PREPROCEDURAL EXAMIN 08/15/2018 TANIYA DICKSON MD Ot E03.9 HYPOTHYROIDISM, UNSPECIFIED 08/15/2018 TANIYA DICKSON MD Ot F32.9 MAJOR DEPRESSIVE DISORDER, SINGLE EPISOD 08/15/2018 TANIYA DICKSON MD Ot F41.0 PANIC DISORDER [EPISODIC PAROXYSMAL ANXI 08/15/2018 TANIYA DICKSON MD, Ot G3 5 MULTIPLE SCLEROSIS 08/15/2018 TANIYA DICKSON MD Ot I1 0 ESSENTIAL (PRIMARY) HYPERTENSION 08/15/2018 TANIYA DICKSON MD Ot K57.30 DVRTCLOS OF LG INT W/O PERFORATION OR AB 08/15/2018 TANIYA DICKSON MD Ot Z12.11 ENCOUNTER FOR SCREENING FOR MALIGNANT NE 08/15/2018 TANIYA DICKSON MD Ot Z79.899 OTHER PHOTOLITH OPERATOR (CURRENT) DRUG THERAPY 08/15/2018 TANIYA DICKSON MD Ot Z80.0 FAMILY HISTORY OF MALIGNANT NEOPLASM OF 08/15/2018 TANIYA DICKSON MD Ot Z87.891 PERSONAL HISTORY OF NICOTINE DEPENDENCE 08/16/2018 TANIYA DICKSON MD Ot E03.9 HYPOTHYROIDISM, UNSPECIFIED 08/16/2018 TANIYA DICKSON MD Ot F32.9 MAJOR DEPRESSIVE DISORDER, SINGLE EPISOD 08/16/2018 TANIYA DICKSON MD Ot F41.0 PANIC DISORDER [EPISODIC PAROXYSMAL ANXI 08/16/2018 TANIYA DICKSON MD, Ot G3 5 MULTIPLE SCLEROSIS 08/16/2018 TANIYA DICKSON MD Ot I1 0 ESSENTIAL (PRIMARY) HYPERTENSION 08/16/2018 TANIYA DICKSON MD Ot K57.30 DVRTCLOS OF LG INT W/O PERFORATION OR AB 08/16/2018 TANIYA DICKSON MD Ot Z12.11 ENCOUNTER FOR SCREENING FOR MALIGNANT NE 08/16/2018 TANIYA DICKSON MD Ot Z79.899 OTHER [facility] (CURRENT) DRUG THERAPY 08/16/2018 TANIYA DICKSON MD Ot Z80.0 FAMILY HISTORY OF MALIGNANT NEOPLASM OF 08/16/2018 TANIYA DICKSON MD Ot Z87.891 PERSONAL HISTORY OF NICOTINE DEPENDENCE 08/16/2018 TANIYA DICKSON MD Ot E03.9 HYPOTHYROIDISM, UNSPECIFIED 08/16/2018 TANIYA DICKSON MD Ot F32.9 MAJOR DEPRESSIVE DISORDER, SINGLE EPISOD 08/16/2018 TANIYA DICKSON MD Ot F41.0 PANIC DISORDER [EPISODIC PAROXYSMAL ANXI 08/16/2018 TANIYA DICKSON MD Ot G3 5 MULTIPLE SCLEROSIS 08/16/2018 TANIYA DICKSON MD Ot I1 0 ESSENTIAL (PRIMARY) HYPERTENSION 08/16/2018 TANIYA DICKSON MD Ot K57.30 DVRTCLOS OF LG INT W/O PERFORATION OR AB 08/16/2018 TANIYA DICKSON MD Ot Z12.11 ENCOUNTER FOR SCREENING FOR MALIGNANT NE 08/16/2018 TANIYA DICKSON MD Ot Z79.899 OTHER [facility] (CURRENT) DRUG THERAPY 08/16/2018 TANIYA DICKSON MD Ot Z80.0 FAMILY HISTORY OF MALIGNANT NEOPLASM OF 08/16/2018 TANIYA DICKSON MD Ot Z87.891 PERSONAL HISTORY OF NICOTINE DEPENDENCE 08/18/2018 TANIYA DICKSON MD Ot E03.9 HYPOTHYROIDISM, UNSPECIFIED 08/18/2018 TANIYA DICKSON MD Ot F32.9 MAJOR DEPRESSIVE DISORDER, SINGLE EPISOD 08/18/2018 TANIYA DICKSON MD Ot F41.0 PANIC DISORDER [EPISODIC PAROXYSMAL ANXI 08/18/2018 TANIYA DICKSON MD Ot G3 5 MULTIPLE SCLEROSIS 08/18/2018 TANIYA DICKSON MD Ot I1 0 ESSENTIAL (PRIMARY) HYPERTENSION 08/18/2018 TANIYA DICKSON MD Ot K57.30 DVRTCLOS OF LG INT W/O PERFORATION OR AB 08/18/2018 TANIYA DICKSON MD Ot Z12.11 ENCOUNTER FOR SCREENING FOR MALIGNANT NE 08/18/2018 TANIYA DICKSON MD Ot Z79.899 OTHER [facility] (CURRENT) DRUG THERAPY 08/18/2018 RANDOLPH WESTBROOK, TANIYA Merritt Ot Z80.0 FAMILY HISTORY OF MALIGNANT NEOPLASM OF 08/18/2018 RANDOLPH WESTBROOK, TANIYA Merritt Ot Z87.891 PERSONAL HISTORY OF NICOTINE DEPENDENCE 09/05/2018 RADHA GARY MD Ot G35 MULTIPLE SCLEROSIS 11/10/2018 ARAM LO APPLIQUER ZIGZAG Ot K21.9 GASTRO-ESOPHAGEAL REFLUX DISEASE WITHOUT 11/10/2018 Ot Z01.812 EN COUNTER FOR PREPROCEDURAL LABORATORY E 11/10/2018 CATHLEEN WESTBROOK FACC, ALI FACP CCDS Ot I49.3 VENTRICULAR PREMATURE DEPOLARIZATION 11/10/2018 CATHLEEN WESTBROOK FACC, ALI FACP CCDS Ot M19.90 UNSPECIFIED OSTEOARTHRITIS, UNSPECIFIED 11/10/2018 CATHLEEN WESTBROOK FACC, ALI FACP CCDS Ot R06.02 SHORTNESS OF BREATH 11/10/2018 CATHLEEN WESTBROOK FACC, ALI FACP CCDS Ot R07.89 OTHER CHEST PAIN 11/10/2018 CATHLEEN WESTBROOK FACC, ALI FACP CCDS Ot I49.3 VENTRICULAR PREMATURE DEPOLARIZATION 11/10/2018 CATHLEEN WESTBROOK FAC, ALI FACP CCDS Ot M19.90 UNSPECIFIED OSTEOARTHRITIS, UNSPECIFIED 11/10/2018 CATHLEEN WESTBROOK FACC, ALI FACP CCDS Ot R06.02 SHORTNESS OF BREATH 11/10/2018 CATHLEEN WESTBROOK FAC, ALI FACP CCDS Ot R07.89 OTHER CHEST PAIN 11/10/2018 CONSTANCE PYLE APPLIQUER ZIGZAG Ot E04.1 NONTOXIC SINGLE THYROID NODULE 11/10/2018 RADHA GARY MD Ot G35 MULTIPLE SCLEROSIS 11/10/2018 RADHA GARY MD Ot G35 MULTIPLE SCLEROSIS 11/10/2018 CONSTANCE PYLE APPLIQUER ZIGZAG Ot Z12.31 ENCNTR SCREEN MAMMOGRAM FOR MALIGNANT NE 11/10/2018 ELVIA BECKER MD Ot E04.1 NONTOXIC SINGLE THYROID NODULE 11/10/2018 ELVIA BECKER MD Ot R53.83 OTHER FATIGUE 11/10/2018 VIOLA PAK MD Ot G35 MULTIPLE SCLEROSIS 11/10/2018 RADHA GARY MD Ot G35 MULTIPLE SCLEROSIS 11/10/2018 CONSTANCE PYLE APPLIQUER ZIGZAG Ot M48.07 SPINAL STENOSIS, LUMBOSACRAL REGION 11/10/2018 CONSTANCE PYLE APPLIQUER ZIGZAG Ot M51.37 OTHER INTERVERTEBRAL DISC DEGENERATION, 11/10/2018 RADHA GARY MD Ot G35 MULTIPLE SCLEROSIS 11/10/2018 RADHA GARY MD Ot 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, UNSPECIFIED 11/10/2018 PATRICK MISAELBISI Vale APPLIQUER ZIGZAG Ot E55.9 VITAMIN D DEFICIENCY, UNSPECIFIED 11/10/2018 PATRICK MISAELBISI Vale APPLIQUER ZIGZAG Ot E78.5 HYPERLIPIDEMIA, UNSPECIFIED 11/10/2018 CONSTANCE PYLE APPLIQUER ZIGZAG Ot R53.83 OTHER FATIGUE 11/10/2018 Ot S82.142A D ISPLACED BICONDYLAR FRACTURE OF LEFT TI 11/10/2018 Ot W18.39XA O THER FALL ON SAME LEVEL, INITIAL ENCOUN 11/10/2018 LETY MCKEON APPLIQUER ZIGZAG Ot S82.145A NONDISPLACED BICONDYLAR FRACTURE OF LEFT 11/10/2018 LETY MCKEON APRN Ot W01.0XXA FALL SAME LEV FROM SLIP/TRIP W/O STRIKE 11/10/2018 LETY MCKEON APPLIQUER ZIGZAG Ot D51.9 VITAMIN B12 DEFICIENCY ANEMIA, UNSPECIFI 11/10/2018 LETY MCKEON APPLIQUER ZIGZAG Ot E55.9 VITAMIN D DEFICIENCY, UNSPECIFIED 11/10/2018 LETY MCKEON APPLIQUER ZIGZAG Ot R53.83 OTHER FATIGUE 11/10/2018 LETY MCKEON APPLIQUER ZIGZAG Ot R73.03 PREDIABETES 11/10/2018 RADHA GARY MD Ot G35 MULTIPLE SCLEROSIS 11/10/2018 HUNTER SANCHEZ MD Ot E03. 9 HYPOTHYROIDISM, UNSPECIFIED 11/10/2018 HUNTER SANCHEZ MD Ot F32. 9 MAJOR DEPRESSIVE DISORDER, SINGLE EPISOD 11/10/2018 HUNTER SANCHEZ MD Ot F41. 0 PANIC DISORDER [EPISODIC PAROXYSMAL ANXI 11/10/2018 HUNTER SANCHEZ MD Ot G35 MULTIPLE SCLEROSIS 11/10/2018 HUNTER SANCHEZ MD Ot G43.909 MIGRAINE, UNSP, NOT INTRACTABLE, WITHOUT 11/10/2018 HUNTER SANCHEZ MD Ot G56. 01 CARPAL TUNNEL SYNDROME, RIGHT UPPER LIMB 11/10/2018 HUNTER SANCHEZ MD Ot I10 ESSENTIAL (PRIMARY) HYPERTENSION 11/10/2018 HUNTER SANCHEZ MD Ot L03.113 CELLULITIS OF RIGHT UPPER LIMB 11/10/2018 HUNTER SANCHEZ MD Ot S60.861A INSECT BITE (NONVENOMOUS) OF RIGHT WRIST 11/10/2018 HUNTER SANCHEZ MD Ot W57.XXXA BIT/STUNG BY NONVENOM INSECT OTH NONVE 11/10/2018 HUNTER SANCHEZ MD Ot Z82. 49 FAMILY HX OF ISCHEM HEART DIS AND OTH DI 11/10/2018 HUNTER SANCHEZ MD Ot Z87. 19 PERSONAL HISTORY OF OTHER DISEASES OF 11/10/2018 HUNTER SANCHEZ MD Ot Z87.891 PERSONAL HISTORY OF NICOTINE DEPENDENCE 11/10/2018 HUNTER SANCHEZ MD Ot Z88. 8 ALLERGY STATUS TO [facility] DRUG/MEDS/BIOL SUB 11/10/2018 HUNTER SANCHEZ MD Ot Z90.710 ACQUIRED ABSENCE OF BOTH CERVIX AND UTER 11/10/2018 HUNTER SANCHEZ MD Ot Z98. 84 BARIATRIC SURGERY STATUS 11/16/2018 HUNTER SANCHEZ MD Ot E03. 9 HYPOTHYROIDISM, UNSPECIFIED 11/16/2018 HUNTER SANCHEZ MD Ot F32. 9 MAJOR DEPRESSIVE DISORDER, SINGLE EPISOD 11/16/2018 HUNTER SANCHEZ MD Ot F41. 0 PANIC DISORDER [EPISODIC PAROXYSMAL ANXI 11/16/2018 HUNTER SANCHEZ MD Ot G35 MULTIPLE SCLEROSIS 11/16/2018 HUNTER SANCHEZ MD Ot G43.909 MIGRAINE, UNSP, NOT INTRACTABLE, WITHOUT 11/16/2018 HUNTER SANCHEZ MD Ot G56. 01 CARPAL TUNNEL SYNDROME, RIGHT UPPER LIMB 11/16/2018 HUNTER SANCHEZ MD Ot I10 ESSENTIAL (PRIMARY) HYPERTENSION 11/16/2018 HUNTER SANCHEZ MD Ot L03.113 CELLULITIS OF RIGHT UPPER LIMB 11/16/2018 HUNTER SANCHEZ MD Ot S60.861A INSECT BITE (NONVENOMOUS) OF RIGHT WRIST 11/16/2018 HUNTER SANCHEZ MD Ot W57.XXXA BIT/STUNG BY NONVENOM INSECT OTH NONVE 11/16/2018 HUNTER SANCHEZ MD Ot Z82. 49 FAMILY HX OF ISCHEM HEART DIS AND OTH DI 11/16/2018 HUNTER SANCHZE MD Ot Z87. 19 PERSONAL HISTORY OF OTHER DISEASES OF 11/16/2018 HUNTER SANCHEZ MD Ot Z87.891 PERSONAL HISTORY OF NICOTINE DEPENDENCE 11/16/2018 HUNTER SANCHEZ MD Ot Z88. 8 ALLERGY STATUS TO [facility] DRUG/MEDS/BIOL SUB 11/16/2018 HUNTER SANCHEZ MD Ot Z90.710 ACQUIRED ABSENCE OF BOTH CERVIX AND UTER 11/16/2018 HUNTER SANCHEZ MD Ot Z98. 84 BARIATRIC SURGERY STATUS 11/30/2018 ARAM LO APRN Ot K21.9 GASTRO-ESOPHAGEAL REFLUX DISEASE WITHOUT 11/30/2018 Ot Z01.812 EN COUNTER FOR PREPROCEDURAL LABORATORY E 11/30/2018 CATHLEEN WESTBROOK FACC, ALI FACP CCDS Ot I49.3 VENTRICULAR PREMATURE DEPOLARIZATION 11/30/2018 CATHLEEN WESTBROOK FACC, ALI FACP CCDS Ot M19.90 UNSPECIFIED OSTEOARTHRITIS, UNSPECIFIED 11/30/2018 CATHLEEN WESTBROOK FACC, ALI FACP CCDS Ot R06.02 SHORTNESS OF BREATH 11/30/2018 CATHLEEN WESTBROOK FACC, ALI FACP CCDS Ot R07.89 OTHER CHEST PAIN 11/30/2018 CATHLEEN WESTBROOK FACC, ALI FACP CCDS Ot I49.3 VENTRICULAR PREMATURE DEPOLARIZATION 11/30/2018 CATHLEEN WESTBROOK FACC, ALI FACP CCDS Ot M19.90 UNSPECIFIED OSTEOARTHRITIS, UNSPECIFIED 11/30/2018 CATHLEEN WESTBROOK FACC, ALI FACP CCDS Ot R06.02 SHORTNESS OF BREATH 11/30/2018 CATHLEEN WESTBROOK FACC, ALI FACP CCDS Ot R07.89 OTHER CHEST PAIN 11/30/2018 CONSTANCE PYLE APRN Ot E04.1 NONTOXIC SINGLE THYROID NODULE 11/30/2018 RADHA GARY MD Ot G35 MULTIPLE SCLEROSIS 11/30/2018 RADHA GARY MD, Ot G35 MULTIPLE SCLEROSIS 11/30/2018 CONSTANCE PYLE APPLIQUER ZIGZAG Ot Z12.31 ENCNTR SCREEN MAMMOGRAM FOR MALIGNANT NE 11/30/2018 ELVIA BECKER MD Ot E04.1 NONTOXIC SINGLE THYROID NODULE 11/30/2018 ELVIA BECKER MD Ot R53.83 OTHER FATIGUE 11/30/2018 PASHA WESTBROOK, VIOLA Mercedes Ot G35 MULTIPLE SCLEROSIS 11/30/2018 ABDIRAHMAN MD, RADHA Ot G35 MULTIPLE SCLEROSIS 11/30/2018 CONSTANCE PYLE APRN Ot M48.07 SPINAL STENOSIS, LUMBOSACRAL REGION 11/30/2018 CONSTANCE PYLE APPLIQUER ZIGZAG Ot M51.37 OTHER INTERVERTEBRAL DISC DEGENERATION, 11/30/2018 RADHA GARY MD Ot G35 MULTIPLE SCLEROSIS 11/30/2018 RADHA GARY MD Ot 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, UNSPECIFIED 11/30/2018 CONSTANCE PYLE APRN Ot E55.9 VITAMIN D DEFICIENCY, UNSPECIFIED 11/30/2018 CONSTANCE PYLE APRN Ot E78.5 HYPERLIPIDEMIA, UNSPECIFIED 11/30/2018 CONSTANCE PYLE APPLIQUER ZIGZAG Ot R53.83 OTHER FATIGUE 11/30/2018 Ot S82.142A D ISPLACED BICONDYLAR FRACTURE OF LEFT TI 11/30/2018 Ot W18.39XA O THER FALL ON SAME LEVEL, INITIAL ENCOUN 11/30/2018 LETY MCKEON APRN Ot S82.145A NONDISPLACED BICONDYLAR FRACTURE OF LEFT 11/30/2018 LETY MCKEON APRN Ot W01.0XXA FALL SAME LEV FROM SLIP/TRIP W/O STRIKE 11/30/2018 LETY MCKEON APRN Ot D51.9 VITAMIN B12 DEFICIENCY ANEMIA, UNSPECIFI 11/30/2018 LETY MCKEON APRN Ot E55.9 VITAMIN D DEFICIENCY, UNSPECIFIED 11/30/2018 LETY MCKEON APPLIQUER ZIGZAG Ot R53.83 OTHER FATIGUE 11/30/2018 LETY MCKEON APRN Ot R73.03 PREDIABETES 11/30/2018 RADHA GARY MD Ot G35 MULTIPLE SCLEROSIS 03/16/2019 LETY MCKEON APRN Ot D51.1 VIT B12 DEFIC ANEMIA D/T SLCTV VIT B12 M 03/16/2019 LETY MCKEON APPLIQUER ZIGZAG Ot E03.8 OTHER SPECIFIED HYPOTHYROIDISM 03/16/2019 LETY MCKEON APRN Ot E55.9 VITAMIN D DEFICIENCY, UNSPECIFIED 03/16/2019 LETY MCKEON APPLIQUER ZIGZAG Ot E78.2 MIXED HYPERLIPIDEMIA 03/16/2019 LETY MCKEON APRN Ot G3 5 MULTIPLE SCLEROSIS 03/16/2019 LETY MCKEON APRN Ot I1 0 ESSENTIAL (PRIMARY) HYPERTENSION 11/25/2019 LINDA, LETY M APPLIQUER ZIGZAG Ot D51.1 VIT B12 DEFIC ANEMIA D/T SLCTV VIT B12 M 11/25/2019 LETY MCKEON APPLIQUER ZIGZAG Ot E03.8 OTHER SPECIFIED HYPOTHYROIDISM 11/25/2019 LETY MCKEON APPLIQUER ZIGZAG Ot E55.9 VITAMIN D DEFICIENCY, UNSPECIFIED 11/25/2019 LETY MCKEON APPLIQUER ZIGZAG Ot E78.2 MIXED HYPERLIPIDEMIA 11/25/2019 LETY MCKEON APPLIQUER ZIGZAG Ot G3 5 MULTIPLE SCLEROSIS 11/25/2019 LETY MCKEON APPLIQUER ZIGZAG Ot I1 0 ESSENTIAL (PRIMARY) HYPERTENSION 12/05/2019 PATRICK ASHDEN N APPLIQUER ZIGZAG Ot M48.07 SPINAL STENOSIS, LUMBOSACRAL REGION 12/05/2019 PATRICK ASHDEN N APPLIQUER ZIGZAG Ot M51.37 OTHER INTERVERTEBRAL DISC DEGENERATION, 12/06/2019 PATRICK ASHDEN N APPLIQUER ZIGZAG Ot M48.07 SPINAL STENOSIS, LUMBOSACRAL REGION 12/06/2019 PATRICK ASHDEN N APPLIQUER ZIGZAG Ot M51.37 OTHER INTERVERTEBRAL DISC DEGENERATION, 12/07/2019 PATRICK ASHDEN N APPLIQUER ZIGZAG Ot M48.07 SPINAL STENOSIS, LUMBOSACRAL REGION 12/07/2019 PATRICK ASHDEN N APPLIQUER ZIGZAG Ot M51.37 OTHER INTERVERTEBRAL DISC DEGENERATION, 12/10/[address] [facility], ALI FACP CCDS Ot I49.5 SICK SINUS SYNDROME 12/12/2019 CONSTANCE PYLE N APPLIQUER ZIGZAG Ot M48.07 SPINAL STENOSIS, LUMBOSACRAL REGION 12/12/2019 PATRICK ASHDEN N APPLIQUER ZIGZAG Ot M51.37 OTHER INTERVERTEBRAL DISC DEGENERATION, 12/12/2019 CATHLEEN WESTBROOK FAC, ALI FACP CCDS Ot I49.5 SICK SINUS SYNDROME 12/12/2019 PASHA [place], VIOLA Mercedes Ot G35 MULTIPLE SCLEROSIS 12/14/2019 CATHLEEN WESTBROOK FAC, ALI FACP CCDS Ot R00.1 BRADYCARDIA, UNSPECIFIED 12/14/2019 CATHLEEN WESTBROOK FACC, ALI FACP CCDS Ot R06.02 SHORTNESS OF BREATH 12/14/2019 CATHLEEN BELLC, ALI FACP CCDS Ot R53.1 WEAKNESS 12/14/2019 CATHLEEN BELLC, ALI FACP CCDS Ot R53.83 OTHER FATIGUE 12/29/2019 CATHLEEN BELLC, ALI FACP CCDS Ot I49.5 SICK SINUS SYNDROME 01/05/2020 CATHLEEN WESTBROOK FACC, ALI FACP CCDS Ot R00.1 BRADYCARDIA, UNSPECIFIED 01/05/[address] [facility] CCDS Ot R06.02 SHORTNESS OF BREATH 01/05/[address] [facility] CCDS Ot R53.1 WEAKNESS 01/05/[address] [facility] CCDS Ot R53.83 OTHER FATIGUE Procedures There is no data. Results Test [...] 56-134 Selenium, Serum or Plasma - 09/28/16 10: 40 SELENIUM, SERUM/PLASMA 115 UG/L 79-326 Copper, Serum or plasma - 09/28/16 10:40 COPPER, SERUM 118 UG/DL 72-166 Vitamin B7 (Biotin) - 09/28/16 10:40 VITAMIN B7 0.15 NG/ML 0.05-0.83 Vitamin B3 (Niacin) - 09/28/16 10:40 NICOTINAMIDE 5.6 NG/ML 5.2-72.1 NICOTINIC ACID <5.0 NG/ML 0.0-5.0 Automated blood complete blood count (he mogram) panel - 10/27/16 07:30 Blood leukocytes automated count (number/volume) 9.1 10*3/uL 4.3-11.0 Blood erythrocytes automated count (number/volume) 3.98 10*6/uL 4.35-5.85 Venous blood hemoglobin measurement (mass/volume) 13.6 g/dL 11.5-16.0 Blood hematocrit (volume fraction) 40 % 35-52 Automated erythrocyte mean corpuscular volume 99 [ foz_us] 80-99 Automated erythrocyte mean corpuscular h emoglobin (mass per erythrocyte) 34 pg 25-34 Automated erythrocyte mean corpuscular h emoglobin concentration measurement (mass/volume) 34 g/dL 32-36 Automated erythrocyte distribution width ratio 12. 9 % 10.0- 14.5 Automated blood platelet count (count/volume) 285 10*3/uL 130-400 Automated blood platelet mean volume measurement 9.6 [foz_us] 7.4-10.4 PT panel in platelet poor plasma by coag ulation assay - 10/27/16 07:30 Prothrombin time (PT) in platelet poor plasma by coagu lation assay 12.3 s 12.2-14.7 INR in platelet poor plasma or blood by coagulation as say 0.9 0.8-1.4 Activated partial thromboplastin time (a PTT) in platelet poor plasma bycoagulation assay - 10/27/16 07:30 Activated partial thromboplastin time (a PTT) in platelet poor plasma bycoagulation assay 24 s 24-35 Comprehensive metabolic panel - 10/27/16 07:30 Serum or plasma sodium measurement (moles/volume) 142 mmol/L 135-145 Serum or plasma potassium measurement (moles/volume) 3.7 mmol/L 3.6-5.0 Serum or plasma chloride measurement (moles/volume) 106 mmol/L 98-107 Carbon dioxide 29 mmol/L 21-32 Serum or plasma anion gap determination (moles/volume) 7 mmol/L 5-14 Serum or plasma urea nitrogen measurement (mass/volume ) 14 mg/dL 7-18 Serum or plasma creatinine measurement (mass/volume) 0.87 mg/dL 0.60-1.30 Serum or plasma urea nitrogen/creatinine mass ratio 16 NRG Serum or plasma creatinine measurement w ith calculation of estimated glomerular filtration rate > NRG Serum or plasma glucose measurement (mass/volume) 93 mg/dL 70-105 Serum or plasma calcium measurement (mass/volume) 9.7 mg/dL 8.5-10.1 Serum or plasma total bilirubin measurement (mass/volu me) 0.8 mg/dL 0.1-1.0 Serum or plasma alkaline phosphatase deanna surement (enzymatic activity/volume) 65 U/L 40-136 Serum or plasma aspartate aminotransfera se measurement (enzymatic activity/volume) 22 U/L 5-34 Serum or plasma alanine aminotransferase measurement (enzymatic activity/volume) 31 U/L 0-55 Serum or plasma protein measurement (mass/volume) 7.4 g/dL 6.4-8.2 Serum or plasma albumin measurement (mass/volume) 4.4 g/dL 3.2-4.5 Lipid 1996 panel - 10/27/16 07:30 Serum or plasma triglyceride measurement (mass/volume) 117 mg/dL <150 Serum or plasma cholesterol measurement (mass/volume) 243 mg/dL < 200 Serum or plasma cholesterol in HDL measurement (mass/v olume) 75 mg/dL 40-60 Cholesterol in LDL [mass/volume] in serum or plasma by direct assay 134 mg/dL 1-129 Serum or plasma cholesterol in VLDL measurement (mass/ volume) 23 mg/dL 5-40 Methicillin resistant Staphylococcus aur eus (MRSA) screening culture - 10/27/16 07:30 Methicillin resistant Staphylococcus aureus (MRSA) scr eening culture NEG NRG Complete blood count (CBC) with automate d white blood cell (WBC) differential - 11/05/16 12:25 Blood leukocytes automated count (number/volume) 7.8 10*3/uL 4.3-11.0 Blood erythrocytes automated count (number/volume) 3.80 10*6/uL 4.35-5.85 Venous blood hemoglobin measurement (mass/volume) 13.0 g/dL 11.5-16.0 Blood hematocrit (volume fraction) 38 % 35-52 Automated erythrocyte mean corpuscular volume 101 [foz_us] 80-99 Automated erythrocyte mean corpuscular h emoglobin (mass per erythrocyte) 34 pg 25-34 Automated erythrocyte mean corpuscular h emoglobin concentration measurement (mass/volume) 34 g/dL 32-36 Automated erythrocyte distribution width ratio 13. 0 % 10.0- 14.5 Automated blood platelet count (count/volume) 260 10*3/uL [...] 10*3 1.0-4.0 Blood monocytes automated count (number/volume) 0. 4 10*3 0.0-1.0 Automated eosinophil count 0.1 10*3/uL 0 .0-0.3 Automated blood basophil count (count/volume) 0.0 10*3/uL 0.0-0.1 Comprehensive metabolic panel - 11/05/16 12:25 Serum or plasma sodium measurement (moles/volume) 139 mmol/L 135-145 Serum or plasma potassium measurement (moles/volume) 3.4 mmol/L 3.6-5.0 Serum or plasma chloride measurement (moles/volume) 105 mmol/L 98-107 Carbon dioxide 26 mmol/L 21-32 Serum or plasma anion gap determination (moles/volume) 8 mmol/L 5-14 Serum or plasma urea nitrogen measurement (mass/volume ) 14 mg/dL 7-18 Serum or plasma creatinine measurement (mass/volume) 1.02 mg/dL 0.60-1.30 Serum or plasma urea nitrogen/creatinine mass ratio 14 NRG Serum or plasma creatinine measurement w ith calculation of estimated glomerular filtration rate 56 NRG Serum or plasma glucose measurement (mass/volume) 79 mg/dL 70-105 Serum or plasma calcium measurement (mass/volume) 9.6 mg/dL 8.5-10.1 Serum or plasma total bilirubin measurement (mass/volu me) 0.7 mg/dL 0.1-1.0 Serum or plasma alkaline phosphatase deanna surement (enzymatic activity/volume) 64 U/L 40-136 Serum or plasma aspartate aminotransfera se measurement (enzymatic activity/volume) 18 U/L 5-34 Serum or plasma alanine aminotransferase measurement (enzymatic activity/volume) 17 U/L 0-55 Serum or plasma protein measurement (mass/volume) 7.5 g/dL 6.4-8.2 Serum or plasma albumin measurement (mass/volume) 4.5 g/dL 3.2-4.5 THYROID STIMULATING HORMONE - 11/05/16 1 2:25 THYROID STIMULATING HORMONE 6.40 u[iU]/mL 0.35-4.94 Serum or plasma thyroxine (T4) free deyanira urement (mass/volume) - 11/05/16 12:25 Serum or plasma thyroxine (T4) free measurement (mass/ volume) 0.54 ng/dL 0.70-1.48 Cyanocobalamin measurement - 11/05/16 12 :25 Vitamin B12 278 pg/mL 200-1000 25-hydroxyvitamin D measurement - 12:25 25-hydroxy vitamin D measurement 18 % 30-100 [id number] - 11/05/16 12:25 Complement C3 nephritic [mass/volume] in serum or plas ma 124 mg/dL 73-183 Complement C4 [mass/volume] in serum or plasma 23 mg/dL 15- 59 Screening antinuclear antibody (RENÉE) assay by enzyme i mmunoassay <1:80 <1:80 Serum DNA double strand antibody assay (units/volume) 58 [iU]/mL 0-300 SS-A antibody assay < eq/mL <20 SS-B antibody assay < eq/mL <20 Serum Pyle extractable nuclear antigen (RUPESH) antibody assay (units/volume) < eq/mL <20 Scl-70 ab < eq/mL <20 Ribonucleic protein antibody assay <20 <20 Serum Jacque-1 extractable nuclear antibody assay (units/v olume) < eq/mL <20 * Reference lab test name - 11/05/16 12: 25 * Reference lab test results JCV Stratify Ab NRG Cerebrospinal fluid cell count - 7 12:31 Cerebrospinal fluid appearance description CLEAR NRG Cerebrospinal fluid color identification COLORLESS NRG Cerebrospinal fluid leukocytes count (number/volume) 0 % 0-5 Cerebrospinal fluid erythrocytes count (number/volume) 0 % 0-0 Cerebrospinal fluid cell count on specimen from last t ube collected 4 NRG Cerebrospinal fluid glucose measurement [...] NG NRG Virus identification by culture - 12:31 Virus identification by culture FOOTNOTE NRG Cerebrospinal fluid VDRL titer - 7 12:31 Cerebrospinal fluid VDRL titer Non Reactive Non Reactiv Multiple sclerosis panel - 11/13/16 12:3 1 Serum or plasma albumin measurement (mass/volume) 4.6 g/dL 3.5-4.9 Cerebrospinal fluid oligoclonal bands detection BANDS NOTED NO BANDS Myelin basic protein [mass/volume] in serum < ug/L 0-4.0 Albumin [mass/volume] in cerebral spinal fluid 9.7 mg/dL 8.0-42.0 Quantitative cerebrospinal fluid IgG measurement 1 .3 mg/dL 0.8-7.7 Serum or plasma IgG measurement (mass/volume) 922 mg/dL 694- 1618 Cerebrospinal fluid IgG index 0.67 H <0.66 Cerebrospinal fluid IgG synthesis rate -1.5 mg -9.9to +3.3 Complete blood count (CBC) with automate d white blood cell (WBC) differential - 01/02/17 17:00 Blood leukocytes automated count (number/volume) 7.6 10*3/uL 4.3-11.0 Blood erythrocytes automated count (number/volume) 3.47 10*6/uL 4.35-5.85 Venous blood hemoglobin measurement (mass/volume) 12.3 g/dL 11.5-16.0 Blood hematocrit (volume fraction) 36 % 35-52 Automated erythrocyte mean corpuscular volume 103 [foz_us] 80-99 Automated erythrocyte mean corpuscular h emoglobin (mass per erythrocyte) 35 pg 25-34 Automated erythrocyte mean corpuscular h emoglobin concentration measurement (mass/volume) 35 g/dL 32-36 Automated erythrocyte distribution width ratio 12. 4 % 10.0- 14.5 Automated blood platelet count (count/volume) 237 10*3/uL [...] 10*3 1.0-4.0 Blood monocytes automated count (number/volume) 0. 5 10*3 0.0-1.0 Automated eosinophil count 0.1 10*3/uL 0 .0-0.3 Automated blood basophil count (count/volume) 0.0 10*3/uL 0.0-0.1 Comprehensive metabolic panel - 01/02/17 17:00 Serum or plasma sodium measurement (moles/volume) 143 mmol/L 135-145 Serum or plasma potassium measurement (moles/volume) 3.6 mmol/L 3.6-5.0 Serum or plasma chloride measurement (moles/volume) 109 mmol/L 98-107 Carbon dioxide 24 mmol/L 21-32 Serum or plasma anion gap determination (moles/volume) 10 mmol/L 5-14 Serum or plasma urea nitrogen measurement (mass/volume ) 11 mg/dL 7-18 Serum or plasma creatinine measurement (mass/volume) 0.82 mg/dL 0.60-1.30 Serum or plasma urea nitrogen/creatinine mass ratio 13 NRG Serum or plasma creatinine measurement w ith calculation of estimated glomerular filtration rate > NRG Serum or plasma glucose measurement (mass/volume) 92 mg/dL 70-105 Serum or plasma calcium measurement (mass/volume) 9.2 mg/dL 8.5-10.1 Serum or plasma total bilirubin measurement (mass/volu me) 0.5 mg/dL 0.1-1.0 Serum or plasma alkaline phosphatase deanna surement (enzymatic activity/volume) 62 U/L 40-136 Serum or plasma aspartate aminotransfera se measurement (enzymatic activity/volume) 30 U/L 5-34 Serum or plasma alanine aminotransferase measurement (enzymatic activity/volume) 27 U/L 0-55 Serum or plasma protein measurement (mass/volume) 6.8 g/dL 6.4-8.2 Serum or plasma albumin measurement (mass/volume) 3.9 g/dL 3.2-4.5 Automated blood complete blood count (he mogram) panel - 01/20/17 06:57 Blood leukocytes automated count (number/volume) 6.8 10*3/uL 4.3-11.0 Blood erythrocytes automated count (number/volume) 3.35 10*6/uL 4.35-5.85 Venous blood hemoglobin measurement (mass/volume) 11.4 g/dL 11.5-16.0 Blood hematocrit (volume fraction) 36 % 35-52 Automated erythrocyte mean corpuscular volume 108 [foz_us] 80-99 Automated erythrocyte mean corpuscular h emoglobin (mass per erythrocyte) 34 pg 25-34 Automated erythrocyte mean corpuscular h emoglobin concentration measurement (mass/volume) 32 g/dL 32-36 Automated erythrocyte distribution width ratio 12. 5 % 10.0- 14.5 Automated blood platelet count (count/volume) 225 10*3/uL [...] 5-14 Serum or plasma urea nitrogen measurement (mass/volume ) 16 mg/dL 7-18 Serum or plasma creatinine measurement (mass/volume) 0.88 mg/dL 0.60-1.30 Serum or plasma urea nitrogen/creatinine mass ratio 18 NRG Serum or plasma creatinine measurement w ith calculation of estimated glomerular filtration rate > NRG Serum or plasma glucose measurement (mass/volume) 81 mg/dL 70-105 Serum or plasma calcium measurement (mass/volume) 9.2 mg/dL 8.5-10.1 Serum or plasma total bilirubin measurement (mass/volu me) 0.6 mg/dL 0.1-1.0 Serum or plasma alkaline phosphatase deanna surement (enzymatic activity/volume) 63 U/L 40-136 Serum or plasma aspartate aminotransfera se measurement (enzymatic activity/volume) 18 U/L 5-34 Serum or plasma alanine aminotransferase measurement (enzymatic activity/volume) 18 U/L 0-55 Serum or plasma protein measurement (mass/volume) 6.5 g/dL 6.4-8.2 Serum or plasma albumin measurement (mass/volume) 3.8 g/dL 3.2-4.5 THYROID STIMULATING HORMONE - 01/20/17 0 6:57 THYROID STIMULATING HORMONE 0.15 u[iU]/mL 0.35-4.94 Thyroxine (T4) measurement - 01/20/17 06 :57 T4 (thyroxine) 9.2 % 5.5-12.0 Automated blood complete blood count (he mogram) panel - 08/02/17 08:43 Blood leukocytes automated count (number/volume) 5.0 10*3/uL 4.3-11.0 Blood erythrocytes automated count (number/volume) 3.42 10*6/uL 4.35-5.85 Venous blood hemoglobin measurement (mass/volume) 11.8 g/dL 11.5-16.0 Blood hematocrit (volume fraction) 34 % 35-52 Automated erythrocyte mean corpuscular volume 100 [foz_us] 80-99 Automated erythrocyte mean corpuscular h emoglobin (mass per erythrocyte) 35 pg 25-34 Automated erythrocyte mean corpuscular h emoglobin concentration measurement (mass/volume) 34 g/dL 32-36 Automated erythrocyte distribution width ratio 13. 0 % 10.0- 14.5 Automated blood platelet count (count/volume) 210 10*3/uL [...] 5-14 Serum or plasma urea nitrogen measurement (mass/volume ) 13 mg/dL 7-18 Serum or plasma creatinine measurement (mass/volume) 0.92 mg/dL 0.60-1.30 Serum or plasma urea nitrogen/creatinine mass ratio 14 NRG Serum or plasma creatinine measurement w ith calculation of estimated glomerular filtration rate > NRG Serum or plasma glucose measurement (mass/volume) 85 mg/dL 70-105 Serum or plasma calcium measurement (mass/volume) 9.2 mg/dL 8.5-10.1 Serum or plasma total bilirubin measurement (mass/volu me) 0.6 mg/dL 0.1-1.0 Serum or plasma alkaline phosphatase deanna surement (enzymatic activity/volume) 65 U/L 40-136 Serum or plasma aspartate aminotransfera se measurement (enzymatic activity/volume) 22 U/L 5-34 Serum or plasma alanine aminotransferase measurement (enzymatic activity/volume) 22 U/L 0-55 Serum or plasma protein measurement (mass/volume) 6.9 g/dL 6.4-8.2 Serum or plasma albumin measurement (mass/volume) 4.1 g/dL 3.2-4.5 Lipid 1996 panel - 08/02/17 08:43 Serum or plasma triglyceride measurement (mass/volume) 220 mg/dL <150 Serum or plasma cholesterol measurement (mass/volume) 222 mg/dL < 200 Serum or plasma cholesterol in HDL measurement (mass/v olume) 60 mg/dL 40-60 Cholesterol in LDL [mass/volume] in serum or plasma by direct assay 116 mg/dL 1-129 Serum or plasma cholesterol in VLDL measurement (mass/ volume) 44 mg/dL 5-40 THYROID STIMULATING HORMONE - 08/02/17 0 8:43 THYROID STIMULATING HORMONE 0.41 u[iU]/mL 0.35-4.94 Serum or plasma thyroxine (T4) free deyanira urement (mass/volume) - 08/02/17 08:43 Serum or plasma thyroxine (T4) free measurement (mass/ volume) 1.13 ng/dL 0.70-1.48 25-hydroxyvitamin D measurement - 08:43 25-hydroxy vitamin D measurement 10 % 30-100 Complete urinalysis with reflex to cultu re - 10/08/17 12:30 Urine color determination YELLOW NRG Urine clarity determination CLEAR NR G Urine pH measurement by test strip 5 5-9 Specific gravity of urine by test strip 1.010 1.016-1.022 Urine protein assay by test strip, semi-quantitative NEGATIVE NEGATIVE Urine glucose detection by automated test strip NE GATIVE NEGATIVE Erythrocytes detection in urine sediment by light micr oscopy NEGATIVE NEGATIVE Urine ketones detection by automated test strip NE GATIVE NEGATIVE Urine nitrite detection by test strip NEGATIVE NEGATIVE Urine total bilirubin detection by test strip NEGA TIVE NEGATIVE Urine urobilinogen measurement by automated test strip (mass/volume) NORMAL NORMAL Urine leukocyte esterase detection by dipstick 2+ NEGATIVE Automated urine sediment erythrocyte cou nt by microscopy (number/high power field) NONE NRG Automated urine sediment leukocyte count by microscopy (number/high power field) [HPF] NRG Bacteria detection in urine sediment by light microsco py TRACE NRG Squamous epithelial cells detection in u rine sediment by light microscopy 0-2 NRG Crystals detection in urine sediment by light microsco py NONE NRG Casts detection in urine sediment by light microscopy NONE NRG Mucus detection in urine sediment by light microscopy NEGATIVE NRG Complete urinalysis with reflex to culture YES NRG Bacterial urine culture - 10/08/17 12:30 Bacterial urine culture [id number] NRG COLONY COUNT <10,000 NRG FTX;REPORTABLE PLUS,, NRG FREE TEXT ENTRY 2 MIXED GRAM POSITIVES <10,000/ML NRG Complete blood count (CBC) with automate d white blood cell (WBC) differential - 10/08/17 12:45 Blood leukocytes automated count (number/volume) 5.0 10*3/uL 4.3-11.0 Blood erythrocytes automated count (number/volume) 3.87 10*6/uL 4.35-5.85 Venous blood hemoglobin measurement (mass/volume) 13.1 g/dL 11.5-16.0 Blood hematocrit (volume fraction) 38 % 35-52 Automated erythrocyte mean corpuscular volume 98 [ foz_us] 80-99 Automated erythrocyte mean corpuscular h emoglobin (mass per erythrocyte) 34 pg 25-34 Automated erythrocyte mean corpuscular h emoglobin concentration measurement (mass/volume) 35 g/dL 32-36 Automated erythrocyte distribution width ratio 11. 9 % 10.0- 14.5 Automated blood platelet count (count/volume) 174 10*3/uL [...] 10*3 1.0-4.0 Blood monocytes automated count (number/volume) 0. 3 10*3 0.0-1.0 Automated eosinophil count 0.1 10*3/uL 0 .0-0.3 Automated blood basophil count (count/volume) 0.0 10*3/uL 0.0-0.1 Comprehensive metabolic panel - 10/08/17 12:45 Serum or plasma sodium measurement (moles/volume) 138 mmol/L 135-145 Serum or plasma potassium measurement (moles/volume) 4.4 mmol/L 3.6-5.0 Serum or plasma chloride measurement (moles/volume) 100 mmol/L 98-107 Carbon dioxide 27 mmol/L 21-32 Serum or plasma anion gap determination (moles/volume) 11 mmol/L 5-14 Serum or plasma urea nitrogen measurement (mass/volume ) 14 mg/dL 7-18 Serum or plasma creatinine measurement (mass/volume) 0.85 mg/dL 0.60-1.30 Serum or plasma urea nitrogen/creatinine mass ratio 16 NRG Serum or plasma creatinine measurement w ith calculation of estimated glomerular filtration rate > NRG Serum or plasma glucose measurement (mass/volume) 82 mg/dL 70-105 Serum or plasma calcium measurement (mass/volume) 9.8 mg/dL 8.5-10.1 Serum or plasma total bilirubin measurement (mass/volu me) 0.6 mg/dL 0.1-1.0 Serum or plasma alkaline phosphatase deanna surement (enzymatic activity/volume) 69 U/L 40-136 Serum or plasma aspartate aminotransfera se measurement (enzymatic activity/volume) 32 U/L 5-34 Serum or plasma alanine aminotransferase measurement (enzymatic activity/volume) 28 U/L 0-55 Serum or plasma protein measurement (mass/volume) 7.8 g/dL 6.4-8.2 Serum or plasma albumin measurement (mass/volume) 4.6 g/dL 3.2-4.5 Automated blood complete blood count (he mogram) panel - 01/06/18 07:29 Blood leukocytes automated count (number/volume) 4.0 10*3/uL 4.3-11.0 Blood erythrocytes automated count (number/volume) 3.39 10*6/uL 4.35-5.85 Venous blood hemoglobin measurement (mass/volume) 11.5 g/dL 11.5-16.0 Blood hematocrit (volume fraction) 35 % 35-52 Automated erythrocyte mean corpuscular volume 102 [foz_us] 80-99 Automated erythrocyte mean corpuscular h emoglobin (mass per erythrocyte) 34 pg 25-34 Automated erythrocyte mean corpuscular h emoglobin concentration measurement (mass/volume) 33 g/dL 32-36 Automated erythrocyte distribution width ratio 13. 0 % 10.0- 14.5 Automated blood platelet count (count/volume) 197 10*3/uL 130-400 Automated blood platelet mean volume measurement 9.6 [foz_us] 7.4-10.4 Automated blood complete blood count (he mogram) panel - 01/06/18 07:29 Blood leukocytes automated count (number/volume) 4.1 10*3/uL 4.3-11.0 Blood erythrocytes automated count (number/volume) 3.36 10*6/uL 4.35-5.85 Venous blood hemoglobin measurement (mass/volume) 11.4 g/dL 11.5-16.0 Blood hematocrit (volume fraction) 34 % 35-52 Automated erythrocyte mean corpuscular volume 102 [foz_us] 80-99 Automated erythrocyte mean corpuscular h emoglobin (mass per erythrocyte) 34 pg 25-34 Automated erythrocyte mean corpuscular h emoglobin concentration measurement (mass/volume) 33 g/dL 32-36 Automated erythrocyte distribution width ratio 12. 9 % 10.0- 14.5 Automated blood platelet count (count/volume) 200 10*3/uL [...] 5-14 Serum or plasma urea nitrogen measurement (mass/volume ) 14 mg/dL 7-18 Serum or plasma creatinine measurement (mass/volume) 0.96 mg/dL 0.60-1.30 Serum or plasma urea nitrogen/creatinine mass ratio 15 NRG Serum or plasma creatinine measurement w ith calculation of estimated glomerular filtration rate 60 NRG Serum or plasma glucose measurement (mass/volume) 99 mg/dL 70-105 Serum or plasma calcium measurement (mass/volume) 9.2 mg/dL 8.5-10.1 Serum or plasma total bilirubin measurement (mass/volu me) 0.5 mg/dL 0.1-1.0 Serum or plasma alkaline phosphatase deanna surement (enzymatic activity/volume) 60 U/L 40-136 Serum or plasma aspartate aminotransfera se measurement (enzymatic activity/volume) 25 U/L 5-34 Serum or plasma alanine aminotransferase measurement (enzymatic activity/volume) 28 U/L 0-55 Serum or plasma protein [...] 5-14 Serum or plasma urea nitrogen measurement (mass/volume ) 14 mg/dL 7-18 Serum or plasma creatinine measurement (mass/volume) 0.96 mg/dL 0.60-1.30 Serum or plasma urea nitrogen/creatinine mass ratio 15 NRG Serum or plasma creatinine measurement w ith calculation of estimated glomerular filtration rate 60 NRG Serum or plasma glucose measurement (mass/volume) 100 mg/dL 70-105 Serum or plasma calcium measurement (mass/volume) 9.2 mg/dL 8.5-10.1 Serum or plasma total bilirubin measurement (mass/volu me) 0.5 mg/dL 0.1-1.0 Serum or plasma alkaline phosphatase deanna surement (enzymatic activity/volume) 61 U/L 40-136 Serum or plasma aspartate aminotransfera se measurement (enzymatic activity/volume) 25 U/L 5-34 Serum or plasma alanine aminotransferase measurement (enzymatic activity/volume) 28 U/L 0-55 Serum or plasma protein measurement (mass/volume) 7.0 g/dL 6.4-8.2 Serum or plasma albumin measurement (mass/volume) 4.2 g/dL 3.2-4.5 Lipid 1996 panel - 01/06/18 07:29 Serum or plasma triglyceride measurement (mass/volume) 113 mg/dL <150 Serum or plasma cholesterol measurement (mass/volume) 201 mg/dL < 200 Serum or plasma cholesterol in HDL measurement (mass/v olume) 64 mg/dL 40-60 Cholesterol in LDL [mass/volume] in serum or plasma by direct assay 106 mg/dL 1-129 Serum or plasma cholesterol in VLDL measurement (mass/ volume) 23 mg/dL 5-40 THYROID STIMULATING HORMONE - 01/06/18 0 7:29 THYROID STIMULATING HORMONE 0.52 u[iU]/mL 0.35-4.94 VITAMIN D 25-HYDROXY - 01/06/18 07:29 VITAMIN D 25-HYDROXY (TOTAL) 20.5 % 3 0.0-100.0 Cyanocobalamin measurement - 01/06/18 07 :29 Vitamin B12 191 pg/mL 190-1100 Complete blood count (CBC) with automate d white blood cell (WBC) differential - 03/21/18 12:32 Blood leukocytes automated count (number/volume) 5.3 10*3/uL 4.3-11.0 Blood erythrocytes automated count (number/volume) 3.64 10*6/uL 4.35-5.85 Venous blood hemoglobin measurement (mass/volume) 12.6 g/dL 11.5-16.0 Blood hematocrit (volume fraction) 36 % 35-52 Automated erythrocyte mean corpuscular volume 100 [foz_us] 80-99 Automated erythrocyte mean corpuscular h emoglobin (mass per erythrocyte) 35 pg 25-34 Automated erythrocyte mean corpuscular h emoglobin concentration measurement (mass/volume) 35 g/dL 32-36 Automated erythrocyte distribution width ratio 12. 0 % 10.0- 14.5 Automated blood platelet count (count/volume) 203 10*3/uL [...] 10*3 1.0-4.0 Blood monocytes automated count (number/volume) 0. 4 10*3 0.0-1.0 Automated eosinophil count 0.1 10*3/uL 0 .0-0.3 Automated blood basophil count (count/volume) 0.0 10*3/uL 0.0-0.1 Comprehensive metabolic panel - 03/21/18 12:32 Serum or plasma sodium measurement (moles/volume) 141 mmol/L 135-145 Serum or plasma potassium measurement (moles/volume) 4.3 mmol/L 3.6-5.0 Serum or plasma chloride measurement (moles/volume) 105 mmol/L 98-107 Carbon dioxide 25 mmol/L 21-32 Serum or plasma anion gap determination (moles/volume) 11 mmol/L 5-14 Serum or plasma urea nitrogen measurement (mass/volume ) 12 mg/dL 7-18 Serum or plasma creatinine measurement (mass/volume) 0.83 mg/dL 0.60-1.30 Serum or plasma urea nitrogen/creatinine mass ratio 14 NRG Serum or plasma creatinine measurement w ith calculation of estimated glomerular filtration rate > NRG Serum or plasma glucose measurement (mass/volume) 86 mg/dL 70-105 Serum or plasma calcium measurement (mass/volume) 9.5 mg/dL 8.5-10.1 Serum or plasma total bilirubin measurement (mass/volu me) 0.6 mg/dL 0.1-1.0 Serum or plasma alkaline phosphatase deanna surement (enzymatic activity/volume) 69 U/L 40-136 Serum or plasma aspartate aminotransfera se measurement (enzymatic activity/volume) 32 U/L 5-34 Serum or plasma alanine aminotransferase measurement (enzymatic activity/volume) 34 U/L 0-55 Serum or plasma protein measurement (mass/volume) 7.6 g/dL 6.4-8.2 Serum or plasma albumin measurement (mass/volume) 4.5 g/dL 3.2-4.5 CALCIUM CORRECTED 9.1 mg/dL 8.5-10.1 THYROID STIMULATING HORMONE - 03/21/18 1 2:32 THYROID STIMULATING HORMONE 0.53 u[iU]/mL 0.35-4.94 Tick identification panel - 03/21/18 12: 32 Serum Ehrlichia chaffeensis IgG antibody detection <1:16 <1:16 Serum Ehrlichia chaffeensis IgM antibody detection <1:10 <1:10 Serum Rickettsia rickettsii IgG antibody assay (units/ volume) < <1:16 Gilby spotted fever panel < <1:10 Francisella tularensis antibody assay <1:20 NRG LYME AB G M 0.46 % 0.00-0.89 Interpretation of Lyme disease antibody assay Nega tive Negative Hemoglobin A1c - 03/21/18 12:32 Blood hemoglobin A1C measurement (mass/volume) 5.2 % 4.0-5.6 MEAN BLOOD GLUCOSE 103 % <=126 Cyanocobalamin measurement - 03/21/18 12 :32 Vitamin B12 398 pg/mL 190-1100 VITAMIN D 25-HYDROXY - 03/21/18 12:32 VITAMIN D 25-HYDROXY (TOTAL) 30.7 % 3 0.0-100.0 [id number] - 09/02/18 08:40 Serum or plasma urea nitrogen measurement (mass/volume ) 16 mg/dL 7-18 Serum or plasma creatinine measurement (mass/volume) 1.01 mg/dL 0.60-1.30 Serum or plasma urea nitrogen/creatinine mass ratio 16 NRG Serum or plasma creatinine measurement w ith calculation of estimated glomerular filtration rate 56 NRG Cyanocobalamin measurement - 09/02/18 08 :43 Vitamin B12 370 pg/mL 190-1100 VITAMIN D 25-HYDROXY - 09/02/18 08:43 VITAMIN D 25-HYDROXY (TOTAL) 21.4 % 3 0.0-100.0 Complete blood count (CBC) with automate d white blood cell (WBC) differential - 03/14/19 11:05 Blood leukocytes automated count (number/volume) 4.5 10*3/uL 4.3-11.0 Blood erythrocytes automated count (number/volume) 3.67 10*6/uL 4.35-5.85 Venous blood hemoglobin measurement (mass/volume) 12.0 g/dL 11.5-16.0 Blood hematocrit (volume fraction) 37 % 35-52 Automated erythrocyte mean corpuscular volume 100 [foz_us] 80-99 Automated erythrocyte mean corpuscular h emoglobin (mass per erythrocyte) 33 pg 25-34 Automated erythrocyte mean corpuscular h emoglobin concentration measurement (mass/volume) 33 g/dL 32-36 Automated erythrocyte distribution width ratio 12. 9 % 10.0- 14.5 Automated blood platelet count (count/volume) 160 10*3/uL 130-400 Automated blood platelet mean volume measurement 10.2 [foz_us] 7.4-10.4 Automated blood neutrophils/100 leukocytes 64 % 42-75 Automated blood lymphocytes/100 leukocytes 26 % 12-44 Blood monocytes/100 leukocytes 8 % 0-12 Automated blood eosinophils/100 leukocytes 2 % 0-10 Automated blood basophils/100 leukocytes 0 % 0-10 Blood neutrophils automated count (number/volume) 2.9 10*3 1.8-7.8 Blood lymphocytes automated count (number/volume) 1.2 10*3 1.0-4.0 Blood monocytes automated count (number/volume) 0. 4 10*3 0.0-1.0 Automated eosinophil count 0.1 10*3/uL 0 .0-0.3 Automated blood basophil count (count/volume) 0.0 10*3/uL 0.0-0.1 Comprehensive metabolic panel - 03/14/19 11:05 Serum or plasma sodium measurement (moles/volume) 143 mmol/L 135-145 Serum or plasma potassium measurement (moles/volume) 3.9 mmol/L 3.6-5.0 Serum or plasma chloride measurement (moles/volume) 110 mmol/L 98-107 Carbon dioxide 28 mmol/L 21-32 Serum or plasma anion gap determination (moles/volume) 5 mmol/L 5-14 Serum or plasma urea nitrogen measurement (mass/volume ) 14 mg/dL 7-18 Serum or plasma creatinine measurement (mass/volume) 1.05 mg/dL 0.60-1.30 Serum or plasma urea nitrogen/creatinine mass ratio 13 NRG Serum or plasma creatinine measurement w ith calculation of estimated glomerular filtration rate 54 NRG Serum or plasma glucose measurement (mass/volume) 74 mg/dL 70-105 Serum or plasma calcium measurement (mass/volume) 9.3 mg/dL 8.5-10.1 Serum or plasma total bilirubin measurement (mass/volu me) 0.4 mg/dL 0.1-1.0 Serum or plasma alkaline phosphatase deanna surement (enzymatic activity/volume) 64 U/L 40-136 Serum or plasma aspartate aminotransfera se measurement (enzymatic activity/volume) 22 U/L 5-34 Serum or plasma alanine aminotransferase measurement (enzymatic activity/volume) 19 U/L 0-55 Serum or plasma protein measurement (mass/volume) 7.0 g/dL 6.4-8.2 Serum or plasma albumin measurement (mass/volume) 4.3 g/dL 3.2-4.5 CALCIUM CORRECTED 9.1 mg/dL 8.5-10.1 Lipid 1996 panel - 03/14/19 11:05 Serum or plasma triglyceride measurement (mass/volume) 109 mg/dL <150 Serum or plasma cholesterol measurement (mass/volume) 175 mg/dL < 200 Serum or plasma cholesterol in HDL measurement (mass/v olume) 74 mg/dL 40-60 Cholesterol in LDL [mass/volume] in serum or plasma by direct assay 79 mg/dL 1-129 Serum or plasma cholesterol in VLDL measurement (mass/ volume) 22 mg/dL 5-40 THYROID STIMULATING HORMONE - 03/14/19 1 1:05 THYROID STIMULATING HORMONE 3.22 u[iU]/mL 0.35-4.94 THYROXINE T4 - 03/14/19 11:05 THYROXINE T4 5.6 % 5.5-12.0 VITAMIN B 12 - 03/14/19 11:05 VITAMIN B 12 556 pg/mL 190-1100 VITAMIN D 25-HYDROXY - 03/14/19 11:05 VITAMIN D 25-HYDROXY (TOTAL) 49.2 % 3 0.0-100.0 Encounters ACCT No. Visit Date/Time Discharge Status Pt. Type Provider Facility Loc./Unit Complaint [id number] 03/25/2015 13:14:27 ACT Document Registration [id number] 08/17/2019 18:40:00 08/17/2019 23:59:5 9 CLS Outpatient INDIA INMAN MD [facility] [id number] 12/19/2019 14:25:19 12/19/2019 23:59: 59 CLS Outpatient Tez Sánchez [id number] 11/23/2019 14:55:56 11/23/2019 23:59: 59 CLS Outpatient Tez Sánchez [id number] 12/12/2019 07:36:00 23:59:59 CLS Outpatient CATHLEEN WESTBROOK FACC, ADDIE CHAVIS CC DS [facility] CARD SOB,WEAKNESS,FATIGUE,BRADYCARDIA [id number] 12/07/2019 09:29:00 23:59:59 CLS Outpatient ADDIE CONNOLLY MD, FACC, FACP CC DS [facility] CARD SOB,WEAKNESS,FATIGUE,BRADYCARDIA [id number] 03/14/2019 10:50:00 23:59:59 CLS Outpatient LETY MCKEON APRN [facility] LAB I10,R53.83 [id number] 11/10/2018 06:37:00 06:58:00 DIS Emergency LAURA WESTBROOK, HUNTER Keen [facility] ER BITE ON RT ARM 2 DAYS A GO,WASP STING YESTERDAY [id number] 09/02/2018 08:27:00 23:59:59 CLS Outpatient RADHA GARY MD [facility] RAD MULTIPLE SCLEROSIS [id number] 08/15/2018 08:03:00 10:55:00 DIS Outpatient TANIYA DICKSON MD [facility] ENDO SCREENING [id number] 08/08/2018 05:59:00 15:52:00 DIS Outpatient TANIYA DICKSON MD [facility] PREOP COLONOSCOPY [id number] 03/21/2018 12:10:00 23:59:59 CLS Outpatient LETY MCKEON APRN [facility] LAB VIT D DEFICIENCY,PREDIABETES,FATIGUE,VIT B12 DEF [id number] 02/24/2018 06:46:00 23:59:59 CLS Outpatient LETY MCKEON APRN [facility] RAD CLOSED FRACTURE OF LEF T TIBIAL PLATEAU [id number] 01/06/2018 07:12:00 018 23:59:59 CLS Outpatient CONSTANCE PYLE APPLIQUER ZIGZAG [facility] LAB FATIGUE [id number] 01/06/2018 07:09:00 018 23:59:59 CLS Outpatient RADHA GARY MD [facility] RAD MULTIPLE SCLEROSIS EXAC ERBATION [id number] 10/08/2017 12:08:00 14:37:00 DIS Emergency VIOLA PAK MD [facility] ER MS FLARE UP [id number] 08/16/2017 07:45:00 018 23:59:59 CLS Outpatient CONSTANCE PYLE APRN [facility] RAD M54.5 LOW BACK PAIN [id number] 08/02/2017 08:26:00 018 23:59:59 CLS Outpatient RADHA GARY MD [facility] LAB G35 [id number] 03/14/2017 00:28:00 017 23:59:59 CLS Preadmit VIOLA PAK MD [facility] 4TH RCR INFUSION [id number] 01/04/2017 16:05:00 017 00:01:00 DIS Outpatient VIOLA PAK MD [facility] 4TH RCR INFUSION [id number] 01/20/2017 06:44:00 017 23:59:59 CLS Outpatient EUGENIO WESTBROOK, ELVIA Gregg [facility] LAB R53.8 E03 [id number] 01/02/2017 15:21:00 017 20:11:00 DIS Emergency VIOLA PAK MD [facility] ER FATIGUE/DIFF WALKING/FO GGY MEMORY [id number] 12/18/2016 13:10:00 017 23:59:59 CLS Outpatient CONSTANCE PYLE APRN [facility] RAD SCREENING Z12.31 [id number] 11/13/2016 09:08:00 017 23:59:59 CLS Outpatient RADHA GARY MD [facility] RAD G35 [id number] 11/12/2016 13:00:00 017 13:00:00 CAN Preadmit RADHA [facility]ARY [facility] MULTIPLE S[facility]EROSIS [id number] 11/05/2016 11:42:00 017 23:59:59 CLS Outpatient RADHA GARY MD [facility] LAB G35 [id number] 10/27/2016 06:51:00 13:50:00 DIS Outpatient CATHLEEN WESTBROOK FACC, ALI FACP CC DS [facility] CATH FATIGUE,ANG KAI [id number] 10/19/2016 11:58:00 12:59:00 DIS Outpatient TUCKER BARAJAS MD [facility] CARD SPONDYLOSIS [id number] 10/12/2016 12:21:00 13:26:00 DIS Outpatient TUCKER BARAJAS MD [facility] CARD SPONDYLOSIS [id number] 07/31/2016 09:57:00 23:59:59 CLS Outpatient CONSTANCE PYLE APPLIQUER ZIGZAG [facility] RAD THYROID NODULE [id number] 01/15/2016 19:59:00 06:20:00 DIS Outpatient MENA BLAS DO [facility] SLEEP GENE [id number] 12/24/2015 07:33:00 016 23:59:59 CLS Outpatient CATHLEEN WESTBROOK FACC, ADDIE BELLP CC DS [facility] CARD CHEST DISCOMFORT,PVC,SOB,ARTHRITIS [id number] 12/19/2015 14:00:00 23:59:59 CLS Outpatient CATHLEEN WESTBROOK FACC, ADDIE BELLP CC DS [facility] CARD CHEST DISCO MFORT; PVC [id number] 10/08/2015 07:58:00 016 23:59:59 CLS Outpatient ARAM LO APRN [facility] RAD REFLUX [id number] 09/23/2015 12:07:00 12:54:00 DIS Outpatient TUCKER BARAJAS MD [facility] CARD SPONDYLOSIS WO RADICULO CONSTANZA [id number] 09/20/2015 10:06:00 23:59:59 CLS Outpatient CONSTANCE PYLE APPLIQUER ZIGZAG [facility] LAB ADULT HEALTH EXAMINATION,HYPERLIPIDEMIA [id number] 09/16/2015 11:23:00 13:00:00 DIS Outpatient TUCKER BARAJAS MD [facility] CARD SPONDYLOSOSIS WO RADICU OLPATHY [id number] 03/25/2015 11:18:00 23:59:59 CLS Outpatient CONSTANCE PYLE APPLIQUER ZIGZAG [facility] LAB [id number] 02/01/2015 08:05:00 015 23:59:59 CLS Outpatient TUCKER BARAJAS MD [facility] CARD [id number] 01/25/2015 07:48:00 23:59:59 CLS Outpatient CONSTANCE PYLE APPLIQUER ZIGZAG [facility] RAD [id number] 12/28/2014 08:49:00 015 23:59:59 CLS Outpatient CONSTANCE PYLE APPLIQUER ZIGZAG [facility] LAB [id number] 12/17/2014 07:31:00 015 10:15:00 DIS Outpatient TANIYA DICKSON MD [facility] [id number] 12/13/2014 06:31:00 015 23:59:59 CLS Outpatient TANIYA DICKSON MD [facility] PREOP [id number] 10/12/2014 12:01:00 23:59:59 CLS Outpatient ELVIA BECKER MD [facility] CARD [id number] 09/24/2014 10:46:00 015 14:25:00 DIS Outpatient TANIYA DICKSON MD [facility] [id number] 09/18/2014 20:35:00 015 17:00:00 DIS Inpatient ELVIA BECKER MD [facility] [id number] 09/10/2014 12:53:00 015 13:48:00 DIS Outpatient TUCKER BARAJAS MD [facility] CARD [id number] 07/27/2014 14:02:00 23:59:59 CLS Outpatient BERYL KAY MD [facility] REHAB [id number] 04/21/2014 14:13:00 014 15:38:00 DIS Emergency RADHA KEARNEY APRN [facility] ER [id number] 03/31/2013 13:01:00 23:59:59 CLS Outpatient JUSTIN JOHNSON DO [facility] RAD [id number] 12/13/2012 13:35:00 23:59:59 CLS Outpatient OSIIALEJO CARRANZA Shaina SAWMILL MOULDER OPERATOR [facility] RAD [id number] 12/02/2012 09:39:00 23:59:59 CLS Outpatient OSJAMIE ALEJO Shaina SAWMILL MOULDER OPERATOR [facility] RAD [id number] 11/30/2012 12:46:00 23:59:59 CLS Outpatient OSJAMIE ALEJO M SAWMILL MOULDER OPERATOR [facility] RAD [id number] 10/21/2012 10:47:00 23:59:59 CLS Outpatient OSALEJO AYALA Shaina SAWMILL MOULDER OPERATOR [facility] RAD [id number] 02/21/2018 14:21:00 Document Registration [id number] 11/06/2015 09:40:00 Document Registration [id number] 09/07/2014 09:59:00 Document Registration [id number] 09/07/2014 09:59:00 Document Registration [id number] 09/07/2014 09:59:00 Document Registration [id number] 09/07/2014 09:59:00 Document Registration [id number] 11/27/2011 10:18:00 Document Registration [id number] 08/31/2011 20:10:00 Document Registration [id number] 12/11/2010 07:08:00 Document Registration [id number] 11/28/2010 06:22:00 Document Registration [id number] 10/14/2010 10:45:00 Document Registration [id number] 09/28/2016 10:29:00 09/28/2016 23:59: 00 DIS Outpatient Bk Recinos [id number] 04/29/2016 00:00:00 05/01/2016 14:40: 00 DIS Outpatient Bk Recinos [id number] 05/01/2016 12:42:37 Document Registration [id number] 04/21/2016 13:17:00 Document Registration
--- NOTE | 2020-01-30 13:39 | OPERATIVE REPORT ---
DATE OF SERVICE: 01/30/2020 PREOPERATIVE DIAGNOSES: Near syncope, bradycardia. POSTOPERATIVE DIAGNOSES: Near syncope, bradycardia. INDICATIONS: The patient is a 59-year-old lady who has a feeling of extreme tiredness that happens intermittently and she feels that her heartbeat is slow during that time. That has not been demonstrated on a 24-hour Holter monitor, but she feels that she has not had the monitor on when symptoms occur. Accordingly, an implantable loop recorder was carried out today after having obtained an informed consent. DESCRIPTION OF PROCEDURE: [facility] The left prepectoral area was prepared and draped in the usual sterile fashion. Lidocaine 1% was used for local anesthesia. The tools provided with [employer] Reveal LINQ device were used to make a pocket anterior to the fourth left intercostal space into which the device was placed. The serial number of the device is [id number]. Job ID: [id number] DocumentID: [id number] Dictated Date: 01/30/2020 10:24:43 Service Order Dispatcher Date: 01/30/2020 13:38:06 Dictated By: ADDIE CONNOLLY MD, MA, FACP, FACC,
== END | disposition home or self-care (01) ==
LOC: CATH 07:58
PROVIDERS: ATTEND Internal Medicine Cardiovascular Disease
DX: R55 Syncope and collapse (principal); R00.1 Bradycardia, unspecified; F41.9 Anxiety disorder, unspecified; I77.89 Other specified disorders of arteries and arterioles; F32.9 Major depressive disorder, single episode, unspecified; G47.10 Hypersomnia, unspecified; G35 Multiple sclerosis; M48.061 Spinal stenosis, lumbar region without neurogenic claudication; M19.91 Primary osteoarthritis, unspecified site; Z87.891 Personal history of nicotine dependence; E66.9 Obesity, unspecified; Z68.38 Body mass index [BMI] 38.0-38.9, adult; E03.9 Hypothyroidism, unspecified; Z79.890 Hormone replacement therapy; Z79.899 Other long term (current) drug therapy
CPT/HCPCS: 33285; C1764

== ENCOUNTER → 2021-01-07 | Outpatient (CLI) | payer MEDICARE ==
[~2021-01-07] MED LIST changes: -LIDOCAINE 1% INJ 20 ML 20 ML VIAL ONE; +SERT-413 PO
[2021-01-07 12:59] LABS: BASOPHILS % (AUTO) 1 % (0-10); EOSINOPHILS # (AUTO) 0.1 10^3/uL (0.0-0.3); EOSINOPHILS % (AUTO) 1 % (0-10); HEMATOCRIT 41 % (35-52); HEMOGLOBIN 14.1 g/dL (11.5-16.0); LYMPHOCYTES # (AUTO) 0.3 10^3/uL (1.0-4.0); LYMPHOCYTES % (AUTO) 5 % (12-44); MEAN CORPUSCULAR HEMOGLOBIN 37 pg (25-34); MEAN CORPUSCULAR HGB CONC 34 g/dL (32-36); MEAN CORPUSCULAR VOLUME 108 fL (80-99); MEAN PLATELET VOLUME 9.5 fL (9.0-12.2); MONOCYTES # (AUTO) 0.3 10^3/uL (0.0-1.0); MONOCYTES % (AUTO) 7 % (0-12); NEUTROPHILS % (AUTO) 86 % (42-75); PLATELET COUNT 242 10^3/uL (130-400); WHITE BLOOD COUNT 4.6 10^3/uL (4.3-11.0)
[2021-01-07 13:17] LABS: ALBUMIN 4.3 GM/DL (3.2-4.5); BILIRUBIN,TOTAL 0.6 MG/DL (0.1-1.0); CALCIUM 9.4 MG/DL (8.5-10.1); CREATININE SERUM 0.85 MG/DL (0.60-1.30); POTASSIUM 4.1 MMOL/L (3.6-5.0); TOTAL PROTEIN 7.7 GM/DL (6.4-8.2)
[2021-01-07 13:29] LABS: EOSINOPHILS % (MANUAL) 1 %; LYMPHOCYTES % (MANUAL) 6 %; MONOCYTES % (MANUAL) 5 %; NEUTROPHILS % (MANUAL) 88 %; PLATELET CLUMPS OCCASIONAL
[2021-01-07 13:39] LABS: FREE T4 (FREE THYROXINE) 1.17 NG/DL (0.70-1.48)
[2021-01-07 21:17] LABS: HEPATITIS C ANTIBODY C Non-Reactive (Non-Reactive)
== END ==
LOC: LAB 12:26
PROVIDERS: ATTEND Psychiatry & Neurology Neurology
DX: G35 Multiple sclerosis (principal)
CPT/HCPCS: 36415; 80053; 80074; 82607; 82784; 84439; 84443; 85007; 85027; 86480

== ENCOUNTER → 2022-01-27 | Outpatient (CLI) | payer MEDICARE, MEDICAID ==
--- NOTE | 2022-01-27 15:25 | Diagnostic Imaging Report ---
PROCEDURE: MRI lumbar spine. TECHNIQUE: Multiplanar, multisequence MRI of the lumbar spine was performed without contrast. INDICATION: Low back pain COMPARISON: Lumbar spine MRI of 08/16/2017. FINDINGS: Unchanged 2 mm of retrolisthesis of L5 on S1. No new spondylolisthesis. No fracture or concerning marrow replacing process. No extradural fluid collection. No sacral insufficiency fracture. The distal thoracic cord is normal in appearance. Paravertebral and psoas major muscles are normal. No concerning abnormality in the retroperitoneum. L1-L2: No disc bulge or herniation. No spinal canal or neuroforaminal stenosis. L2-L3: No disc bulge or herniation. No spinal canal or neuroforaminal stenosis. L3-L4: Small disc bulge. No resultant spinal canal or neuroforaminal stenosis. L4-L5: Small disc bulge is unchanged and does not result in spinal canal or neuroforaminal stenosis. L5-S1: Disc bulge is unchanged and results in narrowing of the left lateral recess but no compression of the intrathecal nerve roots. Severe bilateral neuroforaminal stenosis is unchanged. IMPRESSION: 1. No acute abnormality in the lumbar spine. 2. Multilevel degenerative changes remain stable since prior examination of 08/16/2017. These are greatest at L5-S1 where there is severe narrowing of lateral recesses with potential compression of the exiting L5 nerve roots. Dictated by: Dictated on workstation # [id number]
--- NOTE | 2022-01-27 16:09 | Diagnostic Imaging Report ---
EXAMINATION: LUMBAR SPINE - 2-3 VIEWS. INDICATION: Low back pain. COMPARISON: Lumbar spine MRI on 01/27/2022. TECHNIQUE: Two views of the lumbar spine. FINDINGS: Normal alignment of the lumbar spine. No compression deformity. No ankylosis of the vertebral bodies, posterior elements, or SI joints. Intervertebral disc space heights are preserved. Aortic calcifications are present. IMPRESSION: No osseous abnormality in the lumbar spine. Dictated by: Dictated on workstation # [id number]
== END ==
LOC: RAD 09:00
PROVIDERS: ATTEND Pain Medicine Interventional Pain Medicine
DX: M47.816 Spondylosis without myelopathy or radiculopathy, lumbar region (principal); M47.817 Spondylosis without myelopathy or radiculopathy, lumbosacral region
CPT/HCPCS: 72100; 72148

== ENCOUNTER → 2022-02-17 | Outpatient (CLI) | payer MEDICARE, MEDICAID ==
--- NOTE | 2022-02-17 15:13 | Diagnostic Imaging Report ---
CT Lung Screening INDICATION: Screening for lung cancer, 30 pack year history of smoking, current smoker TECHNIQUE: Noncontrast, low-dose CT imaging performed according to the lung cancer screening protocol. Auto Exposure Controls were utilize during the CT exam to meet ALARA standards for radiation dose reduction. COMPARISON:09/18/2014 FINDINGS:Loop recorder is present within the anterior left chest. No significant adenopathy within the chest. Mild scattered vascular calcifications, including within the coronary arteries without aneurysmal dilatation of the thoracic aorta. The heart is within normal limits in size. No pericardial effusion. No pleural effusion. No pneumothorax. Minimal secretions within the trachea. Mild background emphysematous changes, both paraseptal and centrilobular in nature. A 2 mm subpleural left lower lobe pulmonary nodule is unchanged since 2015, and benign. Pleural-based calcified granuloma within the right lower lobe, unchanged since 2015. Postsurgical changes associated with the stomach. The visualized upper abdomen is otherwise unremarkable. Mild scattered osseous degenerative changes without acute osseous abnormality. IMPRESSION:Mild background emphysematous changes without suspicious or actionable pulmonary nodule or acute abnormality. LUNG-RADS CATEGORY:2S: Benign appearance or behavior MODIFIER:S: Mild background emphysematous changes Follow-up: Continued annual low-dose CT of the chest in 12 months. Dictated by: Dictated on workstation # [id number]
== END ==
LOC: RAD 12:15
PROVIDERS: ATTEND Nurse Practitioner
DX: Z12.2 Encounter for screening for malignant neoplasm of respiratory organs (principal); J43.9 Emphysema, unspecified; F17.210 Nicotine dependence, cigarettes, uncomplicated
CPT/HCPCS: 71271

== ENCOUNTER → 2022-09-21 | Outpatient (CLI) | payer MEDICARE, MEDICAID ==
[~2022-09-21] MED LIST changes: +TOPI-241 PO; -TOPI50TA13 PO
== END ==
LOC: CARD 11:42
PROVIDERS: ATTEND Internal Medicine Cardiovascular Disease
DX: I51.7 Cardiomegaly (principal)
CPT/HCPCS: 93306

== ENCOUNTER 2022-10-20 13:03 | Outpatient (CLI) | payer MEDICARE, MEDICAID ==
[~2022-10-20] VITALS: Ht 157.5 cm; Wt 96.6 kg
[2022-10-20] MEDS ORDERED: OMEP40CA6 PO (15:37)
[2022-10-20] MEDS ORDERED: TEMA15CA PO (15:37)
[2022-10-20] MEDS ORDERED: LEVO112T55 PO (15:37)
[2022-10-20] MEDS ORDERED: OFAT20PE SQ (15:37)
[2022-10-20] MEDS ORDERED: SULF-221 PO (15:37)
[2022-10-20] MEDS ORDERED: CLON0.5T25 PO (15:37)
[2022-10-20] MEDS ORDERED: ARIP5TAB57 PO (15:37)
[2022-10-20] MEDS ORDERED: BUSP10TA95 PO (15:37)
[2022-10-20] MEDS ORDERED: HYOS-20 PO (15:37)
[2022-10-20] MEDS ORDERED: GBPN600T PO (15:37)
[2022-10-20] MEDS ORDERED: CYAN250014 PO (15:37)
[2022-10-20] MEDS ORDERED: ATOR40TA70 PO (15:37)
[2022-10-20] MEDS ORDERED: FESO8TAB PO (15:37)
[2022-10-20] MEDS ORDERED: RT-ALBUINH INH (15:37)
[2022-10-20] MEDS ORDERED: PARO30TA3 PO (15:37)
[2022-10-21] MEDS ORDERED: AMOX-355 PO (11:22)
[2022-10-21] MEDS ORDERED: ACHYD1T PO (11:22)
== END 2022-10-20 15:44 | disposition home or self-care (01) ==
LOC: PREOP 13:03
PROVIDERS: ATTEND Surgery
DX: Z01.818 Encounter for other preprocedural examination (principal)

== ENCOUNTER 2022-10-21 08:47 | Day surgery (SDC) | payer MEDICARE, MEDICAID ==
[~2022-10-21] VITALS: Ht 157.5 cm; Wt 96.6 kg
[2022-10-21] VITALS (11 sets, daily range): BP systolic 109–120; BP diastolic 43–62
[~2022-10-21 08:47] MED LIST changes: +ARIP5TAB57 PO; +ATOR40TA70 PO; +BUSP10TA95 PO; +CLON0.5T25 PO; +CYAN250014 PO; +FESO8TAB PO; +GBPN600T PO; +HYOS-20 PO; +LEVO112T55 PO; +OFAT20PE SQ; +OMEP40CA6 PO; +PARO30TA3 PO; +RT-ALBUINH INH; +SULF-221 PO; +TEMA15CA PO
[2022-10-21] MEDS ORDERED: ceFAZolin INJECTION 3,000 MG in NS (IVPB) 100 ML IV ONE (09:15)
[2022-10-21] MEDS: LACTATED RINGERS 1,000 ML IV PRN ×2 (09:25→11:17)
[2022-10-21] MEDS ORDERED: BUP/EPI 0.5% 1:200,000 (SENSORCAINE) 30 ML VIAL ONE (09:30)
--- NOTE | 2022-10-21 09:34 | Progress Note-Pre Operative ---
Pre-Operative Progress Note Date of Available H&P: October 20, 2022 Date H&P Reviewed: October 21, 2022 Time H&P Reviewed: 09:32 History & Physical: H&P Reviewed, Patient Examed, No changes noted Pre-Operative Diagnosis: Acute Cholecystitis/Cholelithiasis CYNDI MARQUEZ DO October 21, 2022 09:34
[2022-10-21] MEDS ORDERED: BUP/EPI 0.5% 1:200,000 (SENSORCAINE) 30 ML VIAL INJ ONE (09:45)
[2022-10-21] MEDS ORDERED: IOPAMIDOL 61% 30 ML (ISOVUE 300) VIAL DUCT ONE (09:45)
[2022-10-21] MEDS ORDERED: fentaNYL INJ 100 MCG/2 ML AMP ONE (10:00)
[2022-10-21] MEDS ORDERED: proPOfol 200 MG/20 ML (DIPRIVAN) VIAL IV ONE (10:00)
[2022-10-21] MEDS ORDERED: LIDOCAINE PF 2% 5 ML (XYLOCAINE) VIAL ONE (10:00)
[2022-10-21] MEDS ORDERED: ROCURONIUM 50 MG/5 ML (ZEMURON) VIAL IV ONE (10:00)
[2022-10-21] MEDS ORDERED: ONDANSETRON 4 MG/2 ML (SDV) Z0FRAN ONE ×2 (10:00→11:38)
--- NOTE | 2022-10-21 11:18 | Progress Note-Post Operative ---
Post-Operative Progess Note Surgeon (s)/Barrel Washer (s) Surgeon CYNDI MARQUEZ DO Barrel Washer: Eloy Pre-Operative Diagnosis Acute Cholecystitis/Cholelithiasis Post-Operative Diagnosis Same plus Hydrops and Purulent fluid Procedure & Operative Findings Date of Procedure 10/21/22 Procedure Performed/Findings PROCEDURE: Laparoscopic cholecystectomy with intraoperative cholangiogram. COMPLICATIONS: None. PROCEDURE: The patient was taken to the operating suite and was prepped and draped in sterile fashion. A surgical pause was performed. Just superior to the umbilicus, a 12 mm incision was made. Dissection was taken down to the fascia, which was then scored and grasped with a Beth and the abdomen was then entered. An 0 Vicryl suture was placed in a svglfy-ev-bdxvy fashion and a Colon trocar was placed and secured. Pneumoperitoneum was achieved. A 5mm trochar place in the subxyphoid and 2 in the right upper quadrant. The gallbladder was then grasped at the fundus and elevated in the superior direction. There were a lot of adhesions I had to take down, this is indicative of previous gallbladder attacks. The gallbladder also had very thickened wall with edema. While grasping the fundus got some clear fluid (Hydrops) and then purulent fluid came out. Finally able to grasp at Posadas's pouch and pull in the infero-lateral direction. The cystic duct and cystic artery were then dissected out. Clip was placed on the distal portion of the cystic duct which was then partially transected. An arrow catheter was inserted into the duct. The cholangiogram was then performed. No filling defects and contrast made its way into the duodenum. Catheter removed. Clips were placed on proximal portion of the cystic duct and then the duct was then transected. Clips were placed along the proximal and distal portion of the cystic artery which was then transected. Hook cautery was used to dissect the gallbladder from the gallbladder fossa achieving hemostasis. The gallbladder was placed in an Endobag and removed through the 12 mm trocar site. The abdomen was then reinspected. Copious amounts of irrigation were used to irrigate the abdomen and there were no signs of active bleeding. Hemostasis had been achieved. The 12 mm fascial defect was then closed with 0 Vicryl suture that had been placed in a mtgkha-mj-dzwia fashion. The abdomen was then desufflated, the trocars were removed. The abdomen was then washed and dried. The skin was then closed using 4-0 Monocryl in a subcuticular fashion. The abdomen was washed and dried and Skin Affix was place over incisions. Patient tolerated the procedure well without any complications and was taken to the recovery room in stable condition. Dr. Lyons assisted on this case helping to make incisions, close incisions, identify anatomy and hold anatomy out of the way. Anesthesia Type GET Estimated Blood Loss Estimated blood loss (mL): 20ml Specimens/Packing Specimens Removed GB and contents CYNDI MARQUEZ DO October 21, 2022 11:18
[2022-10-21] MEDS ORDERED: AMOX-355 PO (11:22)
[2022-10-21] MEDS ORDERED: ACHYD1T PO (11:22)
[2022-10-21] MEDS ORDERED: SEVOFLURANE (ULTANE) 15 ML INHAL SOLN ONE (11:23)
[2022-10-21] MEDS ORDERED: GLYCOPYRROLATE 0.2 MG/ML (ROBINUL) 2 ML VIAL ONE (11:23)
[2022-10-21] MEDS ORDERED: KETOROLAC 30 MG/ML VIAL ONE (11:23)
[2022-10-21] MEDS ORDERED: NEOSTIGMINE (BLOXIVERZ ) 1 MG/1ML 10 ML VIAL ONE (11:23)
--- NOTE | 2022-10-21 11:23 | Discharge Inst-Surgical ---
Discharge Inst-Surgical Depart Medication/Instructions New, Converted or Re-Newed RX: Transmitted to Pharmacy Patient Instructions Follow up Appt: Make appointment for 1 week. [phone] Instructions: No lifting greater than 20 pounds. No strenuous activity. May shower in 24 hours, no tub bath or soaking. Use incentive spirometer at home as directed. No Smoking Skin/Wound Care: May remove bandages in am. You need to leave the Dermabond on incision it will fall off on it's own. Symptoms to Report: Appetite Changes, Extremity Discoloration, Numbness/Tingling, Swelling Increased, Bleeding Excessive, Eyesight Changes, Pain Increased, Urine Color Change, Constipation(Persistent), Fever over 101 degree F, Pain/Pressure in chest, Urinating Difficulty, Cough Up/Vomit Blood, Heart Beat Irreg/Pounding, Pain/Pressure in jaw, Cramps in feet or legs, Lightheadedness, Pain/Pressure in shoulder, Diarrhea(Persistent), Memory Changes Suddenly, Questions/Concerns, Weight gain consecutive days, Dizziness/Fainting, Nausea/Vomiting, Shortness of Breath, Weight gain over 2 pounds If questions or concerns contact your physician Or seek help at emergency department. Activity Activity as Tolerated: Yes Activity Instructions: Avoid Stress to Incision Driving Instructions: No Driving/Refer to Diet Discharge Diet: Avoid Fatty Foods, Low Fat/Low Cholesterol Diet After 24 Hours: Clear Liquid if Nauseous If Any Problems/Questions/Issu: Contact Your Physician, Go to Emergency Room Skin/Wound Care Infection Signs and Symptoms: Increased Redness, Foul Odor of Wound, Increased Drainage, Skin Itchy or Has a Rash, Increased Swelling, Temperature Above 101 F Wound Care Comment: heating pad to shoulder or neck tonight for pain Bathing Instructions: Shower Stitches/[place]/Dermabond Dis: Dermabond Ice Pack: Ice On and Off Site CYNDI MARQUEZ DO October 21, 2022 11:23
[2022-10-21] MEDS ORDERED: morphine INJ 10 MG/ML 1ML (SYR OR VIAL) ONE (11:51)
[2022-10-21] MEDS ORDERED: PROMETHAZINE INJ 25 MG/ML (PHENERGAN) AMP ONE (11:55)
[2022-10-21] MEDS ORDERED: ONDANSETRON 4 MG/2 ML (SDV) Z0FRAN IVP PRN (12:00)
[2022-10-21] MEDS ORDERED: morphine INJ 10 MG/ML 1ML (SYR OR VIAL) IVP ONE (12:00)
[2022-10-21] MEDS ORDERED: PROMETHAZINE INJ 25 MG/ML (PHENERGAN) AMP IVP ONE (12:00)
[2022-10-21] MEDS ORDERED: diphenhydrAMINE 50 MG/ML INJ (BENADRYL) ONE (12:10)
--- NOTE | 2022-10-21 12:49 | Anesthesia-General Post-Op ---
General Patient Condition Mental Status/LOC: Same as Preop Cardiovascular: Satisfactory Nausea/Vomiting: Absent Respiratory: Satisfactory Pain: Controlled Complications: Absent Post Op Complications Complications None Follow Up Care/Instructions Patient Instructions None needed. Anesthesia/Patient Condition Patient Condition Patient is doing well, no complaints, stable vital signs, no apparent adverse anesthesia problems. No complications reported per nursing. SG CARDENAS CRNA October 21, 2022 12:49
--- NOTE | 2022-10-21 18:46 | Diagnostic Imaging Report ---
INDICATION: Cholecystectomy. EXAMINATION: Operative cholangiogram performed in the routine fashion. 41 images were obtained. 8.9 seconds of fluoroscopy time was used. FINDINGS: Intraoperative views demonstrate the biliary tree to be nondilated. There is no filling defect. There is passage of contrast through the duodenum without obstruction. IMPRESSION: Intraoperative views demonstrate patent biliary tree with no obstruction. Dictated by: Dictated on workstation # [id number]
== END 2022-10-21 13:40 ==
LOC: SDC 08:47
PROVIDERS: ATTEND Surgery
DX: K80.12 Calculus of gallbladder with acute and chronic cholecystitis without obstruction (principal); K82.8 Other specified diseases of gallbladder; K66.0 Peritoneal adhesions (postprocedural) (postinfection); E66.9 Obesity, unspecified; F17.210 Nicotine dependence, cigarettes, uncomplicated; Z68.38 Body mass index [BMI] 38.0-38.9, adult
CPT/HCPCS: 76000; 87081; 88304

== ENCOUNTER → 2022-12-22 | Outpatient (CLI) | payer MEDICARE, MEDICAID ==
[~2022-12-22] MED LIST changes: +ACHYD1T PO; +AMOX-355 PO; +REGADENOSON 0.4 MG/5 ML SYR (LEXISCAN) IV ONE
[2022-12-22] MEDS: CATHETER FLUSH 10 ML SYR IVP PRN ×2 (12:26→13:34)
[2022-12-22 13:26] VITALS: BP 135/63
== END ==
LOC: CARD 12:03
PROVIDERS: ATTEND Internal Medicine Cardiovascular Disease
DX: R07.89 Other chest pain (principal); R00.2 Palpitations
CPT/HCPCS: 78452; 93017; A9502

== ENCOUNTER → 2023-04-27 | Outpatient (CLI) | payer MEDICARE ==
[~2023-04-27] MED LIST changes: -REGADENOSON 0.4 MG/5 ML SYR (LEXISCAN) IV ONE
[2023-04-27 10:40] LABS: ABG BASE EXCESS 4.5 MMOL/L (-2.5-2.5); ABG OXYGEN SATURATION 95 % (94-100); ABG PCO2 46 MMHG (35-45); ABG PH 7.42 (7.37-7.43); ABG PO2 66 MMHG (79-93); ABG TCO2 31.2 MMOL/L (21.0-31.0); INSPIRED O2 ROOM AIR; VENTILATOR NO
--- NOTE | 2023-04-27 11:58 | Diagnostic Imaging Report ---
CT Lung Screening INDICATION: Screening for lung cancer, 45 pack year history of smoking, current smoker. TECHNIQUE: Noncontrast, low-dose CT imaging performed according to the lung cancer screening protocol. Auto Exposure Controls were utilize during the CT exam to meet ALARA standards for radiation dose reduction. COMPARISON:02/20/2022 and 09/18/2014 FINDINGS:Loop recorder within the anterior left chest. No significant adenopathy within the chest. Mild vascular calcifications without aneurysmal dilatation of thoracic aorta. The heart is within normal limits in size. No significant pericardial effusion. No pleural effusion. Mild bibasilar scarring and/or atelectasis. The trachea is patent. No pneumothorax. Mild background emphysematous changes. Stable tiny 2 mm subpleural left lower lobe pulmonary nodules. Mild bibasilar scarring and/or atelectasis. No new suspicious or actionable pulmonary nodule. Postsurgical changes involving the stomach. Cholecystectomy. Visualized upper abdomen is otherwise unremarkable. Scattered osseous degenerative changes without acute osseous abnormality. IMPRESSION:No suspicious or actionable pulmonary nodule. Mild background emphysematous changes. Additional stable postsurgical and chronic findings as above. LUNG-RADS CATEGORY:2: Benign appearance or behavior MODIFIER:None Follow-up: Continued annual low-dose CT of the chest in 12 months. Dictated by: Dictated on workstation # [id number]
== END ==
LOC: RAD 09:26
PROVIDERS: ATTEND Internal Medicine Critical Care Medicine
DX: J44.9 Chronic obstructive pulmonary disease, unspecified (principal); Z87.891 Personal history of nicotine dependence
CPT/HCPCS: 36600; 71271; 82805